=== PATIENT | female | born 1950 | race Caucasian/White ===

== ENCOUNTER 2019-08-24 03:30 | Inpatient (IN) | payer BC ==
[~2019-08-24] VITALS: Ht 170.2 cm; Wt 104.0 kg
[2019-08-24] VITALS (17 sets, daily range): BP systolic 84–130; BP diastolic 39–76
--- NOTE | 2019-08-24 03:30 | NUR ---
PT BROUGHT TO ED BY [facility] AND [employer]. PT CAME FROM [facility]. PER MEDICS, STAFF CALLED 911 BECAUSE WHEN THEY ENTERED PT RM TO CHANGE ROE CATH, PT HAD AN ALTERED LEVEL OF CONCIOUSNESS. PT IS USUALLY AOX4 WITH A GCS OF 15 AND WHEN MEDICS ARRIVED PT WAS GCS OF 3 AND THEY BEGAN ASSISTING RESPIRATIONS FOR PT. PT BROUGHT TO ED BED [address] KING AT BEDSIDE. PT CURRENT GCS 3. PT PLACED ON FULL CM, BAGGING BY KETAN RAMOS AT THIS TIME.
--- NOTE | 2019-08-24 03:37 | NUR ---
IO ACCESS ESTABLISHED TO THE R TIBIA BY DR KING, FLUSHES WITH EASE, NO S/S INFILTRATION NOTED.
--- NOTE | 2019-08-24 03:38 | NUR ---
PT SEDATED AND PARALYZED WITH 20MG ETOMIDATE AND 100MG SUCCS AT THIS TIME PER DR KING VERBAL ORDER. SEE EMAR FOR RECORD.
--- NOTE | 2019-08-24 03:39 | NUR ---
PT INTUBATED SUCCESFULLY AT THIS TIME BY DR KING, RT ACEVES AT BEDSIDE FOR ASSISTANCE.
--- NOTE | 2019-08-24 03:40 | NUR ---
SOFT RESTRAINTS APPLIED TO BILATERAL WRISTS AT THIS TIME.
--- NOTE | 2019-08-24 04:00 | NUR ---
LEVOPHED DRIP INITIATED AT RATE OF 2MCG/MIN, WILL TITRATE FOR MAP GREATER THAN 65
--- NOTE | 2019-08-24 04:05 | NUR ---
INCREASED LEVOPHED TO 5MCG/MIN.
--- NOTE | 2019-08-24 04:10 | NUR ---
LEVOPHED DRIP HELD AT 5MCG/MIN FOR MAP OF 71
--- NOTE | 2019-08-24 04:12 | NUR ---
ADDITIONAL IO ATTEMPT TO THE L TIBIA AT THIS TIME, UNABLE TO OBTAIN IO ACCESS REMOVED AT THIS TIME WELL.
--- NOTE | 2019-08-24 04:15 | NUR ---
CONTACTED THE [facility] REQUESTED TO FAX PT HISTORY, SPINNING DOFFER STATED THEY WILL BE FAXING OVER, STAT
[2019-08-24 04:26] LABS: BASOPHIL % 0.1 % (0-2)
--- NOTE | 2019-08-24 04:33 | NUR ---
10MG VECURONIUM ADMINISTERED TO PT FOR CENTRAL LINE PROCEDURE PER DR KING VERBAL ORDER.
--- NOTE | 2019-08-24 04:35 | NUR ---
L CAROTID CENTRAL LINE ESTABLISHED BY DENIA [facility] AT BEDSIDE FOR ASSISTANCE.
[2019-08-24 04:37] LABS: CALCIUM 8.2 mg/dL (8.5-10.1); CARBON DIOXIDE 29.8 mmol/L (21-32); CHLORIDE SERUM 103 mmol/L (98-107); CREATININE SERUM 2.9 mg/dL (0.6-1.0); GFR1 17 mL/min; GLUCOSE SERUM 116 mg/dL (74-106); PLATELET COUNT 201 x10^3mcL (130-400); POTASSIUM SERUM 3.8 mmol/L (3.5-5.1); SODIUM SERUM 143 mmol/L (136-145)
[2019-08-24 04:39] LABS: RED CELL DISTRIBUTION WIDTH 21.7 % (11.5-14.5)
[2019-08-24 04:40] LABS: rbc morphology (normal/abnorm) ABNORMAL (NORMAL)
[2019-08-24 04:47] LABS: ALKALINE PHOSPHATASE 144 U/L (46-116); ALT/SGPT 17 U/L (14-59); AST/SGOT 50 U/L (15-37); BILIRUBIN TOTAL 0.57 mg/dL (0.20-1.00); T3 TOTAL 0.27 ng/mL
[2019-08-24 04:48] LABS: FREE T4 0.68 ng/dL (0.76-1.46)
[2019-08-24 04:50] LABS: FREE THYROXINE INDEX 1.1 ug/dL (1.4-4.5); T4(THYROXINE) 2.7 ug/dL (4.7-13.3)
--- NOTE | 2019-08-24 04:50 | NUR ---
DR KING AT BEDSIDE AT THIS TIME, DRESSINGS REMOVED FROM BILATERAL INNER THIGHS AND LOWER ABDOMINAL AREA, PT NOTED WITH VERY LARGE UNSTAGEABLE DECUBITUS ULCERS OVER BILATERAL INNER THIGHS, LOWER ABDOMEN, OUTER THIGHS/BUTTOCKS, BILATERAL OUTER CALVES. PT ALSO NOTED TO HAVE VERY THIN SKIN WITH WEEPING OVER HER BILATERAL UPPER EXTREMITIES AND DIFFUSE BRUISING AND REDNESS NOTED OVER LARGE AREAS OF SKIN. BILATERAL BOTTOM OF FEET SKIN PEELING NOTED WELL. PT SKIN PALE, PAPER THIN, COOL, AND DRY. PT NOTED WITH BRUISING TO THE L AGUIRRE WELL AFTER UNSUCCESSFUL IO ATTEMPT BY DR KING.
[2019-08-24 04:51] LABS: CK-MB 13.3 ng/mL (0-3.6)
[2019-08-24 04:52] LABS: TOTAL PROTEIN, SERUM 4.6 g/dL (6.4-8.2)
[2019-08-24 04:57] LABS: C REACTIVE PROTEIN 36.8 mg/dL (<=0.9)
--- NOTE | 2019-08-24 05:00 | NUR ---
PER RT, FIO2 DECREASED TO 50% PER ABG RESULTS AND DR FERNANDO VASQUEZ.
--- NOTE | 2019-08-24 05:06 | NUR ---
PT TRANSPORTED TO CT WITH RT AND MYSELF WALLY VILLARREAL AT BEDSIDE. PT ON CM AND LEVOPHED DRIP.
[2019-08-24 05:13] LABS: UA SPECIFIC GRAVITY 1.015 (1.005-1.035); microscopic required? YES; urine erythrocyte 3+ (NEGATIVE)
[2019-08-24 05:27] LABS: ERYTHROCYTE SED RATE 107 mm/hr (0-30)
--- NOTE | 2019-08-24 05:30 | NUR ---
PT RETURED TO RM [address] WITHOUT INCIDENT.
--- NOTE | 2019-08-24 05:35 | NUR ---
PT RECTAL TEMP CHECKED AT THIS TIME AND GUAIAC TEST COLLECTED. PT REPOSITIONED, VITALS STABLE AT THIS TIME.
--- NOTE | 2019-08-24 05:36 | NUR ---
XRAY AT BEDSIDE TO CONFIRM PLACEMENT OF CENTRAL LINE.
--- NOTE | 2019-08-24 05:39 | NUR ---
VENTILATOR ALARM NOTED FROM RM 1, UPON ENTERING RM TO CHECK ON PT O2 SAT NOTED 4% WITH GOOD WAVEFORM. RT CALLED TO BEDSIDE AND JU RN BAGGING PT AT THIS TIME. PT SUCTIONED BY RT AT THIS TIME. FIO2 INCREASED TO 100%.
--- NOTE | 2019-08-24 05:46 | NUR ---
PEEP OF 5 APPLIED TO PT.
--- NOTE | 2019-08-24 06:09 | NUR ---
NG TUBE REMOVED AT THIS TIME PER XRAY VERIFIYING INCORRECT PLACEMENT. OG TUBE ATTEMPT WILL BE MADE AT THIS TIME.
--- NOTE | 2019-08-24 06:15 | NUR ---
OG TUBE INSERTED BY STEPHANIE VILLARREAL.
--- NOTE | 2019-08-24 06:51 | NUR ---
RT GREEN AT BEDSIDE FOR ABG DRAW.
--- NOTE | 2019-08-24 07:15 | NUR ---
PT REPORT CALLED TO SLOAN VILLARREAL IN ICU ASSUME PT CARE.
--- NOTE | 2019-08-24 07:17 | NUR ---
SHAHEEN RN AT BEDSIDE, PER SHAHEEN PHOTOGRAPHS OF WOUNDS SHOULD BE TAKEN AND PLACED IN CHART, CULTURES OF WOUNDS DO NOT NEED TO BE COLLECTED AT THIS TIME.
--- NOTE | 2019-08-24 07:22 | NUR ---
PT REPORT GIVEN TO UBALDO VILLARREAL TO ASSUME PT CARE.
--- NOTE | 2019-08-24 07:25 | NUR ---
REPORT RECEIVED FROM WALLY CRUZ RN I WILL BE RESUMING CARE OF PT AT THIS TIME
--- NOTE | 2019-08-24 07:25 | NUR ---
UPON ENTERING RM PT VENTILATED WITH OG TUBE NOTED AND LEVO DRIP INFUSNG PER EMAR AT 5 MCG/MIN, VSS DOCUMENTED, PT TOLERATING VENT
--- NOTE | 2019-08-24 07:50 | NUR ---
Y-TUBING PRIMED WITH 1L NS AT BEDSIDE
--- NOTE | 2019-08-24 07:54 | NUR ---
BLOOD TRANSFUSION CONSENT FORM SIGNED BY UBALDO COSTA RN AND LUCERO MOONEY RN AND PLACED IN PT CHART
--- NOTE | 2019-08-24 07:59 | NUR ---
LAB AT BEDSIDE
--- NOTE | 2019-08-24 08:01 | NUR ---
RT GREEN AT BED SIDE FOR VENT CARE
--- NOTE | 2019-08-24 08:05 | NUR ---
BLOOD TRANSFUSION STARTED, PT VSS DOCUMENTED, WILL CONTINUE TO MONITOR
--- NOTE | 2019-08-24 08:05 | NUR ---
1 UNIT PAKED RED BLOOD CELLS STARTED AT 150 ML/HR
--- NOTE | 2019-08-24 08:20 | NUR ---
15 MIN. S/P BLOOD TRANSUSION STARTED,...PT VSS DOCUMENTED, NO S/S BLOOD TRANSFUSION REACTION, NO CHANGE IN BASELINE PRE-BLOOD INFUSION, PT TOLERATING VENT, BP STABLE WITH LEVO DRIP REMAINING AT 5 MCG/MIN, WILL CONTINUE TO MONITOR
--- NOTE | 2019-08-24 08:29 | NUR ---
DAUGHTER LILIAM CALLED REQUESTING INFO ON PT, SHE WAS INFORMED I CANNOT RELEASE PT INFO OVER THE PHONE HOWEVER I INFOMRED HER PT IS ADMITTED TO ICU AND SHE INFOMRED ME SHE WILL BE VISITING SOON SHE CAN.
--- NOTE | 2019-08-24 08:35 | NUR ---
BLOOD INCREASED TO 250 ML/HR
--- NOTE | 2019-08-24 08:35 | NUR ---
CONTACTED SLOAN VILLARREAL FROM ICU, INFORMED HER WE ARE UNABLE TO LOCATE OUR [facility] FOR WOUND PHOTOS, SHE INFORMED ME SHE WILL TAKE THEM, SKIN ASSESSMENT ON BLUE PAPER FOR ADMITTING TO ICU COMPLETED BY WALLY CRUZ RN
--- NOTE | 2019-08-24 08:39 | NUR ---
BLOOD TRANSFUSION RECORD PLACED IN PT CHART
--- NOTE | 2019-08-24 08:41 | NUR ---
RT GREEN AT BEDSIDE FOR ADMIT TO ICU
--- NOTE | 2019-08-24 08:41 | NUR ---
PT TRANSPORTED TO ICU WITH MYSELF, UBALDO COSTA RN; NORMA RN; AND XOCHITL RBAY, EMT. PT WAS ON TRANSPORT CM, TOLERATED VENT.
--- NOTE | 2019-08-24 08:50 | NUR ---
RECEIVED THE PATIENT FROM ED INTUBATED WITH NOSEDATION ; THE PATIENT WAS TRANSFERRED TO BED AND HOOKED UP TO FULL COOK PICKLED MEAT, WHICH READS SINUS TACHYCARDIA. THE PATIENT ONLY OPENED HER EYES TO PAINFUL STIMULI THEN CLOSED HER EYES. ETT 7.[address] AND SECURED AT 21CM AT LIPLINE. ETT TO VENT VIA VCV/AC MODE: FIO2 100%, RATE 20, VT 600, AND PEEP 5. OGT IN PLACE AND SECURED TO ETT. OGT PLACEMENT WAS VERIFIED WITH SOME AIR BOLUS. RESISTANCE NOTED. OGT REMOVED AND ATTEMPTING TO REINSERT VIA ORAL/NASAL BUT UNSUCCESS. WILL RETRY LATER. NEW CVC TO LIJ. OLD CVC AND ALIVIA CATH TO RIGHT UPPER CHEST. ROE CATH TO GRAVITY WITH SCANT AMOUNT OF SARA URINE IN THE TUBE. IO NOTED AT RIGHT LEG. BLOOD TRANSFUSION THE FIRST UNIT IN PROGRESS. LEVOPHED AT 5MCG/MIN. MULTIPLE WOUNDS/ULCERS ECCHYMOSES/BRUISES. CALL LIGHT WITHIN REACH. SIDE RAILS UP X3. BED IS AT LOWEST POSITION. AIR MATTRESS SET UP.
--- NOTE | 2019-08-24 09:25 | NUR ---
ASSISTING THE WOUND CARE NURSE TO IMPLEMENT THE WOUND CARE AT BEDSIDE.
--- NOTE | 2019-08-24 09:39 | NUR ---
PER DR EVANS, CHANGED SET SETTINGS TO AC 14, 600, +5, 60%. PHIL MENENDEZ NOTIFIED OF THESE CHANGES, WILL MONITOR
[2019-08-24] MEDS ORDERED: VITAMIN-D1000 IU NG (09:47)
[2019-08-24] MEDS ORDERED: COZAAR100 MG NG (09:50)
[2019-08-24] MEDS ORDERED: ALPHA LIPOIC A300 MG NG (09:52)
[2019-08-24] MEDS ORDERED: LIPITOR40 MG NG (10:00)
[2019-08-24] MEDS ORDERED: LIPITOR40 MG PO (10:01)
[2019-08-24] MEDS ORDERED: COENZYME Q-10200 M1 NG (10:02)
[2019-08-24] MEDS ORDERED: FERROUS SULFAT325 MG NG ×2 (10:06→10:08)
[2019-08-24] MEDS ORDERED: FERROUS SULFAT325 M2 PO (10:07)
[2019-08-24] MEDS ORDERED: METOLAZONE2.5 M1 NG (10:12)
[2019-08-24] MEDS ORDERED: ZANTAC 300300 MG NG (10:13)
[2019-08-24] MEDS ORDERED: ALLOPURINOL100 MG NG (10:15)
--- NOTE | 2019-08-24 10:30 | NUR ---
BLOOD TRANSFUSION THAT WAS INITIATED IN ED COMPLETED. NO ADVERSE REACTIONS NOTED. VITALS TEMP: 97.9, BP 107/63, HR 105, RR 15, SPO2 91%.
[2019-08-24] MEDS ORDERED: FUROSEMIDE40 MG NG (10:36)
--- NOTE | 2019-08-24 10:45 | NUR ---
PATIENT ON VENT AND CONTINUES TO DESAT INTO 70'S. PATIENT REMOVED FROM VENT AND MANUALLY VENTILATED WITH SPO2 RETURNING TO 100%. RT GREEN CALLED TO UNIT. PATIENT SUCTIONED AND ORAL CARE PERFORMED. VENT SETTINGS REMAIN AT AC MODE RATE 14, VT 600, PEEP 5, FIO2 60%.
[2019-08-24] MEDS ORDERED: METOPROLOL TART25 M1 NG (10:53)
[2019-08-24] MEDS ORDERED: SOD650 NG (10:54)
[2019-08-24] MEDS ORDERED: TRAMADOL HCL50 MG NG (11:05)
--- NOTE | 2019-08-24 11:05 | NUR ---
DR BROWN AT BEDSIDE TO ASSESS PATIENT. UPDATES PROVIDED BY NURSING.
[2019-08-24] MEDS ORDERED: ATIVAN1 MG NG (11:16)
[2019-08-24] MEDS ORDERED: DULCOLAX10 M1 RC (11:18)
--- NOTE | 2019-08-24 11:30 | NUR ---
DR ARNOLD AT BEDSIDE TO ASSESS PATIENT. UPDATES PROVIDED BY NURSING. EKG ORDERED BY DR ARNOLD. NORMA RAMOS AT BEDSIDE AND OBTAINED.
--- NOTE | 2019-08-24 11:40 | NUR ---
PATIENT'S DAUGHTER LILIAM ARRIVED ON UNIT. UPDATE PROVIDED BY NURSING. DR REED ON UNIT AND WILL DISCUSS POSSIBLE DEBRIDEMENT WITH DAUGHTER.
--- NOTE | 2019-08-24 11:50 | NUR ---
DR ANGÉLICA REED AT BEDSIDE TO ASSESS PATIENT'S WOUNDS. DAUGHTER LILIAM AT BEDSIDE. DR REED EXPLAINED TO PATIENT THAT DEBRIDEMENT IS NECESSARY ON HER MULTIPLE WOUNDS. CONSENT OBTAINED FROM DAUGHTER LILIAM PIOHolland AND PLACED IN CHART.
--- NOTE | 2019-08-24 11:55 | NUR ---
PATIENT'S DAUGHTER LILIAM INFORMED NURSING THAT PATIENT HAS AN IMMATURE AV SHUNT TO LEFT UPPER ARM. NO BP OR BLOOD DRAWS FROM LEFT SIDE. SIGN PLACED AT BEDSIDE.
--- NOTE | 2019-08-24 12:03 | NUR ---
SET MAKING MACHINE OPERATOR AT BEDSIDE SPEAKING WITH PATIENT'S DAUGHTER LILIAM.
--- NOTE | 2019-08-24 12:05 | NUR ---
WOUND CARE EVALUATION NOTE: REASON FOR EVALUATION: MULTIPLE INFECTED UNSTAGEABLE WOUNDS SKIN ASSESSMENT DONE WITH PRIMARY RN THIS AM WITH THIS 68 Y/O FEMALE PT ADMITTED FROM SNF TO [facility] WITH INITIAL DX OF AMS AND HYPOTENTION. PAST MEDICAL HX INCLUDES HTN, DM, ESRD WITH HD. BLE PVD. PT. ADMITTED WITH MULTIPLE UNSTAGEABLE PRESSURE INJURIES. PT IS SEDATED, INTUBATED WITH OG TUBE. SKIN IS WARM AND DRY, BLE NO HAIR GROWTH, DORSAL PEDAL PULSES DIFFICULT TO PALPATE DUE TO +3 EDEMA, CAPILLARY REFILLED >3 SEC. X [address] TOES[address] F/C IN PLACE, CLOUDY COLOR OF SMALL AMOUNT URINE OUTPUT. INCONTINENT OF SOFT BM X1 DURING ASSESSMENT. PLAN OF CARE DISCUSSED WITH PRIMARY RN AND DR. EVANS. COMORBIDITIES RELATED TO SKIN BREAKS: INFECTION, DM, KIDNEY FAILURE WITH HD, LOW ALBUMIN LEVEL AND HOB ELEVATED THE MAJORY OF TIMES DUE TO MEDICAL REASONS. INTEGUMENTARY: -MULTIPLE ECCHYMOSIS TO FRONT CHEST AND UPPER EXTREMITIES, SKIN DRYNESS AND FRAGILE -MULTIPLE SKIN TEARS TO UPPER EXTREMITIES: 1. RIGHT FOREARM WITH LARGEST TO 2.6X1.3CM SUPERFICIAL DEPTH, WOUND BED ARE MOIST AND CLEAN, SMALL AMOUNT OF SANGENOUS DRAINAGE, NO ODOR, STAR-WOUND SKIN WITH ERYTHEMA 2. LEFT FOREARM WITH LARGEST TO 2X4 CM SUPERFICIAL DEPTH, WOUND BED ARE MOIST AND CLEAN, SMALL AMOUNT OF SANGENOUS DRAINAGE, NO ODOR, STAR-WOUND SKIN WITH ERYTHEMA. 3. LEFT FLANK 1X0.4CM SUPERFICIAL DEPTH, WOUND BED ARE MOIST AND CLEAN, SMALL AMOUNT OF SANGENOUS DRAINAGE, NO ODOR, STAR-WOUND SKIN INTACT -LEFT SHOULDER BLOOD BLISTER SKIN INTACT 1.7X1.2CM STAR-WOUND SKIN WITH ECCHYMOSIS -INTERTRIGO TO BREAST FOLDS REDNESS, SKIN INTACT AND LOWER ABDOMENAL FOLDS WITH 0.5X6 CM WITH SUPERFICIAL DEPTH, WOUND BED IS RED AND MOIST, NO ODOR - MID ABDOMINA WALL ULCERATION 5.5X10.5 CM DEPTH UTD WITH 100% ESCHAR TISSUE STAR WOUND SKIN INTACT WITH PURPLE ECCHYMOSIS ENTENDED TO RIGHT AND LEFT LATERAL ABDOMINAL WALL -INCOTINENT ASSOCIATE DERMATITIS (IAD) TO: PERINEUM EXTENDED TO PERIANAL AND BUTTOCKS SLIT, REDNESS WITH 1X1CM SKIN EROSION TO PERINEUM, WOUND BED IS RED, MOIST AND CLEAN -MULTIPLE UN-STAGEABLE PVD TO BLE FOLOW: 1. RIGHT GROINS EXTENDED TO RIGHT ANTERIOR MEDIAL THIGH ULCERATION 9X25 CM DEPTH UTD, WOUND BED ASHY BROWN IN COLOR, MOIST MILD ODOR, WITH 100% YELLOW SLOUGH AND BLACK ESCHAR TISSUE TO WOUND EDGE AROUND THE CLOCK, STAR WOUND SKIN ERYTHEMA. 2. LEFT GROINS EXTENDED TO LEFT ANTERIOR MEDIAL THIGH ULCERATION 13X18 CM DEPTH UTD, WOUND BED WITH 100% YELLOW SLOUGH AND BLACK ESCHAR TISSUE TO WOUND EDGE AROUND THE CLOCK, MODERATE AMOUNT PURULENT DRAINAGE WITH STRONG FOUL ODOR,STAR WOUND SKIN ERYTHEMA 3. RIGHT CALF ULCERATION DISTAL SITE 4X5 CM DEPTH UTD, AND PROXIMAL SITE 2X3CM WOUND BED ARE ASHY ELIAS AND BROWN IN COLOR WITH YELLOW SLOUGH TO WOUND EDGE AROUND THE CLOCK, STAR WOUND SKIN ERYTHEMA. 4. LEFT CALF ULCERATION DISTAL SITE 13X9 CM DEPTH UTD, AND PROXIMAL SITE 1.2X1 CM WOUND BED ARE 100% BROWN AND YELLOW SLOUGH TO STAR WOUND SKIN ERYTHEMA. -MULTIPLE UN-STAGEABLE PRESSURE ULCERS FOLOW: 1. PRESSURE INJURY UNSTAGEABLE TO LEFT TROCHANDAR EXTENDED TO LEFT BUTTOCK 24X17 CM 100% BROWN /BLACK THICK SLOUGH TISSUE, MODERATE AMOUNT PURULENT DRAINAGE, STRONG FOUL ODOR WITH STRA WOUND SKIN ERYTHEMA 2. PRESSURE INJURY UNSTAGEABLE TO LEFT LATERAL THIGH, 4X8.5CM WITH 100% BLACK AND BROWN SLOUGH ON WOUND BED. SURROUNDING REDNESS DIFUSSED TO LEFT LOWER BUTTOCK. 3. PRESSURE INJURY UNSTAGEABLE TO RIGHT TROCHANDAR EXTENDED TO BUTTOK 20X13 CM 100% BROWN /BLACK THICK SLOUGH TISSUE, MODERATE AMOUNT PURULENT DRAINAGE, STRONG FOUL ODOR WITH STAR WOUND SKIN ERYTHEMA -BLANCHABLE REDNESS TO SACRALCOCCYX AND BILATERAL HEELS, SKIN INTACT. RECOMMENDATIONS: -SURGEON CONSULT FOR DEBRIDEMENT TO ALL UN-STAGEABLE ULCERATIONS -INTERTRIGO TO BREASTS FOLDS AND LOAWER ABDOMENAL FOLDS CLEANSE WITH SOAP AND WATER, PAT DRY, APPLY ANTIFUNGAL CREAM BID AND GIANCARLO -MID LOAWER ABDOMENAL FOLDS CLEANSE WITH SOAP AND WATER, PAT DRY AND APPLY Z-GUARD, BID AND PRN IF SOILING QD -CLEANSE ALL IAD AREAS INCLUDES PERIANAL, PERINEUM WITH SOAP AND WATER, PAT DRY AND APPLY Z-GUARD, BID AND PRN IF SOILING -CLEANSE R/L TROCHANDAR/ BUTTOCKS PRESSURE ULCERS AND BLE PVD ULCERS WITH NS. PAT DRY, APPLY SOAKED BETADINE SOLUTION COVER WITH ABD DRESSING QD AND PRN IF SOILING. -CLEANSE ALL SKIN TEARS WITH NS. PAT DRY, APPLY VESATEL DRESSING AND CHANGE Q5 DAYS AND PRN IF SOILING -APPLY OPTIFORM TO SACRALCOCCYX AND CHANGE Q5D AND PRN IF DISLOGGED PREVENTION -APPLY HYDRAGUARD TO UPPER CHEST AND UPPER EXTREMITIES ECCHYMOSIS AREAS BID AND SAT MATH TUTOR -OFFLOAD BILATERAL HEELS BY PLACING PILLOWS UNDER CALVES UNLESS OTHERWISE CONTRAINDICATED -PRESSURE REDISTUBUTION SURFACE THERAPY -TURN AND REPOSITION Q2H, OFFLOAD SACRALCOCCYX BY TURNING RIGHT AND LEFT -MONITOR SKIN CONDITION EACH TIME PT IS REPOSITIONS -CONTINUE TO FOLLOW RD RECOMMENDATIONS ALL ABOVE RECOMMENDATIONS DISCUSSED WITH PRIMARY RN WILL FOLLOW UP PT Q7-10 DAYS. PLEASE CONTACT WOUND CARE NURSE FOR ANY QUESTION AND CHANGE OF WOUND CONDITION.
--- NOTE | 2019-08-24 12:28 | NUR ---
ELEAZAR, TIMBER POISONER AT BEDSIDE SPEAKING WITH PATIENT'S DAUGHTER LILIAM.
--- NOTE | 2019-08-24 14:14 | NUR ---
AT 12:00, THE 2ND UNIT OF PRBC WAS INITIATED. VS: TEMP 98.6, HR 104, BP 104/62, RR 14, PO2 100%. THE DAUGHTER, LILIAM AT BEDSIDE WAS INSTRUCTED TO NOTIFY THE NURSE IF SHE NOTES ANY ADVERSE REACTION. AT 12:15, RECHECKING PATIENT AFTER 15MIN OF INITIATION OF BLOOD TRANSFUSION: TEMP 98.4, HR 104, BP 90/64, RR 15, AND PO2 100%. NO ADVERSE REACTION NOTED CONTINUE TO MONITOR. AT 14:01, BLOOD TRANSFUSION COMPLETED. TEMP 98.2, HR 99, BP 122/71, RR 14 AND PO2 100%. NO ADVERSE REACTION.
--- NOTE | 2019-08-24 15:58 | NUR ---
UNABLE TO AUSCULTATE AIR BOLUS OVER GASTRIC REGION OR WITHDRAW GASTRIC CONTENT. PREVIOUS OGT REMOVED. REINSERTED NEW #18 UZBEK OGT. CONFIMRATION OF PLACEMENT VIA AIR BOLUS OVER GASTRIC REGION. ORDERED KUB FOR CONFIRMATION.
--- NOTE | 2019-08-24 16:15 | NUR ---
DR. CRUZ WAS AT BEDSIDE SEEING THE PATIENT. UPDATE PROVIDED TO THE DOCTOR.
--- NOTE | 2019-08-24 16:54 | NUR ---
NAILING MACHINE OPERATOR IS AT BEDSIDE FOR XR TO RECHECK OGT PLACEMENT.
[2019-08-24 17:24] LABS: IRON 10 ug/dL (50-170); TOTAL IRON BINDING CAPACITY 42 ug/dL (250-450)
--- NOTE | 2019-08-24 18:48 | NUR ---
PATIENT IS RESTING IN BED WITH NO DISTRESS NOTED. VENT VIA VCV/AC MODE: FIO2 60%, RATE 14, VT 600, PEEP 5. LEVOPHED AT 3MCG/MIN. THE DAUGHTER IS AT BEDSIDE WITH THE PATIENT. IO AT [facility] WAS REMOVED BY THE CHARGE NURSE.
--- NOTE | 2019-08-24 19:15 | NUR ---
RECIEVED REPORT FROM GEMMA VILLARREAL. WILL RESUME CARE.
--- NOTE | 2019-08-24 19:24 | NUR ---
REPORT GIVEN TO MARIA ISABEL GALO RN. CONCERNS ADDRESSED.
--- NOTE | 2019-08-24 19:25 | NUR ---
RECEIVED PT INTUBATED WITH NO SEDATION. OPENS EYES TO TACTILE STIMULI. UNBALE TO FOLLOW COMMANDS. PUPILS 3MM SLUGGISH. 7.5 ETT AT 21CM LL INTACT AND SECURED. OGT INTACT AND SECURED TO ETT. NO REDNEES, SWELLING, OR DRAINAGE NOTED TO ETT. TRACHEA MIDLINE. ON VENT VCV-AC MODE WITH SETTINGS OF VT 600, FIO2 60%, R 14, PEEP 5. LUNG SOUNDS DIMINISHED TO BILATERAL LOBES. BREATHING E/U. S1S2 AUSCULATATED WITH NO MURMURS NOTED. NO S/SX OF CHEST PAIN. ON LEVOPHED GTT AT 3MCG/MIN TO KEEP MAP>65. CAP REFILL < 3 SEC. PULSES WEAK TO BUE. DOPPLER TO BLE. BUE WEEPING EDEMA +2 AND BLE +3. GENERALIZED WEAKNESS. JOINTS INTACT. NO CONTRACTURES NOTED. NPO AT THIS TIME. ABDOMEN OBESE, NONTENDER. NO N/V. NO BM AT THIS TIME. ROE CATHETER IN PLACE WITH MINIMAL SARA URINE OUTPUT, HEMODIALYSIS PT. PT HAS MULTIPLE ULCERS WITH DRESSINGS CDI. SCATTERED ECCYMOSIS TO BODY. MULTIPLE SKIN TEARS, DRESSINGS CDI. BED IN LOW POSITION. CALL LIGHT WITHIN REACH. WILL CONTINUE TO MONITOR.
--- NOTE | 2019-08-24 20:22 | NUR ---
RT DARIAN AT BEDSIDE ASSESSING PT AND GIVING BREATHING TREATMENT. PT TOLERATING WELL.
[2019-08-25] VITALS (18 sets, daily range): BP systolic 87–136; BP diastolic 41–72
--- NOTE | 2019-08-25 03:10 | NUR ---
DR. EVANS CONTACTED DUE TO PT'S HR INCREASING HIGH 158 BPM WITH OCCASIONAL FLUTTER. NEW TELEPHONE ORDER FOR JESIKA-SYNEPHRINE GTT 50MG IV TO BE INITIATED WHILE TITRATING THE LEVOPHED GTT OFF. ORDER READ BACK. WILL CARRY OUT ORDER.
--- NOTE | 2019-08-25 03:15 | NUR ---
JESIKA-SYNEPRINE GTT INITIATED AT 50MCG/MIN.
--- NOTE | 2019-08-25 03:33 | NUR ---
LEVOPHED TITRATED TO 2MCG/MIN. B/P 121/55. MAP 77.
--- NOTE | 2019-08-25 03:45 | NUR ---
AMIODARONE DRIP INITIATED AT 1 MG/MIN PER DR. NATHAN VASQUEZ. PT'S HR CURRENTLY IN THE 180'S.
--- NOTE | 2019-08-25 03:47 | NUR ---
LEVOPHED GTT OFF AT THIS TIME. B/P 127/52. MAP 80.
--- NOTE | 2019-08-25 04:03 | NUR ---
TITRATED NEOSYNEPHRINE FROM 50 MCG/MIN TO 75 MCG/MIN FOR MAP OF 56.
--- NOTE | 2019-08-25 04:50 | NUR ---
ROE MARTINEZ AT BEDSIDE FOR BLOOD DRAW.
[2019-08-25 05:36] LABS: PLATELET COUNT 120 x10^3mcL (130-400); RED CELL DISTRIBUTION WIDTH 20.6 % (11.5-14.5)
[2019-08-25 05:40] LABS: BILIRUBIN TOTAL 0.65 mg/dL (0.20-1.00); CALCIUM 8.5 mg/dL (8.5-10.1); CARBON DIOXIDE 24.1 mmol/L (21-32); CREATININE SERUM 3.1 mg/dL (0.6-1.0); MAGNESIUM 1.4 mg/dL (1.8-2.4); PHOSPHOROUS 3.7 mg/dL (2.5-4.9); POTASSIUM SERUM 3.4 mmol/L (3.5-5.1); URIC ACID 4.6 mg/dL (2.6-6.0)
[2019-08-25 05:41] LABS: ALBUMIN 1.4 g/dL (3.4-5.0)
[2019-08-25 05:48] LABS: BAND NEUTROPHIL 3 % (0-10); MONOCYTE 3 % (0-7); MYELOCYTE 1 % (0-2); SEGMENTED NEUTROPHILS 83 % (37-75)
[2019-08-25 05:49] LABS: PLATELET MORPHOLOGY PLATELETS NORMAL; rbc morphology (normal/abnorm) ABNORMAL (NORMAL)
--- NOTE | 2019-08-25 06:06 | NUR ---
RADIOLOGY AT BEDSIDE FOR CXR.
--- NOTE | 2019-08-25 06:09 | NUR ---
CHEST X-RAY BEING DONE AT BEDSIDE.
--- NOTE | 2019-08-25 07:10 | NUR ---
RECEIVED REPORT FROM CLOVER VILLARREAL. ALL QUESTIONS ANSWERED AND ADDRESSED. WILL ASSUME CARE OF PT
--- NOTE | 2019-08-25 08:08 | NUR ---
TEMP OF 101.8. 650 MG TYLENOL GIVEN PER EMAR. COOLING MEASURES APPLIED. WILL CONT TO MONITOR.
--- NOTE | 2019-08-25 08:26 | NUR ---
BP = 128/60 (82). JESIKA-SYNEPHRINE TITRATED TO 25 MCG/MIN TO ACHIEVE MAP OF 65.
--- NOTE | 2019-08-25 09:35 | NUR ---
LAB CALLED WITH CRITICAL LACTID ACID 4.2 RESULT. PHIL LEE MADE AWARE. WILL CONTINUE TO MONITOR.
--- NOTE | 2019-08-25 09:40 | NUR ---
DR. EVANS PAGED FOR CRITICAL AND UPWARDS TRENDING LABS. AWAITING CALL BACK.
--- NOTE | 2019-08-25 09:45 | NUR ---
AMIODARONE GTT TITRATED TO 0.5 MG/MIN PER PROTOCOL. HR = 89.
--- NOTE | 2019-08-25 09:50 | NUR ---
DR. BROWN AT BEDSIDE ASSESSING PT. NURSING UPDATES PROVIDED. HE STATED THAT POSSIBLY TOMORROW THE PT WILL BE ABLE TO RECEIVE DIALYSIS. AWAITING FOR ORDERS AT THIS TIME.
--- NOTE | 2019-08-25 09:50 | NUR ---
DR. EVANS CALLED BACK AND UPDATES GIVEN ON PT. NO NEW ORDERS AT THIS TIME.
--- NOTE | 2019-08-25 10:09 | NUR ---
LAB CALLED BACK AND PT IS POSITIVE FOR MRSA IN NARES. DR. BROWN NOTIFIED AND MRSA ORDER SET ORDERED.
--- NOTE | 2019-08-25 10:40 | NUR ---
RT AT BEDSIDE FOR EKG.
--- NOTE | 2019-08-25 10:45 | NUR ---
AFTER EKG WAS COMPLETED, RESPIRATORY THERAPIST TOOK OFF TWO OF THE LEADS AND DISCOVERED THAT THE LEADS TOOK OFF THE PT'S SKIN. TWO NEW SKIN TEARS HAVE BEEN IDENTIFIED. SEE CHART FOR PICTURES AND MORE DETAILS.
--- NOTE | 2019-08-25 11:00 | NUR ---
DR. ARNOLD AT BEDSIDE ASSESSING PT. NURSING UPDATES GIVEN. CHRISTINE TO BE SCHEDULED TOMORROW BY DR. ARNOLD AND WILL LET US KNOW A TIME WHEN PROCEDURE WILL BE DONE. DR. ARNOLD SPOKE TO DR. SCHULER AND DR. REED ABOUT PT'S CRITICAL CONDITION AND HOW HE DID NOT THINK THE PT IS A GOOD CANDIDATE FOR SURGERY DUE TO PT BEING HIGH RISK. DR. SCHULER STATED FOR PT TO HAVE HD BEFORE SURGERY. DR. REED WANTS TO CONTINUE WITH SURGERY. AWAITING NEW ORDERS AT THIS TIME.
--- NOTE | 2019-08-25 11:10 | NUR ---
LINH HD NURSE AT BEDSIDE PREPARING FOR HD. ORDERS AND LABS GIVEN.
--- NOTE | 2019-08-25 12:03 | NUR ---
NIBP 97/46, MAP 60. JESIKA-SYNEPHRINE DRIP TITRATED UP TO 50 MCG/MIN. WILL CONTINUE TO MONITOR.
[2019-08-25 14:18] LABS: PLATELET COUNT 89 x10^3mcL (130-400)
--- NOTE | 2019-08-25 14:33 | NUR ---
HD COMPLETED AT THIS TIME. 2L OUT. VSS. NO COMPLICATIONS. WILL CONT TO MONITOR.
[2019-08-25 14:35] LABS: CALCIUM 8.4 mg/dL (8.5-10.1); CARBON DIOXIDE 29.4 mmol/L (21-32); CREATININE SERUM 1.9 mg/dL (0.6-1.0)
[2019-08-25 14:48] LABS: POTASSIUM SERUM 2.7 mmol/L (3.5-5.1)
--- NOTE | 2019-08-25 14:52 | NUR ---
Initial Nutrition Assessment: IC04/A KATELYN GARG IA HR Dx: Acute respiratory failure PMHx: ESRD on HD (M-W-F), HTN, DM, morbid obesity, peripheral vascular disease, hypoalbuminemia, necrotic left groin wound PSHx: Multiple debridement surgeries Labs: (08/25) K 3.4L, BG 245H, BUN 30H, CREAT 3.1H, ALB 1.4L, MG 1.4L, WBC 31.7H Meds: D 50%, Humulin, levophed, reglan, Zofran, zosyn Diet: TF (OGT) Nepro @ 30 ml/hr, goal 45 ml/hr, advance Q12H, FWF 30 ml Q6H PO intake since admission: NPO Ht: 170.18 cm (67") Wt: 106 kg (233#) BMI: 36.6 kg/m2 Bed scale: 106 kg IBW: 135# (61 kg) %IBW: 172 UBW: unable to access Age: 68/F Food Allergies: NKFA Skin: multiple ulcers and skin tears James: 10 Edema: +2 BUE, +3 BLE GI: Last BM: Per H&P, Pt is a 68YO F, nonsmoker, presenting with respiratory distress, failure. RD Note (08/25): Patient was on ventilator and was being assessed by a physician for a procedure. Per full charge bookkeeperPHIL Hickman, pt's tube feedings were held at that time. Patient has multiple pressure ulcers and wounds. Spoke with Dr. Slaughter regarding vitamin C and zinc to assist in wound healing. Problem with: N/V/D/C: unable to access Problems with: Chewing: Swallowing: yes, on TF Current appetite: unable to access Recent wt change: unable to access %wt change: N/A Vitamin/Supplement use: unable to access Special diet at home: unable to access Physical activity: unable to access Nutrition education given: not possible at this time Food-drug interactions: none Education given: n/a Estimated Nutritional Needs Based on body weight (72 kg) Energy: 6070-2762 vs 1925 kcal/day (30-35 vs ALMAZAN 2010 kcal/kg for HD) Protein: 86- 101 g/day (1.2-1.4 g/kg for HD) Fluid: 5929-9374 mL/day (1 mL/kcal) or per MD Nutrition Diagnosis: 1. Increased nutrient needs related to wounds, HD as evidenced by estimated calorie and protein needs. Intervention 1. Recommend continuing Nepro @ @ 30 ml/hr, goal 45 ml/hr, advance Q12H, FWF 30 ml Q6H. This will provide 1940 kcal and 87g protein. 2. Recommend Vitamin c and Zinc for wound healing. Discussed recommendations with Dr. Slaughter. Monitor/Evaluate Goal: PO intake at least 75% of estimated needs Monitor: PO intake, Labs, GI function F/U in 2-3 days as high risk 08/27-
--- NOTE | 2019-08-25 15:02 | NUR ---
NIBP = 113/58 (83). NEOSYNEPHRINE TITRATED TO 25 MCG/MIN TO ACHIEVE MAP OF 65.
--- NOTE | 2019-08-25 15:12 | NUR ---
MICROBIOLOGY CALLED WITH RESULTS MRSA IN THE BLOOD CULTRES. DR. CRUZ AT BEDSIDE AND PHIL LEE MADE AWARE. WILL CONTINUE TO MONITOR.
[2019-08-25 15:38] LABS: BAND NEUTROPHIL 1 % (0-10); METAMYELOCTE 1 % (0-2); MONOCYTE 4 % (0-7); SEGMENTED NEUTROPHILS 87 % (37-75)
[2019-08-25 15:40] LABS: rbc morphology (normal/abnorm) ABNORMAL (NORMAL)
--- NOTE | 2019-08-25 16:10 | NUR ---
K-RIDER INITIATED AT THIS TIME DUE TO PT'S K OF 2.7
--- NOTE | 2019-08-25 16:53 | NUR ---
REPORT GIVEN TO LUISA VILLARREAL. ALL QUESTIONS ANSWERED AND ADDRESSED. WILL ENDORSE CARE.
--- NOTE | 2019-08-25 18:00 | NUR ---
NEOSYNEPHRINE TITRATED DOWN TO 25 MG/HR FROM 50 MCG/MIN FOR MAP 85. WILL CONTINUE TO MONITOR.
--- NOTE | 2019-08-25 18:27 | NUR ---
PT GOING TO OR AT THIS TIME FOR DEBRIDEMENT OF WOUNDS BY DR. REED.
--- NOTE | 2019-08-25 19:15 | NUR ---
RECEIVED REPORT FROM PHIL URIBE. NURSING UPDATES. POC DISCSUSSED. PT CURRENTLY IN OR. AWAITING RETURN.
--- NOTE | 2019-08-25 19:50 | NUR ---
NOTIFED OF SURGERY FINISHING.
--- NOTE | 2019-08-25 20:00 | NUR ---
NOTIFIED PER SHELBY OF I&D FOR 8 WOUNDS. UPDATES GIVEN W/ EACH WOUND 4X4 FLEXIN TAPE COVERED. NO ANTIBIOTICS GIVEN. AWAITING PT ARRIVAL.
--- NOTE | 2019-08-25 20:10 | NUR ---
RECIEVED PT FROM OR. SEE ASSESSMENT. HR 78. BP 136/51(94).SP02 100%. T 99.0. RR 14.
--- NOTE | 2019-08-25 21:58 | NUR ---
TITRATED JESIKA FORM 20MCG/MIN TO 15MCG/MIN PER BP WNL FOR LAST HOUR. WILL CONT TO MONITOR.
--- NOTE | 2019-08-25 22:28 | NUR ---
NOTIFIED PER RT KETAN TITRATED O2 SATURATION FROM VENT FROM 50% TO 40%. PT TOLERATED WELL. O2 SAT 96%.
--- NOTE | 2019-08-25 23:33 | NUR ---
TITRATED JESIKA FORM 15MCG/MIN TO 10MCG/MIN PER BP WNL FOR LAST HOUR. WILL CONT TO MONITOR.
[2019-08-26] VITALS (19 sets, daily range): BP systolic 93–123; BP diastolic 39–59
--- NOTE | 2019-08-26 00:25 | NUR ---
TITRATED JESIKA FROM 10MCG/MIN TO 15MCG/MIN PER LOW BP FOR LAST HOUR. WILL CONT TO MONITOR.
--- NOTE | 2019-08-26 01:00 | NUR ---
PT W/ LIQUID DARK BLOODY STOOL. SLIGHT TINTS OF BRIGHT RED BLOOD UPON WIPING OTHERWISE APPEARS DARK. ESTIMATED 200ML. NO S/S OF HYPOTENSION AND PT ABLE TO USE BEDSIDE COMMODE.
--- NOTE | 2019-08-26 01:28 | NUR ---
ATTEMPTED TO REMOVE R SUBCLAVIAN CATH BUT WAS UNABLE TO W/ RESISTANCE. RESISTANCE FELT UPON ATTEMPTED REMOVAL. STOPPED ATTEMPTED REMOVAL AND REDRESSED. WILL ENDORSE.
--- NOTE | 2019-08-26 04:00 | NUR ---
ATTEMPTED TO PULL OUT R SUBCLAVIAN LINE PER ORDER. LINE UNABLE TO BE PULLED OUT AT CAUGHT OR DIFFICULT TO PULL AND POSSIBLY IN CONTACT W/ OTHER LINE. CHARGE NOTIFIED AND ATTEMPTED W/ NO AVAIL. WILL ENDORSE.
[2019-08-26 05:13] LABS: BASOPHIL % 0 % (0-2); PLATELET COUNT 60 x10^3mcL (130-400); RED CELL DISTRIBUTION WIDTH 20.2 % (11.5-14.5)
--- NOTE | 2019-08-26 05:41 | NUR ---
BED BATH GIVEN, LINENS CHANGED. UNABLE TO DO ORAL CARE PT REFUSED BY NOT OPENING MOUTH. TITRATED JESIKA FROM 10 MCG MIN TO 5MCG/MIN PER PT BP WNL FOR 2 HOURS.
--- NOTE | 2019-08-26 06:55 | NUR ---
NOTIFIED PER LAB TROPONIN 2.915 AND LACTIC ACID 2.8.
--- NOTE | 2019-08-26 07:45 | NUR ---
400 ML RESIDUAL ASPIRATED FROM OGT, REPLACED. TUBE FEEDING PAUSED AT THIS TIME. WILL CHECK RESIDUAL AGAIN IN 1 HR.
--- NOTE | 2019-08-26 07:47 | NUR ---
ARTERIAL BP 130/50, MAP 77, JESIKA-SYNEPHRINE DRIP TITRATED OFF AT THIS TIME. PHIL MORAN MADE AWARE. WILL CONTINUE TO MONITOR.
[2019-08-26 07:48] LABS: CALCIUM 8.7 mg/dL (8.5-10.1); CARBON DIOXIDE 25.1 mmol/L (21-32); CREATININE SERUM 2.4 mg/dL (0.6-1.0)
[2019-08-26 07:55] LABS: POTASSIUM SERUM 2.9 mmol/L (3.5-5.1)
--- NOTE | 2019-08-26 07:56 | NUR ---
LAB CALLED WITH CRITICAL K+ RESULT OF 2.9. PHIL MORAN MADE AWARE. WILL CONTINUE TO MONITOR.
--- NOTE | 2019-08-26 08:30 | NUR ---
LAB CALLED WITH CRITICAL LACTIC ACID RESULT OF 3.0. PHIL MORAN MADE AWARE. WILL CONTINUE TO MONITOR.
--- NOTE | 2019-08-26 09:53 | NUR ---
DR. REED, SURGEON THAT DID PT'S WOUND DEBRIDEMENT YESTERDAY, GAVE NURSING THE OK TO DO THE FIRST POSTOP DRESSING CHANGE. HE STATED THAT THE WOUND DRESSINGS SHOULD BE CHANGED ONCE PER DAY BY NURSING. WILL CARRY OUT TELEPHONE ORDER.
--- NOTE | 2019-08-26 10:56 | NUR ---
75 ML GASTRIC CONTENTS ASPIRATED FROM OGT, REPLACED. TUBE FEEDING NOT RESTARTED DUE TO PENDING CHRISTINE PROCEDURE THIS AM.
--- NOTE | 2019-08-26 11:11 | NUR ---
CHRISTINE RESCHEDULED TO TOMORROW, 08/27/19 @ 1400.
--- NOTE | 2019-08-26 11:15 | NUR ---
TUBE FEEDING RESUMED AT THIS TIME @ 30 ML/HR WITH 30 ML FWF Q6H.
--- NOTE | 2019-08-26 11:49 | NUR ---
DR. ARNOLD AT BEDSIDE TO ASSESS PT. REQUESTED HOLDING TUBE FEEDING 6 HOURS PRIOR TO CHRISTINE PROCEDURE.
--- NOTE | 2019-08-26 12:50 | NUR ---
*DRESSING CHANGE DIRECTIONS* DR. REED AT BEDSIDE TO SEE PT. REQUESTED PACKING WOUNDS WITH 4X4 GAUZE, COVERING WITH ABD PADS, AND GENTLY SECURE ABD PADS WITH PAPER TAPE ON UPPER LEGS/ABDOMEN WOUNDS. FOR LEG WOUNDS, KERLIX SHOULD BE USED TO SECURE DRESSING TO LEGS.
--- NOTE | 2019-08-26 13:02 | NUR ---
NEOSYNEPHRINE GTT RESTARTED AT THIS TIME @ 25 MCG/MIN FOR ARTERIAL LINE MAPS IN 50'S. WILL CONTINUE TO MONITOR PT.
--- NOTE | 2019-08-26 14:00 | NUR ---
ARTERIAL BP 130/63, MAP 84. JESIKA-SYNEPHRINE DRIP TITRATED DOWN TO 10 MCG/MIN. WILL CONTINUE TO MONITOR.
--- NOTE | 2019-08-26 15:40 | NUR ---
275 ML RESIDUAL ASPIRATED FROM OGT. TUBE FEEDING PAUSED FOR 30 MIN. WILL REASSESS RESIDUAL.
--- NOTE | 2019-08-26 15:40 | NUR ---
HR 170'S-180'S NOTED ON MONITOR, RESOLVED WITHOUT INTERVENTION. WILL CONTINUE TO MONITOR.
--- NOTE | 2019-08-26 15:50 | NUR ---
FENTANYL GTT INCREASED TO 2 MCG/KG/MIN FROM 1 MCG/KG/MIN FOR GRIMACING. WILL CONTINUE TO MONITOR.
--- NOTE | 2019-08-26 19:05 | NUR ---
RECEIVED REPORT FROM LUISA VILLARREAL AND RONY VILLARREAL. ASSUMING ALL CARE
--- NOTE | 2019-08-26 19:45 | NUR ---
AXILLARY TEMP 99.8, COOLING MEASURES IN PLACE. WILL CONT TO MONITOR
--- NOTE | 2019-08-26 19:45 | NUR ---
RECEIVED PT LAYING IN BED. PT IS INTUBATED AND SEDATED ON FENTANYL @ 1 MCG/KG/HR. RSS=5. PT RESPONDS TO PAINFUL STIMULI, DOES NOT TRACK. GAG REFLEX PRESENT. PUPILS WITH SLUGGISH RESPONSE TO LIGHT, 3 MM BILAT. 7.5 ETT INTACT/SECURED, 21 CM @ LL. LIJ CVC, TLC INTACT/SECURED, ALL PORTS PATENT. RIGHT SUBCLAVIAN CVC INTACT, NOT FUNCTIONING. RIGHT SUBCLAVIAN ALIVIA CATH INTACT/SECURED, DRESSING CDI. OGT INTACT/SECURED. BREATHING IS E/U ON VENT. VENT SETTINGS: VCV/AC MODE, RATE 16, VT 550, FIO2 30%, PEEP 5. LUNGS SOUND CLEAR TO BUL AND DIMIN TO BLL. SYMMETRICAL CHEST EXPANSION NOTED. S1/S2 HEART SOUNDS AUSCULTATED. CHEST WALL EQUAL AND SYMMETRICAL. NEOSYNEPHRINE GTT INFUSING @ 10 MCG/MIN. RIGHT RADIAL ART LINE IN PLACE WITH DRESSING CDI. PALPABLE PULSES X4 EXTREMITIES. +3 PITTING EDEMA NOTED TO BUE/BLE. D5NS INFUSING @ 20 ML/HR. PT IS ON NEPRO @ 30 ML WITH 30CC FWF Q6H. NSV=905. TUBE FEEDING TURNED OFF AT THIS TIME. F/C IS INTACT/SECURED, DRAINING VIA GRAVITY WITH SARA COLORED URINE, POOR URINE OUTPUT. MULTIPLE WOUNDS NOTED THROUGHOUT WITH DRESSINGS IN PLACE. SEE CHART FOR DETAIL. SCATTERED ECCHYMOSIS NOTED TO CHEST, BUE, BLE. PT ON ISOGEL MATTRESS IN PLACE. PT ON TURN SCHED Q2H AND PRN FOR COMFORT. BED IN LOW POSITION. CALL LIGHT IN REACH. WILL CONT TO MONITOR
--- NOTE | 2019-08-26 21:11 | NUR ---
SPOKE TO DR. MAGAÑA VIA TELEPHONE. UPDATED ON PT'S STATUS AND MOST RECENT LAB RESULTS. PER DR. MAGAÑA, ORDER BMP FOR TOMORROW. WILL CARRY OUT ORDER
--- NOTE | 2019-08-26 22:20 | NUR ---
DR. WONG AT BEDSIDE. UPDATED ON PT'S CURRENT STATUS. NO NEW ORDERS GIVEN AT THIS TIME
--- NOTE | 2019-08-26 23:13 | NUR ---
CVW=[id number]. TUBE FEEDING REMAINS OFF
[2019-08-27] VITALS (17 sets, daily range): BP systolic 81–148; BP diastolic 37–69
--- NOTE | 2019-08-27 04:30 | NUR ---
PT HAD A LIQUID BROWN BM. PERICARE, ROE, AND ORAL CARE PROVIDED. GOWN AND LINENS CHANGED. WOUND CARE PROVIDED PER ORDER. HEELS OFFLOADED. BED IN LOW POSITION. CALL LIGHT IN REACH. WILL CONT TO MONITOR
--- NOTE | 2019-08-27 04:32 | NUR ---
ARTERIAL BP 132/67 MAP 84. NEOSYNEPRHINE GTT TURNED OFF AT THIS TIME
--- NOTE | 2019-08-27 05:15 | NUR ---
VAT PACKER AT BEDSIDE FOR AM LAB DRAW
--- NOTE | 2019-08-27 05:33 | NUR ---
ARTERIAL MAP 58. NEOSYNEPRHINE RESUMED @ 10 MCG/MIN
[2019-08-27 05:51] LABS: BILIRUBIN TOTAL 0.9 mg/dL (0.20-1.00); CALCIUM 8.8 mg/dL (8.5-10.1); CARBON DIOXIDE 23.2 mmol/L (21-32); MAGNESIUM 1.3 mg/dL (1.8-2.4); POTASSIUM SERUM 4.9 mmol/L (3.5-5.1)
[2019-08-27 05:53] LABS: ALBUMIN 1.7 g/dL (3.4-5.0); CHOLESTEROL/HDL RATIO 10.6; TOTAL PROTEIN, SERUM 5.1 g/dL (6.4-8.2)
[2019-08-27 06:01] LABS: BASOPHIL % 0 % (0-2); PLATELET COUNT 64 x10^3mcL (130-400); RED CELL DISTRIBUTION WIDTH 20.7 % (11.5-14.5)
--- NOTE | 2019-08-27 06:04 | NUR ---
X-RAY TECH AT BEDSIDE
--- NOTE | 2019-08-27 07:00 | NUR ---
ARTERIAL BP 117/60 MAP 79. NEOSYNEPRHINE GTT TURNED OFF AT THIS TIME
--- NOTE | 2019-08-27 07:06 | NUR ---
REPORT GIVEN TO LUISA VILLARREAL FOR CONTINUITY OF CARE. ALL QUESTIONS/CONCERNS ADDRESSED. ENDORSING ALL CARE
--- NOTE | 2019-08-27 09:07 | NUR ---
DR. BARTHOLOMEW AT BEDSIDE TO ASSESS PT. UPDATES PROVIDED, QUESTIONS ANSWERED. DR. BARTHOLOMEW SUGGESTED TRYING CPAP TODAY, WILL NOTIFY RT. NO FURTHER CHANGES AT THIS TIME TO POC.
--- NOTE | 2019-08-27 09:31 | NUR ---
MARIA INES HELD AT THIS TIME D/T PENDING CHRISTINE PROCEDURE AT [address] ARNOLD.
--- NOTE | 2019-08-27 09:33 | NUR ---
PT PLACED ON CPAP AT THIS TIME BY RT. WILL CONTINUE TO MONITOR FOR S/S ACUTE DISTRESS.
--- NOTE | 2019-08-27 09:33 | NUR ---
PER REQUEST TO DO A CPAP TRIAL. PLACED PATIENT ON CPAP 10/5 FIO2 30%. PATIENT TOLERATING WELL. WILL CONTINUE TO MONITOR. HEART RATE 94 SPO2 100.
--- NOTE | 2019-08-27 10:26 | NUR ---
TUBE FEEDING TURNED OFF AT 1944 ON 08/26 BY NOC SHIFT D/T HIGH RESIDUAL. TF HAS REMAINED OFF SINCE THAT TIME. AWAITING CHRISTINE PROCEDURE.
--- NOTE | 2019-08-27 11:02 | NUR ---
DR. CRUZ AT BEDSIDE. HE SUGGESTED DOING AN EGD TOMORROW TO PLACE A FEEDING TUBE FURTHER INTO THE SMALL BOWEL, SINCE THE PT HAS BEEN HAVING HIGH RESIDUALS WITH FEEDING GOING INTO THE STOMACH. CONSENT TO BE OBTAINED FROM DAUGHTER.
--- NOTE | 2019-08-27 11:10 | NUR ---
DR. CRUZ AT BEDSIDE TO ASSESS PT. UPDATES PROVIDED, QUESTIONS ANSWERED. DR. CRUZ SUGGESTED STARTING PT ON TPN AND STOPPING MAINTENANCE IV FLUID WHEN TPN IS INITIATED. DR. CRUZ ALSO SUGGESTED CHANGING THE TUBE FEEDING TO 100CC BOLUS FEED Q4H WITH 30 ML FWF Q6H, AFTER SCHEDULED CHRISTINE PROCEDURE, IN ADDITION TO THE TPN. ADDITIONAL ORDERS ENTERED REMINDER FOR FUTURE RN'S.
--- NOTE | 2019-08-27 11:18 | NUR ---
100 ML GASTRIC CONTENT ASPIRATED FROM OGT, REPLACED.
--- NOTE | 2019-08-27 11:36 | NUR ---
NEOSYNEPHRINE GTT INITIATED @ 10 MCG/MIN 1130 DUE TO CONSISTENT ARTERIAL BP & NONINVASIVE BP READINGS OF 80'S mmHg SYSTOLIC AND MAP'S IN 50'S mmHg. WILL CONTINUE TO MONITOR AND ASSESS PT'S BP.
--- NOTE | 2019-08-27 12:01 | NUR ---
DR. BROWN AT BEDSIDE, UPDATES PROVIDED, QUESTIONS ADDRESSED. HE WOULD LIKE THE PT TO BE DIALYZED TODAY AFTER CHRISTINE PROCEDURE.
--- NOTE | 2019-08-27 12:20 | NUR ---
NEOSYNEPHRINE GTT PAUSED AT THIS TIME. NIBP 130'S SYSTOLIC BP & MAP 80'S, IBP SYSTOLIC 140'S & MAP'S 80'S. WILL CONTINUE TO REASSESS BLOOD PRESSURE READINGS.
--- NOTE | 2019-08-27 12:22 | NUR ---
RECIEVED ORDERS FOR HD TODAY FROM DR. BROWN. SPOKE WITH HD NURSE JOSE AND INFORMED HIM PT TO RECIEVE HD TODAY POST CHRISTINE. WILL NOTIFY HD NURSE ONCE CHRISTINE IS COMPLETED. PRIMARY RN MADE AWARE.
--- NOTE | 2019-08-27 12:46 | NUR ---
POC GLUCOSE 214. INSULIN HELD AT THIS TIME D/T TUBE FEEDING ON HOLD.
--- NOTE | 2019-08-27 14:07 | NUR ---
PLACED PATIENT BACK ONTO AC/VC SETTINGS FOR CHRISTINE.
--- NOTE | 2019-08-27 14:07 | NUR ---
PT TAKEN OFF CPAP AND PUT BACK ON A/C MODE AT THIS TIME FOR CHRISTINE PROCEDURE. SETTINGS OF VT 550, RATE 14, PEEP 5, FIO2 30% RESUMED. WILL CONTINUE TO MONITOR.
--- NOTE | 2019-08-27 14:30 | NUR ---
DR. ARNOLD, [facility], RT DARIAN, PHIL MORAN AT BEDSIDE FOR CHRISTINE. TIMEOUT COMPLETED AT THIS TIME. WILL CONTINUE TO MONITOR PT.
--- NOTE | 2019-08-27 14:44 | NUR ---
PT TOLERATING PROCEDURE WELL AT THIS TIME. NO S/S ACUTE DISTRESS NOTED.
--- NOTE | 2019-08-27 14:57 | NUR ---
CHRISTINE COMPLETED. PT TOLERATED PROCEDURE WELL. NO S/S DISTRESS. WILL CONTINUE TO MONITOR.
--- NOTE | 2019-08-27 14:58 | NUR ---
TRANSESOPHAGEAL ECHO DONE
--- NOTE | 2019-08-27 15:31 | NUR ---
DR. ARNOLD REQUESTED TURNING THE FENTANYL GTT DOWN TO 0.5 MCG/KG/HR, SO IT IS NOW AT 0.5 MCG/KG/HR.
--- NOTE | 2019-08-27 16:45 | NUR ---
EGD CONSENT SIGNED BY DAUGHTER OF PT.
--- NOTE | 2019-08-27 18:00 | NUR ---
2 SEQUENTIAL BROWN LIQUID STOOL BM'S AT THIS TIME. STAR CARE PROVIDED, SOILED DRESSINGS CHANGED, ROE CARE PROVIDED, PT REPOSITIONED. WILL CONTINUE TO MONITOR. STOOL ~200 CC.
--- NOTE | 2019-08-27 18:38 | NUR ---
DIALYSIS NURSE AT BEDSIDE, MAP NOTED 68. NEOSYN DRIP INITIATED AT 10 MCG/MIN. PRIMARY RN MADE AWARE. WILL CONT TO DEREK.
--- NOTE | 2019-08-27 18:47 | NUR ---
ART LINE MAP READING 68 WITH SBP 90, PER DIALYSIS NURSE TO PLEASE INCREASE NEOSYN DRIP. NEOSYN TITRATED TO 25 MCG/MIN. PRIMARY RN MADE AWARE. WILL CONT TO MONITOR.
--- NOTE | 2019-08-27 19:10 | NUR ---
BP CUFF CYCLED Q5MIN FOR HEMODIALYSIS, ART LINE STOPPED READING AT THIS TIME ON THE MONITOR. RN FOUND ART LINE OUT OF PT'S SKIN WITH ~20 ML BLOOD ON ABD PAD DRESSING AROUND FOREARM. ART LINE REMOVED FROM PT WITH CATHETER TIP INTACT. PRESSURE APPLIED UNTIL BLEEDING CEASED. PRESSURE DRESSING APPLIED, ENDORSED TO NOC SHIFT RN.
--- NOTE | 2019-08-27 19:20 | NUR ---
RECEIVED REPORT FROM LUISA VILLARREAL. ASSUMING ALL CARE
--- NOTE | 2019-08-27 19:28 | NUR ---
NEOSYNEPHRINE INCREASED TO 150 MCG/MIN FROM 25 MCG/MIN FOLLOWING ART LINE DISLODGEMENT AND SYSTOLIC NIBP READING 64 PRIOR TO ART LINE DISLODGEMENT.
--- NOTE | 2019-08-27 19:30 | NUR ---
RECEIVED PT LA
--- NOTE | 2019-08-27 19:44 | NUR ---
SPOKE TO DR. MARQUEZ VIA TELEPHONE. UPDATED ON PT'S CURRENT STATUS. MADE AWARE ARTERIAL LINE WAS FOUND DISLODGED. PT ON NEOSYNEPHRINE GTT @ 75 MCG/MIN. NIBP 148/69 MAP 95. NO NEW ORDERS RECEIVED FROM DR. MARQUEZ AT THIS TIME.
--- NOTE | 2019-08-27 20:20 | NUR ---
RT AT BEDSIDE FOR BREATHING TREATMENT
--- NOTE | 2019-08-27 20:30 | NUR ---
NEPRO TF 100 ML BOLUS ADMINISTERED AT THIS TIME PER ORDER
--- NOTE | 2019-08-27 20:58 | NUR ---
TPN INITIATED AT THIS TIME @ 40 ML/HR PER EMAR ORDER, D5NS TURNED OFF AT THIS TIME
--- NOTE | 2019-08-27 21:30 | NUR ---
[id number] MAP 90. NEOSYNEPHRINE GTT TITRATED TO 50 MCG/MIN
--- NOTE | 2019-08-27 21:35 | NUR ---
HD COMPLETED AT THIS TIME. 2.6 LITERS REMOVED.
--- NOTE | 2019-08-27 21:45 | NUR ---
NIBP 139/60 MAP 86. NEOSYNEPRHINE GTT TITRATED TO 25 MCG/MIN
--- NOTE | 2019-08-27 22:30 | NUR ---
NIBP 137/53 MAP 77. NEOSYNEPRHINE GTT TURNED OFF AT THIS TIME
--- NOTE | 2019-08-27 22:47 | NUR ---
DR. WONG AT BEDSIDE. UPDATED ON PT'S CURRENT STATUS. NO NEW ORDERS RECEIVED
[2019-08-28] VITALS (16 sets, daily range): BP systolic 89–130; BP diastolic 48–72
--- NOTE | 2019-08-28 02:30 | NUR ---
PT HAD A MOD SIZE SEMI-LIQUID GREEISH/BROWN COLORED BM, PERICARE PROVIDED
--- NOTE | 2019-08-28 04:30 | NUR ---
FULL BED BATH PROVIDED. GOWN AND LINENS CHANGED. WOUND CARE PROVIDED PER ORDER. PICTURES TAKEN AND PLACED IN THE CHART. HEELS OFFLOADED. PT POSITIONED FOR COMFORT. BED IN LOW POSITION. WILL CONT TO MONITOR.
--- NOTE | 2019-08-28 05:00 | NUR ---
QUOTATION CHECKER AT BEDSIDE FOR AM LAB DRAW
[2019-08-28 05:40] LABS: PLATELET COUNT 47 x10^3mcL (130-400); RED CELL DISTRIBUTION WIDTH 20.5 % (11.5-14.5)
[2019-08-28 05:48] LABS: BILIRUBIN TOTAL 0.56 mg/dL (0.20-1.00); CALCIUM 8.5 mg/dL (8.5-10.1); CARBON DIOXIDE 24.9 mmol/L (21-32); CREATININE SERUM 2.3 mg/dL (0.6-1.0); MAGNESIUM 2.1 mg/dL (1.8-2.4); PHOSPHOROUS 1.6 mg/dL (2.5-4.9); POTASSIUM SERUM 3.6 mmol/L (3.5-5.1)
[2019-08-28 05:49] LABS: ALBUMIN 1.2 g/dL (3.4-5.0); TOTAL PROTEIN, SERUM 4.3 g/dL (6.4-8.2)
[2019-08-28 06:18] LABS: BASOPHIL 0 % (0-2); MONOCYTE 3 % (0-7); SEGMENTED NEUTROPHILS 89 % (37-75)
[2019-08-28 06:19] LABS: rbc morphology (normal/abnorm) ABNORMAL (NORMAL)
[2019-08-28 06:21] LABS: PLATELET MORPHOLOGY PLATELETS DECREASED
--- NOTE | 2019-08-28 07:10 | NUR ---
REPORT GIVEN TO JAN VILLARREAL FOR CONTINUITY OF CARE. ALL QUESTIONS/CONCERNS ADDRESSED. ENDORSING ALL CARE
--- NOTE | 2019-08-28 07:25 | NUR ---
PATIENT REMAINS INTUBATED AND ON FENTANYL AT 0.5MCG/KG/HR. PATIENT RESPONSIVE TO TACTILE STIMULI BUT UNABLE TO FOLLOW ANY COMMANDS. MILD GAG REFLEX UPON SUCTIONING. SY PUPILS WITH SLUGGISH REACTION TO LIGHT. ETT 7.[address] AT 21CM AT LIPLINE. ETT TO VENT VIA VCV/AC MODE: FIO2 30%, RATE 14, VT 550, PEEP 5. OGT IN PLACE AND SECURED TO ETT. OGT VERIFIED WITH SOME AIR BOLUS. NO RESIDUAL AT THIS TIME. OGT CLAMPED FOR EGD THIS MORNING. CVC TO LIJ WITH DRESSING IN PLACE. TPN AT 40ML/HR. OLD CVC TO RIGHT UPPER CHEST WITH DRESSING INTACT. ALIVIA CATH TO RIGHT UPPER CHEST WITH DRESSING IN PLACE. ROE CATH TO GRAVITY DRAINING SCANT AMOUNT OF YELLOW URINE. WOUNDS WITH NEW DRESSING APPLIED BY NOCS THIS MORNING. ISOGEL MATTRESS IN USE. EXTREMITIES ELEVATED ON PILLOWS. CALL LIGHT WITHIN REACH. SIDE RAILS UP X3. HEAD OF BED ELEVATED. BED IS AT LOWEST POSITION. CONTACT ISOLATION MAINTAINED.
--- NOTE | 2019-08-28 08:55 | NUR ---
DR. BARTHOLOMEW IS AT BEDSIDE EXAMING THE PATIENT.
--- NOTE | 2019-08-28 09:32 | NUR ---
NIBP 82/40, MAP 55. JESIKA-SYNEPHRINE DUP TITRATED ON TO 25 MCG/MIN. PHIL MENENDEZ MADE AWARE. WILL CONTINUE TO MONITOR.
--- NOTE | 2019-08-28 10:08 | NUR ---
DR. CRUZ AND GI NURSE ARE AT BEDSIDE FOR EGD.
--- NOTE | 2019-08-28 10:20 | NUR ---
EGD COMPLETED. DR. CRUZ REMOVED OGT AND INSERTED NEW DOBHOFF TO RIGHT NARE THROUGH DUODENUM.
--- NOTE | 2019-08-28 10:30 | NUR ---
BP 133/52, MAP 82; NEOSYN WAS HELD.
--- NOTE | 2019-08-28 11:00 | NUR ---
TUBE FEEDING WITH NEPHRO INITIATED AT 20ML/HR AND FREE WATER FLUSH AT 30ML/Q6HR ORDERED. NO GASTRIC RESIDUAL NOTED AT THIS TIME. ALSO, FENTANYL WAS HELD BECAUSE PATIENT RESPONSIVE TO PAINFUL STIMULI AND SLUGGISH REACTION OF PUPILS.
--- NOTE | 2019-08-28 11:10 | NUR ---
DR. ARNOLD IS AT BEDSIDE EXAMING THE PATIENT. UPDATE PROVIDED TO THE DOCTOR.
--- NOTE | 2019-08-28 11:19 | NUR ---
BP 83/49, MAP 59; RECHECKING BP 90/46, MAP 60. NEOSYN RESUMED AT 25CMG/MIN.
--- NOTE | 2019-08-28 12:00 | NUR ---
BP 141/58, MAP 89. NEOSYNEPHRINE TITRATED FROM 25MCG/MIN DOWN TO 10MCG/MIN.
--- NOTE | 2019-08-28 13:49 | NUR ---
Follow-up Nutrition Assessment: IC04/A KATELYN GARG FU HR Dx: Acute respiratory failure PMHx: ESRD on HD (M-W-F), HTN, DM, morbid obesity, peripheral vascular disease, hypoalbuminemia, necrotic left groin wound Labs: (08/28) BG 287H, CREAT 2.3H, ALB 1.2L, TG 264H, P 1.6L, WBC 15.8H Meds: D 50%, Humulin, lopressor, Zofran, zosyn Diet: TF (OGT) Nepro bolus feeds 100 ml Q4H, FWF 30 ml Q6H, TPN D 10%, AA 4.25% @ 40 ml/hr, volume 1017 ml PO Intake: NPO for EGD Weights: (08/26) 107 kg, (08/27) 106.7 kg, (08/28) 103.2 kg I/Os: (08/27) 1613/100 (1513) Skin: multiple ulcers and skin tears James: 10 Edema: +3 pitting BUE/BLE GI: greenish, brown colored BM Last BM: 08/28 Note (08/28): Patient is intubated and sedated. Per PHIL Mcwilliams, tube feedings were initiated less than an hour ago this morning when I visited the patient. Patient's bolus feedings have been changed to continuous, Nepro @ 20 ml/hr, goal 45 ml/hr. Patient is also receiving TPN D 10%, AA 4.25% @ 40 ml/hr. Patient is on HD. Estimated Nutritional Needs Based on body weight (72 kg) Energy: 4382-7729 vs 1925 kcal/day (30-35 vs ALMAZAN 2010 kcal/kg for HD) Protein: 86- 101 g/day (1.2-1.4 g/kg for HD) Fluid: 6417-0018 mL/day (1 mL/kcal) or per MD Nutrition Diagnosis: 1.Increased nutrient needs related to wounds, HD as evidenced by estimated calorie and protein needs. (ongoing) Intervention: 1. Recommend continuing Nepro @ @ 30 ml/hr, goal 45 ml/hr, advance Q12H, FWF 30 ml Q6H. This will provide 1940 kcal and 87g protein. 2. Recommend Vitamin c and Zinc for wound healing. 3. Discussed recommendations with Dr. Slaughter on 08/25, order for vitamin C, zinc not placed. Monitor/Evaluate: Goal: Have pt meet at least 75% of estimated needs Monitor: PO intake, Labs, GI function F/U in 2-3 days as high risk 08/30-
--- NOTE | 2019-08-28 15:00 | NUR ---
THE PATIENT HAD BM WITH DIARRHEA TWICE; PATIENT WAS CLEANSED; LINEN AND GOWN CHANGED. THE ULCER WOUNDS WERE CLEANSED AND NEW DRESSING APPLIED ORDERED AFTER THE PATIENT WAS TRANSFERRED TO [facility].
--- NOTE | 2019-08-28 15:10 | NUR ---
DR. BROWN IS AT BEDSIDE SEEING THE PATIENT.
--- NOTE | 2019-08-28 15:34 | NUR ---
DR. BROWN IS AT BEDSIDE TALKING TO THE DAUGHTER, LILIAM GARG.
--- NOTE | 2019-08-28 15:38 | NUR ---
BP 79/34 WITH MAP 55, AND RECHECKED BP 81/44 AND MAP 55. NEOSYNEPHRINE TITRATED FROM 10MCG/MIN UP TO 20MCG/MIN.
--- NOTE | 2019-08-28 16:00 | NUR ---
FLEXISEAL INSERTED TO RECTUM TO PROTECT THE PATIENT'S SKIN DUE TO DIARRHEA. SMALL AMOUNT OF LIQUID STOOL NOTED IN THE RECTAL TUBE.
--- NOTE | 2019-08-28 19:10 | NUR ---
REPORT RECIEVED FROM PHIL MENENDEZ. NURSING UPDATES. POC DISCUSSED. SEE SHIFT ASSESSMENT FOR ASSESSMENT.
--- NOTE | 2019-08-28 19:12 | NUR ---
TITRATED JESIKA FROM 20MCG/MIN TO 10MCG/MIN PER PROTOCOL W/ BP WNL. PT TOLERATED WELL NEW BP 126/64 (91). WILL CONT TO MONITOR.
--- NOTE | 2019-08-28 22:02 | NUR ---
PT RESTING CALMLY W/ NO SEDATION. NO ACUTE CHANGES.
--- NOTE | 2019-08-28 23:32 | NUR ---
PT RESTING IN BED. NO ACUTE CHANGES. WILL CONT TO MONITOR.
[2019-08-29] VITALS (16 sets, daily range): BP systolic 94–131; BP diastolic 45–573
--- NOTE | 2019-08-29 01:46 | NUR ---
TITRATED JESIKA FROM 20MCG/MIN TO 10MCG/MIN PER PROTOCOL W/ BP WNL. PT TOLERATED WELL NEW BP 132/71 (91). WILL CONT TO MONITOR.
--- NOTE | 2019-08-29 02:40 | NUR ---
JESIKA TITRATED FROM 5MCG/MIN TO OFF PER PROTOCOL. PT TOELRATED WELL BP 120/56(73). WILL CONT TO MONITOR.
--- NOTE | 2019-08-29 04:53 | NUR ---
PT CLEANED AND CHANGED. NO ACUTE CHANGES. VERY DIFFICULT TO CLEAN BACK. NO ACUTE CHANGES.
--- NOTE | 2019-08-29 04:58 | NUR ---
PRE OWNED SALES CONSULTANT ANTONIO @ BEDSIDE FOR AM LABS.
[2019-08-29 05:35] LABS: BASOPHIL % 0.3 % (0-2)
[2019-08-29 05:46] LABS: RED CELL DISTRIBUTION WIDTH 19.5 % (11.5-14.5)
[2019-08-29 05:48] LABS: PLATELET COUNT 45 x10^3mcL (130-400)
[2019-08-29 05:50] LABS: BILIRUBIN TOTAL 0.5 mg/dL (0.20-1.00); CALCIUM 8.6 mg/dL (8.5-10.1); CARBON DIOXIDE 22.9 mmol/L (21-32); CREATININE SERUM 2.6 mg/dL (0.6-1.0); MAGNESIUM 1.9 mg/dL (1.8-2.4); POTASSIUM SERUM 3.4 mmol/L (3.5-5.1)
[2019-08-29 05:51] LABS: ALBUMIN 1.1 g/dL (3.4-5.0); TOTAL PROTEIN, SERUM 4.5 g/dL (6.4-8.2)
--- NOTE | 2019-08-29 07:12 | NUR ---
REPORT GIVEN TO GEMMA. NURSING UPDATES. POC DISCUSSED. RELIEVED OF DUTIES.
--- NOTE | 2019-08-29 07:37 | NUR ---
THE PATIENT REMAINS INTUBATED WITH NO SEDATION. PATIENT OPENS HER EYES TO TACTILE STIMULI BUT UNABLE TO FOLLOW ANY SIMPLE COMMANDS. SY PUPILS WITH SLUGGISH REACTION TO LIGHT. MILD GAG REFLEX UPON SUCTIONING. DOBHOFF SECURED TO RIGHT NARE AND CONNECTED TO TUBE FEEDING WITH NEPRO AT 30ML/HR. NO GASTRIC RESIDUAL NOTED; TUBE FEEDING RATE INCREASED TO 40ML/HR TO REACH THE GOAL ORDERED. ETT 7.[address] AT 22CM AT LIPLINE. ETT CONNECTED TO VENT VIA VCV/AC MODE: FIO2 30%, RATE 14, VT 550, PEEP 5. CONGESTED BREATH SOUNDS SY UPPER LOBES AND DIMINISHED BREATH SOUNDS AT BASES. TELE # 4 READS SINUS TACHYCARDIA. CVC TO LEFT IJ WITH DRESSING INTACT. TPN AT 40ML/HR. THE OLD CVC AT RIGHT UPPER CHEST WITH DRESSING INTACT. ALIVIA CATH TO RIGHT UPPER CHEST FOR HEMODIALYSIS ACCESS. ROE CATH TO GRAVITY DRAINING SCANT AMOUNT OF SARA URINE IN THE TUBE. FLEXISEAL IN PLACE AND WITH SMALL AMOUNT OF WATERY STOOL IN THE TUBE. CALL LIGHT WITHIN REACH. SIDE RAILS UP X3. BED IS AT LOWEST POSITION. [facility] BED WITH AUTOMATIC TURNING SCHEDULE EVERY 15 MINUTES. CONTACT ISOLATION MAINTAINS.
--- NOTE | 2019-08-29 08:10 | NUR ---
HEMODIALYSIS NURSE IS AT BEDSIDE FOR HD PROCESS. LAB RESULTS AND ORDER PROVIDED TO THE HD NURSE.
--- NOTE | 2019-08-29 08:52 | NUR ---
PT. WITH HD, POC DISCUSSED WITH PRIMARY RN WILL FOLLOW UP DR. REED POST DEBRIDEMENT WOUND TREATMENTS ORDERS. WEEKLY PHOTOS REVIEWED NEW INTERTRIGO DEVELOPED UNDER BREAST FOLDS, Z GUARD APPLIED PER PRIMARY RN. DISCONTINUE PREVIOUS BETADINE CARMITA. GAUZES ORDERS.
[2019-08-29 09:05] LABS: calcium (part of PTHIC) 8.7 mg/dL (8.7-10.3)
--- NOTE | 2019-08-29 09:10 | NUR ---
DR. BARTHOLOMEW WAS IN TO SEE THE PATIENT.
--- NOTE | 2019-08-29 09:24 | NUR ---
BP 93/39 AND MAP 57. NEOSYNEPHRINE RESUMED AT 10MCG/MIN.
--- NOTE | 2019-08-29 10:38 | NUR ---
DR. CRUZ IS AT BEDSIDE SEEING THE PATIENT. UPDATE PROVIDED TO THE DOCTOR. ALSO, DR. CRUZ WAS INFORMED THAT THE DOBHOFF COILS IN THE PATIENT'S MOUTH; AIR WAS AUSCULTATED BELOW THE STOMACH UPON THE VERIFYING THE NGT PLACEMENT. NO RESIDUAL NOTED WITH EACH TIME CHECKING. DOCTOR IS OK WITH THAT.
--- NOTE | 2019-08-29 11:00 | NUR ---
GASTRIC RESIDUAL 0. THE TUBE FEEDING RATE INCREASED FROM 40ML/HR TO 45ML/HR. TO REACH THE GOAL ORDERED.
--- NOTE | 2019-08-29 12:05 | NUR ---
HEMODIALYSIS COMPLETED WITH 3000ML OF OUTPUT REPORTED BY HEMODIALYSIS NURSE. BP 109/53M MAP 75.
--- NOTE | 2019-08-29 13:02 | NUR ---
BP 134/62, MAP 86; NEOSYNEPHRINE TITRATED FROM 10MCG/MIN DOWN TO 5MCG/MIN.
--- NOTE | 2019-08-29 14:15 | NUR ---
DR. ARNOLD IS AT BEDSIDE EXAMING THE PATIENT; UPDATE PROVIDED TO THE DOCTOR.
--- NOTE | 2019-08-29 14:31 | NUR ---
NEOSYNEPHRINE TITRATED OFF, BP 109/61 - MAP 81.
--- NOTE | 2019-08-29 19:28 | NUR ---
THE PATIENT WAS CLEANSED UP; LINEN CHANGED. DRESSING CHANGED. REPORT GIVEN TO MARIA ISABEL BROWN RN. CONCERNS ADDRESSED.
--- NOTE | 2019-08-29 19:30 | NUR ---
RECEIVED REPORT FROM PHIL MENENDEZ. PT IS ALERT AND RESPONSIVE TO PAINFUL STIMULUS. PUPILS REACTIVE TO LIGHT, SLUGG[place]. PT IS BREATHING E.U ON VENT. SETTINGS INCLUDE RATE: 14, TV: 550, O2: 30%, PEEP: 5. LUNG SOUNDS CLEAR TO BILATERAL UPPER LOBES, DIMINISHED TO BILATERAL LOWER LOBES. 7.5 ETT AT 22 CM @ LL. S1 S2 HEART SOUNDS AUSCULTATED. SINUS TACHYCARDIA. PULSES WEAK X4. CAP REFILL <3 SECS X4. SKIN IS COOL AND MOIST. PT HAS LEFT CVC PATENT, DRESSING CDI. PT HAS RIGHT ALIVIA AND RIGHT DAVID CATH IN PLACE WELL. PT IS RECEIVING TPN, INFUSING AT 40 ML/HR. PT HAS MULTIPLE WOUNDS, SEE SKIN INTEGRITY IN CHARTING. PT HAS RIGHT SHANDA NGT PATENT AND INTACT. NO RESIDUAL. NEPRO INFUSING AT 45 ML/HR. PT HAS FLEXICEAL DRAINING WITH DARK BROWN OUTPUT. ROE DRAINING VIA GRAVITY. URINE IS SARA WITH FAIR OUTPUT. ALL QUESTIONS AND CONCERNS ANSWERED. DAUGHTER AT BEDSIDE. WILL CONTINUE TO MONITOR.
--- NOTE | 2019-08-29 23:13 | NUR ---
DR. WONG AT BEDSIDE FOR UPDATES. ALL QUESTIONS AND CONCERNS ANSWERED. ASKED TO HAVE ERITHROMYCIN PO D/C, STATED THAT THE MEDICATION WAS NOT INDICATED. WILL FOLLOW THROUGH WITH ORDER.
[2019-08-30] VITALS (18 sets, daily range): BP systolic 100–143; BP diastolic 47–84
[2019-08-30 04:57] LABS: CARBON DIOXIDE 22.6 mmol/L (21-32); MAGNESIUM 1.9 mg/dL (1.8-2.4); PHOSPHOROUS 1.9 mg/dL (2.5-4.9)
--- NOTE | 2019-08-30 05:02 | NUR ---
PT PROVIDED WITH FULL BED BATH, ROE CARE, VAP CARE, AND CVC CARE. ALL SUCTION TUBING AND EQUIPMENT CHANGED OUT. NEW DRESSINGS PLACED TO WOUNDS TO BUTTOCKS AREA, AND UPPER EXTREMITIES. PT PROVIDED WITH NEW CANISTER OF TUBE FEEDING, AND TUBING. PT TOLERATED WELL.
[2019-08-30 05:03] LABS: POTASSIUM SERUM 2.9 mmol/L (3.5-5.1)
[2019-08-30 05:07] LABS: BASOPHIL % 0 % (0-2); PLATELET COUNT 53 x10^3mcL (130-400); RED CELL DISTRIBUTION WIDTH 18.7 % (11.5-14.5)
--- NOTE | 2019-08-30 07:15 | NUR ---
REPORT RECEIVED FROM STEPHANIE VILLARREAL. ALL CARE ASSUMED AT THIS TIME, WILL CONTINUE TO ASSESS AND MONITOR PT.
--- NOTE | 2019-08-30 09:35 | NUR ---
DR BARTHOLOMEW AND CHARGE NURSE PRESENT AT BEDSIDE. DR UPDATED ON PTS CURRENT STATUS. ALL QUESTIONS AND CONCERNS ADDRESSED. PER DR BARTHOLOMEW CONT TO MONITOR, NO NEW ORDERS AT THIS TIME.
--- NOTE | 2019-08-30 14:00 | NUR ---
DRESSINGS TO INNER THIGHS, L BUTTOCK, CALVES, AND SACRAL OPTIFOAM CHANGED. SALINE-WET 4X4 GAUZE PLACED ON WOUND, COVERED BY ABD PAD, AND SECURED WITH PAPER TAPE. CALF WOUNDS WRAPPED WITH KERLIX.
--- NOTE | 2019-08-30 15:55 | NUR ---
NGT FOUND LOOPED IN PT'S MOUTH DURING AFTERNOON ORAL CARE. RN CALLED DR. CRUZ AND HE SAID TO ORDER A KUB AND TO CONTINUE FEEDING. WILL CARRY OUT AND CONTINUE TO ASSESS.
--- NOTE | 2019-08-30 16:07 | NUR ---
PER DR. BROWN, HE WOULD LIKE THE TUBE FEEDING CHANGED TO GLUCERNA FROM NEPRO ONCE THE CURRENT BOTTLE IS EMPTY, DUE TO LOW POTASSIUM AND PHOSPHOROUS. WILL CARRY OUT NEW ORDERS.
--- NOTE | 2019-08-30 16:27 | NUR ---
PT TO RECEIVE DIALYSIS TOMORROW, DR. BROWN ENTERED THE REQUEST FOR SERVICE.
--- NOTE | 2019-08-30 17:34 | NUR ---
NOTIIFED BLANKA HD NURSE THAT DR MAGAÑA ENTERED ORDERS FOR PT TO RECIEVE HD TOMORROW 08/31/19. ОЛЬГА VERBALIZED UNDERSTANDING. WILL CONT TO MONITOR
--- NOTE | 2019-08-30 17:45 | NUR ---
TUBE FEEDING RESTARTED AT THIS TIME, 45 ML/HR WITH 30 ML FWF Q6H.
--- NOTE | 2019-08-30 18:20 | NUR ---
NJT TERMINATES IN JEJUNUM PER RADIOLOGY REPORT. POSITION OK. WILL CONTINUE TO MONITOR.
--- NOTE | 2019-08-30 19:05 | NUR ---
RECEIVED REPORT FROM LUISA VILLARREAL. ASSUMING ALL CARE
--- NOTE | 2019-08-30 19:24 | NUR ---
RECEIVED PT LAYING IN BED. PT IS INTUBATED AND ON NO SEDATION. PT RESPONDS TO PAINFUL STIMULIL, DOES NOT FOLLOW SIMPLE COMMANDS OR TRACK WITH EYES. GAG REFLEX PRESENT. 7.5 ETT INTACT/SECURED, 21 CM @ LL. LIJ CVC, TLC INTACT/SECURED, DRESSING CDI. NON FUNCTIONING RIGHT SUBCLAVIAN CVC IN PLACE. RIGHT SUBCLAVIAN ALIVIA CATH INTACT/SECURED, DRESSING CDI. RIGHT NARE DOBHOFF INTACT/SECURED, NOTED COILED IN THE MOUTH, DR. CRUZ AWARE. BREATHING IS E/U ON VENT. VENT SETTINGS: VCV/AC MODE, RATE 14, VT 550, FIO2 30%, PEEP 5. COARSE CRACKLES NOTED TO BUL AND DIMIN LUNG SOUNDS NOTED TO BLL. SYMMETRICAL CHEST EXPANSION NOTED. PT ON NEPRO TF @ 45 ML/HR WITH 30 CC FWF Q6H. GRV=10, REPLACED. ABD IS OBESE. BOWEL SOUNDS ACTIVE X4 QUADRANTS. FLEXISEAL INTACT/SECURED, DRAINING VIA GRAVITY WITH BROWN WATERY COLORED STOOL. F/C IS INTACT/SECURED, DRAINING VIA GRAVITY WITH SARA COLORED URINE. POOR URINE OUTPUT. RIGHT SUBCLAVIAN ALIVIA CATH IN PLACE WITH DRESSING. PT WITH L AV SHUNT WITH NO BRUIT/THRILL PRESENT. MULTIPLE WOUNDS NOTED THROUGHOUT WITH DRESSINGS IN PLACE. SEE CHART FOR DETAIL. SCATTERED ECCHYMOSIS NOTED TO CHEST, BUE, BLE. PT ON BARIATRIC BED, REPOSITIONS Q15 MIN. FAMILY AT BEDSIDE. BED IN LOW POSITION. CALL LIGHT IN REACH. WILL CONT TO MONITOR
--- NOTE | 2019-08-30 20:34 | NUR ---
RT AT BEDSIDE FOR BREATHING TREATMENT
[2019-08-31] VITALS (18 sets, daily range): BP systolic 108–173; BP diastolic 58–96
--- NOTE | 2019-08-31 00:47 | NUR ---
DR WONG CALLED, UPDATED ON STATUS, TELEPHONE ORDER GIVEN TO CONTINUE ZYVOX IV 600MG Q12H. ORDER READ BACK. ORDER NOTED AND CARRIED OUT. PRIMARY NURSE MADE AWARE.
--- NOTE | 2019-08-31 03:22 | NUR ---
TUBE FEEDING CHANGED AT THIS TIME TO GLUCERNA PER ORDER @ 45 ML/HR WITH 30 CC FWF Q6H.
--- NOTE | 2019-08-31 04:45 | NUR ---
DOBHOOF UNCOILED FROM MOUTH. KUB ORDERED TO VERIFY PLACEMENT. TUBE FEEDING TURNED OFF AT THIS TIME. WILL RESUME ONCE RESULTS ARE AVAILABLE AND VERIFIED.
--- NOTE | 2019-08-31 05:15 | NUR ---
FULL BED BATH PROVIDED. GOWN AND LINENS CHANGED. ORAL, ROE, AND PERICARE PROVIDED. HEELS OFFLOADED. BED IN LOW POSITION. CALL LIGHT IN REACH. WILL CONT TO MONITOR
[2019-08-31 05:24] LABS: CALCIUM 9.4 mg/dL (8.5-10.1); CARBON DIOXIDE 20.4 mmol/L (21-32); CREATININE SERUM 2.3 mg/dL (0.6-1.0); PHOSPHOROUS 3.4 mg/dL (2.5-4.9); POTASSIUM SERUM 4.8 mmol/L (3.5-5.1)
--- NOTE | 2019-08-31 06:15 | NUR ---
X-RAY TECH AT BEDSIDE
--- NOTE | 2019-08-31 07:05 | NUR ---
REPORT GIVEN TO ALIA VILLARREAL. ALL QUESTIONS/CONCERNS ADDRESSED. ENDORSING ALL CARE
--- NOTE | 2019-08-31 07:30 | NUR ---
RC'D PT RESTING IN BED WITH NO APPARENT S/S OF DISTRESS. PT INTUBATED, NO SEDATION. OBTUNDED. PT WITHDRAWS TO PAINFUL STIMULI. PUPILS 4MM AND SLUGGISH BILAT. NO FACIAL DROOP NOTED. ETT 7.5 @ 21CM LL, INTACT AND SECURED. RIGHT NARE DOBHOFF, INTACT AND SECURED. ETT TO VENT, AC MODE: TV 550, PEEP5, RATE14, FIO2 30%. RESP E/U. LUNGS DIM TO BASES. SPO2 100%, NO RESP DISTRESS NOTED. WEAK PULSES BUE/BLE, EDEMA NOTED TO BUE/BLE. SINUS TACH ON COLD WORKING INSPECTOR, HR 102. NO S/S OF CP. LIJ INTACT AND SECURED, PORTS PATENT BUT WITH RESISTANCE, DRESSING CDI. RIGHT ALIVIA AND OLD RIGHT CATH NOTED. TF OFF AT THIS TIME, AWAITING RESULTS FROM KUB FOR PLACEMENT. NO RESIDUAL NOTED. ABDOMEN OBESE AND ROUND. ACTIVE BS. NO N/V NOTED. FLEXISEAL IN PLACE. F/C WITH SARA URINE DRAINING TO GRAVITY, SECURED IN PLACE. NO VAGINAL DRAINAGE NOTED. INTERDRY NOTED TO ABDOMINAL FOLDS. MULITPLE DRESSING NOTED TO BODY, SEE CHART. BARIATRIC BED IN PLACE, CONSISTS OF REPOSITIONING Q15 MIN. EXTRWEMITIES ELEVATED. WILL CONT TO MONITOR
--- NOTE | 2019-08-31 08:00 | NUR ---
HD RN PRESENT AT BEDSIDE. WILL CONT TO MONITOR PT CLOSELY
--- NOTE | 2019-08-31 09:30 | NUR ---
DR BARTHOLOMEW PRESENT AT BEDSIDE. UPDATED ON PTS CURRENT STATUS. NOTIFIED DR BARTHOLOMEW THAT ELIQUIS HAS BEEN HELD THIS MORNING D/T DURING HD RN DRESSING CHANGE PT BLEEDING. PER DR BARTHOLOMEW, OKAY TO HOLD. WILL CONT TO MONITOR
--- NOTE | 2019-08-31 09:38 | NUR ---
DR. BARTHOLOMEW AT BEDSIDE TO SEE AND ASSESS PT. MENTIONED TO DR. BARTHOLOMEW IF HE WOULD LIKE TO HAVE A MEETING WITH PT'S DAUGHTER SOON. DR. BARTHOLOMEW STATED HE WOULD LIKE TO SPEAK TO THE DAUGHTER AND STATED HE WOULD CALL HER. ALSO RECIEVED NEW ORDERS FOR CXR, CBC, AND CT HEAD WITHOUT CONTRAST POST DIALYSIS. ORDERS READBACK AND CONFIRMED. PRIMARY RN AWARE.
[2019-08-31 10:28] LABS: BASOPHIL % 0.5 % (0-2)
[2019-08-31 10:34] LABS: PLATELET COUNT 59 x10^3mcL (130-400)
--- NOTE | 2019-08-31 12:00 | NUR ---
HD COMPLETE AT THIS TIME. PER HD NURSE, 3.5 LITERS REMOVED. VITALS SIGNS FOLLOWED; BP140/74 (96) HR 110, 27 RESP. WILL CONT TO MONITOR CLOSELY
--- NOTE | 2019-08-31 12:05 | NUR ---
CT CALLED AND INFORMED THAT HD COMPLETE AT THIS TIME AND PTS VSS. NOTIFIED RAYNE THAT PT CURRENTLY ON BARIATRIC BED. REOBERT TO CALL BACK WHEN PHIL VERA AVAILABLE. WILL CONT TO MONITOR
--- NOTE | 2019-08-31 12:22 | NUR ---
RC'D CALL FROM DR REED. DR REED UPDATED ON PTS CURRENT STATUS. ALL QUESTIONS AND CONCERNS ADDRESSED. PER DR REED, REMOVE DRESSINGS AT THIS TIME. DR REED TO BE AT BEDSIDE SHORTLY TO SEE WOUNDS. WILL NOTIFY CT TO HOLD PROCESS AT THIS TIME. ELEAZAR CONCRETE MIXER PRESENT AT BEDSIDE TO ASSIST WITH DRESSINGS. WILL CONT TO MONITOR
--- NOTE | 2019-08-31 12:41 | NUR ---
Follow-up Nutrition Assessment: IC04/A KATELYN GARG FU HR Dx: Acute respiratory failure PMHx: ESRD on HD (M-W-F), HTN, DM, morbid obesity, peripheral vascular disease, hypoalbuminemia, necrotic left groin wound Labs: (08/31) BG 229H, CREAT 2.3H, BUN 25H, ALB 1.1L, TG 264H, WBC 12.1H, HGB 7.5L Meds: Albuminar, D 50%, Humulin, lantus, lopressor, Zofran, zosyn Diet: Glucerna 1.2 @ 20 ml/hr, goal 45ml/hr FWF 30 ml Q6H PO Intake: NPO Weights: (08/28) 103.2 kg, (08/30) 108.8 kg I/Os: (08/31) 2803/600 (2203) Skin: multiple ulcers and skin tears, pt on bariatric bed that repositions Q15 min James: 10 Edema: +3 pitting BUE/BLE GI: brown colored watery stool, flexiseal intact Last BM: 08/31 RD Note (08/31): Patient is intubated and sedated. Per PHIL Aaron, digital content marketing manager changed the TF from Nepro to Glucerna. Patient is on HD. On 08/25, called Dr. Slaughter to add vitamin C and zinc for wound healing but he did not do so. Spoke with Agnieszka to take telephone orders from Dr. Slaughter for dosage of Vitamin C and zinc. Patient was tolerating Nepro with minimal residuals. Currently Glucerna was not initiated and will be initiated soon per PHIL Aaron. 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 +leukocytosis, anemia of chronic disease, resp failure, chronic renal failure, MOF obesity. Estimated Nutritional Needs Based on body weight (72 kg) Energy: 5564-4494 vs 1925 kcal/day (30-35 vs ALMAZAN 2009 kcal/kg for HD) Protein: 86- 101 g/day (1.2-1.4 g/kg for HD) Fluid: 8854-8700 mL/day (1 mL/kcal) or per MD Nutrition Diagnosis: 1.Increased nutrient needs related to wounds, HD as evidenced by estimated calorie and protein needs. (ongoing). 2. Inadequate enteral nutrition infusion related to low TF rate as evidenced by current TF rate meeting <75% estimated calorie and protein needs. Intervention: 1. Recommend Glucerna @ @ 20 ml/hr, goal 65 ml/hr, advance Q4H, FWF 30 ml Q6H. This will provide 1870 kcal and 93g protein. 2. Recommend Vitamin c and Zinc for wound healing. Discussed recommendations with Dr. Slaughter on 08/25 regarding zinc and vitamin C. Paged Dr. Hicks (digital content marketing manager) to discuss tube feeding recommendations, waiting for call back. Monitor/Evaluate: Goal: Have pt meet at least 75% of estimated needs Monitor: PO intake, Labs, GI function F/U in 2-3 days as high risk 09/02-
--- NOTE | 2019-08-31 12:41 | NUR ---
1. Recommend Glucerna @ @ 20 ml/hr, goal 65 ml/hr, advance Q4H, FWF 30 ml Q6H. This will provide 1870 kcal and 93g protein. 2. Recommend Vitamin c and Zinc for wound healing. Discussed recommendations with Dr. Slaughter on 08/25 regarding zinc and vitamin C. Paged Dr. Hicks (electric range assembler) to discuss tube feeding recommendations, waiting for call back.
--- NOTE | 2019-08-31 14:07 | NUR ---
WOUND CARE DONE WITH PRIMARY RN. AROUND 1:[address] REED VISITED PT. DURING WOUND CARE AND CHECKED WOUNDS WITH PLAN FOR DEBRIDEMENT POSSIBLE TOMORROW. DR. 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
--- NOTE | 2019-08-31 14:10 | NUR ---
WOUND CARE COMPLETE AT THIS TIME BY ALUMINA REFINERY OPERATOR ELEAZAR, PRIMARY RN, AND ENTRY ANALYST. FAMILY PRESENT AT BEDSIDE FOR LAST DRESSING CHANGE TO BACK/HIP LOCATION. FAMILY INFORMED ON PT CURRENT CONDITION. FAMILY EDUCATED ON CURRENT INTERVENTIONS. FAMILY VERBALIZED UNDERSTANDING. WILL CONT TO MONITOR
--- NOTE | 2019-08-31 14:30 | NUR ---
PT TAKEN TO CT AT THIS TIME VIA [place] WITH RN BRADFORD, RT NORMA AND CT RAYNE AND STAFF. PT PLACED ON PORTABLE EARRINGS FABRICATOR. VSS. RT BAGGING PT AT THIS TIME. AWAITING FOR RETURN TO THE FLOOR
--- NOTE | 2019-08-31 18:07 | NUR ---
PT RESTING IN BED WITH NO APPARENT S/S OF DISTRESS. PT INTUBATED, NO SEDATION. 7.5 ETT @ 21CM LL INTACT AND SECURED. RIGHT NARE DOBHOFF, INTACT AND SECURED. RIGHT ALIVIA DRESSING INTACT. LIJ INTACT, PORTS PATENT WITH SOME RESISTANCE, GURU WIPED. VENT SETTINGS REMAIN THE SAME; AC MODE- RATE 14, PEEP 5, TV 450, AND FIO2 30%. RESP E/U. SPO2 100%, NO RESP DISTRESS. SINUS TACH ON MONITOR. PT ON GERIATRIC BED WITH REPOSITIONING Q15MIN. ALL DRESSINGS CHANGED DURING SHIFT. TF GLUCERNA @ 45 WITH 30 FWF Q6H. NO RESIDUAL NOTED. F/C WITH SARA URINE DRAINING TO GRAVITY, SECURED IN PLACE. ROE CARE PROVIDED. PT TOTAL CARE. BEDDING AND PT CLEANED. FAMILY PRESENT AT BEDSIDE. WILL CONT TO MONITOR
--- NOTE | 2019-08-31 19:16 | NUR ---
PT ENDORSED TO KATHERINE VILLARREAL. UPDATED ON PT STATUS. ALL QUESTIONS AND CONCERNS ADDRESSED
--- NOTE | 2019-08-31 19:30 | NUR ---
RECEIVED PT FROM ALIA VILLARREAL. UPDATES PROVIDED. RECEVIED PT INTUBATED NOT SEDATED, INTACT/SECURED TO VENTILATOR. PT ATTACHED TO FULL MEDICATION SPECIALIST AND CONTIUOUS PULSE OXIMETRY, BARIATRIC BED IN PLACE, BED AT LOWEST SETTING, CALL LIGHT WITHIN REACH, HOB ELEVATED 30 DEGREES. SEE NURSING SHIFT ASSESSMENT FOR MORE DETAILS.
--- NOTE | 2019-08-31 21:20 | NUR ---
1 UNIT OF PRBC INITIATED AT THIS TIME PER MD ORDER, VERIFIED BY 2 RN'S AT BEDSIDE. PRE VITALS, TEMP 100.1, PULSE 93, NIBP 138/69 (101), RESP 25, PO2 100%. WILL ASSESS FOR ANY BLOOD TRANSFUSION REACTION.
--- NOTE | 2019-08-31 21:35 | NUR ---
15 MIN ASSESSMENT BLOOD TRANSFUSION, PT SHOWS NO S/S OF ANY ADVERSE BLOOD TRANSUFSION REACTIONS, FAMILY AT BEDSIDE EDUCATED. VITAL SIGNS: TEMP 99.9, PULSE 93, NIBP 140/71 ( 94), RESP 24, PO2 100%. BLOOD TRANSFUSION TITRATED PER HOSPITAL PROTOCOL. WILL MONITOR.
[2019-09-01] VITALS (19 sets, daily range): BP systolic 125–167; BP diastolic 45–83
--- NOTE | 2019-09-01 | NUR ---
TUBE FEEDING TITRATED OFF AT THIS TIME FOR POSSIBLE SURGERY WITH DR. REED.
--- NOTE | 2019-09-01 00:08 | NUR ---
DR. WONG AT BEDSIDE FOR MSE. NO NEW ORDERS AT THIS TIME.
--- NOTE | 2019-09-01 00:20 | NUR ---
BLOOD TRANSFUSION FINISHED, NO S/S OF ANY ADVERSE BLOOD TRANSUFSION REACTION NOTED. POST VITALS TEMP 99.5, PULSE 95, NIBP 148/77, RESP 22, PO2 100%.
--- NOTE | 2019-09-01 00:35 | NUR ---
1 UNIT OF PRBC INITIATED AT THIS TIME PER MD ORDER, VERIFIED BY 2 RN'S AT BEDSIDE. PRE VITALS, TEMP 99.2, PULSE 96, NIBP 159/79 (108), RESP 22, PO2 100%. WILL ASSESS FOR ANY BLOOD TRANSFUSION REACTION.
--- NOTE | 2019-09-01 00:50 | NUR ---
15 MIN ASSESSMENT BLOOD TRANSFUSION, PT SHOWS NO S/S OF ANY ADVERSE BLOOD TRANSUFSION REACTIONS, FAMILY AT BEDSIDE EDUCATED. VITAL SIGNS: TEMP 99.6, PULSE 95, NIBP 147/78, RESP 21, PO2 100%. BLOOD TRANSFUSION TITRATED PER HOSPITAL PROTOCOL. WILL MONITOR.
--- NOTE | 2019-09-01 03:20 | NUR ---
BLOOD TRANSFUSION FINISHED, NO S/S OF ANY ADVERSE BLOOD TRANSUFSION REACTION NOTED. SEE BLOOD TRANSFUSION RECORD FOR TRANSFUSION POST VITALS.
--- NOTE | 2019-09-01 04:02 | NUR ---
PROVIDED PT WITH FULL BED BATH, CLEANED PERIAREA WITH MILD SOAP, WATER, PATTED DRY AND APPLIED Z-GUARD. CHUCKS, GOWN CHANGED, CHG WIPES APPLIED TO LIJ DRESSING AND RIGHT SUBCLAVIAN DRESSING AND RIGHT ALIVIA CATH DRESSING. ORDERS READ PER WOUND CARE RECOMMENDATION AND FOLLOWED OUT. DRESSINGS TO MULTIPLE WOUNDS REMAIN CDI.
[2019-09-01 05:32] LABS: PLATELET COUNT 63 x10^3mcL (130-400); RED CELL DISTRIBUTION WIDTH 17.1 % (11.5-14.5)
[2019-09-01 06:00] LABS: ALBUMIN 2.6 g/dL (3.4-5.0); BILIRUBIN TOTAL 1.24 mg/dL (0.20-1.00); CARBON DIOXIDE 20.5 mmol/L (21-32); CREATININE SERUM 1.8 mg/dL (0.6-1.0); MAGNESIUM 1.7 mg/dL (1.8-2.4); POTASSIUM SERUM 4.3 mmol/L (3.5-5.1); TOTAL PROTEIN, SERUM 5.3 g/dL (6.4-8.2)
[2019-09-01 06:12] LABS: BAND NEUTROPHIL 1 % (0-10); MONOCYTE 4 % (0-7); SEGMENTED NEUTROPHILS 88 % (37-75)
[2019-09-01 06:14] LABS: PLATELET MORPHOLOGY PLATELETS DECREASED; rbc morphology (normal/abnorm) ABNORMAL (NORMAL)
--- NOTE | 2019-09-01 07:20 | NUR ---
GAVE REPORT TO PHIL MONTOYA. UPDATES PROVIDED, QUESTIONS ANSWERED, ENODRSED CARE.
--- NOTE | 2019-09-01 07:25 | NUR ---
PATIENT REMAINS INTUBATED WITH NO SEDATION AT THIS TIME. PATIENT OPENS HER EYES TO TACTILE STIMULI BUT UNABLE TO FOLLOW ANY COMMANDS. SY PUPILS WITH SLUGGISH REACTION TO LIGHT. DOBHOFF TO RIGHT NARE AND CLAMPED AT THIS TIME POSSIBLE FOR PROCEDURE. NGT PLACEMENT VERIFIED WITH SOME AIR BOLUS. NO GASTRIC RESIDUAL NOTED AT THIS TIME. ETT IN PLACE AND SECURED AT 23CM AT LIPLINE. ETT TO VENT VIA VCV/AC MODE: FIO2 30%, RATE 14, VT 550, PEEP 5. CVC TO LIJ WITH DRESSING IN PLACE. ALIVIA CATH AND OLD CVC TO RIGHT UPPER CHEST WITH DRESSING IN PLACE. MULTIPLE WOUNDS AND SKIN TEARS WITH DRESSING IN PLACE. ROE CATH TO GRAVITY DRAINING SCANT AMOUNT OF SARA URINE. FLEXISEAL IN PLACE DRAINING DARK BROWN LIQUID STOOL. PATIENT IS ON SPECIAL AIR [place] ROM BED WITH AUTOMATIC TURNING SCHEDULE EVERY 15 MINUTES. CALL LIGHT WITHIN REACH. SIDE RAILS UP X3. BED IS AT LOWEST POSITION. CONTACT ISOLATION MAINTAINS.
--- NOTE | 2019-09-01 09:35 | NUR ---
DR. BARTHOLOMEW IS AT BEDSIDE TO SEE THE PATIENT.
--- NOTE | 2019-09-01 10:15 | NUR ---
TELEPHONED DR CAMPOS AND REPORTED TOTAL URINE OUTPUT [address] CAMPOS, MONITOR FOR ANOTHER 4 HOURS AND CALL BACK AT 1400 WITH CURRENT OUTPUT. ENODRSED TO PRIMARY RN GEMMA.
--- NOTE | 2019-09-01 13:15 | NUR ---
DR ARNOLD AT BEDSIDE TO ASSESS PATIENT. UPDATES PROVIDED BY NURSING. MEDICATIONS ADJUSTED BP TRENDING UPWARD.
--- NOTE | 2019-09-01 16:10 | NUR ---
DR. BROWN IS AT BEDSIDE EXAMING THE PATIENT.
--- NOTE | 2019-09-01 18:46 | NUR ---
THE PATIENT REMAINS ON VENT VIA VCV/AC MODE WITH THE SAME SETTING THROUGHOUT THE SHIFT: FIO2 30%, RATE 14, VT 550, PEEP 5. THE PATIENT WAS GIVEN A BATH. CVC SITES AND ROE CATH CARE PROVIDED TO THE PATIENT.
--- NOTE | 2019-09-01 19:00 | NUR ---
REPORT RECIEVED FROM PHIL MENENDEZ. NURSING UPDATES POC DISCUSSED. SEE SHIFT ASSESSMENT FOR ASSESSMENT.
--- NOTE | 2019-09-01 19:12 | NUR ---
REPORT GIVEN TO RUY DUNN RN. CONCERNS ADDRESSED.
--- NOTE | 2019-09-01 22:14 | NUR ---
PROCEDURE PLAN FOR REMOVAL OF GROSHONG CATHETER AND REPLACEMENT W/ ARROW ALIVIA CATH NOTIFIED FOR TMRW PER DR REED. WILL ENDORSE.
--- NOTE | 2019-09-01 23:56 | NUR ---
SPOKE W/ DR KUMAR. NURSING UPDATES. NEW ORDERS FOR TRANSESOPHAGEAL ECHOCARDIAGRAM AND ORDER TO REMOVE ALL CATHETERS @ ONCE PER SEPSIS PROTOCOL WHEN REPLACING W/ ALIVIA.
[2019-09-02] VITALS (17 sets, daily range): BP systolic 98–162; BP diastolic 45–89
--- NOTE | 2019-09-02 00:50 | NUR ---
PT RESTING CALMLY IN BED. NO ACUTE CHANGES.
--- NOTE | 2019-09-02 03:17 | NUR ---
PT RESTING CALMLY IN BED NO ACUTE CHANGES.
--- NOTE | 2019-09-02 04:30 | NUR ---
CLEANED PT. CHANGED LINENS, BEDSHEETS. CHANGED DRESSING L INGUINAL AREA FOR SOILED DRESSING. PACKING AND BANDAGE APPLIED. NO ACUTE DISTRESS. PT TOLERATED WELL. WILL ENDORSE.
[2019-09-02 05:00] LABS: BASOPHIL % 0.2 % (0-2)
[2019-09-02 05:07] LABS: PLATELET COUNT 67 x10^3mcL (130-400); RED CELL DISTRIBUTION WIDTH 17.7 % (11.5-14.5)
[2019-09-02 05:27] LABS: ALBUMIN 2.4 g/dL (3.4-5.0); BILIRUBIN TOTAL 0.95 mg/dL (0.20-1.00); CALCIUM 9.6 mg/dL (8.5-10.1); CARBON DIOXIDE 19.6 mmol/L (21-32); CREATININE SERUM 2.2 mg/dL (0.6-1.0); MAGNESIUM 2.6 mg/dL (1.8-2.4); POTASSIUM SERUM 4.1 mmol/L (3.5-5.1); TOTAL PROTEIN, SERUM 5.2 g/dL (6.4-8.2)
--- NOTE | 2019-09-02 07:23 | NUR ---
RECEIVED PT'S REPORT FROM LEAVING NURSE. PT IS ON CONTACT ISOLATION FOR BLOOD CX MRSA. PT IS REST ON SPECIAL AIR [place]-ROM BED WITH AUTO TURNING SCHEDULED AT Q15MIN. PT IS INTUBATED, LETHARGIC WITHOUT SEDATION. PT IS ON VENT AC MODE: PEEP 5, FIO2 30%, VT 550, RR 14. O2 SAT 100%. ROE INPLACE, MINIMAL SARA URINE NOTED. FLEXISEAL IN PLACE, WATERY DARK STOOL. MULTIPLE SKIN WOUND WRAPPED BY DRESSING. MILD SOILD AT THIS TIME. R UPPER CHEST ALIVIA CATH FOR HD. LIJ CENTRAL, NS INFUSING TKO.
--- NOTE | 2019-09-02 08:55 | NUR ---
DR BARTHOLOMEW AT BEDSIDE TO ASSESS PATIENT. UPDATES PROVIDED BY NURSING.
--- NOTE | 2019-09-02 09:59 | NUR ---
DR BROWN AT BEDSIDE TO ASSESS PATIENT. UPDATES PROVIDED BY NURSING.
--- NOTE | 2019-09-02 10:44 | NUR ---
DR HOWIE REED AT BEDSIDE TO ASSESS PATIENT. UPDATES PROVIDED BY NURSING. INFORMED DR REED THAT AT RECOMMEDATION OF DR WILLARD, ALL LINES BE REMOVED AND REPLACED. DR REED STATED THAT HE WILL TAKE THE PATIENT TO O.R. EITHER TOMORROW 09/03/19 OR Wednesday09/04/19. PRIMARY RN TAWNYA MADE AWARE.
--- NOTE | 2019-09-02 12:00 | NUR ---
REMOVED PATIENT FROM BIPAP AND PLACED PATIENT ON 3L HUMIDIFIED O2. PATIENT PROVIDED ORAL CARE AND WILL REMAIN ON N/C FOR DRY ORAL CAVITY. GABRIELE RAMOS MADE AWARE.
--- NOTE | 2019-09-02 14:02 | NUR ---
HD NURSE AT BEDSIDE PERFORMING HD, ESTIMATE HD WILL BE DONE AT 3PM.
--- NOTE | 2019-09-02 19:07 | NUR ---
RECEIVED REPORT FROM TAWNYA VILLARREAL. WILL RESUME CARE.
--- NOTE | 2019-09-02 19:25 | NUR ---
RECEIVED PT INTUBATED WITH NO SEDATION. OPENS EYES TO TACTILE STIMULI. UNABLE TO FOLLOW COMMANDS. PUPILS 3MM SLUGGISH. 7.5 ETT AT 23CM LL INTACT AND SECURED. ON VENT VCV-AC MODE WITH SETTINGS OF VT 550, FIO2 30%, R 14, PEEP 5. BREATHING E/U. LUNG SOUNDS CLEAR TO UPPER LOBES AND DIMINISHED TO BASES. S1S2 AUSCULTATED WITH NO MURMURS NOTED.CAP REILL <3 SEC. +3 PITTING EDEMA TO BUE AND BLE. PULSES PALPABLE. GENERALIZED WEAKNESS. GLUCERNA 1.2 AT 45CC/HR AND FWF OF 30CC Q6HRS. BS ACTIVE X 4. NO N/V. FLEXISEAL IN PLACE. ROE CATHETER IN PLACE DRAINING MINIMAL SARA URINE. BED IN LOW POSITION. CALL LIGHT WITHIN REACH. WILL CONTINUE TO MONITOR.
--- NOTE | 2019-09-02 19:34 | NUR ---
PT'S REPORT GIVEN TO RECEIVING NURSE. PT'S WOUND DRESSING CHANGE. DEBRIDED UNSTAGEABLE WOUND BED IS YELLOW/GREEN, BLACK EDGE, FOUL ODOR. 4X4 WET GAUZE PACKED, ABD PAD COVERED AND SECURED WITH PAPER TAPE. SKIN TEARS COVERED WITH NON-ADHESIVE DRESSING/ VASERTEL. ENDORSED PT'S CARE TO LOOM CHECKER.
--- NOTE | 2019-09-02 19:51 | NUR ---
RT RAMIRO AT BEDSIDE ASSESSING PT AND GIVING BREATHING TREATMENT. PT TOLERATING WELL.
--- NOTE | 2019-09-02 23:10 | NUR ---
DR. WONG AT BEDSIDE ASSESSING PT. UPDATES PROVIDED.
[2019-09-03] VITALS (17 sets, daily range): BP systolic 127–159; BP diastolic 60–98
--- NOTE | 2019-09-03 04:50 | NUR ---
FABRIC AWNING REPAIRER AT BEDSIDE FOR BLOOD DRAW.
--- NOTE | 2019-09-03 04:59 | NUR ---
DOCKWORKER AT BEDSIDE FOR BLOOD DRAW.
--- NOTE | 2019-09-03 05:05 | NUR ---
PT CLEANED, ALL LINENS AND GOWN CHANGED. ROE CATHETER CARE PROVIDED. URINE OUTPUT DURING SHIFT WAS 100CC OF SARA URINE. GURU WIPES TO [facility] CVC. PT REPOSITIONED TO SUPINE POSITION AND BONY PROMINENCES OFFLOADED WITH PILLOWS.
[2019-09-03 05:30] LABS: PLATELET COUNT 71 x10^3mcL (130-400); RED CELL DISTRIBUTION WIDTH 17.8 % (11.5-14.5)
[2019-09-03 05:31] LABS: BILIRUBIN TOTAL 0.9 mg/dL (0.20-1.00); CALCIUM 9.5 mg/dL (8.5-10.1); CARBON DIOXIDE 20.1 mmol/L (21-32); CREATININE SERUM 1.9 mg/dL (0.6-1.0); MAGNESIUM 2.1 mg/dL (1.8-2.4); POTASSIUM SERUM 3.2 mmol/L (3.5-5.1)
[2019-09-03 05:32] LABS: ALBUMIN 2.7 g/dL (3.4-5.0); TOTAL PROTEIN, SERUM 5.4 g/dL (6.4-8.2)
[2019-09-03 06:07] LABS: BAND NEUTROPHIL 3 % (0-10); MONOCYTE 8 % (0-7); SEGMENTED NEUTROPHILS 74 % (37-75)
[2019-09-03 06:10] LABS: PLATELET MORPHOLOGY PLATELETS DECREASED; rbc morphology (normal/abnorm) ABNORMAL (NORMAL)
--- NOTE | 2019-09-03 07:05 | NUR ---
GAVE REPORT TO TAWNYA VILLARREAL. ALL QUESTIONS AND CONCERNS ADDRESSED.
--- NOTE | 2019-09-03 07:43 | NUR ---
RECEIVED PT'S REPORT FROM LEAVING NURSE. PT'S DAUGHTER AT BEDSIDE. PT IS RESTING WITH EYES CLOSED, BUT AROUSED AND OPEN EYES TO LOUDLY VERBAL STIMULI. PT BREATHING ON VENT AC MODE: PEEP 5, FIO2 30%, RR 14, VT 550. PT'S O2SAT 100%. ROE AND FLEXISEAL IN PLACE, DRAINING VIA GRAVITY. ZOVYX IS INFUSING VIA LIJ CENTRAL LINE. WILL CONTINUE TO MONITOR.
--- NOTE | 2019-09-03 08:28 | NUR ---
SPOKE WITH DR DUTTON AND REPORTED K+3.2. NEW ORDERS RECEIVED. ENDORSED TO PRIMARY RN TAWNYA.
--- NOTE | 2019-09-03 09:59 | NUR ---
Follow-up Nutrition Assessment- Dx: acute respiratory failure Labs: (09/03) Na 141, K 3.2, Glu 205 H, BUN 21 H, Cr 1.9 H, H/H 9.07/06 Meds: albuminar-25, Ativan, cordarone, cozaar, D50%/water, Humulin R, KCl 10%, lantus, Lopressor, mag-ox, magnesium sulfate, sodium thiosulfate, Tylenol, vit C, zinc sulfate, Zofran, zosyn Current Nutrition Support: TF Glucerna 1.2 at 45 mL/hr with FWF 30 mL Q6H via nasojejunal tube. This provides 1080 mL, 1296 kcal, and 65 gm protein to meet 60% estimated kcal needs and 75% estimated protein needs; inadequate. TF Intake: (09/03) 689 mL, (09/02) 0 mL, (09/01) 1050 mL, (08/31) 997, (08/30) 916, (08/29) 420 mL. I/O: (09/03) 1609/3300 (-1691), (09/02) 1280/450 (380), (09/01) 2480/3875 (-1395), (08/31) 2803/600 (2203) GTF Residuals: (09/03) 10 mL Weights: (08/30) 108.8 kg Skin: multiple ulcers and skin tears, pt on bariatric bed that repositions Q15 min. Edema: +3 pitting BUE/BLE Last BM: 09/03/19 Current TF Regimen provides 1080 mL total volume, 1296 total kcal, 65 total protein. FWF 30 mL Q6H provides 120 mL. Per RN Shift Re-assessment (09/03), Pt is intubated with no sedation, opens eyes to tactile stimuli, unable to follow commands. Pt on vent. RDN visited with Pt, TF Glucerna 1.2 seen running at 45 mL/hr, running at goal rate, tolerating well. Per RN, little to no change noted in patient compared to yesterday. Pt continues to tolerate feedings at goal rate, little to no residual. RDN discussed recommendation to increase goal rate of feeding to 65 mL/hr, RN acknowledges. Estimated Nutritional Needs unchanged from prior assessment: Energy: 7897-9698 vs 1925 kcal/d (30-35 vs ALMAZAN 2010 kcal/kg for HD) Protein: 86-101 gm/day (1.2-1.4 gm/kg for HD) Fluid: 6952-3248 mL/d (1 mL/kcal) or per MD Nutrition Diagnosis 1. Increased nutrient needs related to wound, HD as evidenced by estimated calorie and protein needs. (Ongoing) 2. Inadequate enteral nutrition infusion related to low TF rate as evidenced by current TF meeting < 75% estimated calorie and protein needs. (Ongoing) Intervention/RDN Recommendation(s): 1. Recommend increasing goal rate of TF Glucerna 1.2 to 65 mL/hr. At 65 mL/hr, Glucerna 1.2 will provide 1560 mL total volume, 1872 kcal and 94 gm protein to meet 97% estimated kcal needs (based on calculation 2009) and 93% estimated upper-end protein needs. Monitor/Evaluate Monitor/Evaluate Goal: Intake via nutrition support to meet at least 80% of estimated needs with acceptable tolerance within 2-3 days. Monitor: nutrition support tolerance, Labs, GI function, Skin integrity, Weights. F/U in 2-3 days as high risk (09/05-)
--- NOTE | 2019-09-03 10:00 | NUR ---
Intervention/RDN Recommendation(s): 1. Recommend increasing goal rate of TF Glucerna 1.2 to 65 mL/hr. At 65 mL/hr, Glucerna 1.2 will provide 1560 mL total volume, 1872 kcal and 94 gm protein to meet 97% estimated kcal needs (based on calculation ALMAZAN 2009) and 93% estimated upper-end protein needs.
--- NOTE | 2019-09-03 10:29 | NUR ---
0950- DR BARTHOLOMEW AT [facility] SPEAKING WITH PATIENT'S DAUGHTER REGARDING THE NEED FOR INTUBATION AND POC. DAUGHTER IN AGREEMENT WITH POC AND VERBALIZED AN UNDERSTANDING REGARDING INTUBATION. 1000- DR BARTHOLOMEW, MYSELF, GEMMA RN, TAWNYA RN, ANGE RT AND ALISON RT AT BEDSIDE FOR INTUBATION. 1003- PATIENT ADMINISTERED 50 MCG PROPOFOL IV 1004- PATIENT ADMINISTERED 50 MG ROCURONIUM 1005- PATIENT INTUBATED WITH 7.5 ETT AT 24 LL AND PLACED ON VENT SETTINGS AC MODE RATE 16, VT 320, PEEP 5, FIO2 100%. 1040- #16 PERSIAN NGT INSERTED TO RIGHT NARE. CONFIRMATION VIA AIR BOLUS OVER GASTRIC REGION. AWAITING XRAY FOR CONFIRMATION.
--- NOTE | 2019-09-03 12:52 | NUR ---
ABG RESULTS REPORTED TO DR BARTHOLOMEW. NEW ORDERS RECEIVED TO CHANGE RATE TO 22 AND VT TO 400, ANGE RT AT BEDSIDE AND MADE CHANGES TO VENT SETTINGS AND RETRACTED ETT TO 22 LIP LINE INDICATED BY CXR. WILL REORDER CXR.
--- NOTE | 2019-09-03 14:30 | NUR ---
PT'S FLEXISEAL TUBE LEAKING. DRESSING ON SY INNER THIGH AND GROINS CHANGED. WOUND BED YELLOW/ GREEN SLOUGH, FOUL ODOR. BLACK HARD SKIN AT WOUND EDGE. BY THIS TIME, WATERY STOOL 350ML.
--- NOTE | 2019-09-03 17:30 | NUR ---
PT'S DAUGHTER AT BEDSIDE. DR. DEL ROSARIO CAME AND TALKED TO PT'S DAUGHTER ABOUT DEBRIDMENT AND CENTRAL LINE CHANGE PROCEDURE TOMORROW. PT IS AWAKE AT THIS TIME. PT TOLERATE WELL TO TUBE FEEDING, MINIMAL RESIDUAL. WILL ENDORSE PT'S CARE TO COMING NURSE.
--- NOTE | 2019-09-03 19:05 | NUR ---
RECEIVED REPORT FROM TAWNYA VILLARREAL. WILL RESUME CARE.
--- NOTE | 2019-09-03 19:25 | NUR ---
RECEIVED PT INTUBATED WITH NO SEDATION. UNABLE TO FOLLOW COMMANDS OR MAKE NEEDS KNOWN. PT IS RESPONSIVE TO TACTILE STIMULI. PUPILS 3MM SLUGGISH. 7.5 ETT AT 23 CM LL INTAT AND SECURED. R NGT INTACT AND SECURED. NO REDNESS, SWELLING, OR DRAINAGE NOTED TO EENT. ON VENT VCV-AC MODE WITH SETTINGS OF FIO2 30%, R 14, VT 550, PEEP 5. BREATHING E/U. LUNG SOUNDS DIMINIDHED TO BASES. S1S2 AUSCULATATED WITH NO MURMURS NOTED. NO S/SX OF PAIN AT THIS TIME. CAP REFILL <3 SEC. +3 PITTING EDEMA TO BLE AND BUE. ABDOMEN OBESE, NONTENDER. FLEXISEAL IN PLACE. ROE CATHETER IN PLACE DRAINING VIA GRAVITY MINIMAL SARA URINE, HD PT. MULTIPLE WOUNDS TO INNER THIGHS, ABDOMEN, BUTTOCKS, AND HIPS, DRESSINGS CDI. MULTIPLE SKIN TEARS TO BODY COVERED WITH VERATEL. BED IN LOW POSITION. WILL CONTINUE TO MONITOR.
--- NOTE | 2019-09-03 19:40 | NUR ---
RECEIVED REPORT FROM PHIL MENENDEZ. PT IS ALERT AND RESPONSIVE TO VERBAL STIMULUS. UNABLE TO OPEN EYES OR FOLLOW COMMANDS. PT IS INTUBATED AND SEDATED ON FENTANYL 0.25 MCG/KG/HR. PT IS BREATHING E/U ON VENT. SETTINGS INCLUDE RATE: 22, TV: 400, O2: 50%, PEEP:5. LUNG SOUNDS DIMINISHED TO BILATERAL UPPER AND LOWER LOBES. PT BECOMES SOB ON EXERTION. S1 S2 HEART SOUNDS AUSCULTATED. PULSES MODERATE X4. CAP REFILL <3 SECS X4. SKIN IS WARM AND PINK. RIJ PATENT, DRESSING CDI, KVO. ABD IS SOFT AND ROUNDED WITH ACTIVE BOWEL SOUNDS X4Q. ROE DRAINING VIA GRAVITY. URINE IS BLOOD TINGED WITH FAIR OUTPUT. PT HAS RASHES TO BUE, AND PETECHIAE TO BLE. PT ON 1.5 L FLUID RESTRICTION PER 24 HOURS. ALL QUESTIONS AND CONCERNS ANSWERED.
--- NOTE | 2019-09-03 20:10 | NUR ---
RT CASSIDY AT BEDSIDE ASSESSING PT AND GIVING BREATHING TREATMENT. PT TOLERATING WELL.
[2019-09-04] VITALS (19 sets, daily range): BP systolic 95–147; BP diastolic 54–79
--- NOTE | 2019-09-04 00:30 | NUR ---
DR. WONG AT BEDSIDE ASSESSING PT. UPDATES PROVIDED.
--- NOTE | 2019-09-04 04:30 | NUR ---
ALL DRESSINGS CHANGED TO ALL WOUNDS AND VERSATELS APPLIED TO SKIN TEARS. PT CLEANED AND NEW LINENS PROVIDED. ROE CATHETER CARE PROVIDED. TOTAL URINE OUTPUT DURING SHIFT WAS 50CC OF SARA URINE.
[2019-09-04 05:19] LABS: PLATELET COUNT 71 x10^3mcL (130-400); RED CELL DISTRIBUTION WIDTH 17.9 % (11.5-14.5)
[2019-09-04 05:32] LABS: BAND NEUTROPHIL 4 % (0-10); METAMYELOCTE 2 % (0-2); MONOCYTE 5 % (0-7); PLATELET MORPHOLOGY PLATELETS DECREASED; SEGMENTED NEUTROPHILS 64 % (37-75); rbc morphology (normal/abnorm) ABNORMAL (NORMAL)
[2019-09-04 05:34] LABS: BILIRUBIN TOTAL 0.8 mg/dL (0.20-1.00); CALCIUM 10.2 mg/dL (8.5-10.1); CARBON DIOXIDE 19.5 mmol/L (21-32); CREATININE SERUM 2.2 mg/dL (0.6-1.0); MAGNESIUM 2.2 mg/dL (1.8-2.4); PHOSPHOROUS 2.7 mg/dL (2.5-4.9); POTASSIUM SERUM 4.5 mmol/L (3.5-5.1)
[2019-09-04 05:36] LABS: ALBUMIN 2.4 g/dL (3.4-5.0); TOTAL PROTEIN, SERUM 5.9 g/dL (6.4-8.2)
--- NOTE | 2019-09-04 07:04 | NUR ---
GAVE REPORT TO ROSA VILLARREAL. ALL QUESTIONS AND CONCERNS ADDRESSED.
--- NOTE | 2019-09-04 07:05 | NUR ---
RECEIVED REPORT FROM CLOVER VILLARREAL. ALL QUESTIONS ANSWERED AND ADDRESSED. WILL ASSUME CARE OF PT
--- NOTE | 2019-09-04 09:35 | NUR ---
OR CALLED AND PT WILL BE GOING TO SURGERY IN [address] REED. TUBE FEEDINGS TURNED OFF AT THIS TIME. CHG WIPES COMPLETED.
--- NOTE | 2019-09-04 09:55 | NUR ---
OR TEAM AT BEDSIDE PREPPING PATIENT. PRE-OP CHECKLIST COMPLETED. OBTAINED TELEPHONE CONSENT FROM PT'S DAUGHTER, LILIAM, FOR ANESTHESIA FOR PROCEDURE. PRIMARY RN, ROSA, WITNESSED AND SIGNED CONSENT COMPELTED.
--- NOTE | 2019-09-04 10:44 | NUR ---
PT OFF UNIT FOR SURGERY.
--- NOTE | 2019-09-04 11:01 | NUR ---
PT TAKEN TO O.R FOR SURGERY AND BROUGHT BACK DUE TO BED NOT FITTING. NO INCIDENTS OCCURED DURING TRANSPORT AND PT PLACED BACK ON DOCUMENTED VENT SETTINGS. WILL CONTINUE TO MONITOR.
--- NOTE | 2019-09-04 11:10 | NUR ---
PT TAKEN BACK TO UNIT BY OR TEAM BECAUSE PT'S GERIATRIC BED DID NOT FIT THROUGH OR DOORS.
--- NOTE | 2019-09-04 11:50 | NUR ---
OR TEAM AND DR. HOWIE REED AT BEDSIDE FOR PROCEDURE.
--- NOTE | 2019-09-04 11:58 | NUR ---
PER DR. REED, PT TO BE MEDICATED WITH MORPHINE 6MG IVP FOR PROCEDURE AT THIS TIME. SEE EMAR FOR DETAILS.
--- NOTE | 2019-09-04 12:19 | NUR ---
DR. HOWIE REED REMOVED R UPPER CHEST CATHETER AND RIGHT SUBCLAVIAN ALIVIA. INSERTED A RIJ ALIVIA CATHETER. AWAITING CXR TO CONFIRM PLACEMENT.
--- NOTE | 2019-09-04 12:24 | NUR ---
DR. HOWIE REED STATES THAT HE WILL NOT DO DEBRIDEMENT TODAY.
--- NOTE | 2019-09-04 13:02 | NUR ---
PT NOTED WITH NO DRESSING TO LIJ CENTRAL LINE. NEW CENTRAL LINE DRESSING PLACED TO LIJ USING STERILE TECHNIQUE. TF ALSO RESUMED AT THIS TIME, HOB ELEVATED.
--- NOTE | 2019-09-04 16:45 | NUR ---
RI ALIVIA CATHETER DRESSING SOILED AT THIS TIME. NEW DRESSING APPLIED WITH SURGISEAL TO SITE.
--- NOTE | 2019-09-04 17:06 | NUR ---
DR. NGUYEN AT BEDSIDE ASSESSING PT. NURSING UPDATES. STATES FOR PT TO BE TRANSFERRED TO [facility]. NO NEW ORDERS AT THIS TIME.
--- NOTE | 2019-09-04 17:21 | NUR ---
CONTACTED DR. REED FOR [facility] AND STATES OK TO USE.
--- NOTE | 2019-09-04 18:09 | NUR ---
PER DR. NGUYEN HE WILL LIKE TO HAVE A MEETING WITH PT'S DAUGHTER 09/05 AT 1700. CALLED PT'S DAUGHTER LILIAM; NO ANSWER. MESSAGE LEFT TO PT'S DAUGHTER TO CALL BACK. NEED TO CONFIRM IF AVAIABLE TO MEET WITH DR. NGUYEN TOMORROW.
--- NOTE | 2019-09-04 18:16 | NUR ---
RECIEVED CALL BACK FROM PT'S DAUGHTER LILIAM AND CONFIRMED SHE WILL BE HERE FOR MEETING WITH DR. NGUYEN 09/05/19 AT 1700.
--- NOTE | 2019-09-04 19:05 | NUR ---
RECEIVED REPORT FROM ROSA VILLARREAL. ASSUMING ALL CARE
--- NOTE | 2019-09-04 19:30 | NUR ---
RECIEVED PT LAYING IN BED. PT IS INTUBATED AND ON NO SEDATION. RESPONDS TO TACTILE STIMULIL, DOES NOT FOLLOW SIMPLE COMMANDS OR TRACK WITH EYES. GAG REFLEX PRESENT. PUPILS WITH SLUGGISH RESPONSE TO LIGHT, 3 MM BILAT. 7.5 ETT INTACT/SECURED, 23 CM @ LL. LIJ CVC, TLC INTACT/SECURED, DRESSING CDI. RIGHT SUBCLAVIAN ALIVIA CATH INTACT/SECURED, DRESSING CDI. RIGHT NARE DOBHOFF INTACT/SECURED. BREATHING IS E/U ON VENT. VENT SETTINGS: VCV/AC MODE, RATE 14, VT 550, FIO2 30%, PEEP 5. LUNGS SOUND CLEAR TO BUL AND DIMIN LUNG SOUNDS NOTED TO BLL. SYMMETRICAL CHEST EXPANSION NOTED. WEAK PULSES X4 EXTREMITIES. SKIN IS COOL AND DRY. +3 PITTING EDEMA NOTE TO BUE/BLE. PT ON BARIATRIC BED THAT REPOSITIONS Q15 MIN. PT ON GLUCERNA TF @ 45 ML/HR WITH 30 CC FWF Q6H. GRV=0. ABD IS OBESE. BOWEL SOUNDS ACTIVE X4 QUADRANTS. FLEXISEAL INTACT/SECURED, DRAINING VIA GRAVITY WITH GREEN WATERY COLORED STOOL. F/C IS INTACT/SECURED, DRAINING VIA GRAVITY WITH SARA COLORED URINE. POOR URINE OUTPUT. RIGHT SUBCLAVIAN ALIVIA CATH IN PLACE, DRESSING CHANGE PROVIDED USING STERILE TECHNIQUE. MULTIPLE WOUNDS NOTED TO INNER THIGHS, ABD, BUTTOCK/HIP, BUE, BLE WITH DRSG APPLIED. ECCHYMOSIS NOTED TO BUE/BLE/CHEST/NECK. MULTIPLE SKIN TEARS NOTED THROUGHOUT WITH VERSATILE DRESSING IN PLACE. EROSION NOTED TO ABD FOLD, BREAST FOLD, GROIN, AND PERINEAL AREA. SEE CHART FOR DETAIL. BED IN LOW POSITION. CALL LIGHT IN REACH. WILL CONT TO MONITOR
--- NOTE | 2019-09-04 23:59 | NUR ---
DR. WONG AT BEDSIDE. UPDATED ON PT'S CURRENT STATUS. PER DR. WONG, THE RIGHT SUBCLAVIAN RECENTLY PLACED NEEDS TO BE REMOVED AT THE SAME TIME THE LIJ CVC AND A NEW ALIVIA PLACED. PER DR. WONG, "IF THE ALIVIA CATH WAS REMOVED AND A NEW ONE PLACED WITHOUT THE LIJ CVC BEING REMOVED AT THE SAME TIME, THE NEW ALIVIA CATH WILL BE CONTAMINATED BY THE OLD LIJ. BOTH LINES NEED TO BE REMOVED AT THE SAME TIME AND NEW LINES PLACED". PER DR. WONG, ORDER A NEW SET OF BLOOD CULTURES. ORDER NOTED AND CARRIED OUT.
[2019-09-05] VITALS (16 sets, daily range): BP systolic 88–131; BP diastolic 46–71
--- NOTE | 2019-09-05 02:45 | NUR ---
RIGHT ALIVIA DRESSING NOTED TO BE SOILED. NEW DRESSING APPLIED VIA STERILE TECHNIQUE. SURGICEL APPLIED TO MINIMIZE BLEEDING.
--- NOTE | 2019-09-05 04:21 | NUR ---
FULL BED BATH PROVIDED, GOWN AND CHUCKS CHANGED, CHG WIPES APPLIED. ORAL, ROE, AND PERICARE PROVIDED. WOUND CARE PROVIDED PER WOUND CARE RECOMMENDATION.
--- NOTE | 2019-09-05 05:10 | NUR ---
LABOR ARBITRATOR AT BEDSIDE FOR AM LAB DRAW
[2019-09-05 05:55] LABS: PLATELET COUNT 59 x10^3mcL (130-400); RED CELL DISTRIBUTION WIDTH 17.9 % (11.5-14.5)
--- NOTE | 2019-09-05 06:05 | NUR ---
X-RAY TECH AT BEDSIDE
[2019-09-05 06:27] LABS: ALBUMIN 2.1 g/dL (3.4-5.0); BILIRUBIN DIRECT 0.24 mg/dL (0.0-0.2); BILIRUBIN TOTAL 0.57 mg/dL (0.20-1.00); CALCIUM 10.3 mg/dL (8.5-10.1); CARBON DIOXIDE 17.9 mmol/L (21-32); CREATININE SERUM 2.6 mg/dL (0.6-1.0); POTASSIUM SERUM 4.5 mmol/L (3.5-5.1); TOTAL PROTEIN, SERUM 5.4 g/dL (6.4-8.2)
--- NOTE | 2019-09-05 06:45 | NUR ---
7.5 ETT INTACT/SECURED, 23 CM @ LL. VENT SETTINGS: VCV AC MODE, RATE 14, PEEP 5, VT 550, FIO2 30%. RIGHT NARE DOBHOFF INTACT/SECURED. GLUCERNA INFUSING @ 45 ML/HR WITH 30 CC FWF Q6H. LIJ CVC INTACT/SECURED. RIGHT SUBCLAVIAN ALIVIA IN PLACE, NEW DRESSING APPLIED USING STERILE TECHNIQUE WITH SURGICEL IN PLACE. ROE AND FLEXISEAL INTACT/SECURED. BED IN LOW POSITION. WILL ENDORSE CARE TO ONCOMING RN
--- NOTE | 2019-09-05 07:10 | NUR ---
REPORT RECEIVED FROM JACE VILLARREAL. ALL CARES ASSUMED FOR THIS SHIFT.
--- NOTE | 2019-09-05 07:10 | NUR ---
REPORT GIVEN TO LUISA VILLARREAL FOR CONTINUITY OF CARE. ALL QUESTIONS/CONCERNS ADDRESSED.
--- NOTE | 2019-09-05 07:15 | NUR ---
RIGHT IJ ALIVIA CATH NOTED TO BE BLEEDING UNDER DRESSING. PRESSURE BAG APPLIED. WILL CONTINUE TO MONITOR.
--- NOTE | 2019-09-05 07:55 | NUR ---
2 LAB TECHS ATTEMPTED TO DRAW BLOOD PERIPHERALLY FROM RIGHT ARM AND COULD NOT OBTAIN BLOOD. WILL ASK DR. NGUYEN IF BLOOD DRAW CAN BE ATTEMPTED FROM LEFT ARM.
--- NOTE | 2019-09-05 09:30 | NUR ---
PT PLACED ON CPAP BY DR. NGUYEN AT THIS TIME.
--- NOTE | 2019-09-05 09:36 | NUR ---
PT PLACED ON CPAP BY DR. NGUYEN AT THIS TIME, PRIMARY RN AND RT MADE AWARE.
--- NOTE | 2019-09-05 09:36 | NUR ---
DR. NGUYEN AT BEDSIDE. UPDATES PROVIDED, QUESTIONS ANSWERED. NO CHANGES IN POC FOR NOW.
--- NOTE | 2019-09-05 09:47 | NUR ---
DR. NGUYEN GAVE THE OK TO TRY AND DRAW LABS FROM PT'S LEFT ARM.
--- NOTE | 2019-09-05 10:30 | NUR ---
WOOL GRADER AT BEDSIDE, SHE WAS ABLE TO DRAW BLOOD FROM RIGHT HAND.
--- NOTE | 2019-09-05 12:00 | NUR ---
TAX SERVICES SPECIALIST AT BEDSIDE, INITIATING DIALYSIS.
--- NOTE | 2019-09-05 12:04 | NUR ---
ELEAZAR, NOVELTY MAKER, CALLED AND SAID SHE TALKED TO DR. NGUYEN AND WILL UPDATE THE WOUND CARE ORDERS TO BE BETADINE SOAKED KERLIX PACKED IN WOUNDS AND TO BE CHANGED EVERY OTHER DAY.
--- NOTE | 2019-09-05 12:05 | NUR ---
SPOKE WITH [employer] SALES NICOLE WHO INFORMED ME PER PT'S INSURANCE, PT WOULD NEED TO BE PLACED IN A SUBACUTE AND STATED PT WOULD NEED TO BE TRACH AND PEG PRIOR TO SUBACTE TRANSFER. INFORMED PRIMARY RN LUISA OF THE ABOVE. SENT A PAGE OUT TO DR. NGUYEN TO INFORM HIM.
--- NOTE | 2019-09-05 12:05 | NUR ---
POC OF WOUND CARE DISCUSSED WITH DR. FISHER OF ALL S/P DEBRIDED SURGICAL WOUNDS NEW ORDERS OBTAINED AND PRIMARY RN NOTIFIED.
--- NOTE | 2019-09-05 13:18 | NUR ---
RECEIVED CALL BACK FROM DR. NGUYEN AND UPDATED HIM ON CASE MANAGEMENT STATING PT WOULD HAVE TO GO TO SUB ACUTE. PER DR. NGUYEN HE WOULD LIKE TO SPEAK WITH SUPERINTENDENT DISTRIBUTION NICOLE, CALL TRANSFERRED AT THIS TIME.
--- NOTE | 2019-09-05 15:21 | NUR ---
PER HUMAN RESOURCES ASSOCIATE, WAIT TO GIVE ZOSYN UNTIL AFTER DIALYSIS IS COMPLETE.
--- NOTE | 2019-09-05 16:00 | NUR ---
PT TOLERATED DIALYSIS WELL. LITHOGRAPHY CONTACT WORKER ADMINISTERED 200 ML ALBUMIN DURING DIALYSIS FOR BP SUPPORT MAP'S WERE IN 50'S. MAP'S NORMALIZED AFTER ALBUMIN ADMINISTRATION.
--- NOTE | 2019-09-05 16:03 | NUR ---
RN CALLED PHARMACIST TO SUGGEST RETIMING ZOSYN DOSE, AND THE PHARMACIST SAID IT IS OKAY TO GIVE THE ZOSYN 2 HOURS LATE FOR THIS DOSE. WILL SCAN AND ADMINISTER.
--- NOTE | 2019-09-05 18:11 | NUR ---
DR. REED IN UNIT, UPDATED ON DR. WONG'S RECOMMENDATION OF REMOVING BOTH RIJ ALIVIA CATH AND LIJ CVC AT THE SAME TIME DUE TO CONTAMINATION OF LINES. DR. REED RECOMMENDED REMOVING LIJ CENTRAL LINE AND USING THE PIGTAIL OF THE ALIVIA CATH FOR IV FLUID AND IVPB MEDICATIONS. WILL CARRY OUT.
--- NOTE | 2019-09-05 18:13 | NUR ---
PLACED PT BACK ON A/V VC SETTINGS PREVIOUSLY ORDERED AND CHARTED.
--- NOTE | 2019-09-05 18:17 | NUR ---
PT PLACED BACK ON A/C VCV MODE ON VENT, VT 550, RATE 14, PEEP 5, FIO2 30%. PT TOLERATED CPAP WELL THIS SHIFT.
[2019-09-06] VITALS (18 sets, daily range): BP systolic 108–150; BP diastolic 50–69
[2019-09-06 05:20] LABS: BILIRUBIN DIRECT 0.27 mg/dL (0.0-0.2); BILIRUBIN TOTAL 0.66 mg/dL (0.20-1.00); CALCIUM 10.3 mg/dL (8.5-10.1); CREATININE SERUM 1.7 mg/dL (0.6-1.0); POTASSIUM SERUM 3.9 mmol/L (3.5-5.1)
[2019-09-06 05:21] LABS: BASOPHIL % 0.1 % (0-2)
[2019-09-06 05:23] LABS: ALBUMIN 2.5 g/dL (3.4-5.0); TOTAL PROTEIN, SERUM 5.5 g/dL (6.4-8.2)
[2019-09-06 05:33] LABS: PLATELET COUNT 52 x10^3mcL (130-400)
--- NOTE | 2019-09-06 07:30 | NUR ---
REPORT RECEIVED FROM MIREYA VILLARREAL. PT RECEIVED LYING IN BED, BED IN LOWEST POSITION, HOB 30 DEG, WHEELS LOCKED. PT RESPONDS TO PAIN BY GRIMACING AND LOCALIZING AND WITHDRAWING TO PAIN. CHEST EXPANSION SYMMETRIC. PT HAS NS INFUSING TO THE PIGTAIL PORT OF THE ALIVIA CATH TO HER RIGHT IJ, SITE CDI. PT ON [facility] BED SET TO REDISTRIBUTE AIR TO TURN PT Q15 MIN; BED FUNCTIONAL. DRESSINGS TO WOUNDS ARE CDI. VENT ON A/C MODE WITH VT 550, RATE 14, FIO2 30%, AND PEEP 5. NO ACUTE DISTRESS NOTED. PT IS NOT ON SEDATION, AND DOES NOT HAVE WRIST RESTRAINTS. ETT SECURED TO FACE WITH ANCHORFAST, DOBHOFF NGT SECURED TO NOSE AND TO ETT. PT HAS TUBE FEED VIA DOBHOFF GOING AT 45 ML/HR WITH 30 CC FWF Q6H. NO ACUTE DISTRESS NOTED, PT DOES NOT APPEAR TO BE IN PAIN AT THIS TIME. WILL ASSUME ALL CARE AND CARRY OUT ORDERS FOR THE SHIFT.
--- NOTE | 2019-09-06 08:45 | NUR ---
PT PLACED ON CPAP AT THIS TIME BY ANGE RAMOS. PT APPEARS TO BE TOLERATING CPAP WELL, NO ACUTE S/S DISTRESS NOTED. WILL CONTINUE TO MONITOR.
--- NOTE | 2019-09-06 09:38 | NUR ---
PT TOLERATING CPAP WELL, NO S/S DISTRESS NOTED.
--- NOTE | 2019-09-06 10:43 | NUR ---
PT RESTING IN BED WITH EYES CLOSED. NO S/S DISTRESS NOTED AT THIS TIME. [facility] AIR TURNING BED FUNCTIONING PROPERLY AT THIS TIME.
--- NOTE | 2019-09-06 11:15 | NUR ---
DR. ARNOLD AT BEDSIDE. UPDATES PROVIDED, QUESTIONS ANSWERED. DR. ARNOLD RECOMMENDED TESTING THE PT'S STOOL FOR C. DIFF AND ASKED RN TO ENTER THE ORDER. NO FURTHER CHANGES IN POC AT THIS TIME.
--- NOTE | 2019-09-06 11:34 | NUR ---
Follow-up Nutrition Assessment: IC04/A KATELYN GARG HR Dx: Acute respiratory failure PMHx: ESRD on HD (M-W-F), HTN, DM, morbid obesity, peripheral vascular disease, hypoalbuminemia, necrotic left groin wound Labs: (09/06) BG 276H, CREAT 1.7H, BUN 26H, ALB 2.5L, TG 264H, WBC 2.8L, HGB 7.3L Meds: D 50%, Humulin, lantus, lopressor, Zofran, zosyn, morphine, Vitamin C, zinc Diet: Glucerna 1.2 @ 20 ml/hr, goal 45ml/hr FWF 30 ml Q6H PO Intake: NPO Weights: (08/30) 108.8 kg, (09/05) 106 kg, (09/06) 106.1 kg I/Os: (09/06) 888/0 (888) Skin: multiple ulcers and skin tears, pt on bariatric bed that repositions Q15 min James: 11 Edema: none GI: dark green stool, flexiseal intact Last BM: 09/06 RD Note (08/31): Patient is intubated and sedated. Per RN Fani, pt is tolerating TF with no residuals. TF Glucerna is running at goal rate of 45 ml/hr. Per progress note (09/05), bacteremia: s/p recent removal RIJ tunneled HD permacatheter and groshong cath placement new RIJ Arrow large bore catheter w/ central line port 09/04. ICU nurse instructed to remove LIJ central line, and use RIJ central line port as needed. s/p debridement of multiple perineum, Sacro coccyx, bilat leg calciphylaxis wounds; stable calciphylaxis wounds, continue daily dressing changes. Estimated Nutritional Needs Based on body weight (72 kg) Energy: 2773-3835 vs 1925 kcal/day (30-35 vs ALMAZAN 2009 kcal/kg for HD) Protein: 86- 101 g/day (1.2-1.4 g/kg for HD) Fluid: 5559-6618 mL/day (1 mL/kcal) or per MD Nutrition Diagnosis: 1.Increased nutrient needs related to wounds, HD as evidenced by estimated calorie and protein needs. (ongoing). 2. Inadequate enteral nutrition infusion related to low TF rate as evidenced by current TF rate meeting <75% estimated calorie and protein needs. (ongoing) Intervention: 1. Recommend increasing Glucerna @ @ 20 ml/hr, goal 60 ml/hr, advance Q4H, FWF 30 ml Q6H. This will provide 1730 kcal and 86 g protein. Discussed recommendations with Dr. Mederos and PHIL Mohr. Monitor/Evaluate: Goal: Have pt meet at least 75% of estimated needs Monitor: PO intake, Labs, GI function F/U in 3-5 days as moderate risk 09/09-4
--- NOTE | 2019-09-06 11:35 | NUR ---
1. Recommend increasing Glucerna @ 20 ml/hr, goal 60 ml/hr, advance Q4H, FWF 30 ml Q6H. This will provide 1730 kcal and 86 g protein. Discussed recommendations with Dr. Mederos and PHIL Mohr.
--- NOTE | 2019-09-06 12:05 | NUR ---
STOOL SAMPLE OBTAINED AND SENT TO LAB FOR C. DIFF REQUESTED BY DR. ARNOLD.
--- NOTE | 2019-09-06 12:45 | NUR ---
DR. NGUYEN AT BEDSIDE. QUESTIONS ANSWERED, UPDATES PROVIDED. DR. NGUYEN SAID HE WOULD CALL THE PT'S DAUGHTER TO DISCUSS PALLIATIVE MEASURES FOR THE PATIENT DUE TO THE PT'S POOR PROGNOSIS.
--- NOTE | 2019-09-06 16:00 | NUR ---
TERRA COTTA ROOFER MYRIAM PRESENT, ASKED IF PT'S FAMILY HAVE COME BY AND THEY HAVE NOT. SHE SAID SHE WOULD ATTEMPT TO REACH PT'S SON, ANDREW, TO FOLLOW UP WITH PLAN OF CARE RE: CODE STATUS, HOSPICE, ETC. WILL ENDORSE TO ONCOMING RN.
--- NOTE | 2019-09-06 17:03 | NUR ---
GLUCERNA TUBE FEEDING INCREASED TO 60 ML/HR PER DIETARY RECOMMENDATION. FWF REMAINS 30 ML Q6H.
--- NOTE | 2019-09-06 17:35 | NUR ---
PT PLACED BACK ON A/C VCV VT 550, PEEP 5, RATE 14, FIO2 30% AT THIS TIME BY ANGE RAMOS. PT TOLERATED CPAP WELL THIS SHIFT.
--- NOTE | 2019-09-06 19:37 | NUR ---
rEC'D REPORT AND ASSUMED CARE OF PT. DAUGHTER AND NEIGHBOR AT BEDSIDE, PT LYING IN BED WITH EYES CLOSED, BARELY OPENING EYES, UNRESPONSIVE TO TACTILE AND VERBAL STIMULI, ASSESSMENT COMPLETED PER FLOWSHEET, NO CARDINAL S/S PAIN/DISCOMFORT NOTED AT THIS TIME. MULTI WOUNDS NOTED AND DRESSED AT THIS TIME. PT ON BARIATRIC BED THAT TURNS PT Q 15 MIN. TF IN PROGRESS AT 60 ML/HR. WILL PROVIDE CONT MONITORING OF PT CONDITION AND ADDRESS CHANGES PER MD ORDERS.
[2019-09-07] VITALS (16 sets, daily range): BP systolic 102–147; BP diastolic 43–73
[2019-09-07 04:47] LABS: BASOPHIL % 0.3 % (0-2)
[2019-09-07 04:52] LABS: CALCIUM 10.1 mg/dL (8.5-10.1); CARBON DIOXIDE 20.8 mmol/L (21-32); CREATININE SERUM 2.3 mg/dL (0.6-1.0); POTASSIUM SERUM 4.2 mmol/L (3.5-5.1)
[2019-09-07 04:58] LABS: PLATELET COUNT 53 x10^3mcL (130-400)
--- NOTE | 2019-09-07 06:48 | NUR ---
PT RESTED QUIETLY THROUGHOUT NIGHT WITHOUT ANY DISTRESS, ASSESSMENT UNCHANGED, FULL BATH GIVEN, GOWN AND DRAWSHEET/PAD CHANGED, WOUND DRESSINGS CHANGED/REINFORCED.
--- NOTE | 2019-09-07 07:30 | NUR ---
GABRIELE RT AT BEDSIDE TO ADMINISTER BREATHING TX.
--- NOTE | 2019-09-07 07:36 | NUR ---
HD NURSE, LINH, AT BEDSIDE. ORDERS GIVEN
--- NOTE | 2019-09-07 08:41 | NUR ---
100 ML OF ALBUMIN GIVEN TO Sonia MELTON FOR BP SUPPORT.
--- NOTE | 2019-09-07 08:43 | NUR ---
ALBUMIN 25 100 ML IV GIVEN PER HD NURSE LINH FOR PT'S BLOOD PRESSURE.
--- NOTE | 2019-09-07 09:08 | NUR ---
2ND ALBUMINAR 100 ML IV GIVEN TO LINH HD NURSE TO MAINTAIN BP PER DR. AMATO'S ORDERS.
--- NOTE | 2019-09-07 09:28 | NUR ---
ALBUMIN X 2 WAS ADMINSTERED BY HD NURSE LINH. BP 129/61 MAP 77
--- NOTE | 2019-09-07 11:35 | NUR ---
HD COMPLETED, 2L WERE PULLED OFF
--- NOTE | 2019-09-07 15:04 | NUR ---
DRESSINGS TO ALL WOUNDS CHANGED WITH WOUND CARE ORDERS FOLLOWED. PT CLEANED, NEW OPTIFOAM APPLIED, GOWN CHANGED, CHUCKS CHANGED, PT TURNED AND REPOSITIONED BY [facility] ANTON[facility]. PT TOLERATED WELL WITH NO COMPLICATIONS.
--- NOTE | 2019-09-07 15:05 | NUR ---
DR NGUYEN AT BEDSIDE TO ASSESS PATIENT. NO FAMILY BEDSIDE HOWEVER PATIENT'S FRIEND AT BEDSIDE. DR NGUYEN WOULD LIKE STAFF TO CALL HIM ONCE PATIENT'S DAUGHTER LILIAM COMES TO THE UNIT TO DISCUSS POC. LILIAM TELEPHONED UNIT AFTER DR NGUYEN LEFT THE AND MADE AWARE. WILL ENDORSE INFORMATION TO ONCOMING NOC RN.
--- NOTE | 2019-09-07 22:20 | NUR ---
REC'D REPORT & ASSUMED CARE, PT IN BED APPEARS ASLEEP, DIFFICULT TO AROUSE EXCEPT WITH PAINFUL STIMULI, ASSESSMENT PERFORMED, HRR 100'S, ABNORMAL RHYTHM; PULSES WEAK X 4; RT NARE NGT INTACT INFUSING GLUCERNA 1.2 @ 60 ML/HR, RESIDUAL < 10 ML; 7.5 ETT TO VENT, AC, TV 550, FIO2 30%, RATE 14, P5, PS10, BBS COARSE/DIMINISHED; ABD LG/ROUND, BOWEL SOUNDS HYPOACTIVE X4, FLEXISEAL IN PLACE; GENERALIZED EDEMA +2/+3, MULTI NECROTIC WOUNDS/SKIN TEARS, DRESSINGS CDI, ROE INTACT, SCANT OUTPUT; ON BARIATRIC BED THAT TURNS Q 15 MIN. FRIEND AT BEDSIDE. CONTINUE MONITORING.
[2019-09-08] VITALS (18 sets, daily range): BP systolic 92–142; BP diastolic 35–68
[2019-09-08 05:10] LABS: CALCIUM 9.5 mg/dL (8.5-10.1); CARBON DIOXIDE 21.9 mmol/L (21-32); CREATININE SERUM 1.9 mg/dL (0.6-1.0); POTASSIUM SERUM 3.6 mmol/L (3.5-5.1)
[2019-09-08 05:39] LABS: RED CELL DISTRIBUTION WIDTH 17.7 % (11.5-14.5)
[2019-09-08 06:10] LABS: ATYPICAL LYMPH 4 %; BAND NEUTROPHIL 3 % (0-10); BASOPHIL 0 % (0-2); METAMYELOCTE 3 % (0-2); MONOCYTE 20 % (0-7); PLATELET MORPHOLOGY PLATELETS DECREASED; SEGMENTED NEUTROPHILS 14 % (37-75); rbc morphology (normal/abnorm) ABNORMAL (NORMAL)
--- NOTE | 2019-09-08 07:42 | NUR ---
PATIENTS AXILLARY TEMPERATURE MEASURING 100 AT THIS TIME. COOLING MEASURES PROVIDED.
--- NOTE | 2019-09-08 08:10 | NUR ---
PATIENT ON CPAP AT THIS TIME, PER RT.
--- NOTE | 2019-09-08 10:05 | NUR ---
DR. NGUYEN PAGED AT THIS TIME REGARDING PATIENTS H/H. WILL AWAIT CALL AT THIS TIME.
--- NOTE | 2019-09-08 11:11 | NUR ---
NO CALL BACK FROM DR. NGUYEN AT THIS TIME. DR. NGUYEN PAGED AGAIN AT THIS TIME.
--- NOTE | 2019-09-08 11:30 | NUR ---
DR NGUYEN AT BEDSIDE. ALL UPDATES PROVIDED. PER DR NGUYEN RE DRAW H/H AND IF PTS H/H LOW, GIVE 2 UNITS OF PRBCS. WILL AWAIT RESULTS.
--- NOTE | 2019-09-08 15:05 | NUR ---
DR NGUYEN PAGED AT THIS TIME, LILIAM, DAUGHTER AT BEDSIDE.
--- NOTE | 2019-09-08 15:20 | NUR ---
DR REED CALLED AT THIS TIME, PER DR NGUYEN WANTING TO KNOW IF THE TRACHEOSTOMY CAN BE DONE. DR. REED STATES THAT HE CAN DO THIS PROCEDURE ON WEDNESDAY. DR REED ALSO INFORMED THAT THE PIGGY BACK ON THE [facility] IS NOT WORKING AT THIS TIME, AND BLOOD NEEDS TO TRANSFUSED AT THIS TIME. PER DR. REED, HE CAN DO A CENTRAL LINE TOMORROW, FOR NOW TRY TO DO PERIPHERAL IV. WILL ATTEMPT PERIPHERAL IV.
[2019-09-08 15:33] LABS: rbc morphology (normal/abnorm) ABNORMAL (NORMAL)
--- NOTE | 2019-09-08 15:45 | NUR ---
ER CALLED AT THIS TIME, FOR RN TO ATTEMPT IV, PER HANNAH THEY ARE BUSY AND CANT.
--- NOTE | 2019-09-08 15:47 | NUR ---
PERIPHERAL IV ATTEMPTS TRIED AND NOT SUCCESSFUL, DR. NGUYEN PAGED AT THIS TIME FOR PICC LINE NURSE.
--- NOTE | 2019-09-08 15:47 | NUR ---
DR NGUYEN CALLED AT THIS TIME AND STS TO HAVE PICC LINE NURSE COME IN. WILL AWAIT ORDER AT THIS TIME.
--- NOTE | 2019-09-08 15:48 | NUR ---
PICC LINE NURSE PAGED AT THIS TIME. WILL AWAIT CALL BACK.
--- NOTE | 2019-09-08 16:00 | NUR ---
PICC LINE NURSE PAGED AT THIS TIME. AWAITING CALL BACK.
--- NOTE | 2019-09-08 16:00 | NUR ---
PICC LINE NURSE STATED THAT THEY WILL CALL BACK WITH ETA.
--- NOTE | 2019-09-08 16:42 | NUR ---
RETURNED BLOOD TO BLOOD BANK AT THIS TIME, SINCE UNABLE TO USE.
--- NOTE | 2019-09-08 16:55 | NUR ---
DR REED AT BEDSIDE ALL UPDATES GIVEN, PER DR REED HE CAN DO THE LINE, JUST TO GET CONSENT FIRST. LILIAM CALLED AT THIS TIME, NO ANSWER, LEFT VOICEMAIL. WILL AWAIT CALL.
--- NOTE | 2019-09-08 16:56 | NUR ---
PICC LINE NURSE CALL BACK AT THIS TIME AND INFORMED THAT DR REED SAID HE WILL PLACE THE LINE.
[2019-09-08 16:59] LABS: PLATELET COUNT 49 x10^3mcL (130-400)
--- NOTE | 2019-09-08 17:00 | NUR ---
LILIAM DAUGHTER CALLED AT THIS TIME. GAVE CONSENT OVER TELEPHONE. [address] REED MADE AWARE, AND TO START PROCEDURE.
--- NOTE | 2019-09-08 17:31 | NUR ---
DR. REED CHANGED THE [facility] CATH OVER A GUIDEWIRE VIA STERILE TECHNIQUE. CXR ORDERED AND CALLED TO CONFIRM PLACEMENT. WILL CONTINUE TO MONITOR.
--- NOTE | 2019-09-08 18:20 | NUR ---
BLOOD TRANSFUSION INITIATED AT THIS TIME.
--- NOTE | 2019-09-08 18:45 | NUR ---
LINEN CHANGE PROVIDED AT THIS TIME. BED BATH PROVIDED AT THIS TIME. ROE CARE PROVIDED AT THIS TIME. DRESSING CHANGE TO BUE PROVIDED AT THIS TIME. GOWN CHANGED AT THIS TIME. PATIENT STABLE. WILL CONTINUE TO MONITOR.
--- NOTE | 2019-09-08 19:12 | NUR ---
REPORT GIVEN TO PHIL DUNN AT THIS TIME. ALL QUESTIONS ANSWERED.
--- NOTE | 2019-09-08 19:15 | NUR ---
RECIEVED REPORT FROM PHIL HERNANDEZ. NURSING UPDATES. POC DISCUSSED. SEE SHIFT ASSESSMENT FOR ASSESSMENT.
--- NOTE | 2019-09-08 20:46 | NUR ---
PT W/ BLOOD TRANSFUSION. BEFORE TRANSFUSION STARTED 2 RNS VERIFIED MRN #, BLOOD TYPE, , DONOR BLOOD TYPE, EXPIR DATE, AND PRBC UNIT #. PRE 1819 TEMP 100.0, HR 111, BP 95/42. RESP 22, O2 100% DURING 1834 TEMP 100.0, HR 110, BP 95/60. RESP 20, O2 100% POST 2044 TEMP 99.1, HR 120, BP 140/60. RESP 22, O2 100% BLOOD TRANSFUSION FINISHED @ THIS TIME. NO S/S OF REACTION.
--- NOTE | 2019-09-08 21:19 | NUR ---
PT W/ DRIED BLOOD @ [facility] DRESSING NOTED. WILL CONT TO MONITOR. PRESSURE BAG APPLIED.
[2019-09-08 23:54] LABS: acanthocyte (spur cell) 1+; ovalocyte/elliptocyte 1+; rbc morphology (normal/abnorm) ABNORMAL (NORMAL)
[2019-09-09] VITALS (19 sets, daily range): BP systolic 102–148; BP diastolic 43–88
--- NOTE | 2019-09-09 00:18 | NUR ---
NOTIFIED PER DR EVANS OF H/H 6.9 AND 23. INFORMED TO GIVE 2ND UNIT OF BLOOD. INFORMED PER BLOOD BANK OF MISSING B POSITIVE BLOOD AND TO ASK DR EVANS FOR OK TO USE B NEGATIVE BLOOD. NOTIFIED DR EVANS FOR USE OF B NEGATIVE INSTEAD B POSITIVE BLOOD AND APPROVED. ENDORSED TO BLOOD BANK.
--- NOTE | 2019-09-09 01:41 | NUR ---
PT TEMP 100.6. COOLING MEASURES IN PLACE DURING BLOOD TRANSFUSION.
--- NOTE | 2019-09-09 05:19 | NUR ---
DRESSINGS CHANGED FOR BOTH INGUINAL AREA WOUNDS. NEW DRESSING APPLIED C/D/I.
[2019-09-09 05:37] LABS: CALCIUM 10.5 mg/dL (8.5-10.1); CARBON DIOXIDE 19.7 mmol/L (21-32); CREATININE SERUM 2.5 mg/dL (0.6-1.0); POTASSIUM SERUM 4.1 mmol/L (3.5-5.1)
[2019-09-09 05:58] LABS: PLATELET COUNT 64 x10^3mcL (130-400); RED CELL DISTRIBUTION WIDTH 16.1 % (11.5-14.5)
[2019-09-09 06:18] LABS: ATYPICAL LYMPH 2 %; BAND NEUTROPHIL 18 % (0-10); BASOPHIL 0 % (0-2); METAMYELOCTE 1 % (0-2); MONOCYTE 18 % (0-7); SEGMENTED NEUTROPHILS 24 % (37-75); rbc morphology (normal/abnorm) ABNORMAL (NORMAL)
--- NOTE | 2019-09-09 07:10 | NUR ---
RECEIVED REPORT FROM MONA VILLARREAL. ALL QUESTIONS ANSWERED AND ADDRESSED. WILL ASSUME CARE OF PT
--- NOTE | 2019-09-09 07:10 | NUR ---
RECEIVED PT INTUBATED WITH NO SEDATION. UNABLE TO FOLLOW COMMANDS OR MAKE NEEDS KNOWN. RESPONDS TO PAINFUL STIMULUS. PUPILS 4MM IN SIZE AND SLUGGISH IN RESPONSE TO LIGHT B/E. SLIGHT GAG REFLEX NOTED. 7.5 ETT @ 22LL. R NARE DOBHOFF INTACT AND SECURED. RIJ ALIVIA CATH INTACT AND SECURED, DRESSING INTACT. ETT TO VENT: VCV/AC MODE = 5 PEEP, 30% FIO2, 14 RATE, 550 VT. BREATHING E/U. SYMMETRICAL CHEST WALL EXPANSION. CLEAR LUNG SOUNDS TO BUL, DIM TO BLL. NO S/S OF RSEP DISTRESS. AFIB ON METAL PAINTER. S1/S2 HEART SOUNDS DISTANT. CAP REFILL DELAYED. +3 EDEMA TO BUE AND BLE. SKIN IS WARM/DRY TO TOUCH, PALE IN COLOR TO BUE AND BLE. PT MORBIDLY OBESE. ABD IS LARGE AND ROUNDED. FLEXISEAL IN PLACE DRAINING GREEN WATERY STOOL. F/C INTACT AND DRAINING VIA GRAVITY. URINE IS SARA IN COLOR WITH SEDIMENTS WITH POOR OUTPUT NOTED. MULTIPLE WOUNDS AND SKIN TEARS NOTED. SEE CHART FOR DETAILS. X3 SIDE RAILS UP, BED IN LOWEST POSITION, VAP PROTOCOL FOLLOWED.
--- NOTE | 2019-09-09 08:20 | NUR ---
UPON TRYING TO GIVE R SELMAE FABIANOFF FOR PT'S 0900 MEDICATIONS, TUBE WAS NOT ABLE TO FLUSH. TRIED TO FLUSH WITH HOT WATER AND WITH SPRITE BUT STILL NOT ABLE TO ACCESS. TUBE FEEDINGS TURNED OFF AT THIS TIME. CHARGE NURSE NOTIFIED. DR. CRUZ CONTACTED.
--- NOTE | 2019-09-09 08:30 | NUR ---
DR. MARQUEZ AT BESIDE ASSESSING PT. NURSING UPDATES. NO NEW ORDERS AT THIS TIME.
--- NOTE | 2019-09-09 09:00 | NUR ---
DR. CRUZ AT BEDSIDE ASSESSING PT. AWARE OF PT'S R YAW PENDLETON NOT BEING ABLE TO FLUSH AT THIS TIME. DR. CRUZ STATED TO CONTACT DAUGHTER TO HAVE PEG TUBE PLACED EITHER TODAY OR TOMORROW. DAUGHTER CALLED AT THIS TIME TO GIVE CONSENT BUT NOT AVAILABLE. VOICEMAIL LEFT ABOUT PEG TUBE PLACEMENT.
--- NOTE | 2019-09-09 12:00 | NUR ---
HD NURSE AT BEDSIDE PREPARING FOR DIALYSIS AT THIS TIME.
--- NOTE | 2019-09-09 12:30 | NUR ---
HD NURSE STATING THAT CANDIDO BUNCH IS BLEEDING TOO MUCH AT THE SITE. HD STOPPED AT THIS TIME. DR. REED NOTIFIED AND STATED THAT HE WILL BE HERE SHORTLY TO SUTURE THE ALIVIA MORE. WILL CONT TO MONITOR.
--- NOTE | 2019-09-09 12:37 | NUR ---
[facility] ALIVIA CATH IS BLEEDING CONTINOUSLY FROM SITE. HEMODIALYSIS STOPPED AT THIS TIME AND HD NURSE WILL CONTACT THE FAMILY PRACTITIONER DR. EDWARDS. DR. REED CALLED TO NOTIFY ABOUT THE BLEEDING, HE STATES HE WILL BE HERE SOON AND TO HAVE SUTURES READY AT BEDSIDE. PHIL LEE MADE AWARE. WILL CONTINUE TO MONITOR.
--- NOTE | 2019-09-09 15:00 | NUR ---
PT'S DAUGHTER, LILIAM, ON UNIT. PEG TUBE, EGD, TRACHEOSTOMY, AND ANESTHESIA CONSENT FORMS SIGNED BY HER, SEE CONSENT FORMS FOR MORE DETAILS. DR. CRUZ CALLED TWICE BUT NO ANSWER.
--- NOTE | 2019-09-09 16:39 | NUR ---
PROCRIT 10,000 UNITS HELD AT THIS TIME DUE TO PT NOT RECEIVING HD TODAY.
--- NOTE | 2019-09-09 16:45 | NUR ---
DR. DENISE OH AT BEDSIDE TO PLACE MORE SUTURES ON PT'S CANDIDO BUNCH.
--- NOTE | 2019-09-09 16:53 | NUR ---
DR. HOWIE REED COMPLETED SUTURES. SITE IS NOT BLEEDING AT THIS TIME. NEW DRESSING PLACED, C/D/I.
--- NOTE | 2019-09-09 19:05 | NUR ---
RECEIVED REPORT FROM ROSA VILLARREAL. ASSUMING ALL CARE
--- NOTE | 2019-09-09 19:28 | NUR ---
RECEIVED PT LAYING IN BED. PT IS INTUBATED AND ON NO SEDATION. PT RESPONDS TO TACTILE STIMULIL, DOES NOT FOLLOW SIMPLE COMMANDS OR TRACK WITH EYES. GAG REFLEX PRESENT. 7.5 ETT INTACT/SECURED, 22 CM @ LL. RIGHT SUBCLAVIAN ALIVIA CATH INTACT/SECURED, DRESSING CDI. RIGHT NARE DOBHOFF INTACT/SECURED. DRY ORAL MUCOSA NOTED. ORAL CARE PROVIDED PER VAP PROTOCOL. BREATHING IS E/U ON VENT. VENT SETTINGS: VCV/AC MODE, RATE 14, VT 550, FIO2 30%, PEEP 5. LUNGS SOUND CLEAR TO BUL AND DIMIN LUNG SOUNDS NOTED TO BLL. SYMMETRICAL CHEST EXPANSION NOTED. WEAK PULSES X4 EXTREMITIES. SKIN IS WARM AND DRY. +3 PITTING EDEMA NOTED TO BUE/BLE. PT PALE IN COLOR. PT ON BARIATRIC BED THAT REPOSITIONS Q15 MIN FOR PRESSURE DISTRIBUTION. TUBE FEEDING VIA DOBHOFF IS TURNED OFF AT THIS TIME D/T NOT BEING ABLE TO FLUSH. ABD IS OBESE. BOWEL SOUNDS ACTIVE X4 QUADRANTS. FLEXISEAL INTACT/SECURED, DRAINING VIA GRAVITY WITH GREEN WATERY COLORED STOOL. F/C IS INTACT/SECURED, DRAINING VIA GRAVITY WITH SARA COLORED URINE. POOR URINE OUTPUT. RIGHT SUBCLAVIAN ALIVIA CATH IN PLACE WITH DRESSING CDI. HD SCHEDULED FOR TOMORROW. MULTIPLE WOUNDS NOTED TO INNER THIGHS, ABD, BUTTOCK/HIP, BUE, BLE WITH DRSG APPLIED. ECCHYMOSIS NOTED TO BUE/BLE/CHEST/NECK. MULTIPLE SKIN TEARS NOTED THROUGHOUT WITH VERSATILE DRESSING IN PLACE. EROSION NOTED TO ABD FOLD, BREAST FOLD, GROIN, AND PERINEAL AREA. SEE CHART FOR DETAIL. FAMILY AT BEDSIDE. BED IN LOW POSITION. CALL LIGHT IN REACH. WILL CONT TO MONITOR
--- NOTE | 2019-09-09 23:48 | NUR ---
DR. WONG AT BEDSIDE. UPDATED ON PT'S STATUS. PER DR. WONG, ORDER URINE CX, BLOOD CX ONE TO BE OBTAINED PERIPHERALLY 15 MIN APART AND ANOTHER FROM THE ALIVIA CATH, ORDER FOR CXR, AND ORDER DIFLUCAN IV 200 MG TO BE ADMINISTERED RIGHT NOW AND THEN 200 MG TO BE ADMINISTERED AFTER EACH DIALYSIS SESSION. ORDER NOTED AND CARRIED OUT.
[2019-09-10] VITALS (17 sets, daily range): BP systolic 94–153; BP diastolic 39–77
--- NOTE | 2019-09-10 04:00 | NUR ---
URINE CX COLLECTED AND SENT TO LAB
--- NOTE | 2019-09-10 05:28 | NUR ---
BAG MENDER AT BEDSIDE FOR AM BLOOD DRAW AND BLOOD CULTURE DRAW
--- NOTE | 2019-09-10 05:45 | NUR ---
BED BATH PROVIDED, CHG WIPES APPLIED. GOWN AND CHUCKS CHANGED. ORAL CARE, PERICARE, AND ROE CARE PROVIDED. WOUND RECOMMENDATION FOLLOWED OUT.
[2019-09-10 05:59] LABS: CALCIUM 10.6 mg/dL (8.5-10.1); CARBON DIOXIDE 23.4 mmol/L (21-32); CREATININE SERUM 2.6 mg/dL (0.6-1.0); MAGNESIUM 1.7 mg/dL (1.8-2.4); POTASSIUM SERUM 3.6 mmol/L (3.5-5.1)
[2019-09-10 06:35] LABS: RED CELL DISTRIBUTION WIDTH 16.3 % (11.5-14.5)
--- NOTE | 2019-09-10 06:51 | NUR ---
REPORTED MAG LEVEL 1.[address] MARQUEZ VIA TELEPHONE, ORDER GIVEN FOR MAG 2GM IV X1, TELEPHONE ORDER READ BACK. ORDER CARRIED OUT.
--- NOTE | 2019-09-10 07:06 | NUR ---
REPORT GIVEN TO LUISA VILLARREAL FOR CONTINUITY OF CARE. ALL QUESTIONS/CONCERNS ADDRESSED. ENDROSING ALL CARE
--- NOTE | 2019-09-10 07:10 | NUR ---
REPORT RECEIVED FROM PHIL MCCORMICK. ALL CARES ASSUMED.
--- NOTE | 2019-09-10 08:20 | NUR ---
GI SOFTWARE TOOLS DEVELOPER AND TEAM AT BEDSIDE SETTING UP FOR PEG TUBE PLACEMENT AT BEDSIDE.
--- NOTE | 2019-09-10 08:50 | NUR ---
PEG TUBE PLACEMENT COMPLETED AT BEDSIDE BY DR. CRUZ AND GI LAB TEAM. PT TOLERATED PROCEDURE WELL. DR. CRUZ GAVE OK TO USE PEGT FOR MEDS AT THIS TIME, WANTS FEEDING TO START AT 1200 TODAY. WILL CARRY OUT. WILL CONTINUE TO MONITOR SITE.
--- NOTE | 2019-09-10 10:21 | NUR ---
PT RESTING COMFORTABLY AT THIS TIME. NO S/S DISTRESS NOTED.
--- NOTE | 2019-09-10 11:00 | NUR ---
VICE PRESIDENT [employer] SUNITA SETTING UP FOR HEMODIALYSIS AT BEDSIDE.
[2019-09-10 11:47] LABS: SEGMENTED NEUTROPHILS 29 % (37-75)
[2019-09-10 11:48] LABS: ATYPICAL LYMPH 2 %; BAND NEUTROPHIL 24 % (0-10); METAMYELOCTE 1 % (0-2); MONOCYTE 16 % (0-7); MYELOCYTE 1 % (0-2)
[2019-09-10 11:49] LABS: rbc morphology (normal/abnorm) ABNORMAL (NORMAL)
[2019-09-10 11:50] LABS: PLATELET MORPHOLOGY LARGE PLATELET SEEN
--- NOTE | 2019-09-10 11:50 | NUR ---
MANAGING PARTNER [employer] [place] SUNITA ADMINISTERED 200ML 25% ALBUMIN TO MAINTAIN PT'S BLOOD PRESSURE. PT HYPOTENSIVE TO MAP'S IN 50'S WHEN DIALYSIS WAS INITIATED.
[2019-09-10 11:53] LABS: PLATELET COUNT 44 x10^3mcL (130-400)
--- NOTE | 2019-09-10 12:52 | NUR ---
TUBE FEEDING INITIATED AT THIS TIME VIA PEG TUBE. PEG TUBE EASILY FLUSHED WITH WATER PRIOR TO STARTING FEED. SMALL AMT SEROUS FLUID ON PEG SPLIT GAUZE, SKIN WNL. WILL CONTINUE TO MONITOR.
[2019-09-10 14:35] LABS: calcium (part of PTHIC) 10.5 mg/dL (8.7-10.3)
--- NOTE | 2019-09-10 14:49 | NUR ---
DIALYSIS COMPLETE. 1.4 L FLUID REMOVED FROM PT.
--- NOTE | 2019-09-10 16:16 | NUR ---
DR. EDWARDS CALLED BACK AFTER PAGE. RN ASKED IF HE WOULD LIKE THE PT TO RECEIVE SODIUM THIOSULFATE AND/OR PROCRIT FOLLOWING HEMODIALYSIS. DR. EDWARDS SAID NOT TO GIVE SODIUM THIOSULFATE, BUT TO GIVE PROCRIT. WILL CARRY OUT ORDER.
--- NOTE | 2019-09-10 16:36 | NUR ---
DAUGHTER AND FAMILY FRIEND OF PT AT BEDSIDE AT THIS TIME.
--- NOTE | 2019-09-10 18:40 | NUR ---
ABD PADS CHANGED OVER 2 INNER THIGH WOUNDS. STOOL LEAKED PAST FLEXISEAL, HYGIENE CARE PROVIDED. OPTIFOAM CLEAN, INTACT, ON SACRUM.
--- NOTE | 2019-09-10 19:20 | NUR ---
REPORT REC'D FROM LUISA VILLARREAL TO ASSUME CARE. PT INTUBATED WITH NO SEDATION. OPENS EYES SPONTANOEUSLY. UNABLE TO FOLLOW COMMANDS, PTS OBTUNDED. PUPILS 4MM/BRISK SY. ETT TO VENT: AC MODE RATE 14, TV 550, PEEP 5, FIO2 30%. CHEST RISE EQUAL AND SYMMETRICAL. LUNG SOUNDS EXP WHEEZES/CRACKLES BUL, DIM BASES. RADAR ENGINEERING TEACHER IN PLACE SHOWING NSR WITH 1ST DEGREE AVB WITH HR 88, BP 119/37 MAP 63. CHEST WALL STABLE. PULSES PALPABLE BUT WEAK X4. BLE/BUE 2+ PITTING EDEMA. CAP REFILL 3 SECS. GLUCERNA INFUSING @ 20 ML/HR, FWF 30ML Q6H, BHG=559VH, TF RATE ADVANCED TO 30ML. ABD OBESE AND SOFT TO TOUCH. BOWEL SOUNDS HYPOACTIVE. PEG TUBE IN PLACE, NO S/SX OF ACTIVE BLEEDING NOTED. FLEXISEAL IN PLACE DRAINING VIA GRAVITY LOOSE BROWN STOOL. F/C INTACT AND DRAINING VIA GRAVITY YELLOW URINE. NO VAGINAL BLEEDING OR DISCHARGE NOTED. REPORT RECEIVED BY SYLWIAALAIDEN MORAN RN AND [facility] CHARGE NURSE, R FOOT BLISTER AND REDNESS TO ABD AREA FOUND, INITIATED TX AT THIS TIME, PHOTO DOCUMENTATION TAKEN AT THIS TIME. PT BEDBOUND, TOTAL CARE. ON BARIATRIC AIR MATTRESS, TURNED AND REPOSITIONED Q15 MIN SET ON BARIATRIC BED. CONTACT PRECAUTIONS APPLIED AND MAINTAINED. FAMILY MEMBER AT BEDSIDE. WILL CONTINUE TO MONITOR.
--- NOTE | 2019-09-10 20:22 | NUR ---
REPORT REC'D FROM LUISA VILLARREAL TO ASSUME CARE. PT INTUBATED WITH NO SEDATION. OPENS EYES SPONTANOEUSLY. UNABLE TO FOLLOW COMMANDS, PTS OBTUNDED. PUPILS 4MM/BRISK SY. ETT TO VENT: AC MODE RATE 14, TV 550, PEEP 5, FIO2 30%. CHEST RISE EQUAL AND SYMMETRICAL. LUNG SOUNDS EXP WHEEZES/CRACKLES BUL, DIM BASES. TECHNOLOGY AUDITOR IN PLACE SHOWING NSR WITH 1ST DEGREE AVB WITH HR 88, BP 119/37 MAP 63. CHEST WALL STABLE. PULSES PALPABLE BUT WEAK X4. BLE/BUE 2+ PITTING EDEMA. CAP REFILL 3 SECS. GLUCERNA INFUSING @ 20 ML/HR, FWF 30ML Q6H, AZO=[id number], TF RATE ADVANCED TO 30ML. ABD OBESE AND SOFT TO TOUCH. BOWEL SOUNDS HYPOACTIVE. PEG TUBE IN PLACE, NO S/SX OF ACTIVE BLEEDING NOTED. FLEXISEAL IN PLACE DRAINING VIA GRAVITY LOOSE BROWN STOOL. F/C INTACT AND DRAINING VIA GRAVITY YELLOW URINE. NO VAGINAL BLEEDING OR DISCHARGE NOTED. REPORT RECEIVED BY SYLWIAWYAIDEN MORAN RN AND [facility] CHARGE NURSE, R FOOT BLISTER AND REDNESS TO ABD AREA FOUND, INITIATED TX AT THIS TIME, PHOTO DOCUMENTATION TAKEN AT THIS TIME. PT BEDBOUND, TOTAL CARE. ON BARIATRIC AIR MATTRESS, TURNED AND REPOSITIONED Q15 MIN SET ON BARIATRIC BED. CONTACT PRECAUTIONS APPLIED AND MAINTAINED. FAMILY MEMBER AT BEDSIDE. WILL CONTINUE TO MONITOR.
--- NOTE | 2019-09-10 22:00 | NUR ---
[employer] TECHNICIAN CALLED, STATES DR SCHULER (ANESTHESIOLOGIST) CANCELED SURGERY D/T LOW PLTS. DR HOWIE ERED CALLED AT THIS TIME AND MADE AWARE ABOUT DR SCHULER. DR REED STS KEEP PT NPO, WILL FIND ANOTHER ANESTHESIOLOGIST.
--- NOTE | 2019-09-10 22:45 | NUR ---
DR WONG AT BEDSIDE, UPDATED ON STATUS, NO NEW ORDERS GIVEN.
[2019-09-11] VITALS (16 sets, daily range): BP systolic 112–161; BP diastolic 47–73
--- NOTE | 2019-09-11 | NUR ---
TF TURNED OFF AT THIS TIME. PT KEPT NPO.
--- NOTE | 2019-09-11 03:30 | NUR ---
HOWIE ROSALES ORDERED 1 UNIT PRBC FOR SURGERY IN AM. 1 UNIT PRBC INITIATED AT THIS TIME. VITAL SIGNS TEMP 98.2, HR 89, BP 127/51, RR 21, 02 SAT 100%.
--- NOTE | 2019-09-11 03:45 | NUR ---
NO A/R NOTED TO BLOOD TRANSFUSION, VITAL SIGNS TEMP 98.4, HR 91, BP 133/64, EE 20, O2 SAT 100%.
--- NOTE | 2019-09-11 05:20 | NUR ---
1 UNIT PRBC COMPLETE. NO A/R NOTED. VITAL SIGNS TEMP 98.2, HR 87, BP 128/56, RR 17, 02 SAT 100%.
[2019-09-11 05:46] LABS: CALCIUM 10.2 mg/dL (8.5-10.1); CARBON DIOXIDE 24.1 mmol/L (21-32); CREATININE SERUM 1.7 mg/dL (0.6-1.0); POTASSIUM SERUM 3.3 mmol/L (3.5-5.1)
[2019-09-11 05:50] LABS: PLATELET COUNT 50 x10^3mcL (130-400); RED CELL DISTRIBUTION WIDTH 16.5 % (11.5-14.5)
--- NOTE | 2019-09-11 07:05 | NUR ---
DR REED CALLED, UPDATED ON STATUS, DR REED STATES TRANSFUSE 1 UNIT PLT STAT, ORDER 1 UNIT PLT AND 1 UNIT PRBC FOR STANDBY S/P SURGERY, RECHECK PLT AFTER 1 UNIT PLT IS TRANSFUSED. ORDER READ BACK. ORDER CARRIED OUT. ENDORSED CARE TO GEMMA VILLARREAL.
--- NOTE | 2019-09-11 07:30 | NUR ---
RECEIVED PT'S REPORT FROM LEAVING NURSE. PT IS SCHEDULED FOR TRACHEOSTOMY, BUT DUE TO PLT LOW, SURGERY IS PENDING. PLATELET 1 UNIT IS ORDERED, WAITING FOR PLATELET READY. PT'S DAUGHTER AT BEDSIDE AND AWARE ABOUT THE CONDITION AND REASON FOR PENDING SURGERY. PT IS BREATHING ON VENT AC MODE, OFF SEDATION. PT IS AROUSED BY LOUDLY AUDITORY STIMULI WITH EYES OPENING SPONTANEOUS, FOLLOW SIMPLE COMMAND. RI ALIVIA CATH, PIGTAIL IS USED FOR IVF TKO. NEW PEG SITE DRESSING CDI. NPO AT THIS TIME. ROE IN PLACE, DRAINING VIA GRAVITY, MINIMAL SARA URINE NOTED. FLEXISEAL TUBE IN PLACE, WATERY STOOL. PT IS ON SPECIAL HILL ROM AIRBED WITH SCHEDULED AUTO TURN SETTING Q15 MINS. WILL CONTINUE PT'S CARE.
--- NOTE | 2019-09-11 08:34 | NUR ---
1. Recommend continuing Glucerna 1.2 @ 20 ml/hr, goal 60 ml/hr, advance Q4H, FWF 30 ml Q6H. This will provide 1730 kcal and 86 g protein. 2. Recommend Bananatrol from diarrhea. Discussed with pharmacist in charge owner.
--- NOTE | 2019-09-11 08:34 | NUR ---
Follow-up Nutrition Assessment: IC04/A KATELYN GARG MR Dx: Acute respiratory failure PMHx: ESRD on HD (M-W-F), HTN, DM, morbid obesity, peripheral vascular disease, hypoalbuminemia, necrotic left groin wound Labs: (09/11) K 3.3L, BG 181H, CREAT 1.7H, BUN 21H, ALB 2.5L, TG 264H, WBC 2.8L, HGB 9.2L Meds: D 50%, Humulin, lantus, lopressor, Zofran, zosyn, morphine, Vitamin C, zinc, procrit Diet: Glucerna 1.2 @ 20 ml/hr, goal 60 ml/hr FWF 30 ml Q6H PO Intake: NPO Weights: (09/06) 106.1 kg, (09/09) 115 kg, (09/11) 108 kg I/Os: (09/10) 846/650 (196) Skin: multiple ulcers and skin tears, pt on bariatric bed that repositions Q15 min James: 11 Edema: 2+ pitting edema GI: loose brown stool, flexiseal intact Last BM: 09/11 RD Note (09/11): Patient is intubated and sedated. Per charge machine operator, pt got a PEG placed yesterday. Patient is not receiving tube feedings currently due to possible trach placement. Per progress note (09/10), pt has poor mental status, extensive ecchymosis and has HD yesterday, poor prognosis. TF rate was increased from 45 ml/hr to 60 ml/hr per previous recommendations. Estimated Nutritional Needs Based on body weight (72 kg) Energy: 2339-5123 vs 1925 kcal/day (30-35 vs ALMAZAN 2010 kcal/kg for HD) Protein: 86- 101 g/day (1.2-1.4 g/kg for HD) Fluid: 8954-1864 mL/day (1 mL/kcal) or per MD Nutrition Diagnosis: 1.Increased nutrient needs related to wounds, HD as evidenced by estimated calorie and protein needs. (ongoing). 2. Inadequate enteral nutrition infusion related to low TF rate as evidenced by current TF rate meeting <75% estimated calorie and protein needs. (improved- rate changed to 60 ml/hr) Intervention: 1. Recommend continuing Glucerna 1.2 @ 20 ml/hr, goal 60 ml/hr, advance Q4H, FWF 30 ml Q6H. This will provide 1730 kcal and 86 g protein. 2. Recommend Bananatrol from diarrhea. Discussed with charge machine operator. Monitor/Evaluate: Goal: Have pt meet at least 75% of estimated needs Monitor: PO intake, Labs, GI function F/U in 3-5 days as moderate risk 09/14-
--- NOTE | 2019-09-11 09:08 | NUR ---
CALLED BLOOD BANK FOR ETA OF PLATELTS, THEY WILL CALL BACK WITH ETA. PHIL BOWLING MADE AWARE. WILL CONTINUE TO MONITOR.
--- NOTE | 2019-09-11 09:12 | NUR ---
LAB CALLED AND 1 UNIT OF PLATELETS SHOULD BE HERE WITHIN 30-45 MIN. TAWNYA RN MADE AWARE. WILL CONTINUE TO MONITOR.
--- NOTE | 2019-09-11 09:14 | NUR ---
AL[facility]AN, OR NURSE CALLED AND STATES DR. SILVA WOULD LIKE THE SECOND BAG OF PLATELETS TRANSFUSED. BLOOD BANK MADE AWARE AND WILL ORDER THE SECOND BAG OF PLATELETS STAT FROM [facility]. CBC TO BE ORDERED AFTER BOTH PLATELET TRANSFUSIONS ARE DONE. PHIL BOWLING MADE AWARE. WILL CONTINUE TO MONITOR.
--- NOTE | 2019-09-11 10:41 | NUR ---
START 1ST UNIT PLATELET TRANSFUSING, PT'S VS: TEMP 98.0, BP 137/60, HR 82, O2 100%. WILL CONTINUE TO MONITOR.
--- NOTE | 2019-09-11 11:54 | NUR ---
DR. REED AT BEDSIDE TO ASSESS PATIENT. UPDATES PROVIDED AND POC DISCUSSED. CBC PENDING AT THIS TIME. WILL WAIT FOR PLATELET COUNT TO COME BACK BEFORE TRANSFUSING THE OTHER UNIT OF PLATELETS. PHIL BOWLING MADE AWARE. WILL CONTINUE TO MONITOR.
[2019-09-11 12:02] LABS: BASOPHIL % 0.2 % (0-2)
[2019-09-11 12:09] LABS: PLATELET COUNT 87 x10^3mcL (130-400); RED CELL DISTRIBUTION WIDTH 17.5 % (11.5-14.5)
--- NOTE | 2019-09-11 12:50 | NUR ---
TRACHEOSTOMY SURGERY IS CANCELLED FOR TODAY. PER DR. REED HE WILL TRY TO FIT THE PATIENT'S TRACH SURGERY IN FOR TOMORROW 09/12/19 AT 0730. OKAY TO TRANSFUSE THE SECOND UNIT OF PLATELETS AT THIS TIME. PER SURGERY PATIENT NEEDS TO BE TRANSFERRED FROM THE SPECIAL BED TO ONE OF OUR REGULAR ICU BEDS BEFORE TAKING PATIENT INTO SURGERY. PHIL BOWLING MADE AWARE. WILL CONTINUE TO MONITOR.
--- NOTE | 2019-09-11 12:56 | NUR ---
LILIAM, PATIENT'S DAUGHTER CALLED TO LET HER KNOW THE TRACHEOSTOMY SURGERY IS CANCELLED FOR TODAY AND WILL POSSIBLY BE RESCHEDULED FOR TOMORROW 09/12/19 AT 0730.
[2019-09-11 13:10] LABS: BAND NEUTROPHIL 2 % (0-10); BASOPHIL 0 % (0-2); MONOCYTE 8 % (0-7); SEGMENTED NEUTROPHILS 70 % (37-75)
[2019-09-11 13:11] LABS: PLATELET MORPHOLOGY PLATELETS DECREASED; rbc morphology (normal/abnorm) ABNORMAL (NORMAL)
[2019-09-11 14:36] LABS: BASOPHIL % 0.1 % (0-2)
[2019-09-11 14:44] LABS: PLATELET COUNT 110 x10^3mcL (130-400); RED CELL DISTRIBUTION WIDTH 17.3 % (11.5-14.5)
--- NOTE | 2019-09-11 15:56 | NUR ---
DR. NICHOLS CAME AND AWARE ABOUT TWO UNITS PLATELET TRANSFUSING DONE AT 1400 PM, PT'S LATEST PLT 110. PER DR. NICHOLS, PT IS OK FOR SURGERY WHENEVER DR. DEL ROSARIO AVAILABLE.
--- NOTE | 2019-09-11 19:28 | NUR ---
PT'S REPORT GIVEN TO RECEIVING NURSE. ENDORSED RECEIVING NURSE, PER DR. DEL ROSARIO ORAL ORDER, KEEP PT NPO AFTER MIDNIGHT FOR POSSIBLE SURGERY TOMORROW MORNING 0730.
--- NOTE | 2019-09-11 20:00 | NUR ---
Pt lying in bed comfortably. No distress noted. Kept clean and dry. All needs attended and anticipated. All meds given as ordered. No significant change of condition noted. Will continue to monitor.
[2019-09-12] VITALS (19 sets, daily range): BP systolic 104–168; BP diastolic 54–75
[2019-09-12 05:07] LABS: BASOPHIL % 0.1 % (0-2)
[2019-09-12 05:13] LABS: PLATELET COUNT 106 x10^3mcL (130-400); RED CELL DISTRIBUTION WIDTH 17.7 % (11.5-14.5)
[2019-09-12 05:29] LABS: BILIRUBIN DIRECT 0.36 mg/dL (0.0-0.2); BILIRUBIN TOTAL 0.9 mg/dL (0.20-1.00); CALCIUM 10.3 mg/dL (8.5-10.1); CARBON DIOXIDE 22.5 mmol/L (21-32); CREATININE SERUM 2.1 mg/dL (0.6-1.0); POTASSIUM SERUM 3.2 mmol/L (3.5-5.1)
[2019-09-12 05:34] LABS: ALBUMIN 2.1 g/dL (3.4-5.0); TOTAL PROTEIN, SERUM 5.7 g/dL (6.4-8.2)
--- NOTE | 2019-09-12 06:30 | NUR ---
PT ASLEEP IN BED COMFORTABLE. NO DISTRESS NOTED. ALL NEEDS ATTENDED AND ANTICIPATED. ALL MEDS GIVEN ORDERED.NO SIGNIFICANT CHANGE OF CONDITION NOTED. WILL CONTINUE TO MONITOR. ENDORSE TO AM NURSE.
--- NOTE | 2019-09-12 07:13 | NUR ---
Spoke to regarding potassium 3.2. New orders KRider 40meq x1 IVPB noted and carried out. Will continue to monitor.
--- NOTE | 2019-09-12 07:30 | NUR ---
RECEIVED PT'S REPORT FROM LEAVING NURSE. PT BREATHING ON VENT AC MODE, MODERATE SECRETION NOTED, CLEANED BY SUCTION. PT'S BP IS 166/75, HR 82. WILL GIVE BP MEDS PER ORDER. PER OR NURSE TRIVEDI, PT'S SURGERY IS SCHEDULED AT 830 THIS MORNING. PT'S K 3.2, WILL REPLACE WITH K RIDER PER ORDER.
--- NOTE | 2019-09-12 07:50 | NUR ---
DR. HELM ASSESSED PT AT BEDSIDE. MADE HIM AWARE PT'S SCHEDULED FOR TRACHEOSTOMY AT 0830 AM AND PT'S SBP > 160, WILL GIVE SCHEDULED AT 0900AM BP MEDS: LOPRESSOR, COZAR, AMIODARONE EARLY. START INFUSING 1st BAG KCL.
--- NOTE | 2019-09-12 08:45 | NUR ---
OR NURSE BROWN STATED PT'S SURGERY IS POSTPONED FROM 0830 TO 10AM.
--- NOTE | 2019-09-12 10:30 | NUR ---
DR. DEL ROSARIO CAME AND STATED THEY ARE UNABLE TO CONTACT TO PT'S DAUGHTER FOR ANESTHESIA CONSENT. SURGERY IS PENDING. CALLED PT'S DAUGHTER LILIAM CELL PHONE AND LEFT VOICE MESSAGE.
--- NOTE | 2019-09-12 13:00 | NUR ---
PT'S DAUGHTER LILIAM CALLED BACK. MAKE HER AWARE DR. DEL ROSARIO NEED TO OBTAIN SURGERY CONSENT FROM HER. CALLED OR NURSE SHIKHA ARANA PT'S DAUGHTER LILIAM IS AVAILABLE TO CALL AND GIVE SURGERY CONSENT. WAITING FOR SURGERY CONFIRMATION FROM OR.
--- NOTE | 2019-09-12 13:10 | NUR ---
DR. ARNOLD ASSESSED PT AT BEDSIDE. PT'S CONDITION UPDATED. PT OPENS EYES TO LOUDLY STIMULI AT THIS TIME. SURGERY STILL PENDING.
--- NOTE | 2019-09-12 14:00 | NUR ---
CONFIRMED WITH OR NURSE SHIKHA PT'S SURGERY IS RESCHEDULED TOMORROW 1030AM. WILL RESUME TUBE FEEDING AND KEEP PT NPO AFTER MID NIGHT.
--- NOTE | 2019-09-12 14:35 | NUR ---
HD NURSE AT BEDSIDE START DIALYSIS. RESUME GLUCERNA TUBE FEEDING.
--- NOTE | 2019-09-12 16:46 | NUR ---
PT'S DAUGHTER LILIAM CAME AT BEDSIDE. MAKE LILIAM AWARE ANESTHESIOLOGIST NEEDS TO TALK TO HER AND OBTAIN CONSENT AT 0900 AM TOMORROW BEFORE SURGERY AT 1030 AM. LILIAM TALKED TO SAMPLE BODY BUILDER AUBREE RENO ON PHONE ABOUT PT'S TRANSFER PLAN.
--- NOTE | 2019-09-12 16:50 | NUR ---
PT TOLERATE WELL AFTER RESUME TUBE FEEDING, NO RESIDUAL. INCREASED PT'S FEEDING TO 40ML/HR, WFW 30ML Q6.
--- NOTE | 2019-09-12 18:04 | NUR ---
HD DONE AT BEDSIDE, 2L OUT. PT'S BP 117/61. PT'S DAUGHTER LILIAM AT BEDSIDE.
--- NOTE | 2019-09-12 19:05 | NUR ---
RECEIVED REPORT FROM TAWNYA VILLARREAL. WILL RESUME CARE.
--- NOTE | 2019-09-12 19:17 | NUR ---
CHANGED PT'S DRESSING PER ORDER. PT'S DAUGHTER LILIAM AT BEDSIDE. PER LILIAM CONSENT, FOR TOMORROW SURGERY CONSENT, IF SHE IS UNABLE TO REACH FOR ANY REASON TOMORROW BEFORE SURGERY, PLEASE CONTACT PT'S SISTER ABNER GARG [phone]. ENDORSE PT'S CARE TO RECEIVING NURSE.
--- NOTE | 2019-09-12 19:26 | NUR ---
RECEIVED PT INTUBATED WITH NO SEDATION. 7.5 ETT AT 23CM LL INTACT AND SECURED. PT UNABLE TO FOLLOW COMMANDS OR MAKE NEEDS KNOWN. PUPILS 3MM SLUGGISH. NO S/SX OF PAIN AT THIS TIME. NO REDNESS, DRAINAGE, OR SWELLING NOTED TO EENT. PT ON VENT VCV-AC MODE WITH SETTINGS OF VT 550, FIO2 27%, RATE 14, PEEP 5. LUNG SOUNDS HAVE FINE CRACKLES TO UPPPER LOBES AND DIMINISHED TO BASES. BREATHING E/U. S1S2 AUSCULTATED WITH NO S/SX OF ANY CHEST PAIN. PULSES PALPABLE. +3 EDEMA NOTED TO BUE AND BLE. GENERALIZED WEAKNESS. JOINTS INTACT. FLEXISEAL IN PLACE. ROE CATHETER IN PLACE DRAINING VIA GRAVITY MINIMAL AMOUNT OF SARA URINE, HD PT. MULTIPLE PRESSURE ULCERS TO BILATERAL BUTTOCKS, SY THIGHS AND GROIN, SY HIPS, DRESSINGS CDI. MULTIPLE SKIN TEARS TO BODY. DAUGHTER AT BEDSIDE. WILL CONTINUE TO MONITOR.
[2019-09-13] VITALS (18 sets, daily range): BP systolic 93–142; BP diastolic 42–79
--- NOTE | 2019-09-13 | NUR ---
GT FEEDING TURNED OFF AT THIS TIME FOR TRACHEOSTOMY PROCEDURE IN AM.
--- NOTE | 2019-09-13 00:07 | NUR ---
DR. WONG AT BEDSIDE ASSESSING PT. UPDATES PROVIDED. NO NEW ORDERS AT THIS TIME.
--- NOTE | 2019-09-13 04:29 | NUR ---
DYE FEEDER AT BEDSIDE FOR BLOOD DRAW.
[2019-09-13 04:52] LABS: BASOPHIL % 0.1 % (0-2); PLATELET COUNT 107 x10^3mcL (130-400)
--- NOTE | 2019-09-13 04:55 | NUR ---
PT CLEANED AND WIPED DOWN WITH GURU WIPES FOR TRACHEOSTOMY PROCEDURE THIS AM. ALL LINENS AND CHUCKS CHANGED. ROE CATHETER CARE PROVIDED. 180CC OF SARA URINE OUTPUT DURING SHIFT. 50CC OF BROWN LOOSE STOOL IN FLEXISEAL. TOTAL CARE PROVIDED.
[2019-09-13 05:00] LABS: BILIRUBIN TOTAL 0.85 mg/dL (0.20-1.00); CALCIUM 9.8 mg/dL (8.5-10.1); CREATININE SERUM 1.7 mg/dL (0.6-1.0); MAGNESIUM 1.5 mg/dL (1.8-2.4)
[2019-09-13 05:01] LABS: TOTAL PROTEIN, SERUM 5.6 g/dL (6.4-8.2)
--- NOTE | 2019-09-13 07:10 | NUR ---
RECEIVED PT INTUBATED WITH NO SEDATION. RESPONDS TO PAINFUL AND TACTILE STIMULUS, OPENS EYES TO VERBAL STIMULUS BUT EYES DO NOT TRACK. UNABLE TO MAKE NEEDS KNOWN. GAG REFLEX PRESENT. PUPILS 4MM IN SIZE AND SLUGGISH IN RESPONSE TO LIGHT B/E. 7.5 ETT @ 22 LL. RIJ ALIVIA INTACT AND SECURED. TRACHEA MIDLINE. ETT TO VENT: VCV/AC MODE = 5 PEEP, 14 RATE, 24% FIO2, 550 VT. BREATHING E/U. SYMMETRICAL CHEST WALL EXPANSION. COARSE CRACKLES UPON AUSCULTATION TO BUL, DIM TO BLL. ETT SUCTIONING AND ORAL CARE PROVIDED. NO S/S OF RESP DISTRESS. NSR ON [employer]. S1/S2 HEART SOUNDS DISTANT. WEAK PULSES X4. +3 EDEMA TO BUE AND BLE. SKIN IS WARM/DRY TO TOUCH, PALE IN COLOR. PEG TUBE TO LUQ INTACT AND SECURED, NO DRAINAGE FROM SITE, DRESSING CDI. TUBE FEEDINGS OFF AT THIS TIME DUE TO PT GOING TO GET TRACH SURGERY LATER. PT IS MORBIDLY OBESE. ACTIVE BOWEL SOUNDS X4. FLEXISEAL IN PLACE AND DRAINING DARK WATERY STOOL. F/C INTACT AND DRAINING VIA GRAVITY. URINE IS SARA IN COLOR WITH POOR OUTPUT. HD PT. PT ON [facility] BED BEING TURNED Q15 MIN. HEELS OFFLOADED WITH PILLOWS. MULTIPLE WOUNDS TO LOWER EXTREMITIES, BACK, AND ABD. SKIN TEARS ALL THROUGHOUT BODY WITH VERSATEL AND KERLEX APPLIED. X3 SIDE RAILS UP, BED IN LOWEST POSITION, HOB 30 DEGREES.
--- NOTE | 2019-09-13 07:10 | NUR ---
RECEIVED REPORT FROM CLOVER VILLARREAL. ALL QUESTIONS ANSWERED AND ADDRESSED.
--- NOTE | 2019-09-13 09:30 | NUR ---
DR. FAULKNER AT BEDSIDE ASSESSING PT. NURSING UPDATES. NO NEW ORDERS AT THIS TIME.
--- NOTE | 2019-09-13 10:00 | NUR ---
OR TEAM AND RT AT BEDSIDE TO TRANSFER PT FROM HILL-ROM BED TO REGULAR ICU BED BEFORE PT'S TRACH SURGERY. TRANSFERRED PT TO BED SAFELY WITH NO COMPLICATIONS.
--- NOTE | 2019-09-13 10:54 | NUR ---
DR. REED AND KEVIN OR NURSE AT BEDSIDE. PT WILL BE GOING TO SURGERY AT THIS TIME.
--- NOTE | 2019-09-13 12:02 | NUR ---
PER DR. HOWIE REED, PT'S TUBE FEEDINGS WILL REMAIN OFF UNTIL TOMORROW MORNING.
--- NOTE | 2019-09-13 12:02 | NUR ---
RECEIVED REPORT FROM TAMMY VILLARREAL. ALL QUESTIONS ANSWERED AND ADDRESSED. PT HAS A PORTEX SIZE 8 TRACH. VENT SETTINGS 40% FIO2, 14 RATE, 550 VT, 5 PEEP.
--- NOTE | 2019-09-13 12:02 | NUR ---
RECEIVED REPORT FROM TAMMY VILLARREAL. ALL QUESTIONS ANSWERED AND ADDRESSED. RECEIVED PT TRACH'D WITH NO SEDATION. LETHARGIC. RESPONDS TO TACTILE AND PAINFUL STIMULUS. PUPILS 4MM IN SIZE AND SLUGGISH IN RESPONSE TO LIGHT B/E. NEW PORTEX SIZE 8 TRACHEOSTOMY. TRACH IS INTACT AND SECURED WITH NO BLEEDING AT SITE. TRACH TO VENT: VCV/AC MODE = 40% FIO2, 14 RATE, 550 VT, 5 PEEP. NO S/S OF RESP DISTRESS. SINUS TACHYCARDIA ON EDUCATIONAL THERAPIST. S1/S2 HEART SOUNDS DISTANT. NO S/S OF CP AT THIS TIME. WEAK PULSESX4. CAP REFILL DELAYED. +3 EDEMA TO BUE AND BLE. SKIN IS WARM/DRY TO TOUCH, PALE IN COLOR. RIJ ALIVIA INTACT AND SECURED, DRESSING CDI. PEG TUBE TO LUQ INTACT, NO DRAINAGE, DRESSING CDI. TUBE FEEDINGS REMAIN OFF. FLEXISEAL INTACT AND DRAINING GREEN WATERY STOOL. F/C INTACT AND DRAINING VIA GRAVITY. URINE IS SARA IN COLOR WITH SEDIMENTS. PT TRANSFERRED BACK TO [facility] AT THIS TIME WITH NO COMPLICATIONS. RESUMED PRESSURE RELIEF WITH TURNS/REPOSITIONS [id number]. VSS. WILL CONT TO MONITOR.
--- NOTE | 2019-09-13 12:55 | NUR ---
SPOKE WITH DR. EDWARDS TO CONFIRM DIALYSIS DATE AND STATED PT TO RECIEVE DIALYSIS TOMORROW 09/14/19. SPOKE WITH HD NURSE BLANKA AND INFORMED HER OF CHANGE. PRIMARY RN ALSO AWARE.
--- NOTE | 2019-09-13 17:12 | NUR ---
CHG WIPES APPLIED, ROE CARE COMPLETED, TRACH AND ORAL CARE PROVIDED.
--- NOTE | 2019-09-13 19:30 | NUR ---
RECEIVED REPORT FROM ROSA VILLARREAL TO ASSUME CARE. PT S/P TRACH PLACEMENT TODAY, NO SEDATION. PT OBTUNDED. PERRLA 3MM, SLUGGISH, SY. TRACH PORTEX 8 INTACT AND SECURED, DRESSING CDI. RIJ ALIVIA INTACT, DRESSING CDI. TRACH TO VENT: AC MODE, VT 550, PEEP 5, RATE 14, FIO2 30%. BREATHING E/U, SYMMETRICAL CHEST EXPANSION. LUNG SOUNDS: COARSE CRACKLES/WHEEZING BUL, DIMINISHED BASES. BUNDLE CUTTER IN PLACE, SHOWING NSR WITH 1ST DEGREE AVB WITH HR 87, BP 125/62 (MAP 81). CHEST WALL STABLE. PULSES WEAK TO EXTREMITIES X 4. CAP REFILL < 3 SEC. SKIN WARM/DRY TO TOUCH. PITTING EDEMA RUE 2+, LUE 1+, BLE 2+. GENERALIZED WEAKNESS. BARIATRIC BED TURNING Q15 MINUTES. NPO EXCEPT MEDS PER DR. REED. ABD IS SOFT AND OBESE, BOWEL SOUNDS HYPOACTIVE X 4Q. PEG IN PLACE TO LUQ, INTACT AND CDI. FLEXI SEAL IN PLACE, DRAINING TO GRAVITY, LOOSE WATERY BROWN STOOLS. ROE INTACT AND DRAINING VIA GRAVITY, YELLOW URINE. CONTACT PRECAUTIONS IN PLACE. FAMILY MEMBER AT BEDSIDE. WILL CONTINUE TO MONITOR.
[2019-09-14] VITALS (18 sets, daily range): BP systolic 113–151; BP diastolic 48–77
--- NOTE | 2019-09-14 00:27 | NUR ---
DR. WONG AT BEDSIDE. VERBAL ORDER GIVEN TO CONTINUE ZYVOX, ZOSYN, AND DIFLUCAN IV. ALL ORDERS RENEWED AND CARRIED OUT.
--- NOTE | 2019-09-14 04:00 | NUR ---
PT WIPED DOWN WITH GURU WIPES. LINEN, GOWN, AND CHUX CHANGED. ROE CARE PROVIDED. PT REPOSITIONED. WOUND DSG CHANGED TO LEFT UPPER THIGH PER ORDER.
[2019-09-14 05:12] LABS: CALCIUM 8.9 mg/dL (8.5-10.1); CARBON DIOXIDE 20.7 mmol/L (21-32); CREATININE SERUM 2.2 mg/dL (0.6-1.0); MAGNESIUM 1.8 mg/dL (1.8-2.4); POTASSIUM SERUM 3.5 mmol/L (3.5-5.1)
[2019-09-14 05:13] LABS: BASOPHIL % 0 % (0-2); PLATELET COUNT 107 x10^3mcL (130-400)
--- NOTE | 2019-09-14 07:04 | NUR ---
REPORT RECEIVED FROM JULIO CESAR VILLARREAL AND ADRIAN VILLARREAL. ALL CARE ASSUMED AT THIS TIME.
--- NOTE | 2019-09-14 07:15 | NUR ---
PT RECEIVED LYING IN BED WITH BED WHEELS LOCKED, HOB 30 DEGREES, 4 SIDERAILS UP, AND BED IN LOWEST POSITION. PT'S EYES ARE CLOSED, PT AROUSABLE TO TOUCH STIMULUS. DOES NOT TRACK MOVEMENT WHEN EYES ARE OPEN. NO FACIAL DROOP NOTED. TRACH TO VENT. VENT ON A/C VT 550, RATE 14, FIO2 30%, PEEP 5. CHEST EXPANSION SYMMETRIC. SCANT AMT DRY SANGUINOUS DRAINAGE NOTED ON TRACH GAUZE, NO BARON BLOOD NOTED. [facility] ALIVIA CATH DRESSING CDI. [facility] BED SET TO TURN PT Q15 MIN. PT HAS NS INFUSING @ 5 ML/HR TKO TO RIJ PIGTAIL. NO ACUTE DISTRESS NOTED. WILL CONTINUE TO MONITOR.
--- NOTE | 2019-09-14 08:30 | NUR ---
DR. FAULKNER AT BEDSIDE TO ASSESS PT. QUESTIONS ANSWERED, UPDATES PROVIDED. NO CHANGES IN POC AT THIS TIME.
--- NOTE | 2019-09-14 08:45 | NUR ---
DR. REED AT BEDSIDE TO SEE PT. UPDATES PROVIDED, QUESTIONS ANSWERED. NO CHANGES IN POC AT THIS TIME.
--- NOTE | 2019-09-14 08:50 | NUR ---
TUBE FEEDING INITIATED AT THIS TIME TO PEG TUBE. GRV ASPIRATED PRIOR TO START: 60 ML, DISCARDED. GLUCERNA @ 20 ML/HR WITH 30 ML FWF Q6H. WILL CONTINUE TO MONITOR FOR TOLERANCE OF TUBE FEEDING.
--- NOTE | 2019-09-14 08:55 | NUR ---
LEAKING FROM FLEXISEAL NOTED TO LEAK. HYGIENE CARE PROVIDED, CHUX CHANGED.
--- NOTE | 2019-09-14 11:50 | NUR ---
POC GLUCOSE 263, PT GIVEN 9 UNITS REG INSULIN SQ TO RIGHT LOWER ABDOMEN.
--- NOTE | 2019-09-14 14:30 | NUR ---
DR. EDWARDS CAME TO BEDSIDE. UPDATES GIVEN, QUESTIONS ANSWERED. NO CHANGES IN POC AT THIS TIME.
--- NOTE | 2019-09-14 14:50 | NUR ---
EXECUTIVE VICE PRESIDENT ELEAZAR ASSISTED WITH CHANGING DRESSINGS TO BILATERAL INNER THIGH, BILATERAL HIPS, BILATERAL CALVES. PT TOLERATED DRESSING CHANGES WELL.
--- NOTE | 2019-09-14 14:50 | NUR ---
AIR CONDITIONING SHEET METAL INSTALLER GRACE ASSISTED WITH CHANGING DRESSINGS TO BILATERAL INNER THIGH, BILATERAL HIPS, BILATERAL CALVES. WILL CHANGE BILATERAL FOREARM DRESSINGS LATER THIS SHIFT. PT TOLERATED DRESSING CHANGES WELL.
--- NOTE | 2019-09-14 14:56 | NUR ---
STOCK CONTROL CLERK AT BEDSIDE SETTING UP FOR HD.
--- NOTE | 2019-09-14 14:59 | NUR ---
1400 ZOSYN DOSE SKIPPED AT THIS TIME PER [facility] REQUEST.
--- NOTE | 2019-09-14 15:01 | NUR ---
Wound care done with primary RN, all wounds not improving, wounds beds are brown/black soft slough, strong odor,moderate amount of yellow greenish purulent drainage. new blood filled blisters notice to upper arms, and abdominal wall.Versatel dressing applied. Intertrigo under breast and abdominal folds some improvement. Perineum and perianal MAD redness with skin intact. Sacralcoccyx redness with skin intact. Buttock groove MAD 2x0.2cm superficial depth, wound bed is clean and moist, leda-wound skin intact. Daughter at bedside and seen wounds condition, all questions answered. Daughter mentioned dialysis and wound care are the same days and request to have different days.
--- NOTE | 2019-09-14 15:31 | NUR ---
TUBE FEEDING INCREASED TO 30 ML/HR.
--- NOTE | 2019-09-14 15:49 | NUR ---
PT TOLERATING HEMODIALYSIS WELL AT THIS TIME. BP CURRENTLY 127/49 (75). WILL CONTINUE TO MONITOR.
--- NOTE | 2019-09-14 17:00 | NUR ---
PHARMACIST RUBEN SAID HE WOULD CONTACT DR. EDWARDS ABOUT THE ORDER FOR SODIUM THIOSULFATE TO CLARIFY THE DOSE & ORDER.
--- NOTE | 2019-09-14 19:30 | NUR ---
RECEIVED REPORT FROM LUISA VILLARREAL, ASSUMED ALL CARE. PT TRACH'D WITHOUT SEDATION. RESPONDS TO TACTILE STIMULI. PERRLA 4 MM, SLUGGISH SY. TRACH PORTEX 8 INTACT AND SECURED. NO ACTIVE BLEEDING, DSG CDI. RIJ ALIVIA INTACT, DSG CDI. NO JVD, TRACHEA MIDLINE. ORAL CARE PROVIDED. TRACH TO VENT: AC MODE, RATE 14, VT 550, PEEP 5, FIO2 30%. PT BREATHING E/U, SYMMETRICAL CHEST EXPANSION. LUNG SOUNDS TO BUE COARSE CRACKLES/RHONCHI, DIMINISHED BASES. HR 93, BP 113/52 (MAP 68). CHEST WALL STABLE. PULSES WEAK TO EXTREMITIES X 4. CAP REFILL < 3 SEC. SKIN IS DRY AND WARM. 2+ PITTING EDEMA TO RUE, 1+ TO LUE, 2+ TO BLE. GENERALIZED WEAKNESS. BARIATRIC AIR MATTRESS TURNING Q15 MINUTES. TUBE FEEDING GLUCERNA @ 30 ML/HR. FWF 30 ML Q6H. GRV = 25 ML. TOLERATING WELL. NO S/SX OF N/V. ABD SOFT AND OBESE. BOWEL SOUNDS HYPOACTIVE X 4Q. PEG IN PLACE TO LUQ INTACT AND DSG CDI. FLEXISEAL DRAINING LOOSE/WATERY BROWN STOOLS VIA GRAVITY. ROE INTACT AND DRAINING YELLOW URINE VIA GRAVITY. POOR OUTPUT. CONTACT PRECAUTIONS APPLIED AND MAINTAINED. WILL CONTINUE TO MONITOR.
--- NOTE | 2019-09-14 19:45 | NUR ---
HD COMPLETE. 2.5 L REMOVED.
--- NOTE | 2019-09-14 20:00 | NUR ---
TUBE FEEDING GLUCERNA INCREASED TO 40 ML/HR. GRV = 25 ML.
--- NOTE | 2019-09-14 23:34 | NUR ---
INCREASED TUBE FEEDING TO 50 ML/HR. GRV = 100 ML. FWF 30 ML Q6H.
--- NOTE | 2019-09-14 23:47 | NUR ---
DR. WONG AT BEDSIDE. UPDATED ON STATUS. VERBAL ORDER GIVEN TO EDER GREEN. ORDER CARRIED OUT.
[2019-09-15] VITALS (16 sets, daily range): BP systolic 130–162; BP diastolic 51–72
--- NOTE | 2019-09-15 00:45 | NUR ---
PT WIPED DOWN WITH GURU WIPES. GOWN, CHUX, AND LINEN CHANGED. ROE CARE PROVIDED. WOUND DRESSING CHANGED TO BUE. PT REPOSITIONED.
--- NOTE | 2019-09-15 03:29 | NUR ---
INCREASED TUBE FEEDING TO 60 ML/HR (GOAL). GRV = 10 ML.
[2019-09-15 05:29] LABS: PLATELET COUNT 93 x10^3mcL (130-400); RED CELL DISTRIBUTION WIDTH 17.8 % (11.5-14.5)
[2019-09-15 05:36] LABS: CALCIUM 9.3 mg/dL (8.5-10.1); CARBON DIOXIDE 21.3 mmol/L (21-32); CREATININE SERUM 1.6 mg/dL (0.6-1.0); MAGNESIUM 1.7 mg/dL (1.8-2.4); POTASSIUM SERUM 3.1 mmol/L (3.5-5.1)
[2019-09-15 06:15] LABS: BAND NEUTROPHIL 10 % (0-10); METAMYELOCTE 4 % (0-2); MONOCYTE 2 % (0-7); PLATELET MORPHOLOGY PLATELETS DECREASED; SEGMENTED NEUTROPHILS 73 % (37-75)
[2019-09-15 06:31] LABS: rbc morphology (normal/abnorm) ABNORMAL (NORMAL)
--- NOTE | 2019-09-15 06:43 | NUR ---
CALLED DR. ZHANG FOR K 3.1 AND MG 1.7. TELEPHONE ORDER FOR POTASSIUM CHLORIDE 40 MG VIA GT AND MAGNESIUM 400 MG VIA GT ONCE. ORDER CARRIED OUT.
--- NOTE | 2019-09-15 07:15 | NUR ---
REPORT GIVEN TO ALIA VILLARREAL. ALL CARE ASSUMED AT THIS TIME.
--- NOTE | 2019-09-15 07:42 | NUR ---
CANCELLATION REQUESTED FOR ECHOCARDIOGRAM
--- NOTE | 2019-09-15 08:20 | NUR ---
RC'D PT RESTING IN BED WITH NO APPARENT S/S OF DISTRESS. PT TRACH'D, NO SEDATION. PT RESPONDS TO PAINFUL STIMULI AND OPENS EYES TO VOICE OCCASIONALLY. PUPILS 4MM AND SLUGGISH BILAT. NO FACIAL DROOP NOTED. PORTEX 8 TRACH INTACT AND SECURED, DRESSING CDI. RIJ ALIVIA INTACT, DRESSING CDI. TRACH TO VENT; AC MODE- TV 500, FIO2 305, PEEP 5, RATE 14. RESP E/U. RHONCHI AND CRACKLES NOTED BILAT. SPO2 100%, NO RESP DISTRESS NOTED. ORAL CARE PROVIDED. SR WITH 1ST DEGREE AV BLOCK ON MONITOR. S1S2 AUSC. NO S/S OF CP. WEAK PALP PULSES TO BUE/BLE, EDEMA NOTED TO BUE/BLE ELEVATED. SKIN WARM TO TOUCH AND CONSISTENT WITH ETHNICITY, ECCYMOTIC. GENERALIZED WEAKNESS. PT ON BARIATRIC BED WITH REPOSITIONING Q15. ABDOMEN OBESE AND ROUND. ACTIVE BS. NO S/S OF N/V. FLEXISEAL. PEG TO LUQ. GLUCERNA @60 WITH FWF 30 Q6H. NO RESIDUAL NOTED. F/C WITH MINIMAL SARA URINE DRAINING TO GRAVITY, SECURED IN PLACE.NO VAGINAL DRAINAGE NOTED. MULTIPLE DRESSINGS NOTED, SEE CHART. NO APPARENT SIGNS OF DISTRESS. WILL CONT TO MONITOR
--- NOTE | 2019-09-15 09:02 | NUR ---
RT PRESENT AT BEDSIDE
--- NOTE | 2019-09-15 11:01 | NUR ---
1. Recommend continuing Glucerna 1.2 @ 20 ml/hr, goal 60 ml/hr, advance Q4H, FWF 30 ml Q6H. This will provide 1730 kcal and 86 g protein.
--- NOTE | 2019-09-15 11:01 | NUR ---
Follow-up Nutrition Assessment: IC04/A KATELYN GARG MR Dx: Acute respiratory failure PMHx: ESRD on HD (M-[id number]), HTN, DM, morbid obesity, peripheral vascular disease, hypoalbuminemia, necrotic left groin wound Labs: (09/15) K 3.1L, BG 190H, CREAT 1.6H, ALB 2.0L, TG 264H, WBC 17.9H, HGB 8.4L Meds: D 50%, Humulin, cozaar, lantus, lopressor, Zofran, zosyn, Vitamin C, zinc, procrit Diet: Glucerna 1.2 @ 20 ml/hr, goal 60 ml/hr FWF 30 ml Q6H PO Intake: NPO Weights: (09/11) 108 kg, (09/13) 107.9 kg, (09/14) 89.6 kg, (09/15) 89.6 kg I/Os: (09/14) 1997/550 (1448) Skin: multiple ulcers and skin tears, pt on bariatric bed that repositions Q15 min James: 11 Edema: 2+ pitting edema LUE/ BLE GI: loose brown stool, flexiseal intact Last BM: 09/11 Note (09/15): Patient has trach and PEG placed. Per PHIL Calzada, pt is receiving Glucerna 1.2 @ 60 ml/hr and is tolerating it well. Patient is on HD. Estimated Nutritional Needs Based on body weight (72 kg) Energy: 8911-6570 vs 1925 kcal/day (30-35 vs ALMAZAN 2010 kcal/kg for HD) Protein: 86- 101 g/day (1.2-1.4 g/kg for HD) Fluid: 3976-8474 mL/day (1 mL/kcal) or per MD Nutrition Diagnosis: 1.Increased nutrient needs related to wounds, HD as evidenced by estimated calorie and protein needs. (ongoing). 2. Inadequate enteral nutrition infusion related to low TF rate as evidenced by current TF rate meeting <75% estimated calorie and protein needs. (improved- rate changed to 60 ml/hr) Intervention: 1. Recommend continuing Glucerna 1.2 @ 20 ml/hr, goal 60 ml/hr, advance Q4H, FWF 30 ml Q6H. This will provide 1730 kcal and 86 g protein. Monitor/Evaluate: Goal: Have pt meet at least 75% of estimated needs Monitor: PO intake, Labs, GI function F/U in 3-5 days as moderate risk 09/18-
--- NOTE | 2019-09-15 14:50 | NUR ---
DAUGHTER PRESENT AT BEDSIDE. DISCUSSED PT CURRENT STATUS AND POC WITH DAUGHTER. DAUGHTER, COMPLIANCE REPRESENTATIVE DEALER AND [employer]ON/DIRECTOR OF [facility] MEETING [facility]. PER DAUGHTER, PT HAS BE AVAILABLE AT [facility] WHICH SAM[facility]ON DISCUSSED, CURRENTLY AWAITING FOR PLACEMENT FOR HEMODIALYSIS THAT ACCEPTS PTS WITH TRACH.
--- NOTE | 2019-09-15 18:22 | NUR ---
PT WIPED DOWN WITH GURU WIPES. GOWN, CHUX, AND LINEN CHANGED. ROE CARE PROVIDED. PT REPOSITIONED.
--- NOTE | 2019-09-15 19:35 | NUR ---
Received pt lying in bed comfortably. No distress noted. Kept clean and dry. All needs attended and anticipated. All meds given as ordered. Trach intact and patent attached too vent. GT feeding tolerated well. Will continue to monitor.
[2019-09-16] VITALS (18 sets, daily range): BP systolic 104–161; BP diastolic 44–75
[2019-09-16 05:23] LABS: BILIRUBIN DIRECT 0.37 mg/dL (0.0-0.2); BILIRUBIN TOTAL 0.64 mg/dL (0.20-1.00); CALCIUM 9.6 mg/dL (8.5-10.1); CARBON DIOXIDE 23.6 mmol/L (21-32); POTASSIUM SERUM 3.6 mmol/L (3.5-5.1)
[2019-09-16 05:24] LABS: ALBUMIN 1.7 g/dL (3.4-5.0); TOTAL PROTEIN, SERUM 5.5 g/dL (6.4-8.2)
[2019-09-16 05:32] LABS: BASOPHIL % 0 % (0-2); PLATELET COUNT 110 x10^3mcL (130-400); RED CELL DISTRIBUTION WIDTH 18.2 % (11.5-14.5)
--- NOTE | 2019-09-16 06:18 | NUR ---
PT LYING IN BED COMFORTABLY. NO DISTRESS NOTED. KEPT CLEAN AND DRY. ALL NEEDS ATTENDED AND ANTICIPATED. ALL MEDS GIVEN ORDERED. NO SIGNIFICANT CHANGES IN CONDITION NOTED. WILL CONTINUE TO MONITOR. ENDORSE TO A.M NURSE.
--- NOTE | 2019-09-16 07:30 | NUR ---
RC'D PT RESTING IN BED WITH NO APPARENT S/S OF DISTRESS. PT IS TRACH'D, NO SEDATION. PT RESPONDS TO PAINFUL STIMULI AND OPENS EYES OCCASIONALLY TO VOICE. PT DOES NOT TRACK OR FOLLOW SIMPLE COMMANDS. PORTEX 8 TRACH INTACT AND SECURED, DRESSING CDI. RIJ PIGTAIL, PORT PATENT, DRESSING CDI. TRACH TO VENT, AC MODE; TV 550, RATE 14, FIO2 30%, PEEP 5. RESP E/U. CRACKLES NOTED BILAT. SPO2 100%, NO RESP DISTRESS NOTED. NSR ON PROCUREMENT TECHNICIAN. S1S2 AUSC. NO S/S OF CP. WEAK PALP PULSES TO BUE/BLE, EDEMA NOTED TO BUE/BLE, ELEVATED. GENERALIZED WEAKNESS. PT ON BARIATRIC BED WITH REPOSIITONING Q15MIN. GLUCERNA @60 WITH FWF30 Q6H. PT TOLERATING WELL. RESIDUAL <10 NOTED, REPLACED. ABDOMEN ROUND AND OBESE. ACTIVE BS. FLEXISEAL. PEG TO LUQ. F/C WITH MINIMAL SARA URINE DRAINING TO GRAVITY, SECURED IN PLACE. NO VAGINAL DISCHARGE. DRESSING NOTED, SECURED IN PLACE, SEE CHART. WILL CONT TO MONITOR
--- NOTE | 2019-09-16 08:30 | NUR ---
AM MEDICATIONS GIVEN AT THIS TIME. PT TOLERATED WELL. WILL CONT TO MONITOR
--- NOTE | 2019-09-16 08:36 | NUR ---
DR BARTHOLOMEW PRESENT AT BEDSIDE DISCUSSING PT POC. UPDATED ON PTS CURRENT STATUS. ALL QUESTIONS AND CONCERNS ADDRESSED. NO NEW ORDERS AT THIS TIME, CONT WITH CURRENT TREATMENT
--- NOTE | 2019-09-16 09:16 | NUR ---
HD PRESENT AT BEDSIDE. PROVIDED WITH LABS AND UPDATED ON PT
--- NOTE | 2019-09-16 14:10 | NUR ---
DR AMATO AT [facility] TO ASSESS PATIENT. UPDATES PROVIDED BY NURSING. DAUGHTER LILIAM PROVIDED UPDATES BY DR AMATO WITH ALL QUESTIONS AND CONCERNS ADDRESSED.
--- NOTE | 2019-09-16 18:25 | NUR ---
PT GIVEN TOTAL BED BATH. ALL DRESSINGS CHANGED AT THIS TIME. PT TOLERATED WELL. NEW CHUX AND LINEN AT THIS TIME. JFOLEY CARE, ORAL CARE AND PT WIPED WITH GURU WIPES. VSS. WILL CONT TO MONITOR
--- NOTE | 2019-09-16 19:12 | NUR ---
PT ENDORSED TO STEPHANIE VILLARREAL. ALL QUESTIONS AND CONCERNS ADDRESSED.
--- NOTE | 2019-09-16 19:30 | NUR ---
RECEIVED REPORT FROM PHIL SOUZA. PT IS ALERT AND RESPONSIVE TO VERBAL STIMULUS. PT'S EYES OPEN, NODS OCCASSIONALLY TO QUESTIONS, BUT DOES NOT FOLLOW COMMANDS. PT IS TRACH'D WITH PORTEX 7. VENT SETTINGS INCLUDE RATE: 14, TV: 550, O2: 30 %, PEEP: 5. LUNG SOUNDS SHOW COURSE CRACKLES TO BIATERAL UPPER LOBES, DIMINISHED TO BILATERAL LOWER LOBES. S1 S2 HEART SOUNDS AUSCULTATED. CAP REFILL <3 SECS X4. SKIN IS WARM AND PINK. PULSES WEAK X4. RIJ PATENT, DRESSING CDI. NS INFUSING AT 5 ML/HR. ABD IS SOFT AND ROUNDED WITH ACTIVE BOWEL SOUNDS X4Q. PEG TUBE PATENT AND INTACT. GLUCERNA INFUSING AT 60 ML/HR. ROE DRAINING VIA GRAVITY. URINE IS YELLOW WITH FAIR OUTPUT. FLEXISEAL IN PLACE WITH BROWN OUTPUT. PT HAS VARIOUS WOUNDS, SEE CHART FOR DETAIL. ALL QUESTIONS AND CONCERNS ANSWERED.
[2019-09-17] VITALS (17 sets, daily range): BP systolic 135–166; BP diastolic 50–84
--- NOTE | 2019-09-17 01:45 | NUR ---
MEDICATED PT WITH PRN TYLENOL FOR PT. PT GRIMACING, AND HAVING HIGH PRESSURES ON VENT.
--- NOTE | 2019-09-17 03:15 | NUR ---
CHANGED OUT TUBE FEED AND TUBING WITH NEW ONES.
--- NOTE | 2019-09-17 05:00 | NUR ---
PT PROVIDED WITH FULL BED BATH, ROE CARE, VAP CARE, AND CVC CARE. PT TOLERATED WELL.
--- NOTE | 2019-09-17 05:14 | NUR ---
WAS UNABLE TO DRAW BLOOD FROM PIG TAIL ON ALIVIA. TRIED REPOSITIONING, WITH NO SUCCESS. ARIEL PREPARATION OPERATOR HAD TO DRAW BLOOD PERIPHERALLY. WILL ENDORSE TO ONCOMING PHIL.
[2019-09-17 05:15] LABS: PLATELET COUNT 142 x10^3mcL (130-400)
[2019-09-17 05:22] LABS: RED CELL DISTRIBUTION WIDTH 17.8 % (11.5-14.5)
[2019-09-17 05:33] LABS: BILIRUBIN TOTAL 0.57 mg/dL (0.20-1.00); CALCIUM 9.7 mg/dL (8.5-10.1); CREATININE SERUM 1.8 mg/dL (0.6-1.0); MAGNESIUM 1.7 mg/dL (1.8-2.4)
[2019-09-17 05:35] LABS: BAND NEUTROPHIL 5 % (0-10); METAMYELOCTE 4 % (0-2); MONOCYTE 3 % (0-7); MYELOCYTE 1 % (0-2); SEGMENTED NEUTROPHILS 75 % (37-75)
[2019-09-17 05:38] LABS: PLATELET MORPHOLOGY FEW LARGE PLATELET; rbc morphology (normal/abnorm) ABNORMAL (NORMAL)
[2019-09-17 05:40] LABS: ALBUMIN 1.7 g/dL (3.4-5.0); TOTAL PROTEIN, SERUM 5.5 g/dL (6.4-8.2)
--- NOTE | 2019-09-17 07:35 | NUR ---
PATIENT OPENS HER EYES SPONTANEOUSLY TO VERBAL STIMULI BUT UNABLE TO FOLLOW ANY SIMPLE COMMANDS. SY PUPILS WITH BRISK REACTION TO LIGHT. RIJ WITH ALIVIA CATH IN PLACE AND COVERED WITH DRESSING. TRACH SIZE [address] AND SECURED. TRACH TO VENT VIA VCV/AC MODE: FIO2 30%, RATE 14, VT 550, PEEP 5. TELE # 4 READS SINUS RHYTHMS WITH THE 1ST DEGREE BLOCK. PEG TUBE IN PLACE TO ABDOMEN AND CONNECTED TO TUBE FEEDING OF GLUCERNA AT 60ML/HR AND FREE WATER FLUSH 30ML EVERY 6HR. NO RESIDUAL NOTED AT THIS TIME. ROE CATH TO GRAVITY DRAINING SCANT AMOUNT OF YELLOW URINE OUTPUT. FLEXISEAL IN PLACE AND DRAINING DARK BROWN LIQUID STOOL. PATIENT IS ON [facility] BED WITH AUTOMATIC TURNING FUNCTION IN USE. AUTOMATIC TURNING SCHEDULE IS EVERY 15MINUTES. CALL LIGHT WITHIN REACH. SIDE RAILS UP X3. BED IS AT LOWEST POSITION.
--- NOTE | 2019-09-17 09:00 | NUR ---
DR BARTHOLOMEW AT BEDSIDE TO ASSESS PATIENT. POC DISCUSSED WITH NURSING. NEW ORDERS RECEIVED. WILL CARRY OUT ORDERS. WILL CONTINUE TO MONITOR.
--- NOTE | 2019-09-17 09:30 | NUR ---
GABRIELE RAMOS AT BEDSIDE AND PLACED PATIENT ON CPAP 12/5, FIO2 30%
--- NOTE | 2019-09-17 10:17 | NUR ---
DR. EDWARDS IS AT BEDSIDE EXAMING THE PATIENT. UPDATE PROVIDED TO THE DOCTOR.
--- NOTE | 2019-09-17 11:10 | NUR ---
SPOKE TO BLANKA FROM .Yoel FARLEY AND INFORMED HER WE HAVE AN ORDER FOR HShahab TOMORROW 09/18/19. WILL ENDORSE TO ONCOMING SALES APPRENTICE.
--- NOTE | 2019-09-17 11:22 | NUR ---
DR AMATO AT BEDSIDE TO ASSESS PATIENT. UPDATES PROVIDED BY NURSING.
--- NOTE | 2019-09-17 16:03 | NUR ---
PATIENT WITH RR 28 WITH LABORED BREATHING. PATIENT PLACED BACK ON AC MODE BY GABRIELE RAMOS AT THIS TIME.
--- NOTE | 2019-09-17 18:49 | NUR ---
PATIENT WAS GIVEN A BEDBATH; GOWN AND CHUCKS CHANGED. DRESSING CHANGED ORDERED. ROE CARE AND ALIVIA CARE PROVIDED TO THE PATIENT.
--- NOTE | 2019-09-17 19:15 | NUR ---
REPORT GIVEN TO MARIA ISABEL DUNN RN. CONCERNS ADDRESSED.
--- NOTE | 2019-09-17 19:35 | NUR ---
RECIEVED REPORT FROM PHIL BOWLING. NURSING UPDATES. POC DISCUSSED. SEE SHIFT ASSESSMENT FOR ASSESSMENT.
--- NOTE | 2019-09-17 22:33 | NUR ---
NO ACUTE CHANGES. WILL CONT TO MONITOR.
[2019-09-18] VITALS (11 sets, daily range): BP systolic 136–163; BP diastolic 58–82
--- NOTE | 2019-09-18 00:34 | NUR ---
DR WONG @ BEDSIDE. NO NEW ORDERS @ THIS TIME.
--- NOTE | 2019-09-18 02:46 | NUR ---
ADM ANAMIKAN EDGARDO PER PT WINCING. WILL CONT TO MONITOR.
--- NOTE | 2019-09-18 04:00 | NUR ---
CHANGED ALL DRESSINGS, PICTURES TAKEN, IODINE GUAZE APPLIED W/ ABD PADS TO BUE AND BLE WOUNDS. SEE PHOTOS FOR PICTURES.
[2019-09-18 05:34] LABS: PLATELET COUNT 152 x10^3mcL (130-400)
--- NOTE | 2019-09-18 05:39 | NUR ---
NOTIFIED PER [facility] CRITICAL VALUE WBC 21.5. WILL ENDORSE.
[2019-09-18 05:41] LABS: RED CELL DISTRIBUTION WIDTH 18.1 % (11.5-14.5)
[2019-09-18 05:45] LABS: BAND NEUTROPHIL 1 % (0-10); METAMYELOCTE 9 % (0-2); MONOCYTE 9 % (0-7); MYELOCYTE 1 % (0-2); SEGMENTED NEUTROPHILS 73 % (37-75)
[2019-09-18 05:48] LABS: BILIRUBIN TOTAL 0.65 mg/dL (0.20-1.00); CALCIUM 9.9 mg/dL (8.5-10.1); CARBON DIOXIDE 21.7 mmol/L (21-32); CREATININE SERUM 2.2 mg/dL (0.6-1.0); MAGNESIUM 1.9 mg/dL (1.8-2.4); rbc morphology (normal/abnorm) ABNORMAL (NORMAL)
[2019-09-18 05:49] LABS: PLATELET MORPHOLOGY FEW LARGE PLATELET
[2019-09-18 06:05] LABS: ALBUMIN 1.7 g/dL (3.4-5.0); TOTAL PROTEIN, SERUM 5.7 g/dL (6.4-8.2)
--- NOTE | 2019-09-18 07:14 | NUR ---
REPORT RECEIVED FROM MONA VILLARREAL. ALL CARE ASSUMED AT THIS TIME.
--- NOTE | 2019-09-18 08:00 | NUR ---
PT RECEIVED RESTING IN BED WITH HOB 30 DEGREES, BED WHEELS LOCKED, AND BED IN LOWEST POSITION. SHE IS ON A [facility] BED SET TO TURN WITH AIR REDISTRIBUTION Q15 MIN, OBSERVED BED FUNCTIONING PROPERLY. PT IS AWAKE AND ALERT, BUT NOT FOLLOWING COMMANDS AND UNABLE TO COMMUNICATE NEEDS. TRACHEOSTOMY NOTED TO MIDLINE TRACHEA, WITH TRACH CONNECTED TO VENT. VENT ON A/C MODE WITH SETTINGS: VT 550, RATE 14, FIO2 30%, PEEP 5. PT ALSO RECEIVING TUBE FEEDING GLUCERNA @ 60 ML/HR WITH 30 ML FWF Q6H. PT HAS [facility] ALIVIA CATH INFUSING NS @ 5 ML/HR TO MAINTAIN PATENCY; SITE WNL. PEG TUBE NOTED TO LEFT UPPER ABDOMEN, SITE WNL. TRACH GAUZE HAS SMALL AMT SEROUS DRAINAGE, ECCHYMOSES NOTED TO SKIN AROUND TRACH SITE. WILL CARRY OUT CARES AND ORDERS FOR THIS SHIFT.
--- NOTE | 2019-09-18 08:51 | NUR ---
PIGTAIL ON ALIVIA CATH FLUSHES EASILY & IT IS EASY TO DRAW BACK BLOOD AT THIS TIME.
--- NOTE | 2019-09-18 09:06 | NUR ---
DR. BARTHOLOMEW FROM [facility] AT BEDSIDE. UPDATES PROVIDED, QUESIONS ANSWERED. PER DR. BARTHOLOMEW PT IS OK TO TRANSFER TO [facility], AND DENIED A MRSA RESWAB. DR. BARTHOLOMEW SUGGESTED FOLLOWING UP WITH ID REGARDING WBC'S TRENDING UP. TRANSFER ORDERS TO BE ENTERED.
--- NOTE | 2019-09-18 09:45 | NUR ---
PT VENT SWITCHED TO CPAP AT THIS TIME, SET TO 12/5. PT TOLERATING CPAP WELL, WILL CONTINUE TO MONITOR.
--- NOTE | 2019-09-18 10:28 | NUR ---
PT TOLERATING CPAP WELL. RR 19, SPO2 100%. WILL CONTINUE TO MONITOR.
--- NOTE | 2019-09-18 13:35 | NUR ---
REPORT GIVEN TO MANDI VILLARREAL. QUESTIONS ANSWERED, CARES ENDORSED.
--- NOTE | 2019-09-18 14:20 | NUR ---
RECEIVED ICU TRANFER. PT IS AWAKE, ALERT UNABLE TO FOLLOW COMMANDS OR MAKE NEEDS KNOWN. REPONDS TO NAME WHEN CALLED BY OPENING EYES AND LOOKING AT DIRRECTION OF VOICE. NONVERBAL, TRACHED AND VENTED ON CPAP MODE TV 500, RATE 14, FIO2 30%. TRACH SIZE PORTEX 8FR. ON RT PROTOCOL. PLAVED ON TELE #35 SHOWING NSR WITH A 1ST DEGREE BLOCK. HR IN 80S. NO S/SX OF CP OR DISCOMFORT NOTED. NOTED WITH EDEMA TO BLE +1. ALIVIA CATH TO RIJ WITH PIGTAIL ACCESS FOR IVF AND BLOOD DRAW. ESRD WITH HD SCHEDULED FOR TODAY. GT FEEDING WITH GLUCERNA AT 60ML/HR WITH 30 ML FREE WATER Q6HRS. ROE CATH TO GRAVITY WITH YELLOW URINE. ABD SOFT, OBESE, NONTENDER WITH ACTIVE BS X4. FLEX SEAL IN PLACE WITH WATERY BROWN STOOL NOTED. CHANGED BAG AT THIS TIME. PT NOTED WITH MULTIPLE LARGE WOUNDS BODY. HAD PICTURE AND DRSG CHANGE EARLIER THIS MORNING BY NOC SHIFT. WOUND RO FOREARMS, ON CALVES, BILATERAL HIPS. BILAT INNER THIGHS, MIDLINE LOWER ABD ALL WITH DRSG IN PLACE CDI. SMALL SARAL WOUND WITH OPTIFOAM IN PLACE CDI. PT REPOSITIONED Q2HRS WAS ON ICU BED WITH ISOFLEX WITH AIRPOUMP IN PLACE AT THIS TIME. [facility] BED THAT WAS NOT ABLE TO BE MOVED UPSTAIRS AT THIS TIME. CHARGE NURSE AWARE TO NOTIFY HOUSE SUP TO HAVE [facility] BED MOVE UPSTAIR. OFF LOADING HEELS, AND ELBOW. CALL LIGHT IN REACH NEEDS ANTICIPATED. PLACED ON CONTACT ISO FOR +MRSA WITH TX COMPLETED.
--- NOTE | 2019-09-18 16:00 | NUR ---
HD NURSE AT BEDSIDE TO START HD TX REPORT GIVEN AT THIS TIME.
--- NOTE | 2019-09-18 18:00 | NUR ---
RT CALLED TO BEDSIDE ABD PERFORMED TRACH CARE AND DIOR CHANGE PT TOLERATED ACTIVITY WELL.
--- NOTE | 2019-09-18 18:30 | NUR ---
PT WITH ONGOING HD. NO SIGNIFICANT CHANGES FROM ARRIVAL. B/P STABLE STAING 100%. PERFORMED SUCTIONING WITH NEEDED.
--- NOTE | 2019-09-18 19:45 | NUR ---
RECEIVED PT IN BED, TOTAL CARE PT. PT ABLE TO OPEN EYES SPONTANEOUSLY, EASILY AROUSABLE, ABLE TO FOLLOW SOME SIMPLE COMMANDS. PT IS NONVERBAL. PT WITH TRACH WITH CPAP MODE, TOLERATING WELL, SUCTION NEEDED. TELE 35. BS ACTIVE IN ALL FOUR QUADS. ABD IS OBESE. FLEXSEAL TO GRAVITY IN PLACE. ROE IN PLACE. PT IS TOTAL CARE PT, TURN Q2H AT THIS TIME, AWAITING [facility] BED. PT WITH MULTIPLE SCATTERED WOUNDS THROUGH OUT BODY, PICTURES IN CHART. IV TO RIJ TKO WITH NS AT 10ML/HR. HD FINISHING UP WITH 2.2L OUTPUT. SHIFT ASSESSMENT COMPLETED. ROOM IS CLOSE TO NURSING STATION. PT IS IN CONTACT ISOLATION, PRECAUTIONS ENFORCED. WILL CONTINUE TO MONITOR CLOSELY.
--- NOTE | 2019-09-18 21:58 | NUR ---
NEW TF BOTTLE AND TUBING HUNG AT THIS TIME. ALL DUE MEDS GIVEN ORDERED. SUCTIONED PT AT THIS TIME VIA TRACH AND ORALLY WELL. PT OPENS EYES AND ABLE TO FOLLOW SIMPLE COMMANDS. ALL CONTACT ISOLATION PRECAUTIONS ENFORCED. WILL CONTINUE TO MONITOR CLOSELY.
--- NOTE | 2019-09-18 22:15 | NUR ---
CHANGED PT TO [facility] BED WHICH IS SET TO TURN WITH AIR REDISTRIBUTION Q15MIN. PT TOLERATED ACTIVITY. PT REMAINS ON CPAP SETTINGS; SUCTION NEEDED. WILL CONTINUE TO MONITOR CLOSELY.
--- NOTE | 2019-09-18 23:26 | NUR ---
FSBS IS 180, 3 UNITS OF REGULAR INSULIN GIVEN ORDERED. ALL NEEDS TENDED TO. WILL CONTINUE TO MONITOR CLOSELY.
[2019-09-19] VITALS (9 sets, daily range): BP systolic 118–147; BP diastolic 59–77
--- NOTE | 2019-09-19 04:05 | NUR ---
SUCTION NEEDED. PT OPENING EYES SPONTANEOUSLY. TF ONGOING. IV TKO. ALL EXTREMITIES ELEVATED WITH PILLOWS. WILL CONTINUE TO MONITOR CLOSELY.
--- NOTE | 2019-09-19 06:37 | NUR ---
CLEANED PT AND CHANGED LINENS AND GOWN. FLEXSEAL LEAKING WITH SOME SOFT BM AND SOME LIQUID BM WELL, CLEANED AND IRRIGATED FLEXSEAL. ZOSYN INFUSING WELL AT THIS TIME. TF INFUSING WELL AT GOAL RATE. SUCTIONED TRACH THROUGH OUT SHIFT. BLE ELEVATED WITH PILLOWS. HOB ELEVATED TO 30 DEGREES. CONTACT PRECAUTIONS ENFORCED THROUGH OUT SHIFT. TRACH SETTINGS REMAIN UNCHANGED AT CPAP. ROOM REMAINS CLOSE TO NURSING STATION. WILL ENDORSE TO INCOMING SHIFT.
[2019-09-19 06:56] LABS: PLATELET COUNT 177 x10^3mcL (130-400)
--- NOTE | 2019-09-19 07:10 | NUR ---
RECEIVED PT FROM NIGHT NURSE. PT IS LAYING DOWN IN BED WITH HOB UP. PT LOOKS TO BE IN NO ACUTE DISTRESS AT THIS TIME. TRACH PRESENT AND LOOKS TO BE PATENT, RESPIRATIONS LOOK TO BE EVEN AND UNLABORED. ROE CATHETER AND FLEXSEAL PRESENT. +2 PITTING EDEMA TO BUE AND BLE. EXTENSIVE GENERALIZED WOUNDS PRESENT TO TRUNK, BUE, BLE, BACK, HIP, GROIN AND DRESSINGS ARE CDI. PEG TUBE PRESENT, <5ML RESIDUAL AND RETURNED TO PT. PT OPENS EYES SPONTANEOUSLY AND ABLE TO TRACK. PT NONVERBAL AND PT NOT FOLLOWING VERBAL COMMANDS. RIJ PRESENT AND, AV FISTULA TO LEFT ARM PRESENT. TELE MONITOR PRESENT.
[2019-09-19 07:16] LABS: BILIRUBIN TOTAL 0.45 mg/dL (0.20-1.00); CALCIUM 9.3 mg/dL (8.5-10.1); CARBON DIOXIDE 21.5 mmol/L (21-32); CREATININE SERUM 1.6 mg/dL (0.6-1.0); MAGNESIUM 1.6 mg/dL (1.8-2.4); POTASSIUM SERUM 3.5 mmol/L (3.5-5.1)
[2019-09-19 07:42] LABS: ALBUMIN 1.5 g/dL (3.4-5.0); TOTAL PROTEIN, SERUM 5.3 g/dL (6.4-8.2)
[2019-09-19 08:25] LABS: RED CELL DISTRIBUTION WIDTH 17.8 % (11.5-14.5)
[2019-09-19 09:16] LABS: BAND NEUTROPHIL 0 % (0-10); BASOPHIL 0 % (0-2); MONOCYTE 10 % (0-7); SEGMENTED NEUTROPHILS 86 % (37-75)
[2019-09-19 09:17] LABS: PLATELET MORPHOLOGY PLATELETS DECREASED
[2019-09-19 09:18] LABS: rbc morphology (normal/abnorm) ABNORMAL (NORMAL)
--- NOTE | 2019-09-19 09:30 | NUR ---
PT IS LAYING DOWN IN BED WITH HOB UP. WASHED PT'S FACE, PT REFUSED ORAL CARE. HYPEROXYGENATED PT AND SUCTIONED TRACH TUBE AND MINIMAL YELLOW SPUTUM SUCTIONED, PT REFUSED ORAL SUCTION. PROVIDED INTERDRY TO B/L BREAST AND B/L ABD FOLDS. PT MADE COMFORTABLE IN BED. WILL CONTINUE TO MONITOR.
--- NOTE | 2019-09-19 09:51 | NUR ---
PLACED PT ON CPAP 5 WITH PSV 6 AND FIO2 25% AND JULIETA LOPEZ AT BED SIDE. IF PT IS ABLE TO TOLERATE VENTILATOR SETTINGS, PT WILL BE PLACED ON T-BAR TRIAL.
--- NOTE | 2019-09-19 12:06 | NUR ---
1. Recommend continuing Glucerna 1.2 @ 20 ml/hr, goal 60 ml/hr, advance Q4H, FWF 30 ml Q6H. This will provide 1730 kcal and 86 g protein.
--- NOTE | 2019-09-19 12:06 | NUR ---
Follow-up Nutrition Assessment: 246T/B KATELYN GARG MR Dx: Acute respiratory failure PMHx: ESRD on HD (M-W-F), HTN, DM, morbid obesity, peripheral vascular disease, hypoalbuminemia, necrotic left groin wound Labs: (09/19) BG 139H, CREAT 1.6H, BUN 23H, ALB 1.5L, TG 264H, WBC 21.5H, HGB 8.9L Meds: D 50%, Humulin, cozaar, lantus, lopressor, Zofran, zosyn, Vitamin C, zinc, procrit Diet: (PEG) Glucerna 1.2 @ 20 ml/hr, goal 60 ml/hr FWF 30 ml Q6H PO Intake: NPO Weights: (09/15) 89.6 kg, (09/18) 102 kg - fluctuations d/t HD I/Os: (09/18) 1812/825 (987) Skin: multiple ulcers and skin tears, pt on bariatric bed that repositions Q15 min James: 10 Edema: 2+ pitting edema LUE/ BLE GI: loose brown stool, flexiseal intact Last BM: 09/18 RD Note (09/19): Patient has trach and PEG placed. Per PHIL Maher, pt is receiving Glucerna 1.2 @ 60 ml/hr and is tolerating it well. Patient is on HD. Estimated Nutritional Needs Based on body weight (72 kg) Energy: 5849-0507 (30-35 kcal/kg for HD) Protein: 86- 101 g/day (1.2-1.4 g/kg for HD) Fluid: 3414-2655 mL/day (1 mL/kcal) or per MD Nutrition Diagnosis: 1.Increased nutrient needs related to wounds, HD as evidenced by estimated calorie and protein needs. (ongoing). 2. Inadequate enteral nutrition infusion related to low TF rate as evidenced by current TF rate meeting <75% estimated calorie and protein needs. (improved- rate changed to 60 ml/hr) Intervention: 1. Recommend continuing Glucerna 1.2 @ 20 ml/hr, goal 60 ml/hr, advance Q4H, FWF 30 ml Q6H. This will provide 1730 kcal and 86 g protein. Monitor/Evaluate: Goal: Have pt meet at least 75% of estimated needs Monitor: PO intake, Labs, GI function F/U in 3-5 days as moderate risk 09/22-
--- NOTE | 2019-09-19 12:42 | NUR ---
PT FLEXSEAL TUBE LEAKING. TUBE FEEDING PAUSED. CLEANED PT AND CHANGED LINENS. APPLIED Z-GUARD TO STAR AREA. PT TOLERATED WELL. PT MADE COMFORTABLE IN BED. TRACH TUBE IN PLACE, SUCTION PROVIDED AND REOXYGENATED PRIOR TO SUCTION. PROVIDED ORAL CARE. PT LOOKS TO BE IN NO ACUTE DISTRESS AT THIS TIME. BED IN LOWEST POSITION, WILL CONTINUE TO MONITOR.
--- NOTE | 2019-09-19 14:31 | NUR ---
ASSESSED PT FOR FLEXSEAL TUBE LEAKING. NO SIGNS OF LEAKING AT THIS TIME. CLEANED UP MINIMAL AMOUNTS OF STOOL AND APPLIED Z GUARD. MADE PT COMFORTABLE IN BED. WILL CONTINUE TO MONITOR.
--- NOTE | 2019-09-19 15:20 | NUR ---
PT CHANGED TO T-BAR BY RT ORDERED. 9L WITH HUMIDIFICATION VIA T-BAR TO TRACH AND IS MIDLINE. PT TOLERATING WELL AND SATTING AT 100%. PT LOOKS TO BE IN NO ACUTE DISTRESS AT THIS TIME. WILL CONITNUE TO MONITOR.
--- NOTE | 2019-09-19 15:50 | NUR ---
PT IS LAYING DOWN IN BED WITH HOB UP. PT CHANGED TO T TUBE VIA TRACH ON 9L. PT LOOKS TO BE IN NO ACUTE DISTRESS AT THIS TIME. SUCTIONED PT AND PT TOLERATED WELL, PT SATTING AT 100%. TUBE FEEDING INFUSING. PT MADE COMFORTABLE IN BED. BED SETTINGS TO REPOSITION Q15 MINS. WILL CONTINUE TO MONITOR.
--- NOTE | 2019-09-19 16:25 | NUR ---
DR. REED AT BEDSIDE ASSESSING PT'S WOUNDS. GAVE NURSING UPDATE. DR. DEL ROSARIO REQUESTING TO SEE WOUNDS DURING NEXT DRESSING CHANGE TO ASSESS NEED FOR ADDITIONAL SURGERY OF WOUNDS. WILL CONTINUE TO MONITOR.
--- NOTE | 2019-09-19 17:45 | NUR ---
CHECKED PT FOR LEAKAGE OF RECTAL TUBE, NO LEAKAGE NOTED AT THIS TIME. PERFORMED STAR CARE AND APPLIED Z GUARD TO PERIAREA. PROVDIDED ROE CARE AND EMPTIED CATHETER 175 ML OF CLOUDY YELLOW URINE. CHANGED TUBE FEEDING AND TUBE FEEDING LINE. <5ML OF RESIDUAL NOTED AND RETURNED TO PT. MADE PT COMFORTABLE IN BED, WILL CONTINUE TO MONITOR.
--- NOTE | 2019-09-19 18:20 | NUR ---
PT CHANGED FROM T-MILLINERY DEPARTMENT MANAGER TO CPAP PER DR. BARTHOLOMEW'S ORDERS. CPAP SETTING AT RR: 14, PF: 60, TIDAL: 550, PEEP: 12, O2: 25. RESPIRATIONS EVEN AND UNLABORED AND PT SATTING AT 100%. PT LOOKS TO BE IN NO ACUTE DISTRESS AT THIS TIME. TELE MONITOR PRESENT. RIJ CENTRAL LINE PATENT AND INFSUSING. RECTAL TUBE PATENT AND EMPTYING BROWN LIQUID STOOL. 2 PITTING EDEMA NOTED TO RUE AND +1 PITTING EDEMA TO LUE, +2 PITTING EDEMA TO BLE. GENERALIZED WOUNDS WITH DRESSING CDI. DAUGHTER AT BEDSIDE. WILL ENDORSE TO ONCOMING SHIFT.
--- NOTE | 2019-09-19 19:57 | NUR ---
RECEIVED PT FROM PREVIOUS SHIFT. PT ALERT/NONVERBAL. EYES TRACKING. TRACH IN PLACE ON CPAP MODE. RIJ IN PLACE, INFUSING NS AT KVO. EXTENSIVE WOUNDS THROUGHOUT ENTIRE BODY. DRESSINGS CDI. PEG TUBE IN PLACE, TUBE FEEDING INFUSING AT GOAL RATE OF 60ML/HR WITH 30ML FWF Q6HRS. F/C DRAINING TO GRAVITY WITH YELLOW OUTPUT. FLEXISEAL IN PLACE, DRAINING TO GRAIVTY. DAUGHTER AT BEDSIDE. CALL LIGHT WITHIN REACH, BED IN LOW POSITION. WILL CONTINUE TO MONTIOR.
--- NOTE | 2019-09-19 22:18 | NUR ---
CHANGED FROM CPAP TO AC/VC MODE. SETTINGS: AC 550 RATE 14 PEEP 5 FIO2 25%. PATIENT TOLERATING WELL. HR 103 SPO2 98. WILL CONTINUE TO MONITOR.
[2019-09-20] VITALS (8 sets, daily range): BP systolic 81–114; BP diastolic 42–563
[2019-09-20 06:23] LABS: PLATELET COUNT 208 x10^3mcL (130-400)
[2019-09-20 06:46] LABS: BILIRUBIN TOTAL 0.47 mg/dL (0.20-1.00); CALCIUM 9.7 mg/dL (8.5-10.1); CARBON DIOXIDE 17.3 mmol/L (21-32); CREATININE SERUM 2.2 mg/dL (0.6-1.0); MAGNESIUM 1.7 mg/dL (1.8-2.4); POTASSIUM SERUM 4.1 mmol/L (3.5-5.1)
[2019-09-20 06:56] LABS: ALBUMIN 1.5 g/dL (3.4-5.0); TOTAL PROTEIN, SERUM 5.4 g/dL (6.4-8.2)
[2019-09-20 07:19] LABS: RED CELL DISTRIBUTION WIDTH 17.7 % (11.5-14.5)
--- NOTE | 2019-09-20 07:21 | NUR ---
DR NGUYEN PAGED AT THIS TIME TO REPORT WBC 26 AND HGB 6.8
--- NOTE | 2019-09-20 07:50 | NUR ---
PT LETHARGIC.GRIMACE TO PAIN AND DISCOMFORT.LUNG SOUND WITH RHONCH ON THE UPPER LOBES.DIM ON THE BASES.ON TRACH,C PAP MODE 25/5.ON ST ON THE MONITOR QJ=802.PEG TUBE FEEDING GLUCERNA 1.2 AT 60 ML/HR INFUSING WELL.RESIDUAL=0. RIJ AITH ALIVIA PIGTAIL.IV NS TO TKO.ROE DRAINING TO GRAVITY YELLOW IN COLOR.RECTAL TUBE IN PLACE DRAINING BROWNISH LOOSE STOOL.BUE/BLE WITH 3+ EDEMA.MULTI NECROTIC WOUNDS TO BUE/BLE/HIP AND GROIN AREA.ALSO WITH MULTI SKIN TEAR.BUE ALSO NOTED TO BE WEEPING.ON JACKSONVILLEROM BED SET TO TURN Q 15 MIN.BUE AND BLE ELEVATED ON A PILLOW.ROOM CLOSER TO NURSES STATION.ON ASPIRATION PRECAUTION HOB AT 30 DEG ANGLE.FREQUNT CHECKS IMPLEMENTED.WILL CONTINUE TO MONITOR.
--- NOTE | 2019-09-20 08:18 | NUR ---
RT-PT WAS TACHYPNEIC IN THE 30'S SO PT PLACED ON CPAP INSTEAD OF T-BAR TRIAL FOR EXTRA SUPPORT. PT IS NOW BREATHING A LITTLE SLOWER AND LOOKS MORE COMFORTABLE. WILL CONTINUE TO MONITOR.
--- NOTE | 2019-09-20 09:05 | NUR ---
VITALS TAKEN, TEMP 101.4, BP 92/48, HR 117, TACHYPNEIC, PATIENT WAS PLACED ON CPAP BY RT. DR FLORIDA GASTON.
--- NOTE | 2019-09-20 09:45 | NUR ---
INFORMED ABOUT PT'S WBC=26,H/H=6.8/21.ALSO PT'S BP=92/48.T=101.4. ORDERED PT TO TRANSFER TO ICU,BLOOD CULTURE.ALSO INFORMED HIM ABOUT HOLDING THE BP MEDS.ORDERED TO D/C SMOOTH.OK TO GIVE AMIODORONE.
--- NOTE | 2019-09-20 10:00 | NUR ---
OH CAME AND TOOK OFF ALL OF PATIENT'S DRESSINGS.CLAIMS PT NEEDS DEBRIDEMENT. ASKED NURSE AND INTERNS TO PUT CLEAN DRESSING ON.PUT CLEAN DRESSING ON.
--- NOTE | 2019-09-20 10:09 | NUR ---
GAVE PT TYLENOL 650 MG VIA PEG ORDERED PRN FOR XBUK=800.4.ALSO COLD COMPRESS RENDERED.
--- NOTE | 2019-09-20 11:30 | NUR ---
REPORT GIVEN TO SHEET CUTTER TAWNYA, PATIENT TO BE TRANSFERRED TO ICU 6 VIA [facility] SPECIAL[facility] BED ACCOMPANIED BY RT AND RN.
--- NOTE | 2019-09-20 11:49 | NUR ---
RT-PT TRANSPORTED WITHOUT INCIDENT. AMBU BAG AT [facility]. PT TOLERATED WELL. RN AT BEDSIDE. 99% SATS. PT IS STABLE
--- NOTE | 2019-09-20 11:50 | NUR ---
PT WENT DOWN VIA HOSPITAL BED ACCOMPANIED BY NURSES AND RT
--- NOTE | 2019-09-20 12:03 | NUR ---
INFORMED DAUGHTER LILIAM THAT PT WAS TRANSFERRED TO ICU.
--- NOTE | 2019-09-20 12:05 | NUR ---
RECEIVED PT TRANSFER FROM [facility] AT 1150 AM WITH RT AND NURSE AT BEDSIDE. PT OPENS EYES SPONTANEOUS. PORTECH CONNECT TO CPAP WITH SETTING PEEP 5, FIO2 25%, VT 550. PT'S VS: TEMP 99.1, BP 81/37, HR 107, O2 SAT 100%. FLEXISEAL RECTAL TUBE IN PLACE, ROE IN PLACE, DRAINING VIA GRAVITY, YELLOW URINE. PEG ON LQ ABD. PT IS ON SPECIAL BED, HILL-ROM AIR MATTRESS. WILL CONTINUE PT'S CARE.
[2019-09-20 12:18] LABS: BAND NEUTROPHIL 4 % (0-10); MONOCYTE 2 % (0-7); SEGMENTED NEUTROPHILS 75 % (37-75)
[2019-09-20 12:19] LABS: rbc morphology (normal/abnorm) ABNORMAL (NORMAL)
--- NOTE | 2019-09-20 12:20 | NUR ---
PT'S BP 81/37, STARTED LEVOPHED 2MCG/MIN PER ORDER.
--- NOTE | 2019-09-20 12:40 | NUR ---
PT'S BP 96/44 (61), TITRATE UP LEVOPHED TO 3 MCG/MIN. WILL CONTINUE TO MONITOR.
--- NOTE | 2019-09-20 13:05 | NUR ---
PT'S BP 83/47, TITRATE LEVOPHED UP TO 4 MCG/ MIN. WILL CONTINUE TO MONITOR.
--- NOTE | 2019-09-20 14:50 | NUR ---
PT'S BP 101/59 (78), TITRATE LEVOPHED DOWN TO 3MCG/MIN.
--- NOTE | 2019-09-20 14:51 | NUR ---
SPOKE WITH DR AMATO AND PROVIDED PATIENT REPORT. NO H.D. TODAY PER DR AMATO.
--- NOTE | 2019-09-20 15:03 | NUR ---
BP 113/53 (75), TITRATE LEVOPHED DOWN TO 2MCG/MIN.
--- NOTE | 2019-09-20 15:52 | NUR ---
RT BERGERON PUT PT BACK ON AC MODE WITH SETTING PEEP 5, VT 550, FIO2 25%, RT 14.
--- NOTE | 2019-09-20 15:58 | NUR ---
PT'S BP 81/42, TITRATE LEVOPHED UP T0 3MCG /MIN.
--- NOTE | 2019-09-20 17:33 | NUR ---
PT'S BP 104/58 (70), TITRATE DOWN LEVOPHED TO 2MCG /MIN. PT'S DAUGHTER AT BED SIDE.
--- NOTE | 2019-09-20 19:33 | NUR ---
1ST UNIT BLOOD TRANSFUSION DONE, PT TOLERATE WELL. PT'S REPORT GIVEN TO RECEIVING NURSE, AND 2ND UNIT BLOOD TURNASFUSION STARTED. PT'S DAUGHTER AT BED SIDE. LEVOPHED IS INFUSING AT 2MCG/MIN AT THIS TIME.
--- NOTE | 2019-09-20 19:48 | NUR ---
RECEIVED REPORT FROM PHIL BOWLING. PT IS ALERT AND RESPONSIVE TO TACTILE STIMULUS. PT HAS PORTEX 8 TRACH, ATTACHED TO VENT. SETTINGS INCLUDE RATE: 14, TV: 550, O2: 25%, PEEP: 5. LUNG SOUNDS SHOW COURSE CRACKLES TO BILATERAL UPPER LOBES, DIMINISHED TO BILATERAL LOWER LOBES. S1 S2 HEART SOUNDS AUSCULTATED. CAP REFILL <3 SECS X4. SKIN IS WARM AND PALE. PERIPHERAL IV TO LEFT SIDE OF CHEST, AND RIGHT RING FINGER, PATENT, DRESSING CDI. PT HAS RIGHT ALIVIA CATHETER INTACT AND PATENT. POSITIONAL AT TIMES OF INFUSION. PULSES WEAK X4. ABD IS SOFT AND ROUNDED WITH HYPOACTIVE BOWEL SOUNDS X4Q. PT HAS PEG TO LEFT UPPER QUADRANT. GLUCERNA INFUSING AT 60 ML/HR. RESIDUAL OF 10 ML. TOLERATING WELL. FLEXICEAL DRAINING WITH DARK BROWN STOOL. ROE DRAINING VIA GRAVITY. URINE IS YELLOW WITH FAIR OUTPUT. PT HAS VARIOUS WOUNDS, SEE CHART. PT HAS BLOOD INFUSING AT 150 ML/HR. NS INFUSING AT 5 ML/HR. LEVOPHED INFUSING AT 2 MCG/MIN. ALL QUESTIONS AND CONCERNS ANSWERED.
--- NOTE | 2019-09-20 20:36 | NUR ---
DR. DICKSON AT BEDSIDE FOR UPDATES. ALL QUESTIONS AND CONCERNS ANSWERED. STATED THAT IT IS OKAY FOR PATIENT TO HAVE DIALYSIS TOMORROW. WILL CALL [facility].
--- NOTE | 2019-09-20 20:38 | NUR ---
LEFT MESSAGE FOR [facility], DIALYSIS MOTOR BUS DRIVER.
--- NOTE | 2019-09-20 21:30 | NUR ---
BLANKA CALLED BACK, AND CONFIRMED DIALYSIS FOR TOMORROW.
--- NOTE | 2019-09-20 22:00 | NUR ---
PT HAS FEVER OF 100.5. ADMINISTERED TYLENOL, AND PLACED ICE PACKS.
[2019-09-21] VITALS (15 sets, daily range): BP systolic 93–146; BP diastolic 41–74
--- NOTE | 2019-09-21 00:33 | NUR ---
DR. WONG AT BEDSIDE FOR UPDATES. ORDERED UA, URINE CULTURE, CXR, TRACHEAL ASPIRATE, C DIFF CULTURE, AND DIFLUCAN [address] PL[address] ORDERS IN SYSTEM, AND FOLLOW THROUGH.
[2019-09-21 02:20] LABS: microscopic required? YES; urine erythrocyte 2+ (NEGATIVE)
--- NOTE | 2019-09-21 04:16 | NUR ---
PT PROVIDED WITH FULL BED BATH, ROE CARE, VAP CARE, AND CVC CARE. PT HAD LEAKAGE FROM FLEXISEAL, WAS CLEANED. TOLERATED WELL. MISC DRESSING CHANGES DONE DUE TO BEING SOILED.
[2019-09-21 06:34] LABS: PLATELET COUNT 208 x10^3mcL (130-400)
[2019-09-21 06:36] LABS: BILIRUBIN TOTAL 0.45 mg/dL (0.20-1.00); CALCIUM 9.6 mg/dL (8.5-10.1); CARBON DIOXIDE 18.7 mmol/L (21-32); CREATININE SERUM 2.6 mg/dL (0.6-1.0); MAGNESIUM 1.7 mg/dL (1.8-2.4); POTASSIUM SERUM 4.3 mmol/L (3.5-5.1)
[2019-09-21 06:54] LABS: ALBUMIN 1.4 g/dL (3.4-5.0); TOTAL PROTEIN, SERUM 5.5 g/dL (6.4-8.2)
--- NOTE | 2019-09-21 07:28 | NUR ---
RECEIVED PT'S REPORT FROM LEAVING NURSE. PT'S TEMP > 100.0, COOLING MEASURES APPLIED. WILL GIVE TYLENOL PER ORDER. LEVOPHED IS OFF AT THIS TIME. TRACH CONNECTED TO VENT AC MODE: PEEP 5, TV 550, RR14, FIO2 25%. ROE CATHETER AND FLEXISEAL RECTAL TUBE IN PLACE. GLUCERNA TUBE FEEDING VIA PEG AT 60ML/HR, WFW 30ML Q6. WILL CONTINUE PT CARE.
[2019-09-21 07:49] LABS: SEGMENTED NEUTROPHILS 80 % (37-75)
[2019-09-21 07:50] LABS: BAND NEUTROPHIL 10 % (0-10); MONOCYTE 5 % (0-7)
--- NOTE | 2019-09-21 08:48 | NUR ---
HD NURSE STARTED HD AT BEDSIDE. ALBUMIN 25% 100ML IS GIVEN BY HD NURSE. HOLD MORNING ORAL MEDS AT THIS TIME.
--- NOTE | 2019-09-21 10:04 | NUR ---
DR. DEL ROSARIO CALLED AND ORDERED: KEEP PT NPO FOR DEBRIDMENT AT 1800 PM. PT'S CONDITION UPDATED.
--- NOTE | 2019-09-21 10:54 | NUR ---
PT. WITH INCREASE NUMBER OF SKIN TEARS TO LIMBS AND TRUNK OF BODY FROM NEW /EXISITING PURPURA. [facility] PLAN FOR WOUNDS DEBRIDIMENT BY DR. REED. PER PRIMARY RN. COMORBIDITIES RELATED DELAY WOUND HEALING AND FURTHER SKIN BREAKS: INFECTION, DM, KIDNEY FAILURE WITH HD, LOW ALBUMIN LEVEL, HOB ELEVATED THE MAJORY OF TIMES DUE TO MEDICAL REASONS AND CALCIPHYLAXIS DISEASE PROGRESS.
--- NOTE | 2019-09-21 12:36 | NUR ---
HD DONE, 500ML OUTPUT. PT'S BP 108/54, HR 82, O2 SAT 95%, RR 26.
--- NOTE | 2019-09-21 16:53 | NUR ---
PT'S DAUGHTER AT BEDSIDE GAVE SURGICAL CONSENT TO OR NURSE [place]. PT IS MOVED FROM SPECIAL BED TO REGULAR BED WITH [facility] NURSES'S ASSISTANCE. PRE-OP WIPE DONE.
--- NOTE | 2019-09-21 19:18 | NUR ---
PT'S REPORT GIVEN TO RECEIVING NURSE. PT IS LYING ON NORMAL BED WAITING FOR OR PICKING UP FOR SURGERY. SINUS KIARA 50s NOTED AFTER 1600 PM, ENDORSE NURSE TO CONTINUE MONITORING. PT'S DAUGHTER AT BED SIDE.
--- NOTE | 2019-09-21 19:21 | NUR ---
PT'S REPORT GIVEN TO RECEIVING NURSE. PT IS BROUGHT BACK FROM BEAUTY OPERATOR AT THIS TIME.
--- NOTE | 2019-09-21 19:48 | NUR ---
RECEIVED REPORT FROM PHIL BOWLING. PT IS ALERT AND RESPONSIVE TO TACTILE STIMULUS. PT HAS A PORTEX 8 TRACH, ATTACHED TO VENT. SETTINGS INCLUDE RATE: 14, TV: 550, O2: 25%, AND PEEP: 5. TEMP 99.3. LUNG SOUNDS SHOW COURSE CRACKLES TO BILATERAL UPPER LOBES, DIMINISHED TO BILATERAL LOWER LOBES. S1 S2 HEART SOUNDS AUSCULTATED. SINUS BRADYCARDIA. PULSES WEAK X4. CAP REFILL <3 SECS X4. SKIN IS WARM AND PINK. PERIPHERAL IV TO LEFT SIDE OF CHEST, AND HAS RIGHT AILVIA PATENT, DRESSING CDI. NO FLUIDS OR MEDS INFUSING AT THIS TIME. ABD IS SOFT AND ROUNDED WITH ACTIVE BOWEL SOUNDS X4Q. ROE DRAINING VIA GRAVITY. URINE IS YELLOW WITH FAIR OUTPUT. FLELXISEAL DRAINING WITH DARK BROWN LIQUID STOOL. ALL QUESTIONS AND CONCERNS ANSWERED.
--- NOTE | 2019-09-21 19:55 | NUR ---
PT OFF FLOOR TO OR FOR DEBRIDEMENT WITH DR. REED. DR. REED, SURGERY NURSES, AND RT AT BEDSIDE TO TAKE PATIENT. DAUGHTER AND FRIEND IN SURGERY WAITING ROOM.
--- NOTE | 2019-09-21 20:00 | NUR ---
VENT CHECK NOT DONE DUE TO PT IN OR.
--- NOTE | 2019-09-21 21:02 | NUR ---
PT RETURNED FROM OR. VITALS INCLUDE HR: 75, RR: 18, BP 135/ 60 (85). PT RECEIVED 100 OF FENTANYL. DEBRIDEMENT WAS DONE OF MULTIPLE WOUNDS ABD PAD AND KERLIX APPLIED. PT WAS MOVED BACK ONTO BARIATRIC AIR MATTRESS. TALA RT AT BEDSIDE FOR BREATHING TREATMENT. ALL QUESTIONS AND CONCERNS ANSWERED.
[2019-09-22] VITALS (15 sets, daily range): BP systolic 103–152; BP diastolic 35–96
--- NOTE | 2019-09-22 05:30 | NUR ---
PT PROVIDED WITH FULL BED BATH, LINEN CHANGE, ROE CARE, VAP CARE, AND CHANGED OUT TUBING. PT TOLERATED WELL.
[2019-09-22 06:23] LABS: BILIRUBIN TOTAL 0.5 mg/dL (0.20-1.00); CALCIUM 9.3 mg/dL (8.5-10.1); CARBON DIOXIDE 19.5 mmol/L (21-32); CREATININE SERUM 2.5 mg/dL (0.6-1.0); MAGNESIUM 1.6 mg/dL (1.8-2.4); POTASSIUM SERUM 3.7 mmol/L (3.5-5.1)
[2019-09-22 06:24] LABS: TOTAL PROTEIN, SERUM 5.4 g/dL (6.4-8.2)
[2019-09-22 06:38] LABS: PLATELET COUNT 175 x10^3mcL (130-400)
[2019-09-22 08:05] LABS: RED CELL DISTRIBUTION WIDTH 16.7 % (11.5-14.5)
--- NOTE | 2019-09-22 08:29 | NUR ---
DR. BARTHOLOMEW AT BEDSIDE. UPDATES PROVIDED, QUESTIONS ANSWERED. NO UPDATES TO POC AT THIS TIME.
--- NOTE | 2019-09-22 11:45 | NUR ---
ROSI RT CHANGED SOILED TRACH GAUZE, SEROUS DRAINAGE. PT TOLERATED CHANGE WELL. WILL CONTINUE TO MONITOR.
[2019-09-22 12:02] LABS: MONOCYTE 9 % (0-7); SEGMENTED NEUTROPHILS 78 % (37-75); rbc morphology (normal/abnorm) NORMAL (NORMAL)
--- NOTE | 2019-09-22 13:48 | NUR ---
RECEIVED ORDER FOR CT CHEST ABD PELVIS ON 09-20-19. PATIENT HAS HAD SURGERY AND ACCOUNTS PAYABLE PROCESSOR PROCEDURE IN THE INTERIM. PER PATIENT'S NURSE LUISA, SHE HAS CHECKED WITH DR HOWIE REED AND HE WOULD LIKE THE CT TO BE DONE TODAY.
--- NOTE | 2019-09-22 14:14 | NUR ---
PT GOING TO CT AT THIS TIME ACCOMPANIED BY ROSI RAMOS, JOCY RN, AND RAYNE LAZARO TECH. VITAL SIGNS STABLE PRIOR TO TRANSPORT. TRANSPORT MED KIT SENT WITH TEAM.
--- NOTE | 2019-09-22 14:56 | NUR ---
PT RETURNED FROM CT AT THIS TIME. PER WIDE PIECE GOODS INSPECTOR, PT TOLERATED THE PROCEDURE WELL. VITAL SIGN MONITORING EQUIPMENT RECONNECTED, VITAL SIGNS NOTED TO BE STABLE. WILL CONTINUE TO MONITOR.
--- NOTE | 2019-09-22 16:25 | NUR ---
PT PLACED ON CPAP AT THIS TIME BY ROSI RAMOS. PT TOLERATING WELL AT THIS TIME. CPAP 10/12. WILL CONTINUE TO MONITOR.
--- NOTE | 2019-09-22 17:38 | NUR ---
RT ROSI AT BEDSIDE DOING ABG. PT TOLERATING WELL, NO S/S DISTRESS.
[2019-09-23] VITALS (18 sets, daily range): BP systolic 110–151; BP diastolic 36–88
[2019-09-23 05:08] LABS: PLATELET COUNT 206 x10^3mcL (130-400)
[2019-09-23 05:20] LABS: BASOPHIL % 0 % (0-2); RED CELL DISTRIBUTION WIDTH 16.4 % (11.5-14.5)
[2019-09-23 05:21] LABS: BILIRUBIN TOTAL 0.53 mg/dL (0.20-1.00); CALCIUM 10.1 mg/dL (8.5-10.1); CARBON DIOXIDE 17.7 mmol/L (21-32); CREATININE SERUM 2.7 mg/dL (0.6-1.0); MAGNESIUM 2.6 mg/dL (1.8-2.4)
[2019-09-23 05:27] LABS: ALBUMIN 1.8 g/dL (3.4-5.0); TOTAL PROTEIN, SERUM 5.4 g/dL (6.4-8.2)
--- NOTE | 2019-09-23 07:05 | NUR ---
REPORT RECEIVED FROM ENIO VILLARREAL AT THIS TIME. ALL CARES ASSUMED. WILL CARRY OUT CARES AND ORDERS FOR THE SHIFT AND CONTINUE TO MONITOR.
--- NOTE | 2019-09-23 08:18 | NUR ---
DR. MARQUEZ AT BEDSIDE. UPDATES PROVIDED, QUESTIONS ANSWERED. DR. MARQUEZ RECOMMENDED D/C'ING THE AMIODARONE DUE TO THE PT'S EKG. NO FURTHER CHANGES IN POC AT THIS TIME. WILL CONTINUE TO MONITOR.
--- NOTE | 2019-09-23 08:50 | NUR ---
HD RN INITIATED DIALYSIS AT THIS TIME. PT TOLERATING WELL. WILL CONTINUE TO MONITOR.
--- NOTE | 2019-09-23 11:15 | NUR ---
PT TOLERATING DIALYSIS WELL.
--- NOTE | 2019-09-23 12:00 | NUR ---
HEMODIALYSIS COMPLETED AT THIS TIME, 1.6 LITERS REMOVED. PT TOLERATED HD WELL. WILL CONTINUE TO MONITOR.
--- NOTE | 2019-09-23 12:15 | NUR ---
HEMODIALYSIS COMPLETED AT THIS TIME, 2.6 LITERS REMOVED. PT TOLERATED HD WELL. WILL CONTINUE TO MONITOR.
--- NOTE | 2019-09-23 14:30 | NUR ---
BILATERAL INNER THIGH DRESSINGS CHANGED AT THIS TIME.
--- NOTE | 2019-09-23 15:45 | NUR ---
PT'S TEMPERATURE 101.3 AT THIS TIME. THERE IS NO PRN TYLENOL, SO RN CALLED IP[facility] TO CONTACT DR. MARQUEZ TO UPDATE HIM.
--- NOTE | 2019-09-23 15:47 | NUR ---
DR. MARQUEZ CALLED BACK REGARDING TEMP 101.3. TELEPHONE ORDER RECEIVED AND READ BACK FOR TYLENOL. WILL ENTER ORDER AND ADMINISTER TYLENOL.
--- NOTE | 2019-09-23 17:30 | NUR ---
TYLENOL EFFECTIVE. TEMPERATURE DOWN TO 98.2.
--- NOTE | 2019-09-23 19:30 | NUR ---
RECEIVED REPORT FROM KAJAL VILLARREAL. ASSUMING ALL CARE
--- NOTE | 2019-09-23 19:45 | NUR ---
RECEIVED PT LAYING IN BED. PT IS TRACH'D AND ON NO SEDATION. PT RESPONDS TO TACTILE STIMULI. UNABLE TO FOLLOW COMMANDS. PORTEX SIZE 8 INTACT/SECURED. RIJ ALIVIA INTACT/SECURED, DRESSING CDI. BREATHING IS E/U ON VENT. VENT SETTINGS: VCV AC MODE, RATE 14, VT 550, PEEP 5, FIO2 25%. LUNGS SOUND DIMIN BILAT. SYMMETRICAL CHEST EXPANSION NOTED. +3 PITTING EDEMA NOTED TO BUE/BLE. PT ON HILLROM AIR TURNING BARIATRIC BED, REPOSITIONS Q15 MIN. PT ON GLUCERNA @ 60 ML/HR WITH 30 CC FWF Q6H. GRV=5, REPLACED. TOLERATING WELL. ABD IS SOFT/OBESE. BOWEL SOUNDS ACTIVE X4 QUADRANTS. FLEXISEAL INTACT/ SECURED, DRAINING VIA GRAIVTY BROWN WATERY COLORED STOOL. PEG NOTED TO LUQ, DRESSING CDI. F/C INTACT/SECURED, DRAINING VIA GRAVITY WITH SARA COLORED URINE. POOR URINE OUTPUT. MULTIPLE WOUNDS/SKIN TEARS/ECCHYMOSIS NOTED THROUGHOUT THE BODY WITH DRESSINGS IN PLACE. SEE CHART FOR DETAIL. AXILLARY TEMP 101.6, COOLING MEASURES IN PLACE. BED IN LOW POSITION. CALL LIGHT IN REACH. WILL CONT TO MONITOR
--- NOTE | 2019-09-23 20:11 | NUR ---
AXILLARY TEMP 101.6. PT MEDICATED WITH TYLENOL 650 MG VIA PEG. COOLING MEASURES IN PLACE.
--- NOTE | 2019-09-23 21:40 | NUR ---
REPORT GIVEN TO SHOE STOCK ASSOCIATE ENIO FOR CONTINUITY OF CARE. ENDORSING ALL CARE
--- NOTE | 2019-09-23 23:36 | NUR ---
ROE CATH REPLACED WITH NEW 16 CYMRO ROE USING STERILE TECHNIQUE PER MD ORDER. RECTAL TUBE RESEATED AND FLUSHED.
[2019-09-24] VITALS (19 sets, daily range): BP systolic 105–146; BP diastolic 31–62
[2019-09-24 06:21] LABS: CALCIUM 9.5 mg/dL (8.5-10.1); CARBON DIOXIDE 17.4 mmol/L (21-32); CREATININE SERUM 2.4 mg/dL (0.6-1.0); POTASSIUM SERUM 3.6 mmol/L (3.5-5.1)
[2019-09-24 06:23] LABS: PLATELET COUNT 219 x10^3mcL (130-400)
[2019-09-24 07:29] LABS: RED CELL DISTRIBUTION WIDTH 16.4 % (11.5-14.5)
--- NOTE | 2019-09-24 07:33 | NUR ---
0600 [facility]
--- NOTE | 2019-09-24 08:30 | NUR ---
DR. MARQUEZ AT BEDSIDE. UPDATES PROVIDED, QUESTIONS ANSWERED. NO CHANGES IN POC AT THIS TIME.
--- NOTE | 2019-09-24 10:08 | NUR ---
Follow-up Nutrition Assessment Dx: Sepsis, Aspiration PNA Labs: (09/24) BG 217H, BUN 31H, Cr 2.4H, ALKP 962H, WBC 31.9H, H/H 8.2L/25L, ALB 1.8L Meds: Flagyl, Lansoprazole, Humulin, Levephed, Morphine, Procrit, Vasostrict, Zinc sulfate, Zosyn, Zyvox TF: Glucerna 1.2 @ goal rate 60 mL/Hr with 30 mL Q6H FWF. TF Intake: (09/24) 304 ml (09/23) 783 ml (09/22) 1038 ml. Overall intake x 3 days meeting <75% estimated needs. Weights: 102 kg per documented bedscale measure I/Os: (09/24) 1924/1780 +144 (09/23) 874/220 +654 (09/22) 1668/830 +838. Positive fluid balance; weight fluctuations expected. Skin: Increased number of skin tears to limbs, trunk from existing purpura per orthotic fitter notes. James: 10 Edema: Anasarca per provider notes GI: no GI s/s distress Last BM: Flexiseal with brown liquid stool RD Note 09/24/19: Pt. remains intubated without pressors, generalized anasarca per provider progress notes. Tolerating TF with minimal residuals with Glucerna. Previously on Nepro but noted with elevated BG levels >180 mg/dL, so pt was placed on Glucerna per RN. Otherwise, minimal changes from previous assessment. Estimated Nutritional Needs Based on body weight (72 kg) Energy: 0596-7698 kcal/day (30-35 kcal/kg for HD) Protein: 86-100 g/day (1.2-1.4 g/kg for HD, skin integrity support) Fluid: Changes by doctor's orders d/t generalized anasarca Nutrition Diagnosis: 1. Increased nutrient needs r/t wound, HD AEB estimated kcal and protein needs (ongoing) 2. Inadequate EN infusion r/t low TF rate AEB current TF rate meeting <75% estimated kcal and protein needs (ongoing). Intervention: 1. Continue Glucerna 1.2 @ goal rate 60 mL/Hr as ordered by provider to meet >75% estimated needs. 2. When BG better controlled, consider changing EN formulary to Nepro with Carbsteady @ goal rate 50 mL/hr to provide 2160 kcal and 97 g protein for nutrient losses from HD. 3. Add NephroVite or equivalent QD for losses incurred through HD treatments. Monitor/Evaluate: Goal: Have pt meet at least 75% of estimated needs (not met) New goal: Pt to meet at least 75% estimated needs Monitor: TF intake/tolerance, Labs, GI function F/U in 2-3 days as high risk (09/26-09/27)
--- NOTE | 2019-09-24 12:09 | NUR ---
PT'S MAP'S NOTED TO BE TRENDING IN 50'S, RN TO START LEVOPHED GTT.
--- NOTE | 2019-09-24 12:15 | NUR ---
PT'S BP MAP'S NOTED TO BE TRENDING IN MID 50'S. LEVOPHED GTT STARTED AT THIS TIME @ 2 MCG/MIN. WILL CONTINUE TO MONITOR.
--- NOTE | 2019-09-24 12:46 | NUR ---
LEVOPHED GTT @ 2 MCG/MIN. NIBP 101/39 (80).
--- NOTE | 2019-09-24 13:05 | NUR ---
LEVOPHED GTT TITRATED DOWN TO 1 MCG/MIN FROM 2 MCG/MIN FOR MAP 74. WILL CONTINUE TO MONITOR.
--- NOTE | 2019-09-24 13:17 | NUR ---
PT RESTING COMFORTABLY IN BED WITH EYES CLOSED. NO S/S DISTRESS.
[2019-09-24 13:18] LABS: BAND NEUTROPHIL 7 % (0-10); METAMYELOCTE 1 % (0-2); MONOCYTE 8 % (0-7); MYELOCYTE 3 % (0-2); SEGMENTED NEUTROPHILS 72 % (37-75); rbc morphology (normal/abnorm) ABNORMAL (NORMAL)
[2019-09-24 13:19] LABS: PLATELET MORPHOLOGY LARGE PLATELET SEEN
--- NOTE | 2019-09-24 14:25 | NUR ---
AXILLARY TEMP 101.5. PT MEDICATED WITH 650MG TYLENOL SOLUTION. WILL RECHECK TEMPERATURE.
--- NOTE | 2019-09-24 14:28 | NUR ---
LEVOPHED GTT TITRATED OFF AT THIS TIME FOR BP 115/57 (100). WILL CONTINUE TO MONITOR.
--- NOTE | 2019-09-24 14:30 | NUR ---
GOWN CHANGE, HYGIENE CARE, ROE CARE PROVIDED AT THIS TIME.
--- NOTE | 2019-09-24 14:56 | NUR ---
LEVOPHED GTT TITRATED UP TO 4 MCG/MIN FROM 2 MCG/MIN FOR BP 66/36 (46).
--- NOTE | 2019-09-24 17:44 | NUR ---
LEVOPHED GTT TITRATED DOWN TO 3 MCG/MIN FROM 4 MCG/MIN FOR MAP 76. WILL CONTINUE TO MONITOR.
--- NOTE | 2019-09-24 18:26 | NUR ---
PT HAS HAD MULTIPLE SHORT RUNS OF VTACH INTERMITTENTLY SINCE 1742 LASTING ~ 3 SECONDS EACH. CONTINUING TO MONITOR.
--- NOTE | 2019-09-24 19:10 | NUR ---
RECEIVED REPORT FROM LUISA VILLARREAL. ASSUMING ALL CARE
--- NOTE | 2019-09-24 19:15 | NUR ---
RECEIVED PT LAYING IN BED. PT IS TRACH'D AND ON NO SEDATION. PT RESPONDS TO TACTILE STIMULI. UNABLE TO FOLLOW COMMANDS. PORTEX SIZE 8 INTACT/SECURED, DRESSING CDI. MOD AMOUNT OF PENDLETON SECRETIONS NOTED WHEN SUCTIONED. ORAL CARE PROVIDED PER VAP PROTOCOL. CANDIDO BUNCH INTACT/SECURED, DRESSING CDI. BREATHING IS E/U ON VENT. VENT SETTINGS: VCV AC MODE, RATE 14, VT 550, PEEP 5, FIO2 25%. LUNGS SOUND DIMIN BILAT. SYMMETRICAL CHEST EXPANSION NOTED. LEVOPHED GTT INFUSING @ 3 MCG/MIN. PT RHYTHM SECOND DEGREE TYPE 1. +3 PITTING EDEMA TO BUE/BLE. PIV TO LEFT BREAST SALINE LOCKED. PT ON HILLROM AIR TURNING BARIATRIC BED, REPOSITIONING Q15MIN. PT ON GLUCERNA @ 60 ML/HR WITH 30 CC FWF Q6H. GRV=15, REPLACED. TOLERATING WELL. ABD IS SOFT/OBESE. BOWEL SOUNDS ACTIVE X4 QUADRANTS. FLEXISEAL INTACT/ SECURED, DRAINING VIA GRAIVTY BROWN WATERY COLORED STOOL. PEG NOTED TO LUQ, DRESSING CDI. F/C INTACT/SECURED, DRAINING VIA GRAVITY WITH SARA COLORED URINE. POOR URINE OUTPUT. MULTIPLE WOUNDS/SKIN TEARS/ECCHYMOSIS NOTED THROUGHOUT THE BODY WITH DRESSINGS IN PLACE. SEE CHART FOR DETAIL. AXILLARY TEMP 101.6, COOLING MEASURES IN PLACE, WILL MEDICATE WITH TYLENOL PER EMAR. BED IN LOW POSITION. CALL LIGHT IN REACH. WILL CONT TO MONITOR
--- NOTE | 2019-09-24 19:22 | NUR ---
AXILLARY TEMP 101.6. PT MEDICATED WITH TYLENOL 650 MG VIA PEG PER EMAR, COOLING MEASURES IN PLACE
--- NOTE | 2019-09-24 19:50 | NUR ---
DR. FAULKNER MADE AWARE PT HAS BEEN HAVING FREQUENT RUNS OF VTACH SINCE DAYSHIFT BETWEEN 5-[address] FAULKNER, CALL THE BUSINESS TAXES SPECIALIST.
--- NOTE | 2019-09-24 20:00 | NUR ---
CALLED [facility] TO GET A HOLD OF DR. MCKEON. PER STENO TYPIST, WILL PAGE DR. MCKEON.
--- NOTE | 2019-09-24 20:15 | NUR ---
NIBP 105/43 MAP 55. LEVOPHED TITRATED TO 5 MCG/MIN
--- NOTE | 2019-09-24 20:25 | NUR ---
SECOND CALL MADE TO [facility] FOR DR. MCKEON. PER FRATERNITY HOUSE COOK, DR. MCKEON NOT ANSWERING HIS CALL PHONE. WILL HAVE HIM CALL THE UNIT ONCE THEY REACH HIM. WILL AWAIT CALL BACK.
--- NOTE | 2019-09-24 20:30 | NUR ---
NIBP 105/43 MAP 55. LEVOPHED TITRATED TO 5 MCG/MIN
--- NOTE | 2019-09-24 20:30 | NUR ---
NIBP 146/70 MAP 82. LEVOPHED TITRATED TO 3 MCG/MIN
--- NOTE | 2019-09-24 20:46 | NUR ---
SPOKE TO DR. MCKEON VIA TELEPHONE. UPDATED ON PT'S STATUS. MADE AWARE OF PT'S FREQUENT RUNS OF VTACH BETWEEN 5-[address] MCKEON, ORDER 2 GRAMS OF MAGNESIUM SULFATE IV AND RECHECK MAGENESIUM LEVEL IN THE MORNING. ORDER READ BACK AND IN AGREEMENT. WILL CARRY OUT ORDER
--- NOTE | 2019-09-24 21:00 | NUR ---
NIBP 111/37 MAP 78. LEVOPHED TITRATED TO 1 MCG/MIN
--- NOTE | 2019-09-24 21:30 | NUR ---
NIBP 123/45 MSP 71. LEVOPHED TURNED OFF AT THIS TIME
--- NOTE | 2019-09-24 22:45 | NUR ---
NIBP 109/38 MAP 59. LEVOPHED RESUMED @ 2 MCG/MIN
--- NOTE | 2019-09-24 23:15 | NUR ---
NIBP 128/44 MAP 72. LEVOPHED TITRATED TO 1 MCG/MIN
--- NOTE | 2019-09-24 23:25 | NUR ---
AXILLARY TEMP 101.3. PT MEDICATED WITH TYLENOL PER EMAR. COOLING MEASURES REMAIN IN PLACE.
--- NOTE | 2019-09-24 23:30 | NUR ---
NIBP 123/54 MAP 72. LEVOPHED TURNED OFF AT THIS TIME
[2019-09-25] VITALS (17 sets, daily range): BP systolic 91–140; BP diastolic 40–87
--- NOTE | 2019-09-25 | NUR ---
DR. WONG AT BEDSIDE. UPDATED ON PT'S STATUS. MADE AWARE OF PT'S RECURRENT FEVER. PER DR. WONG, DC FLAGYL AND ZOSYN. ORDER MERREM 500 MG IV Q12H, URINE CX, TRACHEAL ASPIRATE CX, AND BLOOD CX ONE PERIPHERAL CX AND ANOTHER CX FROM THE [facility]. WILL CARRY OUT ORDER
--- NOTE | 2019-09-25 03:31 | NUR ---
AXILLARY TEMP 101.8. PT MEDICATED WITH TYLENOL 650 MG PER EMAR. COOLING MEASURES IN PLACE
--- NOTE | 2019-09-25 04:30 | NUR ---
FULL BED BATH PROVIDED. GOWN AND CHUX CHANGED AT THIS TIME. PERICARE, ROE CARE, AND ORAL CARE PROVIDED. WOUND CARE PROVIDED PER ORDER AND PICTURES TAKEN TO ABD AND BLE, PLACED INTO CHART. BED IN LOW POSITION. WILL CONT TO MONITOR
[2019-09-25 05:42] LABS: PLATELET COUNT 212 x10^3mcL (130-400)
[2019-09-25 05:49] LABS: CALCIUM 9.9 mg/dL (8.5-10.1); CREATININE SERUM 2.8 mg/dL (0.6-1.0); MAGNESIUM 2.4 mg/dL (1.8-2.4); POTASSIUM SERUM 3.9 mmol/L (3.5-5.1)
[2019-09-25 06:12] LABS: RED CELL DISTRIBUTION WIDTH 16.9 % (11.5-14.5)
--- NOTE | 2019-09-25 07:10 | NUR ---
REPORT GIVEN TO KAREN VILLARREAL FOR CONTINUITY OF CARE. ALL QUESTIONS/CONCERNS ADDRESSED. ENDORSING ALL CARE
--- NOTE | 2019-09-25 08:00 | NUR ---
RECEIVED PT IN BED. ASSESSED AND DOCUMENTED. DENIES PAIN THIS TIME. ON TRACH AND VENTILATOR. ORAL CARE PROVIDED. SAFTEY PRECAUTIONS ARE IN PLACE. WILL MONITOR.
[2019-09-25 13:15] LABS: BAND NEUTROPHIL 1 % (0-10); BASOPHIL 0 % (0-2); MONOCYTE 6 % (0-7); SEGMENTED NEUTROPHILS 86 % (37-75)
[2019-09-25 13:16] LABS: PLATELET MORPHOLOGY PLATELETS DECREASED
[2019-09-25 13:17] LABS: rbc morphology (normal/abnorm) ABNORMAL (NORMAL)
--- NOTE | 2019-09-25 14:10 | NUR ---
PT PLACED ON CPAP / AT THIS TIME. PT TOLERATING WELL. RR 26. SATURATION REMAINS 100%. FAMILY CENTERED SPECIALIST AWARE. PT OBTAINING GOOD VOLUMES. HR 66. WILL CONTINUE TO MONITOR.
--- NOTE | 2019-09-25 14:30 | NUR ---
PT TOLERATING WELL ON CPAP MODE. LUNG SOUNDS ARE DIMINISHED. NO SOB NOTED.
--- NOTE | 2019-09-25 16:00 | NUR ---
PT RESTING IN BED COMFORTABLY. TOLERATING WELL ON CPAP MODE. RT AND RN CLOSELY MONITERING THE PT. STABLE.
--- NOTE | 2019-09-25 16:30 | NUR ---
PT STABLE. DAUGHTER AT BEDSIDE. DRESSING CHANGED TO BUE AND CHEST, PHOTO TAKEN.
--- NOTE | 2019-09-25 17:45 | NUR ---
PT PLACED BACK ON AC AT THIS TIME. PT TOLERATED CPAP FROM [phone]. RN AWARE. WILL MONITOR.
--- NOTE | 2019-09-25 19:20 | NUR ---
PT RESTING IN BED COMFORTABLY. DENIES ANY PAIN. STABLE. GAVE REPORT TO MEDIA/INSTRUCTIONAL DESIGNER NURSE.
--- NOTE | 2019-09-25 19:21 | NUR ---
RECEIVED REPORT FROM KAREN VILLARREAL. WILL RESUME CARE.
--- NOTE | 2019-09-25 19:35 | NUR ---
RECEIVED PT TRACH'D WITH NO SEDATION. OPENS EYES TO VERBAL AND TACTILE STIMULI. UNABLE TO FOLLOW COMMANDS. PUPILS 3MM SLUGGISH. NO DRAINAGE, REDNESS, OR SWELLING NOTED TO EENT. RIJ CVC INTACT WNL, DRESSING CDI. ON VENT VCV-AC MODE WITH SETTINGS OF VT 550, FIO2 25%, R 14, PEEP 5. BREATHING E/U. LUNG SOUNDS DIMINISHED BILATERALLY. S1S2 AUSCULATED. NO S/SX OF CHEST PAIN AT THIS TIME. PULSES PALPABLE. +3 PITTING EDEMA TO BUE/BLE. GENERALIZED WEAKNESS. JOINTS IN TACT. GT CONTINUOUS FEEDING OF GLUCERNA 1.2 AT 60CC/HR WITH FWF OF 30CC/HR Q6HRS. PLACEMENT CHECKED. 5CC OF RESIDUAL NOTED AND REPLACED. PT TOLERATING FEEDING WELL. ROE CATHETER IN PLACE DRAINING MINIMAL AMOUNT OF SARA URINE. HD PT. FLEXISEAL IN PLACE DRAINING VIA GRAVITY LOOSE BROWN STOOL. BED IN LOW POSITION. CALL LIGHT WITHIN REACH. WILL CONTINUE TO MONITOR.
--- NOTE | 2019-09-25 23:05 | NUR ---
ASSESSED PT. BREATHING E/U. NO SOB OR RESPIRATORY DISTRESS NOTED. NO S/SX OF PAIN AT THIS TIME. NAD NOTED. ORAL CARE PROVIDED. WILL CONTINUE TO MONITOR.
[2019-09-26] VITALS (15 sets, daily range): BP systolic 97–139; BP diastolic 44–87
--- NOTE | 2019-09-26 01:43 | NUR ---
RT CASSIDY AT BEDSIDE ASSESSING PT.
--- NOTE | 2019-09-26 04:20 | NUR ---
PT CLEANED. GOWN AND ALL LINENS CHANGED. ROE CATHETER CARE PROVIDED WITH 250CC OF SARA URINE OUT. 100CC OF LOOSE BROWN STOOL IN FLEXISEAL. TOTAL CARE PROVIDED. BONY PROMINENCES OFFLOADED WITH PILLOWS.
--- NOTE | 2019-09-26 05:19 | NUR ---
EARTH MOVER AT BEDSIDE FOR BLOOD DRAW.
[2019-09-26 05:48] LABS: PLATELET COUNT 232 x10^3mcL (130-400)
[2019-09-26 05:55] LABS: BILIRUBIN TOTAL 0.63 mg/dL (0.20-1.00); CALCIUM 9.8 mg/dL (8.5-10.1); CARBON DIOXIDE 21.5 mmol/L (21-32); CREATININE SERUM 2.9 mg/dL (0.6-1.0); MAGNESIUM 2.4 mg/dL (1.8-2.4)
[2019-09-26 06:00] LABS: RED CELL DISTRIBUTION WIDTH 17.1 % (11.5-14.5)
[2019-09-26 06:03] LABS: ALBUMIN 1.4 g/dL (3.4-5.0); TOTAL PROTEIN, SERUM 5.2 g/dL (6.4-8.2)
[2019-09-26 06:16] LABS: BAND NEUTROPHIL 30 % (0-10); PLATELET MORPHOLOGY PLATELETS NORMAL; SEGMENTED NEUTROPHILS 60 % (37-75); rbc morphology (normal/abnorm) ABNORMAL (NORMAL)
--- NOTE | 2019-09-26 07:05 | NUR ---
GAVE REPORT TO GEMMA VILLARREAL. WILL RESUME CARE.
--- NOTE | 2019-09-26 07:10 | NUR ---
PATIENT OPENS HER EYES TO TACTILE STIMULI BUT NO TRACK NOR FOLLOW ANY SIMPLE COMMANDS. SY PUPILS WITH SLUGGISH REACTION TO LIGHT. ALIVIA CATH TO RIJ WITH DRESSING INTACT. TRACH SIZE [address] AND SECURED. DRESSING INTACT AT THE TRACH SITE. TRACH TO VENT VIA VCV/AC MODE: FIO2 25%, RATE 14, VT 550, PEEP 5. BREATHING IS EVEN/UNLABORED AT THIS TIME. IV SITE TO LEFT CHEST. PEG TUBE IN PLACE TO UPPER ABDOMEN; PEG TUBE CONNECTED TO TUBE FEEDING WITH GLUCERNA AT 60ML/HR AND FREE WATER FLUSH 30ML EVERY 6HR. 10ML OF RESIDUAL NOTED AND REPLACED. ROE CATH TO GRAVITY DRAINING SCANT AMOUNT OF CLOUDY YELLOW URINE OUTPUT. FLEXISEAL IN PLACE AND DRAINING DARK BROWN LIQUID STOOL. SPECIAL HILL ROM AIR MATTRESS IN USE. CALL LIGHT WITHIN REACH. SIDE RAILS UP X3. BED IS AT LOWEST POSITION. HEAD OF BED ELEVATED AT 30 DEGREES. EXTREMITIES OFFLOADED.
--- NOTE | 2019-09-26 07:50 | NUR ---
HEMODIALYSIS NURSE IS AT BEDSIDE FOR HD.
--- NOTE | 2019-09-26 07:55 | NUR ---
LAB RESULTS PROVIDED TO HEMODIALYSIS NURSE.
--- NOTE | 2019-09-26 09:11 | NUR ---
PATIENT IN A-FLUTTER WITH HR 139. AMIODORONE BOLUS INITIATED FOLLOWED BY AMIO DRIP AT 1 MG/HR. WILL MONITOR PATIENT CLOSELY.
--- NOTE | 2019-09-26 09:50 | NUR ---
DR. BARTHOLOMEW WAS NOTIFIED OF THE GRAM STAIN RESULT FORM BLOOD DRAWN ON 09/25/19: GRAM POSITIVE COCCI IN CLUSTER. CONTINUE TREATMENT PER DOCTOR.
--- NOTE | 2019-09-26 11:25 | NUR ---
HEMODIALYSIS COMPLETED WITH 2L OF OUTPUT REPORTED BY HD NURSE. BP 100/48, AND MAP 68.
--- NOTE | 2019-09-26 11:47 | NUR ---
Follow-up Nutrition Assessment: IC06/A KATELYN GARG HR Dx: Sepsis, aspiration PNA PMHx: ESRD on HD (M-W-F), HTN, DM, morbid obesity, peripheral vascular disease, hypoalbuminemia, necrotic left groin wound Labs: (09/26) BG 167H, CREAT 2.9H, BUN 50H, ALB 1.4L, TG 264H, WBC 35.7H, HGB 8.4L Meds: D 50%, Humulin, lantus, lopressor, levophed, Zofran, zosyn, Vitamin C, zinc, procrit Diet: (PEG) Glucerna 1.2 @ 20 ml/hr, goal 60 ml/hr FWF 30 ml Q6H PO Intake: NPO Weights: (09/15) 89.6 kg, (09/18) 102 kg, (09/26) 102 kg - fluctuations d/t HD I/Os: (09/25) 2821/325 (2496) Skin: multiple ulcers and skin tears, pt on bariatric bed that repositions Q15 min James: 10 Edema: 3+ pitting edema BUE/ BLE GI: loose brown stool, flexiseal intact Last BM: 09/25 RD Note (09/26): Patient has trach to vent and PEG tube. Per PHIL Mcwilliams, pt is receiving Glucerna 1.2 @ 60 ml/hr and is tolerating it well. Patient is on HD. Estimated Nutritional Needs Based on body weight (72 kg) Energy: 1477-2868 vs 1988 (30-35 kcal/kg vs PSU for HD) Protein: 86- 101 g/day (1.2-1.4 g/kg for HD) Fluid: 4446-5681 mL/day (1 mL/kcal) or per MD Nutrition Diagnosis: 1.Increased nutrient needs related to wounds, HD as evidenced by estimated calorie and protein needs. (ongoing). 2. Inadequate enteral nutrition infusion related to low TF rate as evidenced by current TF rate meeting <75% estimated calorie and protein needs. (improved- rate changed to 60 ml/hr) Intervention: 1. Recommend continuing Glucerna 1.2 @ 20 ml/hr, goal 60 ml/hr, advance Q4H, FWF 30 ml Q6H. This will provide 1730 kcal and 86 g protein. (per nephrologists' previous recommendations) Monitor/Evaluate: Goal: Have pt meet at least 75% of estimated needs Monitor: PO intake, Labs, GI function F/U in 3-5 days as moderate risk
--- NOTE | 2019-09-26 12:35 | NUR ---
RT VOSS PROVIDED TRACH CARE TO THE PATIENT, CONNECTED T BAR TO TRACH AND CONNECTED TO AEROSOL AT 9L/MIN-28% FIO2.
--- NOTE | 2019-09-26 18:00 | NUR ---
NEW TUBING AND FORMULA BOTTLE OF GLUCERNA CHANGED FOR THE PATIENT.
--- NOTE | 2019-09-26 18:00 | NUR ---
RT SUZI CONNECTED TO TRACH TO VENT VIA VCV/AC MODE: FIO2 25%, RATE 14, VT 550, PEEP 5.
--- NOTE | 2019-09-26 19:08 | NUR ---
PATIENT WAS GIVEN A BED BATH; LINEN AND GOWN CHANGED. DRESSING OF THE WOUNDS CHANGED ORDERED.
--- NOTE | 2019-09-26 19:10 | NUR ---
REPORT GIVEN TO MARIA ISABEL GALO RN. CONCERNS ADDRESSED.
--- NOTE | 2019-09-26 19:11 | NUR ---
RECEIVED REPORT FROM GEMMA VILLARREAL. WILL RESUME CARE.
--- NOTE | 2019-09-26 19:20 | NUR ---
ROE CATH INSERTED ORDERED; SOME BLOOD TINGED URINE OUTPUT COMING OUT GRADUALLY . THE PATIENT SAID, " I HAVE PROSTATE PROBLEM." ABOUT MORE THAN 900ML OF URINE OUTPUT IN ROE BAG. REPORT GIVEN TO MARIA ISABEL SANDOVAL RN.
--- NOTE | 2019-09-26 19:25 | NUR ---
RECEIVED PT AWAKE, OPENS EYES SPONTANEUOSLY BUT UNABLE TO FOLLOW COMMANDS. PUPILS 3MM SLUGGISH. PT IS TRACH'D, INTACT AND SECURED. NO S/SX OF PAIN AT THIS TIME. BREATHING E/U. LUNG SOUNDS DIMINISHED BILATERALLY. ON VENT VCV-AC MODE WITH SETTINGS OF VT 550, FIO2 25%, R 14, PEEP 5. NO REDNESS, SWELLING, OR DRAINAGE NOTED TO EENT. CAP REFILL <3 SEC. +3 EDEMA NOTED TO BUE/BLE. PULSES PALPABLE. ABDOMEN OBESE, SOFT. BS ACTIVE X 4. NO N/V. FLEXISEAL IN PLACE. ROE CATHETER IN PLACE DRAINING VIA GRAVITY MINIMAL AMOUNT OF SARA URINE. MULTIPLE WOUNDS, SKIN TEARS AND ECCHYMOSIS TO BODY (SEE SKIN ASSESSMENT). BED IN LOW POSITION. CALL LIGHT WITHIN REACH. WILL CONTINUE TO MONITOR.
--- NOTE | 2019-09-26 19:50 | NUR ---
RT CASSIDY AT BEDSIDE ASSESSING PT AND GIVING BREATHING TREATMENT. PT TOLERATING WELL.
[2019-09-27] VITALS (13 sets, daily range): BP systolic 102–128; BP diastolic 44–63
--- NOTE | 2019-09-27 03:08 | NUR ---
PT HAS TEMP OF 100.7. GIVEN TYLENOL 650MG VIA GT. COOLING MEASURES IN PLACE. WILL REASSESS.
--- NOTE | 2019-09-27 04:40 | NUR ---
COAL PULVERIZER OPERATOR AT BEDSIDE FOR BLOOD DRAW.
[2019-09-27 05:19] LABS: BILIRUBIN TOTAL 0.6 mg/dL (0.20-1.00); CARBON DIOXIDE 15.5 mmol/L (21-32); CREATININE SERUM 2.4 mg/dL (0.6-1.0); MAGNESIUM 2.1 mg/dL (1.8-2.4); POTASSIUM SERUM 4.1 mmol/L (3.5-5.1)
[2019-09-27 05:22] LABS: ALBUMIN 1.3 g/dL (3.4-5.0); TOTAL PROTEIN, SERUM 5.1 g/dL (6.4-8.2)
[2019-09-27 05:39] LABS: BASOPHIL % 0.1 % (0-2); PLATELET COUNT 252 x10^3mcL (130-400)
[2019-09-27 05:43] LABS: RED CELL DISTRIBUTION WIDTH 17.8 % (11.5-14.5)
--- NOTE | 2019-09-27 07:26 | NUR ---
REPORT RECEIVED FROM CLOVER VILLARREAL. ALL CARE ASSUMED AT THIS TIME. WILL CONTINUE TO MONITOR.
--- NOTE | 2019-09-27 07:40 | NUR ---
ICE PACKS PLACED AROUND PATIENT FOR FEVER OF 101.3. WILL REASSESS.
--- NOTE | 2019-09-27 08:30 | NUR ---
PT PLACED ON T PIECE HUMIDIFIED WALL O2 @ 8 LPM BY RT AT THIS TIME. NO ACUTE S/S DISTRESS NOTED. WILL CONTINUE TO MONITOR.
--- NOTE | 2019-09-27 08:40 | NUR ---
UNSCRAMBLER THUY CALLED AT THIS TIME, UPDATES PROVIDED, QUESTIONS ANSWERED. STATED THAT IN ORDER FOR THE PT TO BE CONSIDERED FOR A SNF, SHE WOULD NEED A TUNNELED CATHETER INSTEAD OF THE RIJ ALIVIA THAT SHE CURRENTLY HAS. SHE ALSO MENTIONED THAT THE LENGTH OF TIME THE PT HAS HAD THE FLEXISEAL IS OF CONCERN, AND RECOMMENDED BRINGING UP AN ILEOSTOMY DURING ROUNDS. WILL UPDATE DR DURING ROUNDS.
--- NOTE | 2019-09-27 09:24 | NUR ---
DR. BARTHOLOMEW, BEDSIDE RN, AND TELEVISION INSTALLER HELPER AT BEDSIDE. QUESTIONS ANSWERED, UPDATES PROVIDED. DR. BARTHOLOMEW SAID HE WOULD ATTEMPT TO CONTACT THE DAUGHTER OF THE PATIENT TO REINFORCE THE PT'S POOR PROGNOSIS. WILL CONTINUE TO MONITOR.
--- NOTE | 2019-09-27 09:34 | NUR ---
DR. BARTHOLOMEW AT BEDSIDE TO SEE AND ASSESS PT. STATES THERE IS NO SIGNS OF IMPROVEMENT. DR. BARTHOLOMEW INFORMED THAT PER SOCIAL SERVICE IN ORDER FOR SNF PLACEMENT PT WOULD NEED A TUNNEL CATH AND REMOVAL OF FLEXISEAL OR ILEOSTOMY. PER DR. BARTHOLOMEW ILEOSTOMY OR REMOVAL OF FLEXISEAL IS NOT APPROPRIATE AT THIS TIME. SUGGESTED TO DR. BARTHOLOMEW TO SPEAK WITH PT'S DAUGHTER ONCE AGAIN. DR. BARTHOLOMEW STATED HE WILL TALK PT'S DAUGHTER. PRIMARY RN ALSO AT BEDSIDE AND AWARE.
--- NOTE | 2019-09-27 12:01 | NUR ---
PRN TYLENOL ADMINISTERED AT THIS TIME FOR TEMPERATURE 101.4F. WILL REASSESS.
--- NOTE | 2019-09-27 13:27 | NUR ---
TEMPERATURE NOW 100.0 AFTER TYLENOL.
--- NOTE | 2019-09-27 14:10 | NUR ---
BILATERAL UPPER EXTREMITY DRESSINGS CHANGED AT THIS TIME.
--- NOTE | 2019-09-27 16:21 | NUR ---
PRN TYLENOL ADMINISTERED AT THIS TIME FOR TEMPERATURE 100.5. WILL REASSESS.
--- NOTE | 2019-09-27 17:03 | NUR ---
BILATERAL INNER THIGH DRESSINGS CHANGED AT THIS TIME. ROE CARE PROVIDED.
--- NOTE | 2019-09-27 17:09 | NUR ---
PT PLACED BACK ON VENT AT THIS TIME BY RT ANGE. VT 550, FIO2 25%, RATE 14, PEEP 5.
--- NOTE | 2019-09-27 17:21 | NUR ---
TEMP 99.5 AFTER TYLENOL ADMINISTRATION.
--- NOTE | 2019-09-27 17:49 | NUR ---
BILATERAL LOWER LEG DRESSINGS CHANGED AT THIS TIME.
--- NOTE | 2019-09-27 17:49 | NUR ---
GOWN CHANGED, CHUX CHANGED, HYGIENE CARE PROVIDED.
--- NOTE | 2019-09-27 19:10 | NUR ---
RECEIVED REPORT FROM LUISA VILLARREAL. ASSUMING ALL CARE
--- NOTE | 2019-09-27 19:32 | NUR ---
RECEIVED PT LAYING IN BED. PT IS TRACH'D AND ON NO SEDATION. PT RESPONDS TO TACTILE STIMULI. UNABLE TO FOLLOW SIMPLE COMMANDS. PORTEX SIZE 8 INTACT/SECURED, DRESSING CDI. MOD AMOUNT OF BLOOD-TINGED SECRETIONS NOTED WHEN SUCTIONED. ORAL CARE PROVIDED PER VAP PROTOCOL. CANDIDO BUNCH INTACT/SECURED, DRESSING CDI. BREATHING IS E/U ON VENT. VENT SETTINGS: VCV AC MODE, RATE 14, VT 550, PEEP 5, FIO2 25%. SYMMETRICAL CHEST EXPANSION NOTED. LUNGS SOUND CLEAR TO BUL AND DIMIN TO BLL. PIV TO LEFT CHEST, SALINE LOCKED. +2 PITTING EDEMA NOTED TO BUE AND +3 PITTING EDEMA NOTED TO BLE. PT ON HILLROM AIR TURNING BARIATRIC BED, REPOSITIONING Q15MIN. PT ON GLUCERNA @ 60 ML/HR WITH 30 CC FWF Q6H. GRV=5, REPLACED, TOLERATING WELL. FLEXISEAL INTACT/SECURED, DRAINING VIA GRAIVTY BROWN WATERY COLORED STOOL. PEG NOTED TO LUQ, DRESSING CDI. F/C INTACT/SECURED, DRAINING VIA GRAVITY WITH SARA COLORED URINE. POOR URINE OUTPUT. MULTIPLE WOUNDS/SKIN TEARS/ECCHYMOSIS NOTED THROUGHOUT THE BODY WITH DRESSINGS CDI. SEE CHART FOR DETAIL. AXILLARY TEMP 100.5, COOLING MEASURES IN PLACE, WILL MEDICATE WITH TYLENOL PER EMAR. BED IN LOW POSITION. CALL LIGHT IN REACH. WILL CONT TO MONITOR
--- NOTE | 2019-09-27 20:00 | NUR ---
DR. DICKSON AT BEDSIDE. UPDATED ON PT'S STATUS. ALL QUESTIONS/CONCERNS ADDRESSED. PER DR. DICKSON, PT TO RECEIVED HD TOMORROW.
--- NOTE | 2019-09-27 20:23 | NUR ---
AXILLARY TEMP 100.5. PT MEDICATED WITH TYLENOL PER EMAR. COOLING MEASURES IN PLACE
--- NOTE | 2019-09-27 21:30 | NUR ---
DR. REED AT BEDSIDE. UPDATED ON PT'S STATUS. PER DR. REED, HE WILL CHANGE ALIVIA CATH D/T PT HAVING THE CATH IN PLACE FOR A LONG PERIOD OF TIME. NO DATE ESTABLISHED YET.
[2019-09-28] VITALS (15 sets, daily range): BP systolic 88–141; BP diastolic 38–67
--- NOTE | 2019-09-28 | NUR ---
TUBE FEEDING TURNED OFF AT THIS TIME PENDING TUNNEL CATH PLACEMENT LATER TODAY
--- NOTE | 2019-09-28 01:07 | NUR ---
DR. WONG AT BEDSIDE. UPDATED ON PT'S CURRENT STATUS AND RECURRENT FEVER. PER DR. WONG, ORDER C-DIFF CX FOR TOMORROW. WILL CARRY OUT ORDER.
--- NOTE | 2019-09-28 04:55 | NUR ---
FILLER MIXER AT BEDSIDE FOR AM LAB DRAW
[2019-09-28 05:38] LABS: PLATELET COUNT 241 x10^3mcL (130-400)
[2019-09-28 05:46] LABS: BILIRUBIN TOTAL 0.6 mg/dL (0.20-1.00); CALCIUM 9.8 mg/dL (8.5-10.1); CREATININE SERUM 2.8 mg/dL (0.6-1.0); MAGNESIUM 2.1 mg/dL (1.8-2.4)
[2019-09-28 05:48] LABS: ALBUMIN 1.2 g/dL (3.4-5.0); TOTAL PROTEIN, SERUM 5.1 g/dL (6.4-8.2)
[2019-09-28 06:09] LABS: RED CELL DISTRIBUTION WIDTH 17.7 % (11.5-14.5)
[2019-09-28 06:21] LABS: BAND NEUTROPHIL 5 % (0-10); SEGMENTED NEUTROPHILS 90 % (37-75)
[2019-09-28 06:22] LABS: rbc morphology (normal/abnorm) ABNORMAL (NORMAL)
--- NOTE | 2019-09-28 06:58 | NUR ---
US TECH AT BEDSIDE FOR ABDOMINAL US
--- NOTE | 2019-09-28 07:10 | NUR ---
REPORT GIVEN TO JI VILLARREAL FOR CONTINUITY OF CARE. ALL QUESTIONS/CONCERNS ADDRESSED. ENDORSING ALL CARE
--- NOTE | 2019-09-28 07:40 | NUR ---
RECEIVED PATIENT EYES CLOSED REPONSE TO TACTILE, NONVERBAL. TRACH INTACT AND SECURED. SAT 98% NO RESP DISTRESS NOTED. GT CLAMPED. NPO FOR TUNNEL CATHETER PLACEMENT. RJJ ALIVIA CATH FOR HD. ROE W/ SCANT YELLOW URINE AND FLEXICEL W/ BROWN WATERY STOOL NOTED. GOWN CHANGED. TURN AND REPOSITION.
--- NOTE | 2019-09-28 08:10 | NUR ---
PATIENT STARTING DIALYSIS, WITHHELD TBAR TRIAL UNTIL DIALYSIS IS COMPLETE.
--- NOTE | 2019-09-28 08:10 | NUR ---
MARLYN DIALYSIS NURSE AT BEDSIDE WILL START HD ON PATIENT.
--- NOTE | 2019-09-28 10:15 | NUR ---
PATIENT STILL IN THE PROCESS OF DIALYZE, OPEN EYES WITH NOISES, GAVE ALL MEDS VIS GT AND FLUSH WELL, LANTUS 15UNITS SQ INJECTED TO RT ABDOMEN. PER DR. REED WILL DO TUNNEL CATHETER TOMORROW PATIENT CONSENT EAS NOT SIGN DUE TO UNABLE TO REACH FAMILY MEMBER PER CORE OVEN TENDER AND ATTEMPT BY ME THIS MORNING. CALLED AND LEFT MESSAGE TO LILIAM FREITAS.
--- NOTE | 2019-09-28 11:35 | NUR ---
HD COMPLETED 2L REMOVED PER MARLYN DIALYSIS NURSE, BP 104/65, RR 22, HR 84. SAT 100% AC MODE VT 522, FIO2 25%; PATIENT RESTING COMFORTABLE. NO DISTRESS NOTED . RIJ DRESSING CDI. CONT NPO FOR HIDA SCAN ORDER BY DR. BRIANNA DENISE. BS 140 NO COVERAGE NOTED. CONT TO MONIOTOR.
--- NOTE | 2019-09-28 12:09 | NUR ---
DTR LILIAM WAS CALLED FOR CONSENT FOR HIDA SCAN NO ANSWER AT THIS TIME.
--- NOTE | 2019-09-28 12:38 | NUR ---
PLACED PATIENT ONTO T-BAR AEROSOL AT 28%. HR 77 SPO2 98 RR 24.
--- NOTE | 2019-09-28 13:30 | NUR ---
PATIENT RESTING WITH EYE CLOSED, HR 95 ON T-BAR 28% SAT 100. TECH AT BEDSIDE PERFORM HIDA SCAN AND DTR LILIAM HERE UPDATE ON CONDITION AND TEST. CONT TO MONITOR. CONSENT FOR TUNNELED CATHETER PLACEMENT SIGN BY LILIAM DTR. NO FURTHER QUESTIONS NOTED. LT CHEST IV UNABLE TO FLUSHED. WILL REMOVED AFTER TEST DONE. RIJ FLUSH WELL W/ GOOD BLOOD TURN.
--- NOTE | 2019-09-28 14:39 | NUR ---
PATIENT SLEEPING AT THIS TIME, NO DISTRESS NOTED, MERREM IVPB INFUSING TO RIJ AT 100ML/HR. TECH AT BEDSIDE WITH DTR HAYLEY RICKETTS SCAN STILL IN PROCESS. CONT TO MONITOR.
--- NOTE | 2019-09-28 16:39 | NUR ---
PATIENT AWAKEN OPEN EYES, NO DISTRESS NOTED, DRESSING TO RT THIGH AND LEG REMOVED, CLEANSE WITH NS, PACKED WITH BEDADINED CARMITA. GAUZES COVER WITH ABD DRESSING AND KERLIX. STAR CARE PROVIDED AND REPOSITION UP IN BED, HOB ELEVATED TO 45 DEGREE, LINEZOLID IVPB INFUSING TO RIJ AND PATENT. HIDASCAN COMPLETED, TF W/ GLUCERNA AT 60ML/HR STARTED. BP 135/64, HR 96, RR17, SAT 100% ON T-BAR FIO2 28% CONT TO MONITOR. BS 96 NO COVERAGE NEEDED.
--- NOTE | 2019-09-28 18:30 | NUR ---
PATIENT AWAKE NO DISTRESS NOTED. STAR CARE PROVIDED, FLEXISEAL LEAKING NOTED. REPOSITIONED. REMOVED RT ARM DRESSING AND CLEANSE W/ NS, TELFA COVER W/ KERLIX. HOB ELEVATED. CONT TF ORDERED. SODIUM THIOSULFATE 100ML/HR INFUSING WELL. CONT TO MONITOR.
--- NOTE | 2019-09-28 19:26 | NUR ---
REPORT TO ON-COMING SHIFT. CONT CARE.
--- NOTE | 2019-09-28 19:40 | NUR ---
TAKEN OFF OF TBAR AND PLACED ON VENT. AC 14, 550,25%,+5. TOLERATING WELL. WILL MONITOR
[2019-09-29] VITALS (12 sets, daily range): BP systolic 90–137; BP diastolic 42–63
--- NOTE | 2019-09-29 07:07 | NUR ---
RECEIVED REPORT FROM LEAD SOFTWARE TESTER. PATIENT RESTING IN BED WITH AIR MATTRESS IN PLACE. CATHETER NOTED TO RIJ IS PATENT AND INFUSING NS @ 5ML/HR. NO REDNESS OR PAIN. PT IS NONVERBAL BUT ABLE TO TRACK WITH EYES. MULTIPLE WOUNDS NOTED TO WHOLE BODY COVERED WITH GAUZE. CDI. EDEMA TO BUE AND BLE. ROE CATHETER IN PLACE DRAINING MINIMAL CLOUDY YELLOW URINE. FLEXISEAL IN PLACE DRAINING BROWN LUQUID. #[address] WITH VENT SETTINGS A/C TV 550, PEEP 5, RATE 14, FIO2 25. TUBE FEED INFUSING GLUCERNA @ 60 ML/HE W/FWF 30 ML Q6H. ALL QUESTIONS AND CONCERNS ADDRESSED.
--- NOTE | 2019-09-29 11:28 | NUR ---
PATIENT PLACED ON T-BAR BY MU RT. 7LPM AT 28% FIO2.
--- NOTE | 2019-09-29 11:28 | NUR ---
SWITCHED PT TO TBAR 7LPM , 28%. NO ACUTE RESP DISTRESS NOTED. VITALS REMAINED STABLE; AZ 98, RR 27, SPO2 100%. [employer] AND RN NOTIFIED. WILL CONT TO MONITOR
--- NOTE | 2019-09-29 12:03 | NUR ---
RECEIVED CALL FROM DR REED ASKING FOR PATIENT UPDATE AND STATING THAT HE WILL BE IN LATER TO PLACE HD CATHETER. ALSO CONFIRMED THAT CONSENT HAS BEEN SIGNED.
--- NOTE | 2019-09-29 12:57 | NUR ---
PT STILL TOLERATING TBAR 7LPM, 28%. NO ACUTE RESP DISTRESS NOTED. WILL CONT TO MONITOR
--- NOTE | 2019-09-29 13:01 | NUR ---
PATIENT TEMP IS 100.6. TYLENOL ADMINISTERED. WILL RECHECK.
--- NOTE | 2019-09-29 16:31 | NUR ---
FERNANDO WITH DR BARTHOLOMEW TO NOTIFY THAT PATIENT HAD A FEVER 100.6 TYLENOL WAS GIVEN AND REDUCED TO 100.1 PATIENT TEMP IS AGAIN INCREASING. DR BARTHOLOMEW DOES NOT WANT TO ORDER ANY OTHER MEDICATION TO CONTROL TEMP. COOLING MEASURES APPLIED. ALSO REQUESTED PAIN MEDICATION FOR PATIENT. DR BARTHOLOMEW ORDERED MORPHINE 4MG IVP Q4HP.
--- NOTE | 2019-09-29 17:00 | NUR ---
IN WITH QUILL REAMER KARINA TO CHANGE ALL DRESSINGS. BANDAGES TO BUE AND BLE WERE CUT AND CLEANED, ABD APPLIED AND WRAPPED WITH GAUZE AND TAPE. DRESSING TO BILAT INNER THIGHS AND HIPS WERE REMOVED, CLEANED, BETADINE SOAKED GAUZE APPLIED, ABD COVERED AND SECURED WITH TAPE. OPTIFOAM APPLIED TO SKIN TEAR ON COCCYX. NEW GOWN AND BEDDING PROVIDED. PATIENT TOLERATED IT WELL.
--- NOTE | 2019-09-29 17:05 | NUR ---
PATIENT TO HAVE WOUND CARE BY NURSING. MU RAMOS AT BEDSIDE AND REMOVED PATIENT FROM T-BAR AND PLACED PATIENT BACK ON AC MODE.
--- NOTE | 2019-09-29 17:05 | NUR ---
SWITCHED PT BACK TO AC/VC ON ORDERED SETTINGS. RN WILL DO WOUND CARE. NO COMPLICATIONS. WILL CONT TO MONITOR
--- NOTE | 2019-09-29 19:30 | NUR ---
RECEIVED REPORT FROM [facility] NURSE. PT IS ALERT AND TRACHD. PATIENT HAS PORTEX 8 TRACH ATTACHED TO VENT. SETTINGS INCLUDE RATE: 14, TV: 550, O2: 25%, AND PEEP: 5. LUNG SOUNDS CLEAR TO BILATERAL UPPER LOBES, DIMINISHED TO BILATERAL LOWER LOBES. S1 S2 HEART SOUNDS AUSCULTATED. PULSES WEAK X4. CAP REFILL <3 SECS X4. SKINIS WARM AND PINK X4. EDEMA TO BUE, BLE +2. RIGHT ALIVIA CATHETER PATENT, AND INTACT. NS INFUSING AT 5 ML/HR. ABD IS SOFT AND ROUNDED WITH ACTIVE BOWEL SOUNDS X4Q. PEG INTACT. GLUCERNA INFUSING AT 60 ML/HR. TOLERATING WELL. FLEXCEAL IN PLACE WITH DARK BROWN LIQUID STOOL. ROE DRAINING VIA GRAVITY. URINE IS YELLOW WITH FAIR OUTPUT. PT ON AIR MATTRESS WITH REPOSITIONING Q15 MINS. ALL QUESTIONS AND CONCERNS ANSWERED. WILL CONTINUE TO MONITOR.
--- NOTE | 2019-09-29 19:41 | NUR ---
REPORT GIVEN TO STEPHANIE VILLARREAL. NO SIGNIFICANT CHANGES THROUGHOUT THE DAY. ENDORSED TO STEPHANIE THAT DR REED JUST CALLED AND STATED THAT HE WILL BE HERE IN 20 MINUTES. HE WOULD LIKE ALL SUPPLIES READY FOR CATH INSERTION. ULTRASOUND CALLED FOR VISUAL ASSISTANCE. ALL QUESTIONS AND CONCERNS ADDRESSED. PATIENT RESTING COMFORTABLY IN BED WITH DAUGHTER AT BEDSIDE.
--- NOTE | 2019-09-29 20:00 | NUR ---
ULTRASOUND AT BEDSIDE. DR. HOWIE REED AT BEDSIDE. LEFT ALIVIA CATHETER PLACED. I ASSISTED TO HOLD THE PATIENT'S HEAD UNDER THE STERILE DRAPE. CONSENT SIGNED BY DAUGHTER. ALL QUESTIONS AND CONCERNS OF DAUGHTER ANSWERED BY SURGEON. PT TOLERATED WELL. DR. REED ALSO WENT AHEAD AND REMOVED RIGHT ALIVIA CATHETER. PRESSURE WAS HELD UNTIL ACTIVE BLEEDING STOPPED.
--- NOTE | 2019-09-29 20:30 | NUR ---
DR. DICKSON AT BEDSIDE FOR UPDATES. ALL QUESTIONS AND CONCERNS ANSWERED. NO CHANGES MADE.
--- NOTE | 2019-09-29 20:30 | NUR ---
RADIOLOGY AT BEDSIDE FOR CHEST X-RAY TO VERIFY PLACEMENT OF CATHETER. DR. REED STATED THAT IT WAS IN PLACE AND OKAY TO USE.
[2019-09-30] VITALS (13 sets, daily range): BP systolic 118–144; BP diastolic 41–69
--- NOTE | 2019-09-30 00:53 | NUR ---
DR. WONG AT BEDSIDE FOR UPDATES. ALL QUESTIONS AND CONCERNS ANSWERED. ASKED TO DC ALL CURRENT ANTIBIOTICS, AND HAVE PATIENT ONLY HAVE ZOSYN 2.25 GM IV Q8HRS, AND BACTRIM 160 MG IV DAILY. WILL FOLLOW THROUGH WITH ORDERS.
[2019-09-30 05:20] LABS: PLATELET COUNT 287 x10^3mcL (130-400)
[2019-09-30 05:35] LABS: RED CELL DISTRIBUTION WIDTH 19.2 % (11.5-14.5)
--- NOTE | 2019-09-30 05:42 | NUR ---
PT PROVIDED WITH FULL BED BATH, VAP CARE, ROE CARE, AND ALIVIA CARE. ALL SUCTION TUBING CHANGED OUT FOR NEW ONES. PT TOLERATED WELL.
[2019-09-30 05:51] LABS: BILIRUBIN TOTAL 0.66 mg/dL (0.20-1.00); CALCIUM 9.6 mg/dL (8.5-10.1); CARBON DIOXIDE 18.3 mmol/L (21-32); CREATININE SERUM 2.7 mg/dL (0.6-1.0)
[2019-09-30 05:52] LABS: ALBUMIN 1.4 g/dL (3.4-5.0); TOTAL PROTEIN, SERUM 5.1 g/dL (6.4-8.2)
[2019-09-30 06:08] LABS: BAND NEUTROPHIL 4 % (0-10); MONOCYTE 2 % (0-7); SEGMENTED NEUTROPHILS 92 % (37-75)
[2019-09-30 06:09] LABS: BASOPHIL 0 % (0-2); PLATELET MORPHOLOGY PLATELETS NORMAL
[2019-09-30 06:10] LABS: rbc morphology (normal/abnorm) ABNORMAL (NORMAL)
--- NOTE | 2019-09-30 07:07 | NUR ---
RECEIVED REPORT FROM STEPHANIE VILLARREAL. PATIENT RESTING COMFORTABLY IN BED WITH AIR MATTRESS IN PLACE. NEW ALIVIA CATHETER NOTED TO LIJIS PATENT AND INFUSING NS @ 5ML/HR. NO REDNESS OR DRAINAGE. DRESSING IS CDI. PREVIOUS ALIVIA TO RIJ HAS BEEN REMOVED, DRESSING IN PLACE IS CDI. #[address] WITH VENT ATTACHED, SETTINGS: TV 550, RATE 14, PEEP 5, FIO2 25%. PATIENT TOLERATING WELL. PEG TUBE TO LUQ IN PLACE. NO REDNESS OR DRAINAGE AT SITE. GLUCERNA INFUSING @ 60 ML/HR W/FWF 30 ML Q6H. ROE IN PLACE DRAINING CLOUDY YELLOW URINE. FLEXISEAL IN PLACE DRAINING DARK BROWN LIQUID. ALL QUESTIONS AND CONCERNS ADDRESSED.
--- NOTE | 2019-09-30 07:10 | NUR ---
REPORT GIVEN TO PHIL SLATER. ALL QUESTIONS AND CONCERNS ANSWERED.
--- NOTE | 2019-09-30 07:48 | NUR ---
RT AT BEDSIDE TO SEE PATIENT.
--- NOTE | 2019-09-30 09:38 | NUR ---
PT PLACED ON TPIECE AEROSOL AT 28% FIO2, 9LPM. PT TOLERATING TPIECE WELL SO FAR. PT DID HAVE A FEW EPISODES OF WHAT LOOKED LIKE A FEW PVCS OVER THE LAST 5 MINES BUT APPEARS STABLE NOW. SPO2 100%. RR INCREASED FROM 26 BMP ON THE VENT TO 28 BMP ON THE TPIECE. RN AND SAND CUTTING MACHINE OPERATOR NOTIFIED. WILL CONTINUE TO MONITOR.
--- NOTE | 2019-09-30 09:39 | NUR ---
RT AT BEDSIDE TO INITIATE T-BAR @ 28% FIO2. WILL ASSESS TOLERANCE.
--- NOTE | 2019-09-30 11:02 | NUR ---
HD RN AT BEDSIDE BEGINNING DIALYSIS NOW.
--- NOTE | 2019-09-30 11:04 | NUR ---
DR NGUYEN AT BEDSIDE TO SEE AND ASSESS PATIENT.
--- NOTE | 2019-09-30 14:27 | NUR ---
DIALYSIS COMPLETE. 2L REMOVED AND PATIENT TOLERATED IT WELL.
--- NOTE | 2019-09-30 16:09 | NUR ---
PATIENT LUNGS SOUNDED CONGESTED AND PATIENT WAS SUCTIONED. PATIENT LUNGS THEN SOUNDED CLEAR. WHITE FOAMY DISCHARGE WAS THEN NOTED AT TRACH SITE AND WAS CLEANED WELLAS POSSIBLE. RT IS NOW AT BEDSIDE FOR BREATHIGN TRATMENT AND TO COMPLETE CLEAN UP OF TRACH SITE.
--- NOTE | 2019-09-30 18:27 | NUR ---
IN TO ADJUST FLEXISEAL DUE TO LEAKING. PT HAD FORMED STOOL AND FLEXISEAL HAD TO BE REMOVED. PT CLEANED, BEDDING CHANGED, AND NEW GOWN PROVIDED. PATIENT TOLERATED IT WELL.
--- NOTE | 2019-09-30 19:04 | NUR ---
REPORT GIVEN TO STEPHANIE VILLARREAL. ALL QUESTIONS AND CONCERNS ADDRESSED. ALL CARES ENDORSED.
--- NOTE | 2019-09-30 19:58 | NUR ---
RECEIVED REPORT FROM PHIL SLATER. PT IS ALERT AND RESPONSIVE TO VERBAL STIMULUS. EYES OPEN. DOES NOT FOLLOW COMMANDS. PT HAS TRACH, PORTEX 8, ON T BAR. O2 SATURATION 100%. LUNG SOUNDS CLEAR TO BILATERAL UPPER LOBES, DIMINISHED TO BILATERAL LOWER LOBES. S1 S2 HEART SOUNDS AUSCULTATED. PULSES WEAK X4. CAP REFILL <3 SECS X4. SKIN IS WARM AND PINK. PT HAS LEFT ALIVIA, PATENT AND INTACT. NS INFUSING AT 5 ML/HR. ABD IS SOFT AND ROUNDED WITH ACTIVE BOWEL SOUNDS X4Q. ROE DRAINING VIA GRAVITY. URINE IS YELLOW WITH FAIR OUTPUT. PT HAS VARIOUS WOUNDS. ALL QUESTIONS AND CONCERNS ANSWERED.
--- NOTE | 2019-09-30 22:11 | NUR ---
DR. REED AT BEDSIDE FOR UPDATES. ALL QUESTIONS AND CONCERNS ANSWERED.
--- NOTE | 2019-09-30 22:30 | NUR ---
DR. WONG AT BEDSIDE FOR UPDATES. ALL QUESTIONS AND CONCERNS ANSWERED. NO CHANGES MADE.
[2019-10-01] VITALS (10 sets, daily range): BP systolic 111–141; BP diastolic 46–97
[2019-10-01 05:25] LABS: CALCIUM 9.4 mg/dL (8.5-10.1); CARBON DIOXIDE 20.7 mmol/L (21-32); CREATININE SERUM 2.3 mg/dL (0.6-1.0); MAGNESIUM 1.9 mg/dL (1.8-2.4); POTASSIUM SERUM 3.8 mmol/L (3.5-5.1)
--- NOTE | 2019-10-01 05:35 | NUR ---
PT PROVIDED WITH FULL BED BATH, ROE CARE, VAP CARE, AND CVC CARE. ALL SUCTION TUBING AND LINENS CHANGED FOR FRESH ONES. PT HAD A SOFT BM. PT TOLERATED WELL.
[2019-10-01 05:59] LABS: PLATELET COUNT 293 x10^3mcL (130-400); RED CELL DISTRIBUTION WIDTH 19.3 % (11.5-14.5)
--- NOTE | 2019-10-01 07:16 | NUR ---
RECEIVED REPORT FROM STEPHANIE VILLARREAL. PATIENT SLEEPING IN BED WITH AIR MATTRESS IN PLACE. # [address] WITH VENT SETTINGS: TV 550, RATE 14, PEEP 5, FIO2 25%. PT TOLERATING WELL. ROE IN PLACE DRAINING CLOUDY YELLOW URINE. ALIVIA CATH TO LIJ IS PATENT AND INFUSING NS @ 5ML/HR. DRESSING INTACT AND CLEAN. ALL QUESTIONS AND CONCERNS ADDRESSED.
--- NOTE | 2019-10-01 08:24 | NUR ---
RT AT BEDSIDE PLACED PT ON T-BAR @ FIO2 28%.
--- NOTE | 2019-10-01 08:37 | NUR ---
PATIENT TAKEN OFF VENT AND PLACED ON TPIECE AT 28% FIO2, 9LPM. PT TOLERATING WELL. RN NOTIFIED. WILL CONTINUE TO MONITOR.
--- NOTE | 2019-10-01 09:40 | NUR ---
RT AT BEDSIDE.
--- NOTE | 2019-10-01 10:16 | NUR ---
IN TO SEE PATIENT TO REINFORCE DRESSING AND CHANGE SOILED GOWN.
--- NOTE | 2019-10-01 10:50 | NUR ---
DR BROWN AT BEDSIDE TO SEE AND ASSESS PATIENT.
--- NOTE | 2019-10-01 11:22 | NUR ---
RT AT BEDSIDE.
--- NOTE | 2019-10-01 12:49 | NUR ---
Follow-up Nutrition Assessment- [facility]-6 Dx: Sepsis, Aspiration PNA Labs: (10/01) BH, BUN:29H, Cr:2.3H, WBC:19.9H, H/H:7.4/22L Meds: Lantus, Levophed, Morphine, Procrit, Septra, Sodium Thiosulfate, Tylenol, Vasotrict, Zosyn TF: Glucerna 1.2 @ 60ml/hr, FWF:30ml q 6hr via G-tube. GRV: 10/01:0ml 09/30:0ml Weights: 10/01:109.769kg last prior weight taken 09/27:103kg Weight fluctuation possibly due to pt undergoing HD. Skin: multiple skin tears, blisters scabs and ulcers to whole body. Large ulcers to BL hips and inner thighs with moderate drainage. Edema: +1 to BUE and +2 to BLE Last BM: loose BM last night after flexiseal was removed Per progress note 09/30, off vent on T bar. Vent at night. Pt has a very poor prognosis. Wounds not responding to aggressive treatment and neuro status is not improving. Family would like to continue medical management. Pt is a candidate to be transferred to LTAC for ongoing wound care and IV abx that now appear to be chronic. Spoke to PHIL Brooks over the phone who reports pt is tolerating TF with 0ml GRV. Estimated Nutritional Needs based on adjusted body weight: 72kg Energy: 2160-2520kcal/day (30-35kcal.kg for ESRD on HD) Protein: 86-101g/day (1.2-1.4g/kg foe ESRD on HD) Fluid: 1-1.2L/day due to pt with ESRD on HD Nutrition Diagnosis 1. Increased nutrient needs related to wounds, HD as evidenced by estimated kcal and protein needs (ongoing) Intervention/RDN Recommendation(s): 1. Recommend changing TF formulary to Nepro with CHO steady due to patient with ESRD on HD. Recommend 50ml/hr. to provide 2160kcal and 97g protein. This meets 100% caloric and protein needs. Monitor/Evaluate Monitor/Evaluate Goal: TF intake to to meet at least 80% of estimated needs with acceptable tolerance within 2-3 days. Monitor: TF intake, tolerance, Labs, GI function, Skin integrity, Weights. F/U in 2-3 days as high risk 10/03-
--- NOTE | 2019-10-01 14:12 | NUR ---
IN TO SEE PATIENT AND CHANGE TUBE FEED BOTTLE AND TUBING. TUBE FEED RESUMED. ALL DUE MEDICATIONS ALSO GIVEN AT THIS TIME (SEE eMAR).
--- NOTE | 2019-10-01 14:40 | NUR ---
DR NGUYEN AT BEDSIDE TO SEE AND ASSESS PATIENT.
--- NOTE | 2019-10-01 15:10 | NUR ---
RT AT BEDSIDE TO CHANGE TRACH COLLAR.
--- NOTE | 2019-10-01 19:22 | NUR ---
REPORT GIVEN TO MONA VILLARREAL. PATIENT RESTING COMFORTABLY IN BED WITH AIR MATTRESS IN PLACE. ALL QUESTIONS AND CONCERNS ADDRESSED.
--- NOTE | 2019-10-01 19:30 | NUR ---
RECIEVED REPORT FROM PHIL SLATER. NURSING UPDATES. POC DISCUSSED. SEE SHIFT ASSESSMENT FOR ASSESSMENT.
--- NOTE | 2019-10-01 19:50 | NUR ---
GAVE REPORT TO PHIL LINARES. NURSING UPDATES. POC DISCUSSED. RELIEVED OF PT DUTIES.
--- NOTE | 2019-10-01 20:00 | NUR ---
RECEIVED PT. PT RESTING WITH EYES CLOSED. #[address]. O2 SAT 100%. NO RESP DISTRESS NOTED. L ALIVIA CATH, INTACT. PEG TO LUQ. ON GLUCERNA 60 ML/HR. ROE CATHETER IN PLACE DRAINING YELLOW URINE BY GRAVITY. SAFETY MEASURES IN PLACE. ON AIR MATTRESS. WILL CONTINUE TO MONITOR.
[2019-10-02] VITALS (9 sets, daily range): BP systolic 98–140; BP diastolic 42–62
--- NOTE | 2019-10-02 00:45 | NUR ---
PT RESTING WITH EYES CLOSED. OPENS EYES TO PAIN. PORTEX TRACH IN PLACE, O2 9LPM. NO ACUTE DISTRESS NOTED. LEFT ALIVIA CATH, INTACT. PEG TUBE TO LUQ. GLUCERNA TUBE FEEDING AT 60 ML/HR. NO RESIDUAL. ROE CATHETER IN PLACE DRAINING YELLOW URINE. SAFETY MEASURES IN PLACE. WILL CONTINUE TO MONITOR.
[2019-10-02 05:16] LABS: PLATELET COUNT 309 x10^3mcL (130-400)
[2019-10-02 05:23] LABS: CALCIUM 9.8 mg/dL (8.5-10.1); CARBON DIOXIDE 23.9 mmol/L (21-32); CREATININE SERUM 2.6 mg/dL (0.6-1.0); POTASSIUM SERUM 4.2 mmol/L (3.5-5.1)
[2019-10-02 05:31] LABS: RED CELL DISTRIBUTION WIDTH 19.8 % (11.5-14.5)
[2019-10-02 05:54] LABS: BAND NEUTROPHIL 1 % (0-10); BASOPHIL 0 % (0-2); MONOCYTE 9 % (0-7); MYELOCYTE 1 % (0-2); PLATELET MORPHOLOGY PLATELETS NORMAL; SEGMENTED NEUTROPHILS 83 % (37-75); rbc morphology (normal/abnorm) ABNORMAL (NORMAL)
--- NOTE | 2019-10-02 06:42 | NUR ---
WOUND DRESSINGS CHANGED. WOUND PICTURES TAKEN. PT O2 SAT <90% DURING WOUND CARE. PT PUT BACK ON VENTILATOR W/ SETTINGS: RATE 14, TV 550, PEEP 5, O2 25%. O2 SAT IMPROVED TO 100%. ROE CARE DONE. PT RESTING COMFORTABLY AT THIS TIME. NO FACIAL GRIMACING. SAFETY MEASURES MAINTAINED. WILL ENDORSE CONTINUITY OF CARE TO DAY SHIFT RN.
--- NOTE | 2019-10-02 07:30 | NUR ---
RECEIVED PT RESTING IN BED. OPENS EYES AT TIMES TO VERBAL STIMULUS, WITHDRAWS TO PAIN. WITH #8 PORTEX TRACH. ON AC VENT MODE = RATE 14, TIDAL VOLUME 550, PEEP 5, FIO2 25%. O2 SAT 100%. NO ACUTE RESP DISTRESS AT THIS TIME. PEG TO LUQ. ON GLUCERNA TF AT 60 ML/HR, RESIDUAL = 0 ML, REPLACED. HOB ELEVATED, ASPIRATION PRECAUTIONS. ROE CATHETER IN PLACE DRAINING YELLOW URINE TO GRAVITY. ROBERT BUNCH, DRESSING C/D/I. PT WITH MULTIPLE WOUNDS THROUGHOUT BODY, DRESSINGS C/D/I. PT REPOSITIONED FOR COMFORT. WILL CONTINUE TO MONITOR.
--- NOTE | 2019-10-02 10:21 | NUR ---
PLACED PATIENT ONTO TBAR AT 28% FIO2 7 L/M. HEART RATE 96 RR 28 SPO2 100%. WILL CONTINUE TO MONITOR.
--- NOTE | 2019-10-02 10:40 | NUR ---
HEMODIALYSIS STARTED AT THIS TIME. ART STUDIO TEACHER AT BEDSIDE. PT IN NO ACUTE DISTRESS. WILL CONTINUE TO MONITOR.
--- NOTE | 2019-10-02 11:46 | NUR ---
SHIFT REASSESSMENT DONE. PT GETTING HEMODIALYSIS AT THIS TIME. ON T-BAR AT 7L 02, O2 99%. NO ACUTE RESP DISTRESS. HOB ELEVATED. ON GLUCERNA TF AT 60 ML/HR, RESIDUAL 30 ML = ML, REPLACED. ROE CATHETER DRAINING YELLOW URINE TO GRAVITY. ON AIR MATTRESS. REPOSITIONED TO LEFT SIDE. BUE/BLE ELEVATED WITH PILLOWS. WOUND DRESSINGS C/D/I. WILL CONTINUE TO MONITOR.
--- NOTE | 2019-10-02 14:01 | NUR ---
HEMODIALYSIS FINISHED = 2.8 L OUT. PT IN NO ACUTE DISTRESS. WILL CONTINUE TO MONITOR.
--- NOTE | 2019-10-02 15:51 | NUR ---
SHIFT REASSESSMENT DONE. PT AWAKE, UNABLE TO FOLLOW COMMANDS. RESP EVEN AND UNLABORED. ON T-BAR 7L, O2 SAT 99%. NO ACUTE RESP DISTRESS AT THIS TIME. PEG TUBE TO RUQ. ON GLUCERNA TF AT 60 ML/HR, 0 ML RESIDUAL, REPLACED. ROE CATHETER DRAINING YELLOW URINE GRAVITY. [facility] ALIVIA CATH, DRESSING C/D/I. WOUND CARE TO LEFT LOWER ABDOMEN, RIGHT INNER AND LEFT INNER THIGHS DONE ORDERED. PT TOLERATED WELL. HOB ELEVATED. ON AIR MATTRESS. WILL CONTINUE TO MONITOR.
--- NOTE | 2019-10-02 16:54 | NUR ---
BLISTER NOTED TO FOREHEAD, GIANCARLO. NO DRAINAGE. PICTURE TAKEN AND PLACED IN CHART. WILL CONTINUE TO MONITOR.
--- NOTE | 2019-10-02 19:10 | NUR ---
RECEIVED REPORT FROM BRIAN VILLARREAL. ASSUMING ALL CARE
--- NOTE | 2019-10-02 19:30 | NUR ---
RECIEVED PT LAYING IN BED. PT IS TRACH'D AND ON NO SEDATION. PT RESPONDS TO TACTILE STIMULI. UNABLE TO FOLLOW SIMPLE COMMANDS. PORTEX SIZE 8 INTACT/SECURED, DRESSING CDI. LIJ ALIVIA INTACT/SECURED, DRESSING CDI. BREATHING IS E/U ON T-BAR AT 7 LPM. LUNGS SOUND CLEAR BILAT. SYMMETRICAL CHEST EXPANSION NOTED. ABD MUSCLES USE NOTED. S1/S2 HEART SOUNDS AUSCULTATED. CHEST WALL EQUAL AND SYMMETRICAL. HR 102, NIBP 106/46 MAP 66. PALPABLE PULSES X4 EXTREMITIES. SKIN IS WARM AND DRY. CAP REFILL < 3 SECS. +2 PITTING EDEMA NOTED TO BUE/BLE. PT ON [place] AIR TURNING BARIATRIC BED, REPOSITIONING Q15MIN. PT ON GLUCERNA @ 60 ML/HR WITH 30 CC FWF Q6H. GRV=5 REPLACED. TOLERATING WELL. NO S/S OF N/V NOTED. ABD IS SOFT/OBESE. BOWEL SOUNDS ACTIVE X4 QUADRANTS. PEG NOTED TO LUQ WITH DRESSING CDI. F/C INTACT/SECURED, DRAINING VIA GRAVITY WITH YELLOW COLORED URINE. POOR URINE OUTPUT. MULTIPLE WOUNDS NOTED THROUGHOUT. SEE CHART FOR DETAILS. BED IN LOW POSITION. CALL LIGHT IN REACH. WILL CONT TO MONITOR
--- NOTE | 2019-10-02 22:02 | NUR ---
CALLED DR. DUTTON VIA TELEPHONE. PER DR. DUTTON, ORDER CBC AND CHEM 7 FOR TOMORROW MORNING. WILL CARRY OUT ORDER.
--- NOTE | 2019-10-03 00:40 | NUR ---
DR. WONG AT BEDSIDE. UPDATED ON PT'S STATUS. NO NEW ORDERS RECEIVED AT THIS TIME
[2019-10-03 03:00] VITALS: BP 104/50
--- NOTE | 2019-10-03 04:45 | NUR ---
FULL BED BATH PROVIDED. GOWN AND CHUCKS CHANGED AT THIS TIME. PERICARE, ROE CARE, AND WOUND CARE PROVIDED.
[2019-10-03 05:48] LABS: BILIRUBIN TOTAL 0.57 mg/dL (0.20-1.00); CALCIUM 9.5 mg/dL (8.5-10.1); CARBON DIOXIDE 21.8 mmol/L (21-32); CREATININE SERUM 2.3 mg/dL (0.6-1.0); POTASSIUM SERUM 4.5 mmol/L (3.5-5.1)
[2019-10-03 05:59] LABS: ALBUMIN 1.6 g/dL (3.4-5.0); TOTAL PROTEIN, SERUM 5.7 g/dL (6.4-8.2)
[2019-10-03 06:13] LABS: BASOPHIL % 0.1 % (0-2); PLATELET COUNT 197 x10^3mcL (130-400)
[2019-10-03 06:15] LABS: RED CELL DISTRIBUTION WIDTH 19.8 % (11.5-14.5)
--- NOTE | 2019-10-03 07:01 | NUR ---
REPORT GIVEN TO LUISA VILLARREAL FOR CONTINUITY OF CARE. ALL QUESTIONS/CONCERNS ADDRESSED. ENDORSING ALL CARE
--- NOTE | 2019-10-03 07:15 | NUR ---
REPORT RECEIVED FROM JACE VILLARREAL. ALL CARE ASSUMED.
[2019-10-03 07:48] VITALS: BP 114/57
--- NOTE | 2019-10-03 10:03 | NUR ---
DR. BROWN AT BEDSIDE. QUESTIONS ANSWERED, UPDATES PROVIDED. NO CHANGES IN PLAN OF CARE AT THIS TIME.
--- NOTE | 2019-10-03 10:23 | NUR ---
DR. BROWN PUT IN AN ORDER FOR THE PT TO RECEIVE HEMODIALYSIS TOMORROW. WILL ENDORSE.
[2019-10-03 11:12] VITALS: BP 111/59
--- NOTE | 2019-10-03 11:45 | NUR ---
POC GLUCOSE 189, PT GIVEN 3 UNITS REGULAR INSULIN SQ.
--- NOTE | 2019-10-03 11:55 | NUR ---
Follow-up Nutrition Assessment: IC06/A KATELYN GARG FU HR Dx: Sepsis, aspiration PNA PMHx: ESRD on HD (M-W-), HTN, DM, morbid obesity, peripheral vascular disease, hypoalbuminemia, necrotic left groin wound Labs: (10/03) BG 178H, CREAT 2.3H, BUN 32H, ALB 1.6L, TG 264H, WBC 35.7H, AST 83H Meds: D 50%, Humulin, lantus, levophed, morphine, Procrit, Zofran, zosyn Diet: (PEG) Glucerna 1.2 @ 20 ml/hr, goal 60 ml/hr FWF 30 ml Q6H PO Intake: NPO Weights: (09/26) 102 kg, (09/27) 103 kg, (10/01) 109.7 kg - fluctuations d/t HD I/Os: (10/02) 2245/450 (1795) Skin: multiple ulcers and skin tears, pt on bariatric bed that repositions Q15 min James: 11 Edema: 2+ pitting edema BUE/ BLE GI: no BM Last BM: 09/30 Note (10/03): Patient has trach to vent and PEG tube. Per PHIL Mohr, pt is receiving Glucerna 1.2 @ 60 ml/hr and is tolerating it well. Patient is on HD. Estimated Nutritional Needs Based on body weight (72 kg) Energy: 8843-3644 vs 1988 (30-35 kcal/kg vs PSU for HD) Protein: 86- 101 g/day (1.2-1.4 g/kg for HD) Fluid: 1105-2834 mL/day (1 mL/kcal) or per MD Nutrition Diagnosis: 1.Increased nutrient needs related to wounds, HD as evidenced by estimated calorie and protein needs. (ongoing). 2. Inadequate enteral nutrition infusion related to low TF rate as evidenced by current TF rate meeting <75% estimated calorie and protein needs. (improved- rate changed to 60 ml/hr) Intervention: 1. Recommend continuing Glucerna 1.2 @ 20 ml/hr, goal 60 ml/hr, advance Q4H, FWF 30 ml Q6H. This will provide 1730 kcal and 86 g protein. (per nephrologists' previous recommendations) Spoke with PHIL Mohr regarding changing the tube feeding formula to Nepro as patient is on HD, however she said that the sergeant of officers has said to continue with Glucerna at this time. Monitor/Evaluate: Goal: Have pt meet at least 75% of estimated needs Monitor: TF intake/ tolerance, Labs, GI function F/U in 3-5 days as moderate risk 10/06-10/08
--- NOTE | 2019-10-03 11:56 | NUR ---
1. Recommend continuing Glucerna 1.2 @ 20 ml/hr, goal 60 ml/hr, advance Q4H, FWF 30 ml Q6H. This will provide 1730 kcal and 86 g protein. (per nephrologists' previous recommendations) Spoke with PHIL Mohr regarding changing the tube feeding formula to Nepro as patient is on HD, however she said that the mechanical engineering director has said to continue with Glucerna at this time.
--- NOTE | 2019-10-03 12:02 | NUR ---
PT RESTING QUIETLY IN BED. NO S/S DISTRESS NOTED.
--- NOTE | 2019-10-03 13:40 | NUR ---
DR. REED AT BEDSIDE TO SEE PT. UPDATES PROVIDED, QUESTIONS ANSWERED. NO CHANGES IN POC AT THIS TIME. WILL CONTINUE TO MONITOR.
--- NOTE | 2019-10-03 15:15 | NUR ---
PT NOTED TO HAVE BLOODY VAGINAL DISCHARGE AT THIS TIME. DR. NGUYEN AWARE. ROE CATHETER DISCONTINUED AT THIS TIME, CATHETER INTACT. NO BLOOD NOTED IN URINE DRAINING FROM F/C. 50 ML IN F/C RESERVOIR.
[2019-10-03 15:30] VITALS: BP 132/72
--- NOTE | 2019-10-03 17:50 | NUR ---
NO BLOOD NOTED ON STAR PAD AT THIS TIME.
--- NOTE | 2019-10-03 19:15 | NUR ---
REPORT GIVEN TO JULIO CESAR VILLARREAL. ALL CARES ENDORSED.
[2019-10-03 19:30] VITALS: BP 123/66
--- NOTE | 2019-10-03 19:30 | NUR ---
REC'D REPORT FROM LUISA VILLARREAL TO ASSUME CARE. PT TRACH'D WITH NO SEDATION. ABLE TO TRACK EYES AND FOLLOW SIMPLE COMMANDS. PERRLA NOTED. TRACH PORTEX SIZE [address] LIJ ALIVIA CATH INTACT, PORTS PATENT, DSG CDI. PT ON TBAR 7LPM O2 SAT 94%. CHEST RISE EQUAL AND SYMMETRICAL. LUNG SOUNDS COARSE CRACKLES/RHONCHI BUL, DIM BASES. BRANCH DIRECTOR IN PLACE SHOWING 2ND DEGREE AVB HR 98, BP 123/66 MAP 85. CHEST WALL STABLE. PULSES PALPABLE AND WEAK X4 EXTREMITIES. CAP REFILL 3 SECS. BUE/BLE 2+ PITTING EDEMA NOTED. NS INFUSING @ 5ML/HR. PEG TUBE IN PLACE. GLUCERNA INFUSING @ 60ML/HR, FWF 30ML Q6H. GRV=10ML REPLACED. PT TOLERATING WELL. ABD OBESE AND SOFT. BOWEL SOUNDS ACTIVE. NO N/V NOTED. NO BM AT THIS TIME. INCONTINENT OF URINE. LABIAL EDEMA NOTED. VAGINAL BLOODY DISCHARGE NOTED. GOOD STAR CARE PROVIDED. BEDBOUND. PT OBESE. ON BARIATRIC BED TURN/REPOSITION Q15MIN. ALL NEEDS MET AT THIS TIME. WILL CONTINUE TO MONITOR.
--- NOTE | 2019-10-03 20:30 | NUR ---
PT DESATTING TO 89-90%, O2 TITRATED TO 10LPM, NORMA RT MADE AWARE, BREATHING TX PROVIDED.
[2019-10-03 23:07] VITALS: BP 127/57
--- NOTE | 2019-10-03 23:14 | NUR ---
PT DESATTING TO 88%, PT REPOSITIONED AT THIS TIME. PTS O2 SAT WENT UP TO 100%.
--- NOTE | 2019-10-03 23:36 | NUR ---
O2 SAT 100%, TBAR O2 TITRATED TO 7LPM.
[2019-10-04 03:05] VITALS: BP 132/66
--- NOTE | 2019-10-04 03:19 | NUR ---
PT HAD MODERATE SIZED SOFT BROWN BM. CHUX SOILED WITH URINE. SMALL AMT OF THICK BLOOD NOTED TO VAGINAL AREA. GOOD STAR CARE PROVIDED. ALL LINENS CHANGED.
[2019-10-04 05:27] LABS: CALCIUM 9.5 mg/dL (8.5-10.1); CARBON DIOXIDE 23.2 mmol/L (21-32); CREATININE SERUM 2.7 mg/dL (0.6-1.0); MAGNESIUM 1.9 mg/dL (1.8-2.4); PHOSPHOROUS 5.5 mg/dL (2.5-4.9); POTASSIUM SERUM 4.8 mmol/L (3.5-5.1)
--- NOTE | 2019-10-04 05:49 | NUR ---
PT NOTED WITH SMALL SOFT BM. PT CLEANED, GOOD STAR CARE PROVIDED, CHUX CHANGED AT THIS TIME. PT TOLERATED WELL.
[2019-10-04 05:58] LABS: PLATELET COUNT 345 x10^3mcL (130-400)
[2019-10-04 06:09] LABS: RED CELL DISTRIBUTION WIDTH 20.9 % (11.5-14.5)
--- NOTE | 2019-10-04 06:10 | NUR ---
PAGED DR NGUYEN TO REPORT [facility] LABS, AWAITING CALL BACK.
[2019-10-04 06:18] LABS: BAND NEUTROPHIL 5 % (0-10); SEGMENTED NEUTROPHILS 90 % (37-75); rbc morphology (normal/abnorm) ABNORMAL (NORMAL)
--- NOTE | 2019-10-04 06:33 | NUR ---
PAGED DR NGUYEN X2, AWAITING CALL BACK.
--- NOTE | 2019-10-04 07:30 | NUR ---
SHIFT ASSESSMENT DONE. PATIENT NON-VERBRAL, BUT OPENED EYES TO RESPONSE VERBRAL STIMULI. ON T-PIEDE VIA TRACHOSTOMY, PORTEX 8. O2 SAT 97% ON O2 7L/MIN. BREATHING SOUND DIMINISHED SY. TELE6, 2ND DEGREE AVB TYPE 1. HR = 101. OBESE, BED RESTING. NO S/S OF PAIN. IV TKO VIA PIG TAIL LINE OF ALIVIA CATH TO LIJ. NPO. ON GT FEEDING GLUCERNA 60CC/HR WITH WATER FLUSH 30CC/Q6H. RESIDUAL CHECK = 10CC, REPLACED. ROE D/C'D ON YESTERDAY. ANURIC. WOULD HAD H/D TODAY. EDEMA 2+ TO ALL EXTREMITIES. MULTIPLE SKIN TEARS ALL OVER BODAY. WOUND CARE WOULD BE FOLLOWED UP. SERGIO SCORE =11. ON BARIATRIC BED W/ REPOSITION Q15 MIN.
--- NOTE | 2019-10-04 07:44 | NUR ---
SPOKE WITH DR NGUYEN AND REPORTED HEMOGLOBIN 6.9 AND HCT 22. NEW ORDER RECEIVED TO TRANSFUSE 2 UNITS PRBC.
--- NOTE | 2019-10-04 11:20 | NUR ---
HD DONE; 3.4L NET OUT.
--- NOTE | 2019-10-04 11:40 | NUR ---
DR. HEARN CAME TO SEE PATIENT. PATIENT INTUBATED AT 1148, WITH ETT SIZE 8 AT 25LL. SUCCINYCHOLINE 40MG AND PROPFOL [address] HEARN'S VERBRAL ORDER.
--- NOTE | 2019-10-04 17:00 | NUR ---
IST UNIT BLOOD TRANSFUSION STARTED. NO ADVERSED REACTION NOW.
--- NOTE | 2019-10-04 18:30 | NUR ---
WOUND CARE GIVEN. PATIENT WAS NOT TOLERATED WELL. O2 9L/MIN VIA T PIECE. HAD BM X1 . FORMED. VAGINAL BLEEDING 10-15 CC. DARK RED THIS SHIFT.
--- NOTE | 2019-10-04 19:10 | NUR ---
PATIENT WITH SPO2 85 AFTER DRESSING CHANGE. PATIENT REMOVED FROM T-BAR AND PLACED ON VENT SETTINGS AC MODE. ANGE RAMOS MADE AWARE.
[2019-10-04 19:40] VITALS: BP 137/72
--- NOTE | 2019-10-04 19:46 | NUR ---
AWAKE, ALERT, NON-VERBAL, TRACKS. WITH TRACHEOSTOMY TO T PIECE AT 9LPM. O2 SAT WENT DOWN TO 80%, PLACED ON VENT AC MODE BY CN OF DAY SHIFT AT CHANGE OF SHIFT. RATE 14, PEEP 5, TV 550, FIO2 30%. O2 SAT WENT UP TO 98-100%. AFTER ABOUT 15 MINUTES, PLACED BACK ON T PIECE BY RESP THERAPIST, O2 SAT 97% TO 98%. BLOOD TRANSFUSION PRBC DONOR UNIT#[id number] INFUSING AT 105ML/HR INTO PIGTAIL TO ALIVIA CATH AT LEFT SIDE OF NECK. G TUBE FEEDING OF GLUCERNA AT 60ML/HR. GASTRIC RESIDUAL 3ML, REPLACED. PT ON [facility]. MULTIPLE LARGE WOUNDS, PT HAD DRESSING CHANGES DONE THIS AFTERNOON. PER REPORT, O2 SAT GOES DOWN WHEN TURNED AND REPOSITIONED DURING DRESSING CHANGES.
[2019-10-04 20:00] VITALS: BP 124/68
--- NOTE | 2019-10-04 20:00 | NUR ---
1ST UNIT PRBC COMPLETED. NO TRANSFUSION REACTIONS NOTED. BP 142/74, NH 92, RR 21, O2 SAT 97%, T 98.F.
--- NOTE | 2019-10-04 20:33 | NUR ---
O2 SAT WENT DOWN TO 85%, PLACED BACK ON VENT AC MODE, SAME SETTINGS EARLIER, BY LIVAN SANDOVAL. O2 SAT 94%.
--- NOTE | 2019-10-04 21:49 | NUR ---
2ND PRBC, UNIT #[id number], PATIENT AND PRBC VERIFIED WITH NURSE JULIO CESAR. PRE TRANSFUSION VITAL SIGNS; T 98.2, NC 95, BP 142/76, RR 23, O2 SAT 100% ON VENT AC MODE. STARTED TRANSFUSION AT 50ML/HR.
--- NOTE | 2019-10-04 22:05 | NUR ---
NO TRANSFUSION REACTIONS NOTED, VITAL SIGNS: T 98.0F, NY 95, BP 118/70, RR 27, O2 SAT 100%. INCREASED TRANSFUSION RATE TO 100MLS/HR.
--- NOTE | 2019-10-04 23:16 | NUR ---
EYES CLOSED, EASILY AWAKENED WITH TACTILE STIMULI. ON VENT AC MODE. O2 SAT 100%. NEEDS OCCASSIONAL SUCTIONING. HOB KEPT ELEVATED 30 DEG. ON [facility] BED. BLOOD TRANSFUSION ONGOING. GASTRIC RESIDUAL < 5ML, REPLACED.
[2019-10-04 23:50] VITALS: BP 137/75
[2019-10-05] VITALS (17 sets, daily range): BP systolic 107–159; BP diastolic 45–82
--- NOTE | 2019-10-05 00:37 | NUR ---
completed 2nd unit prbc transfusion. no transfusion reactions noted. vital signs; t 98.1, pr 94, bp 136/54, rr 25, o2 sat 98%.
--- NOTE | 2019-10-05 03:54 | NUR ---
eyes closed, easily awakened with tactile stimuli. opens eyes spontaneously. tracks. tracheostomy to vent, same settings. o2 sat 98%. rr 23/min. hob kept elevated 30 deg. same g tube feeding, same rate and settings. gastric residual < 3 ml, replaced. pads dry. on [facility] bed. ivf of ns at 5ml/hr infusing to pigtail to lyssa cath to left ij.
[2019-10-05 05:22] LABS: CALCIUM 9.4 mg/dL (8.5-10.1); CARBON DIOXIDE 20.7 mmol/L (21-32); CREATININE SERUM 2.5 mg/dL (0.6-1.0); MAGNESIUM 1.8 mg/dL (1.8-2.4); POTASSIUM SERUM 4.5 mmol/L (3.5-5.1)
--- NOTE | 2019-10-05 05:30 | NUR ---
BED BATH ADMINISTERED. [facility] ASSISTED BY LIVAN SANDOVAL AND NURSE JULIO CESAR. OPTIFOAM TO SACRUM SOILED. PT PASSED SOFT STOOL WHILE BEING TURNED. HYGIENE NEEDS ATTENDED TO. APPLIED NEW OPTIFOAM DRESSING TO SACRUM. CHANGED ABD PAD DRESSING TO RIGHT AND LEFT INNER THIGHS. GOWN AND LINENS CHANGED.
[2019-10-05 05:54] LABS: BAND NEUTROPHIL 5 % (0-10); MONOCYTE 5 % (0-7); PLATELET COUNT 275 x10^3mcL (130-400); RED CELL DISTRIBUTION WIDTH 21.3 % (11.5-14.5); SEGMENTED NEUTROPHILS 80 % (37-75)
[2019-10-05 05:55] LABS: rbc morphology (normal/abnorm) ABNORMAL (NORMAL)
--- NOTE | 2019-10-05 07:16 | NUR ---
AWAKE, ALERT, NON VERBAL TRACKS. STILL TRACH TO VENT, SAME SETTINGS, O2 SAT 98%. ENDORSED TO NURSE FRAZIER
--- NOTE | 2019-10-05 07:30 | NUR ---
RECEIVED AWAKE, WITH EYES OPEN. NO ACUTE RESP. DISTRESS. ON VENT AT THIS TIME, SATS 98% ON CURRENT SETTING. VS WNL. PT TOLERATING WELL WITH TUBE FEEDING, NO N/V NOR RESIDUAL NOTED. REPOSITIONED IN BED. HOB ELEVETED. WILL CONTINUE WITH PLAN OF CARE.
--- NOTE | 2019-10-05 09:50 | NUR ---
PLACED ON TPIECE 02 AT 28% SATS 97% NO ACUTE DISTRESS NOTED. WILL CONTINUE TO MONITOR.
--- NOTE | 2019-10-05 13:44 | NUR ---
RESTING IN NO ACUTE DISTRESS, APPEARS COMFORTABLE.
--- NOTE | 2019-10-05 17:00 | NUR ---
BEDBATH GIVEN, LINEN CHANGED. DRESSINGS TO SY UPPER EXT. ALSO CHANGED. PT REPOSITIONED FOR COMFORT.
--- NOTE | 2019-10-05 17:00 | NUR ---
PT PLACED BACK TO VENT WITH PREV. SETTING V-550,FIO2-30,PEEP-5 AND RATE-14. PT APPEARS IN NO ACUTE DISTRESS AT THIS TIME. O2 SATS 97%.
--- NOTE | 2019-10-05 19:03 | NUR ---
PT REMAINS IN NO ACUTE DISTRESS. RESTING AT THIS TIME. NO CHANGES IN VS. NO S/S OF PAIN OR DISCOMFORT. MARILOU. WELL WITH FEEDING, NO N/V NOR RESIDUAL THIS SHIFT. SIDE RAILS UP. WILL BE ENDORSED TO INCOMING SHIFT.
--- NOTE | 2019-10-05 19:04 | NUR ---
RECIEVED REPORT FROM RN. NURSING UPDATES. POC DISCUSSED. SEE SHIFT ASSESSMENT FOR ASSESSMENT.
--- NOTE | 2019-10-05 23:38 | NUR ---
NO ACUTE CHANGES. WILL CONT TO MONITOR.
[2019-10-06] VITALS (18 sets, daily range): BP systolic 106–132; BP diastolic 53–76
--- NOTE | 2019-10-06 01:01 | NUR ---
NO ACUTE CHANGES. WILL CONT TO MONITOR.
--- NOTE | 2019-10-06 03:00 | NUR ---
NO ACUTE CHANGES. WILL CONT TO MONITOR.
--- NOTE | 2019-10-06 05:23 | NUR ---
PT LINENS AND CHANGED. PT TOLERATED WELL. NO ACUTE CHANGES. WILL CONT TO MONITOR.
[2019-10-06 05:35] LABS: PLATELET COUNT 310 x10^3mcL (130-400)
[2019-10-06 05:42] LABS: RED CELL DISTRIBUTION WIDTH 20.7 % (11.5-14.5)
[2019-10-06 05:44] LABS: CALCIUM 9.2 mg/dL (8.5-10.1); CARBON DIOXIDE 19.7 mmol/L (21-32); POTASSIUM SERUM 4.6 mmol/L (3.5-5.1)
[2019-10-06 05:57] LABS: BAND NEUTROPHIL 0 % (0-10); MONOCYTE 8 % (0-7); MYELOCYTE 2 % (0-2); PLATELET MORPHOLOGY PLATELETS NORMAL; SEGMENTED NEUTROPHILS 79 % (37-75); rbc morphology (normal/abnorm) ABNORMAL (NORMAL)
--- NOTE | 2019-10-06 07:15 | NUR ---
UPON ASSESSING PT, TEMP OF 100.1. COOLING MEASURES PROVIDED AT THIS TIME. WILL CONT TO MONITOR.
--- NOTE | 2019-10-06 07:15 | NUR ---
UPON ASSESSING PT, NOTICED THAT TUBE FEEDINGS WERE NOT CONNECTED TO THE PEG TUBE. AND WHILE TRYING TO FLUSH PEG TUBE, NOTICED THAT THERE WERE CLUMPS OF DRIED TUBE FEEDING AND WAS UNABLE TO FLUSH. ATTEMPTED TO FLUSH WITH SPRITE AND WARM WATER AND CHANGED MITCHELL VALVE, HOWEVER, STILL UNABLE TO FLUSH PEG TUBE. TUBE FEEDINGS OFF AT THIS TIME. WILL PAGE DR. CRUZ AND ENDORSE TO DR. NGUYEN.
--- NOTE | 2019-10-06 07:15 | NUR ---
RECEIVED REPORT FROM MONA VILLARREAL. ALL QUESTIONS ANSWERED AND ADDRESSED. ASSUMING CARE OF PT
--- NOTE | 2019-10-06 08:35 | NUR ---
DR. CRUZ CALLED BACK AND STATED THAT DR. LI IS ON-CALL TODAY. WILL CONTACT DR. LI ABOUT PT'S PEG.
--- NOTE | 2019-10-06 09:00 | NUR ---
DR. LI PAGED AND CALLED BACK TO UNIT. UPDATED ON PT'S PEG AND STATED THAT HE WILL BE ON UNIT AROUND 2PM.
--- NOTE | 2019-10-06 10:12 | NUR ---
[facility] HD NURSE AT BEDSIDE PREPARING FOR DIALYSIS
--- NOTE | 2019-10-06 12:30 | NUR ---
DR. NGUYEN AT BEDSIDE ASSESSING PT. NURSING UPDATES. HE STATED THAT PT IS ABLE TO BE TRANSFERRED TO TELEMETRY AFTER 1-2 DAYS.
--- NOTE | 2019-10-06 13:21 | NUR ---
HD COMPLETED AT THIS TIME. 3L OUT. VSS. [facility] HD CHANGED DRESSING, CDI. WILL CONT TO MONITOR.
--- NOTE | 2019-10-06 13:45 | NUR ---
PT HAD A LARGE SOFT BROWN/RED BOWEL MOVEMENT. PT CLEANED, CHUCKS CHANGED, LINENS CHANGED. PT TOLERATED WELL WITH NO COMPLICATIONS.
--- NOTE | 2019-10-06 14:24 | NUR ---
DR. LI AT BEDSIDE TO ASSESS PATIENT. UPDATES PROVIDED AND POC DISCUSSED. DR LI CLEANED THE PEG TUBE WITH A SMALL BRUSH. PEG TUBE FLUSHES WELL. GLUCERNA TUBE FEEDINGS RE-STARTED TO 60 ML/HR WITH FWF 30 ML Q 6 HRS. BRUSH LEFT AT BEDSIDE FOR NURSES TO USE IF PEG TUBE CLOGS UP AGAIN. PER DR. LI PEG TUBE CAN BE FLUSHES WITH APPROX 10 ML OF SODA LIKE 7-UP OR SPRITE QID TO PREVENT PEG FROM CLOGGING UP. WILL FOLLOW AND CONTINUE TO MONITOR.
--- NOTE | 2019-10-06 15:29 | NUR ---
PT HAVING A TEMP OF 100.8 F. 650MG OF TYLENOL PEG ADMINISTERED SEE EMAR FOR DETAILS. WILL CONT TO MONITOR.
--- NOTE | 2019-10-06 19:00 | NUR ---
Pt lying in bed comfortably. No distress noted. Kept clean and dry. All needs attended and anticipated. Pt still noted with multiple unstageable wounds. All meds given as ordered. Seen and examined by Noe ( property technician) with no new orders. Will continue to monitor.
[2019-10-07] VITALS (10 sets, daily range): BP systolic 110–157; BP diastolic 59–74
--- NOTE | 2019-10-07 05:46 | NUR ---
Pt had all wound dressing changed. No distress noted. Kept clean and dry. All needs attended and anticipated, assisted by Dona and Merle RNs. All meds given as ordered. No significant change of condition noted. Will continue to monitor. Endorse to am nurse.
[2019-10-07 06:42] LABS: PLATELET COUNT 306 x10^3mcL (130-400)
[2019-10-07 06:49] LABS: RED CELL DISTRIBUTION WIDTH 22.8 % (11.5-14.5)
--- NOTE | 2019-10-07 07:05 | NUR ---
REPORT RECEIVED FROM LORI VILLARREAL. ALL CARE ASSUMED AT THIS TIME.
--- NOTE | 2019-10-07 08:15 | NUR ---
PT PLACED ON T PIECE 9 L/MIN AT THIS TIME BY ROSI RAMOS. PT TOLERATING WELL, SPO2 100%, RR 30'S WITH NO S/S DISTRESS NOTED.
[2019-10-07 08:57] LABS: SEGMENTED NEUTROPHILS 76 % (37-75)
[2019-10-07 08:58] LABS: BAND NEUTROPHIL 10 % (0-10); MONOCYTE 4 % (0-7)
[2019-10-07 08:59] LABS: rbc morphology (normal/abnorm) ABNORMAL (NORMAL)
[2019-10-07 09:00] LABS: PLATELET MORPHOLOGY PLATELETS NORMAL
--- NOTE | 2019-10-07 09:42 | NUR ---
JOSR CIVIL DESIGN SPECIALIST AT BEDSIDE SETTING UP FOR HD AT THIS TIME. WILL CONTINUE TO MONITOR.
--- NOTE | 2019-10-07 12:16 | NUR ---
2 X VIALS OF 5000 UNITS/ML HEPARIN ORDERED AT THIS TIME PER REQUEST BY AUTOMOTIVE SERVICES MANAGER TO USE ON DIALYSIS PORTS. PULLED FROM [employer] WITH COSIGN WITH BOX CUTTER.
--- NOTE | 2019-10-07 12:39 | NUR ---
PT TOLERATING DIALYSIS AND T PIECE WELL AT THIS TIME, NO S/S ACUTE DISTRESS.
--- NOTE | 2019-10-07 14:00 | NUR ---
HEMODIALYSIS COMPLETE; 2.5 LITERS REMOVED. PT TOLERATED DIALYSIS WELL.
--- NOTE | 2019-10-07 14:05 | NUR ---
DR. DUTTON AT BEDSIDE TO ASSESS PT. UPDATES PROVIDED, QUESTIONS ANSWERED. NO NEW ORDERS AT THIS TIME.
--- NOTE | 2019-10-07 15:13 | NUR ---
DR. DICKSON AT BEDSIDE. UPDATES PROVIDED, QUESTIONS ANSWERED. NO CHANGES IN POC AT THIS TIME. WILL CONTINUE TO MONITOR.
--- NOTE | 2019-10-07 17:29 | NUR ---
PT MEDICATED WITH 4MG PRN IVP MORPHINE AT THIS TIME FOR OBSERVED GRIMACING AND RESTLESSNESS. WHEN ASKED IF SHE IS IN PAIN, THE PT GESTURED "YES". WILL CONTINUE TO MONITOR.
--- NOTE | 2019-10-07 18:59 | NUR ---
1 LOOSE BROWN BM AT THIS TIME, SMALL AMT. LEFT BUTTOCK DRESSING, LEFT LATERAL UPPER LEG, BILATERAL INGUINAL DRESSINGS CHANGED AT THIS TIME. HYGIENE CARE PROVIDED, CHUX CHANGED, GOWN CHANGED.
--- NOTE | 2019-10-07 19:10 | NUR ---
RECEIVED REPORT FROM LUISA VILLARREAL. ASSUMING ALL CARE
--- NOTE | 2019-10-07 19:18 | NUR ---
REPORT GIVEN TO JACE VILLARREAL.
--- NOTE | 2019-10-07 19:20 | NUR ---
RECEIVED PT LAYING IN BED. PT IS TRACH'D AND ON NO SEDATION. PT RESPONDS TO VERBAL STIMULI. UNABLE TO FOLLOW SIMPLE COMMANDS. PORTEX SIZE 8 INTACT/SECURED, DRESSING CDI. LIJ ALIVIA INTACT/SECURED, DRESSING CDI. BREATHING IS E/U ON T-PIECE AT 9 LPM. LUNGS SOUND CLEAR TO BUL AND DIMIN TO BLL. SYMMETRICAL CHEST EXPANSION NOTED. S1/S2 HEART SOUNDS AUSCULTATED. CHEST WALL EQUAL AND SYMMETRICAL. HR 88, NIBP 144/66 MAP 92. PALPABLE PULSES X4 EXTREMITIES. SKIN IS WARM AND DRY. CAP REFILL < 3 SECS. +2 PITTING EDEMA NOTED TO BLE. NS INFUSING @ 5 ML/HR. PT ON [place] AIR TURNING BARIATRIC BED, REPOSITIONING Q15MIN. PT ON GLUCERNA @ 60 ML/HR WITH 30 CC FWF Q6H. GRV=0. TOLERATING WELL. ABD IS SOFT/OBESE. BOWEL SOUNDS ACTIVE X4 QUADRANTS. PEG NOTED TO LUQ WITH DRESSING CDI. NO BM NOTED. PT IS INCONTINENT. MULTIPLE WOUNDS TO SKIN. SEE CHART FOR DETAILS. BED IN LOW POSITION. CALL LIGHT IN REACH. WILL CONT TO MONITOR
--- NOTE | 2019-10-07 20:52 | NUR ---
FOUND PATIENT ON COOL AEROSOL T-PIECE AT 28% 9L/M. HR 89 SPO2 98 RR 27. B/S: COARSE CRACKLES BILATERALLY. SUCTION RECEIVED MODERATE, THICK PENDLETON SECRETIONS. STOMA IS SLIGHTLY DRAINING. TREATMENT GIVEN INLINE WITH NO INCIDENT.
--- NOTE | 2019-10-07 22:59 | NUR ---
AXILLARY TEMP 100.4. COOLING MEASURES IN PLACE. PT MEDICATED WITH TYLENOL PER EMAR
[2019-10-08] VITALS (7 sets, daily range): BP systolic 116–155; BP diastolic 61–81
--- NOTE | 2019-10-08 03:03 | NUR ---
AXILLARY TEMP 100.6. PT MEDICATED WITH TYLENOL PER EMAR. COOLING MEASURES IN PLACE
--- NOTE | 2019-10-08 05:30 | NUR ---
FULL BED BATH PROVIDED. GOWN AND LINENS CHANGED. PERICARE, ROE CARE, AND ORAL CARE PROVIDED. WOUND CARE PROVIDED PER WOUND CARE RECOMMENDATION.
[2019-10-08 05:38] LABS: PLATELET COUNT 260 x10^3mcL (130-400)
[2019-10-08 05:49] LABS: RED CELL DISTRIBUTION WIDTH 23.1 % (11.5-14.5)
[2019-10-08 05:51] LABS: BILIRUBIN TOTAL 0.71 mg/dL (0.20-1.00); CALCIUM 9.3 mg/dL (8.5-10.1); CARBON DIOXIDE 22.5 mmol/L (21-32); CREATININE SERUM 2.5 mg/dL (0.6-1.0); PHOSPHOROUS 4.2 mg/dL (2.5-4.9); POTASSIUM SERUM 3.5 mmol/L (3.5-5.1)
[2019-10-08 05:53] LABS: ALBUMIN 1.5 g/dL (3.4-5.0); TOTAL PROTEIN, SERUM 5.8 g/dL (6.4-8.2)
[2019-10-08 06:20] LABS: BAND NEUTROPHIL 8 % (0-10); BASOPHIL 0 % (0-2); METAMYELOCTE 1 % (0-2); MONOCYTE 8 % (0-7); SEGMENTED NEUTROPHILS 75 % (37-75); rbc morphology (normal/abnorm) ABNORMAL (NORMAL)
[2019-10-08 06:21] LABS: PLATELET MORPHOLOGY PLATELETS NORMAL
--- NOTE | 2019-10-08 07:10 | NUR ---
REPORT GIVEN TO GABRIELE VILLARREAL FOR CONTINUITY OF CARE. ALL QUESTIONS/CONCERNS ADDRESSED. ENDORSING ALL CARE
--- NOTE | 2019-10-08 07:20 | NUR ---
PT IS AAOX1 TO SELF. PREDOMINENTLY NON-VERBAL. CAN FOLLOW SOME COMMANDS, OPENS EYES TO SPEECH. PERRLA, PUPILS 3 MM. 8 PORTEX T PIECE TRACH IN PLACE RUNNING AT 9 LPM, FIO2 = 28%. RESP EVEN, SHALLOW, UNLABORED. NO COUGH NOTED. RR AT 25 BPM. LUNG SOUNDS CTA. PT HAS BLE +2 PITTING EDEMA. BLE PEDAL PULSES WEAK, BUE RADIAL PULSES MODERATE. CAP REFILL <3 SECS. SKIN COLOR APPROPRIATE FOR ETHNICITY. PT IS ON HEART MONITOR 6 READING FIRST DEGREE AVB WITH PVS. NO S/S OF C/P OR PRESSURE NOTED. PT HAS MULTIPLE WOUNDS ON BUE, BLE, TRUNK AND BACK. ALL COVERED WITH CDI DRESSINGS. ABDOMEN SOFT, NONTENDER, ROUND, NONDISTENDED. BOWEL SOUNDS ACTIVE X 4 QUADS. PT HAS PEG-TUBE PLACED TO LLQ, TUBE IS PATENT WITH GLUCERNA 1.2 RUNNING AT 60CC/HOUR WITH 30CC WATER FLUSH Q 6 HOURS. LIJ ALIVIA CATH WITH 3 PATENT PORTS. COVERED WITH CDI DRESSING. NO S/S OF INFECTION NOTED. PT ON [facility] AIR BED PROGRAMMED TO TURN BED Q 15 MINUTES. PT WILL BE REPOSITIONED FOR COMFORT NEEDED. CALL LIGHT WITHIN REACH. BED IN LOWEST POSITION. WILL CONTINUE TO MONITOR PT.
--- NOTE | 2019-10-08 08:06 | NUR ---
TYLENOL 650MG VIA PEG TUBE GIVEN FOR TEMP 100.9F. COOLING MEASURES IN PLACE. SCHEDULED MED LANTUS 15 UNITS SQ GIVEN LLQ. SITE WNL. WILL CONTINUE TO MONITOR.
--- NOTE | 2019-10-08 09:15 | NUR ---
REASSESSED PT TEMP = 101.5. COOLING MEASURES IN PLACE. RESP EVEN, SHALLOW, UNLABORED. WILL CONTINUE TO MONITOR.
--- NOTE | 2019-10-08 10:38 | NUR ---
PT HAS ORDER FOR HEMODIALYSIS ON 10/09, BLANKA ABRASIVE GRADER NURSE MADE AWARE.
--- NOTE | 2019-10-08 10:45 | NUR ---
Follow-up Nutrition Assessment: Dx: sepsis, aspiration PNA PMHx: ESRD on HD (MWF), HTN, DM, morbid obesity, peripheral vascular disease, hypoalbuminemia, necrotic left groin wound Labs: (10/08) Na 140, K 3.5, Glu 188, BUN 26, Cr 2.5 H, H/H 8.8/. Meds: D50%/water, Humulin R, lantus, morphine sulfate, Procrit, Tylenol elixir, zosyn Diet: TF Glucerna 1.2 at 20 mL/hr (goal 60 mL/hr) via PEG with FWF 30 mL Q6H PO Intake: NPO Current Nutrition Support: Glucerna 1.2 at 20 mL/hr (goal 60 mL/hr) via PEG with FWF 30 mL Q6H TF Intake (mL): (10/03) 1267, (10/04) 550, (10/05) 1420, (10/06) 2560, (10/07) 1091, (10/08) 754 GTF Residuals: 0 mL Weights: (10/01) 109.7 kg; Wt fluct d/t fluid shifts related to HD I/Os (mL): (10/03) 2062/2925 (-863), (10/04) 1346/120 (+1226), (10/05) 2889/3470 (-581), (10/06) 3545/500 (+3045), (10/07) 1924/3200 (-1276), (10/08) 1519/2500 (-981) Skin: multiple ulcers and skin tears, Pt on bariatric bed that repositions Q15min James: 11 Edema: +2 pitting edema BUE/BLE GI: abd soft, round, nontender upon palpation, bowel sounds active x 4 quads, PEG to place to LLQ, intact, site WNL, incontinent of bowel Last BM: 10/08/[address] Note (10/08): Per nursing documentation, Pt +fever, cooling measures in place. Wound care ongoing. Pt seen with RN at bedside. Glucerna 1.2 running at 60 mL/hr, goal reached. Pt tolerating well. Estimated Nutritional Needs Based on body weight (72 kg) Energy: 9315-7955 vs. 1988 kcal/day (PSU 2003b vs. kcal/kg for HD) Protein: 86-101 g/day (1.2-1.4 g/kg for) Fluid: 8907-5392 mL/day (1 mL/kcal) or per MD Nutrition Diagnosis: . 1. Increased nutrient needs related to wound, HD as evidenced by estimated calorie and protein needs. (Ongoing) 2. Inadequate enteral nutrition infusion related to low TF rate as evidenced by current TF rate meeting < 75% estimated calorie and protein needs. (Ongoing) Intervention: 1. Continue Glucerna 1.2 at 60 mL/hr via PEG with FWF 30 mL Q6H as tolerated. This provides 1728 kcal and 86 gm protein to meet 80% estimated needs and 100% estimated kcal needs; adequate. Monitor/Evaluate: Goal: Have pt meet at least 75% of estimated needs Monitor: Nutrition support tolerance, Labs, GI function F/U in 2-3 days as high risk (10/10-)
--- NOTE | 2019-10-08 11:13 | NUR ---
PEG- TUBE DRESSING CX PERFORMED. PEG-TUBE DRESSING REMOVED, SITE CLEANSED WITH N/S, PATTED DRY AND NEW 4X4 DRAIN DRESSING PLACED WITH PAPER TAPE. PT TOLERATED PROCEDURE WELL. PEG TUBE FEEDING REPLENISHED WITH GLUCERNA 1.2 RUNNING AT 60CC/HOUR AND WATER FLUSHED Q 6 HOURS. PT REPOSITIONED FOR COMFORT. CALL LIGHT WITHIN REACH. BED IN LOWEST POSTION. SIDE RAILS UP X2.
--- NOTE | 2019-10-08 12:59 | NUR ---
PT TEMP 99.8, COOLING MEASURES IN PLACE. BLOOD SUGAR 222, 6 UNITS REG INSULIN GIVEN AT INDICATED BY RISS. RESP EVEN AND UNLABORED. T-PIECE AT 9LPM IN PLACE. PT REPOSITIONED FOR COMFORT. CALL LIGHT WITHIN REACH.
--- NOTE | 2019-10-08 18:01 | NUR ---
TYLENOL 650 MG PO GIVEN FOR H/A 02/15. EXTRA FLUIDS GIVEN AND ENCOURAGED. SCHEDULED MED GIVEN AND TOLERATED WELL. B/P 135/94 (107), HR 70. PT DENIES C/P AND PRESSURE AT THIS TIME. CALL LIGHT WITHIN REACH.
--- NOTE | 2019-10-08 18:57 | NUR ---
PT IS CALM NO S/S OF DISTRESS NOTED. PT IS AAOX1 TO SELF AND REMAINED NONVERBAL THROUGH OUT SHIFT, CENTRAL LINE CHANGE PERFORMED TO Koko SAGE. OLD DRESSING REMOVED, AREA CLEANSED WITH CHG. COVERERED WITH CDI OCCLUSIVE DRESSING. PT HAD BM. AREA CLEANSED AND PERICARE GIVEN, HYDRAGUARD APPLIED. LIJ PATENT. PEG DRESSING CX. PT HAS G-TUBE FEEDING, GLUCERNA 1.2 RUNNING AT 60CC/HOUR WITH HX0 FLUSH Q 6 HOURS. PT ON [facility] AIR BED PROGRAMMED TO TURN Q [address]LE [address] READING FIRST DEGREE AVB WITH PVC. VS STABLE. NO S/S OF PAIN NOTED. CALL LIGHT WITHIN REACH. PT ENDORSED TO NOC SHIFT NURSE.
--- NOTE | 2019-10-08 19:05 | NUR ---
RECEIVED REPORT FROM GABRIELE VILLARREAL. ASSUMING ALL CARE
--- NOTE | 2019-10-08 19:30 | NUR ---
RECEIVED PT LAYING IN BED. PT IS TRACH'D AND ON NO SEDATION. PT RESPONDS TO VERBAL STIMULI. PT ABLE TO FOLLOW SOME SIMPLE COMMANDS. PORTEX SIZE 8 INTACT/SECURED, DRESSING CDI. LIJ ALIVIA INTACT/SECURED, DRESSING CDI. BREATHING IS E/U ON T-PIECE AT 9 LPM. LUNGS SOUND CLEAR TO BUL AND DIMIN TO BLL. SYMMETRICAL CHEST EXPANSION NOTED. PALPABLE PULSES X4 EXTREMITIES. SKIN IS WARM AND DRY. CAP REFILL < 3 SECS +2 PITTING EDEMA NOTED TO BLE. NS INFUSING @ 5 ML/HR. ON [place] AIR TURNING BARIATRIC BED, REPOSITIONING Q15MIN. PT ON GLUCERNA @ 60 ML/HR WITH 30 CC FWF Q6H. GRV=0. TOLERATING WELL. ABD IS SOFT/OBESE. BOWEL SOUNDS ACTIVE X4 QUADRANTS. PEG NOTED TO LUQ WITH DRESSING CDI. NO BM NOTED. PT VOIDS FREELY, PT INCONTINENT. MULTIPLE WOUNDS TO BODY, SEE CHART FOR DETAIL. AXILLARY TEMP 101, COOLING MEASURES IN PLACE, WILL MEDICATE WITH TYLENOL PER EMAR. BED IN LOW POSITION. CALL LIGHT IN REACH. WILL CONT TO MONITOR
--- NOTE | 2019-10-08 20:32 | NUR ---
AXILLARY TEMP 101.0. PT MEDICATED WITH TYLENOL 650 MG VIA PEG PER EMAR. COOLING MEASURES IN PLACE. WILL CONT TO MONITOR
[2019-10-09] VITALS (8 sets, daily range): BP systolic 128–161; BP diastolic 47–80
--- NOTE | 2019-10-09 00:28 | NUR ---
AXILLARY TEMP 101.5. PT MEDICATED WITH TYLENOL PER EMAR. COOLING MEASURES REMAIN IN PLACE
--- NOTE | 2019-10-09 04:27 | NUR ---
AXILLARY TEMP 100.9. PT MEDICATED WITH TYLENOL PER EMAR. COOLING MEASURES IN PLACE
--- NOTE | 2019-10-09 05:00 | NUR ---
PT HAD A LOOSE BROWN BM, PERICARE, ROE CARE, AND WOUND CARE PROVIDED
[2019-10-09 05:35] LABS: CARBON DIOXIDE 24.9 mmol/L (21-32); CREATININE SERUM 3.1 mg/dL (0.6-1.0); POTASSIUM SERUM 4.2 mmol/L (3.5-5.1)
--- NOTE | 2019-10-09 07:15 | NUR ---
REPORT GIVEN TO KAREN VILLARREAL FOR CONTINUITY OF CARE. ALL QUESTIONS/CONCERNS ADDRESSED. ENDORSING ALL CARE
--- NOTE | 2019-10-09 07:45 | NUR ---
PT RESTING IN BED, SLEEPING AROUSABLE WITH VERBAL STIMULI. OPENS EYES BUT NOT TRYING TO TALK. TRACH WITH T-PIECE, ON 9L O2, SATTING 99%, NO SOB NOTED BUT PT SHOWS THE SIGN OF SOME SECRETIONS IN THE THROAT AND BP IS 177/70, RT AT BEDSIDE SUCTIONED AND GIVING BREATHING TX. AFTER SUCTION PT FEEL BETTER AND BP 155/70. ASSESSED AND DOCUMENTED. SAFTEY PRECAUTIONS ARE IN PLACE. WILL MONITOR.
--- NOTE | 2019-10-09 11:00 | NUR ---
HD NURSE CAME AND TRY TO HD BUT HE SAID HE CANNOT INITIATE HD, NOT GOOD BLOOD FLOW. HD NURSE CALLED AND INFORMED ABOUT THAT. NURSE WILL DO HD ONCE THE NEW ALIVIA CATH PLACED. CHARGE NURSE AWARE. PT IS STABLE. V/S STABLE.
--- NOTE | 2019-10-09 12:45 | NUR ---
CALLED PT DAUGHTER LILIAM AND GOT TELE PHONE CONSENT FOR GERBER/ALIVIA MONAHAN, ANOTHER RN VERIFIED CONSENT. PAGED FOR TO INFORM WE GOT CONSENT AND CURRENT ALIVIA NOT WORKING FOR HD. [facility] WORKING FOR IVF AND ANTIBIOTIC.
--- NOTE | 2019-10-09 13:35 | NUR ---
PT TEMP WAS 100.7 AT 1235, TYLENOL 650MG LIQUID GIVEN VIA PEG AT 1235 AND RECHECKED TEMP NOW 100.1. WILL RECHECK AGAIN. PT IS STABLE.
--- NOTE | 2019-10-09 14:00 | NUR ---
DR. REED AT BEDSIDE TO ASSESS PATIENT. UPDATES PROVIDED AND POC DISCUSSED. DR. REED AWARE HEMODIALYSIS WAS STOPPED EARLY D/T THE ALIVIA CATH NOT WORKING THIS MORNING. DR. ERED UNABLE TO PUT IN NEW ALIVIA CATHETER TODAY BUT WILL SCHEDULE PATIENT FOR NON-TUNNELED ALIVIA CATH PLACEMENT TOMORROW 10/10/19. WILL CONTINUE TO MONITOR.
--- NOTE | 2019-10-09 14:35 | NUR ---
TEMP IS 99.7, PT IS STABLE.
--- NOTE | 2019-10-09 16:00 | NUR ---
CHANGED ALL THE WOUND DRESSING. CLEANED WITH NS AND APPLIED BETADINE SOAKED GAUZE TO ALL THE WOUND AND COVERED WITH ABD AND TAPE. ALL THE SKIN TEARS CLEANED WITH NS AND APPLIED VERSATEL AND KERLIX GAUZE. PT IS STABLE. GAVE PT COMFORTABLE POSITION. ON [facility] AIR SELF TURNING BARIATRIC BED.
--- NOTE | 2019-10-09 19:00 | NUR ---
PT RESTING IN BED COMFORTABLY. DENIES ANY PAIN THIS TIME, STABLE. V/S STABLE. GAVE REPORT TO AIRCRAFT MANAGER NURSE.
--- NOTE | 2019-10-09 19:38 | NUR ---
PT RESTING IN BED COMFORTABLY. DENIES ANY PAIN THIS TIME, STABLE. V/S STABLE. GAVE REPORT TO INDUCTION HEAT TREATER NURSE.
[2019-10-10] VITALS (7 sets, daily range): BP systolic 102–134; BP diastolic 47–70
[2019-10-10 05:55] LABS: PLATELET COUNT 235 x10^3mcL (130-400)
[2019-10-10 06:12] LABS: BILIRUBIN TOTAL 0.5 mg/dL (0.20-1.00); CALCIUM 8.8 mg/dL (8.5-10.1); CARBON DIOXIDE 25.1 mmol/L (21-32); CREATININE SERUM 3.5 mg/dL (0.6-1.0); POTASSIUM SERUM 4.5 mmol/L (3.5-5.1)
[2019-10-10 06:24] LABS: ALBUMIN 1.4 g/dL (3.4-5.0); TOTAL PROTEIN, SERUM 5.8 g/dL (6.4-8.2)
[2019-10-10 06:25] LABS: RED CELL DISTRIBUTION WIDTH 22.5 % (11.5-14.5)
[2019-10-10 08:33] LABS: BAND NEUTROPHIL 5 % (0-10); BASOPHIL 0 % (0-2); MONOCYTE 4 % (0-7); SEGMENTED NEUTROPHILS 86 % (37-75); rbc morphology (normal/abnorm) ABNORMAL (NORMAL)
[2019-10-10 08:34] LABS: PLATELET MORPHOLOGY PLATELETS NORMAL
--- NOTE | 2019-10-10 13:37 | NUR ---
DR REED, OR TEAM, TECH AT BEDSIDE FOR R JUG ALIVIA PLACEMENT. TIMEOUT COMPLETED. TEAM IN AGREEMENT.
--- NOTE | 2019-10-10 13:55 | NUR ---
1330 pt md at bedside shaan omalley cath placement, consent in chart, pt vs stable throughout procedure//pt tolerated well, recieved new lij cath at 1350//pt still ntracks but non verbal and does not follow commands//mw
--- NOTE | 2019-10-10 14:02 | NUR ---
ALIVIA CATH PLACEMENT INITIALLY ATTEMPTED IN R JUGULAR BY DR REED. AFTER UNSUCCESSFUL ATTEMPT, DR REED REPLACED Petr BUNCH SUCCESSFULLY.
[2019-10-11] VITALS (14 sets, daily range): BP systolic 76–119; BP diastolic 23–85
[2019-10-11 05:28] LABS: CALCIUM 8.9 mg/dL (8.5-10.1); CARBON DIOXIDE 20.7 mmol/L (21-32); POTASSIUM SERUM 5.2 mmol/L (3.5-5.1)
--- NOTE | 2019-10-11 07:15 | NUR ---
REPORT RECEIVED FROM ENTRY LEVEL SOFTWARE ENGINEER YVONNE. ALL CARES ASSUMED AT THIS TIME.
[2019-10-11 07:56] LABS: PLATELET COUNT 234 x10^3mcL (130-400)
[2019-10-11 08:00] LABS: RED CELL DISTRIBUTION WIDTH 22.8 % (11.5-14.5)
--- NOTE | 2019-10-11 08:30 | NUR ---
PT PLACED BACK ON VENT AT THIS TIME BY RT; 10/12. PRIOR TO THIS, PT WAS DESATTING TO HIGH 70'S ON TBAR. WILL CONTINUE TO MONITOR.
--- NOTE | 2019-10-11 09:06 | NUR ---
DR. DICKSON AT BEDSIDE, UPDATES PROVIDED, QUESTIONS ANSWERED. PER DR. DICKSON, DIALYSIS SHOULD BE HELD TODAY DUE TO BLOOD PRESSURE TRENDING DOWN, WITH MAP'S IN 50'S AND LOW 60'S.
--- NOTE | 2019-10-11 09:07 | NUR ---
RT PLACED PT BACK ON A/C VCV VT 550, RATE 14, FIO2 30%, PEEP 5 DUE TO INCREASED WOB. WILL CONTINUE TO MONITOR.
[2019-10-11 10:44] LABS: BAND NEUTROPHIL 4 % (0-10); BASOPHIL 0 % (0-2); MONOCYTE 4 % (0-7); SEGMENTED NEUTROPHILS 91 % (37-75)
[2019-10-11 10:45] LABS: PLATELET MORPHOLOGY PLATELETS INCREASED
[2019-10-11 10:46] LABS: rbc morphology (normal/abnorm) ABNORMAL (NORMAL)
--- NOTE | 2019-10-11 11:29 | NUR ---
Follow-up Nutrition Assessment: IC06/A KATELYN GARG HR Dx: Sepsis, aspiration PNA PMHx: ESRD on HD (M-W-F), HTN, DM, morbid obesity, peripheral vascular disease, hypoalbuminemia, necrotic left groin wound Labs: (10/11) K 5.2H, BG 184H, CREAT 4.0H, BUN 60H, ALB 1.4L, WBC 23H, AST 108H Meds: D 50%, Humulin, lantus, Procrit, vasostrict Diet: (PEG) Glucerna 1.2 @ 20 ml/hr, goal 60 ml/hr FWF 30 ml Q6H PO Intake: NPO Weights: (10/01) 109.7 kg, (10/06) 103 kg, (10/11) 105 kg - fluctuations d/t HD I/Os: (10/10) 1360/ not documented (1360) Skin: multiple ulcers and skin tears, pt on bariatric bed that repositions Q15 min James: 11 Edema: 2+ edema /BLE GI: Last BM: 10/11 Note (10/11): Patient has trach to vent and PEG tube. Per RN Fani, pt is receiving Glucerna 1.2 @ 60 ml/hr and is tolerating it well. Patient is on HD and is due to HD tomorrow. Estimated Nutritional Needs Based on body weight (72 kg) Energy: 5167-7274 vs 1988 (30-35 kcal/kg vs PSU for HD) Protein: 86- 101 g/day (1.2-1.4 g/kg for HD) Fluid: 2457-9798 mL/day (1 mL/kcal) or per MD Nutrition Diagnosis: 1.Increased nutrient needs related to wounds, HD as evidenced by estimated calorie and protein needs. (ongoing). 2. Inadequate enteral nutrition infusion related to low TF rate as evidenced by current TF rate meeting <75% estimated calorie and protein needs. (improved- rate changed to 60 ml/hr) Intervention: 1. Recommend continuing Glucerna 1.2 @ 20 ml/hr, goal 60 ml/hr, advance Q4H, FWF 30 ml Q6H. This will provide 1730 kcal and 86 g protein. (per nephrologists' previous recommendations) Monitor/Evaluate: Goal: Have pt meet at least 75% of estimated needs Monitor: TF intake/ tolerance, Labs, GI function F/U in 3-5 days as moderate risk 10/14-
--- NOTE | 2019-10-11 12:20 | NUR ---
PEG TUBE NOTED TO BE CLOGGED. RN ATTEMPTED TO UNCLOG WITH PEG BRUSH, DID NOT UNCLOG IT. TUBE FINALLY UNCLOGGED WITH WARM WATER MIXED WITH DIET SPRITE. WILL CONTINUE TO MONITOR.
--- NOTE | 2019-10-11 17:32 | NUR ---
NORMA RT AND MU RT AT BEDSIDE CHANGING PT'S TRACH TIES AT THIS TIME. PT TOLERATING WELL. WILL CONTINUE MONITORING.
--- NOTE | 2019-10-11 19:13 | NUR ---
REPORT GIVEN TO JULIO CESAR VILLARREAL. ALL CARES ENDORSED.
--- NOTE | 2019-10-11 19:23 | NUR ---
REC'D REPORT FROM LUISA VILLARREAL TO ASSUME CARE. PT TRACH'D WITH NO SEDATION. ABLE TO TRACK EYES AND FOLLOW SIMPLE COMMANDS. PERRLA NOTED. TRACH PORTEX SIZE [address] LIJ ALIVIA CATH INTACT, PORTS PATENT, DSG CDI. ETT TO VENT: AC MODE RATE 14, TV 440, PEEP 5, FIO2 30%. CHEST RISE EQUAL AND SYMMETRICAL. LUNG SOUNDS COARSE CRACKLES/RHONCHI BUL, DIM BASES. SOLE LAYER IN PLACE SHOWING 1ST DEGREE AVB HR 92, BP 117/82 MAP 87. CHEST WALL STABLE. PULSES PALPABLE AND WEAK X4 EXTREMITIES. CAP REFILL 3 SECS. 2+ RUE/ 1+ BLE PITTING EDEMA NOTED. NS INFUSING @ 10 ML/HR. PEG TUBE IN PLACE. GLUCERNA INFUSING @ 60ML/HR, FWF 30ML Q6H. GRV=10ML REPLACED. PT TOLERATING WELL. ABD OBESE AND SOFT. BOWEL SOUNDS ACTIVE. NO N/V NOTED. LOOSE STOOL NOTED AT THIS TIME. GOOD STAR CARE PROVIDED LINENS CHANGED. INCONTINENT OF URINE. LABIAL EDEMA NOTED. PT BEDBOUND. PT OBESE. ON BARIATRIC BED TURN/REPOSITION Q15MIN. ALL NEEDS MET AT THIS TIME. WILL CONTINUE TO MONITOR.
[2019-10-12] VITALS (19 sets, daily range): BP systolic 79–133; BP diastolic 32–67
--- NOTE | 2019-10-12 01:30 | NUR ---
PT NOTED WITH STOOL. GOOD STAR CARE PROVIDED, LINENS CHANGED. REPOSITIONED AT THIS TIME.
--- NOTE | 2019-10-12 04:00 | NUR ---
PT CLEANED AT THIS TIME. PT NOTED WITH STOOL AND URINE. LINENS CHANGED AND REPOSITIONED.
[2019-10-12 05:23] LABS: PLATELET COUNT 215 x10^3mcL (130-400)
[2019-10-12 05:33] LABS: CALCIUM 8.9 mg/dL (8.5-10.1); CARBON DIOXIDE 20.5 mmol/L (21-32); POTASSIUM SERUM 5.5 mmol/L (3.5-5.1)
[2019-10-12 05:38] LABS: CREATININE SERUM 4.5 mg/dL (0.6-1.0)
[2019-10-12 05:56] LABS: RED CELL DISTRIBUTION WIDTH 21.9 % (11.5-14.5)
--- NOTE | 2019-10-12 07:30 | NUR ---
RECEIVED PATIENT AND RESUME CARE, PATIENT'S ABLE TO TRACK EYES AND FOLLOW SIMPLE COMMANDS. TRACH W/O SEDATION, PORTEX SIZE 8 NOTED, AC MODE: VT 550, R 14, PEEP 5, FIO2 30% NOTED. LIJ ALIVIA DRESSING CDI WITH PIGTAIL INFUSING NS @ 10ML/HR NOTED. TELE W/ 1ST AVB, HR 89 NOTED. PATIENT ON HILROM SELF TURN MATTRESS Q15 MIN. CONT TO MONITOR.
[2019-10-12 08:04] LABS: BAND NEUTROPHIL 7 % (0-10); BASOPHIL 0 % (0-2); MONOCYTE 8 % (0-7); SEGMENTED NEUTROPHILS 79 % (37-75); rbc morphology (normal/abnorm) ABNORMAL (NORMAL); tear drop cell (dacryocyte) 1+
[2019-10-12 08:05] LABS: PLATELET MORPHOLOGY PLATELETS NORMAL
--- NOTE | 2019-10-12 08:12 | NUR ---
DR. MARQUEZ SEEN PATIENT AT THIS TIME AND UPDATE POC. PLAN HD NO FURTHER INTERVENTION.
--- NOTE | 2019-10-12 08:14 | NUR ---
CALL DR. REDDY ANSWERING SERVICE LEFT MESSAGE FOR DR. REDDY TO SEE IF DOCTOR FOLLOWING PATIENT.
--- NOTE | 2019-10-12 09:05 | NUR ---
WOUND CARE RE-EVALUATION NOTE: INTEGUMENTARY: -MULTIPLE ECCHYMOSIS TO FRONT CHEST AND UPPER EXTREMITIES, SKIN DRYNESS AND FRAGILE -MULTIPLE SKIN TEARS TO UPPER EXTREMITIES: PT. WITH INCREASE NUMBER OF SKIN TEARS TO LIMBS AND TRUNK OF BODY FROM NEW /EXISITING PURPURA. RIGHT FOREARM MULTIPLE SKIN TEARSWITH LARGEST TO 1X1CM SUPERFICIAL DEPTH, WOUND BED ARE MOIST AND CLEAN, SMALL AMOUNT OF SANGENOUS DRAINAGE, NO ODOR, STAR-WOUND SKIN WITH ERYTHEMA -LEFT FOREARM MULTIPLE SKIN TEARS WITH LARGEST TO 2X1 CM SUPERFICIAL DEPTH, WOUND BED ARE MOIST AND CLEAN, SMALL AMOUNT OF SANGENOUS DRAINAGE, NO ODOR, STAR-WOUND SKIN WITH ERYTHEMA. -LEFT HAND HEMATOMA 5X3CM SKIN INTACT WITH BLOOD FILLED FLUIDS, STAR WOUND SKIN WITH MULTIPLE DRY SCABS -FOREHEAD DRY ABRASION 2X2CM, STAR WOUND SKIN INTACT -INTERTRIGO TO BREAST FOLDS REDNESS, SKIN INTACT AND LOWER ABDOMENAL FOLDS REDNESS AND MOIST, NO ODOR MULTIPLE UN-STAGEABLE CALCIPHYLAXIS ULCERATIONS -UPPER CHEST CALCIPHYLAXIS ULCERATIONS 2X3CM BLACK STABLE NECROTIC TISSUE -ABDOMINAL WALL CALCIPHYLAXIS ULCERATIONS WITH MULTIPLE BLACK STABLE ESCHAR EXCEPT THE MID ABDOMINA WALL INFECTED NECROTIC WOUND, 8X13CM DEPTH UTD WITH 700% BLACK ESCHAR TISSUE AND 30% YELLOW SLOUGH, WOUND BED IS DRY WITH MILD ODOR,STAR WOUND SKIN DRY STAR WOUND SKIN INTACT WITH PURPLE ECCHYMOSIS ENTENDED TO RIGHT AND LEFT LATERAL ABDOMINAL WALL RIGHT GROINS EXTENDED TO RIGHT ANTERIOR MEDIAL THIGH CALCIPHYLAXIS ULCERATIONS 13X25 CM DEPTH UTD, WOUND BED 60% IN BROWN/YELLOWISH SLOUGH WITH 40% GRANULATING TISSUE, MOIST MILD ODOR, WOUND EDGE ROLLED, STAR WOUND SKIN ERYTHEMA. -LEFT GROINS EXTENDED TO LEFT ANTERIOR MEDIAL THIGH CALCIPHYLAXIS ULCERATIONS 17X22 CM DEPTH UTD, WOUND BED WITH 30% YELLOW SLOUGH AND 40% BLACK ESCHAR TISSUE AND 30% NON-BLANCHABLE REDNESS TISSUE MODERATE AMOUNT PURULENT DRAINAGE,STRONG FOUL ODOR ,STAR WOUND SKIN ERYTHEMA RIGHT CALF UN-STAGEABLE CALCIPHYLAXIS ULCERATIONS SITE [id number] DEPTH UTD, WOUND BED ARE BLACK/ BROWN IN COLOR WITH YELLOW SLOUGH 3X3CM TO WOUND EDGE AT 5 O'CLOCK DIRECTION, STAR WOUND SKIN INTACT. -RIGHT LOWER EXTREMITIES WITH MULTIPLE UN-STAGEABLE CALCIPHYLAXIS ULCERATIONS WITH LARGEST 4X4CM AND SMALLEST 2X2 CM, DEPTH UTD, WOUND BED ARE BLACK/ BROWN IN COLOR -LEFT CALF UN-STAGEABLE CALCIPHYLAXIS ULCERATIONS DISTAL SITE 27X22 CM DEPTH UTD, WOUND BED ARE 100% BROWN AND YELLOW SLOUGH TO STAR WOUND SKIN ERYTHEMA. -UN-STAGEABLE CALCIPHYLAXIS ULCERATIONS MULTIPLE WOUNDS, WOUND EDGES MERGED FROM LEFT LATERAL THIGH, TO LEFT TROCHANDAR EXTENDED TO LEFT BUTTOCK, ENTIRE AREA MEASUREMENT [id number], DEPTH UTD, WOUND BED 80% BLACK AND BROWN NECROTIC TISSUE WITH 20% NON-BLANCHABLE REDNESS ON WOUND BED. MODERATE AMOUNT PURULENT DRAINAGE, STRONG FOUL ODOR WITH STAR WOUND SKIN ERYTHEMA -UN-STAGEABLE CALCIPHYLAXIS ULCERATIONS TO RIGHT TROCHANDAR EXTENDED TO BUTTOK [id number] WOUND BED 80% GREENISH THICK SLOUGH TISSUE, 20% NON-BLANCHABLE REDNESS TISSUE MODERATE AMOUNT PURULENT DRAINAGE,STRONG FOUL ODOR , WOUND EDGE THICK BLACK/BROWN ESCHAR WITH STAR WOUND SKIN INTACT -MOISTURE ASSOCIATE DERMATITIS TO SACRALCOCCYX 3X2CM SUPERFICIAL DEPTH, MOIST, STAR-WOUND SKIN INTACT -BLANCHABLE REDNESS BILATERAL HEELS, SKIN INTACT. RECOMMENDATIONS: -SURGEON CONSULT FOR DEBRIDEMENT TO ALL UN-STAGEABLE CALCIPHYLAXIS ULCERATIONS -INTERTRIGO TO BREASTS FOLDS AND LOAWER ABDOMENAL FOLDS CLEANSE WITH SOAP AND WATER, PAT DRY, APPLY Z-GUARD BID AND DIVERSIFIED CROPS FARMER -MID LOAWER ABDOMENAL FOLDS CLEANSE WITH SOAP AND WATER, PAT DRY AND APPLY Z-GUARD, BID AND PRN IF SOILING QD -CLEANSE SACRALCOCCYX MAD WITH SOAP AND WATER, PAT DRY AND APPLY Z-GUARD,COVER WITH OPTIFOAM BID AND PRN IF SOILING -CLEANSE CALCIPHYLAXIS ULCERATIONS WITH NS. PAT DRY, APPLY SOAKED BETADINE SOLUTION COVER WITH ABD DRESSING QD AND PRN IF SOILING. -CLEANSE ALL SKIN TEARS WITH NS. PAT DRY, APPLY VESATEL DRESSING AND CHANGE Q5 DAYS AND PRN IF SOILING -APPLY HYDRAGUARD TO UPPER CHEST AND UPPER EXTREMITIES ECCHYMOSIS AREAS BID AND GIANCARLO -OFFLOAD BILATERAL HEELS BY PLACING PILLOWS UNDER CALVES UNLESS OTHERWISE CONTRAINDICATED -PRESSURE REDISTUBUTION SURFACE THERAPY -TURN AND REPOSITION Q2H, OFFLOAD SACRALCOCCYX BY TURNING RIGHT AND LEFT -MONITOR SKIN CONDITION EACH TIME PT IS REPOSITIONS -CONTINUE TO FOLLOW RD RECOMMENDATIONS ALL ABOVE RECOMMENDATIONS DISCUSSED WITH PRIMARY PLEASE CONTACT WOUND CARE NURSE FOR ANY QUESTION AND CHANGE OF WOUND CONDITION
--- NOTE | 2019-10-12 10:02 | NUR ---
PATIENT IS ON CURRENTLY DIALYZE BP 82/37, MAP 55. ORDER ALBUMIN 25% 100ML X1 STAT PER DIALYSIS NURSE REQUESTED. CALL PHARMACY FOR DOSE. MIDODRINE ADMINISTERED TO GT AND RESIDUAL CHECK IS 2ML. CONT TF AT 60ML/HR. CONT TO MONITOR.
--- NOTE | 2019-10-12 10:43 | NUR ---
ALBUMIN 100ML AND NS 500ML BOLUS ADMINISTERED BY JOSE, BP 101/38, MAP 59. HR 98 DIALYSIS IN PROGRESS, CONT TO MONITOR
--- NOTE | 2019-10-12 11:14 | NUR ---
PAGED DR. REED AND SPOKE TO HIM IN REGARDING TO DEBRIDEMENT TO INFECTED GREENISH AND YELLOW SLOUGH TORIGHT HIP,LOWER ABDOMINAL,LEFT GROIN /THIGH AND LEFT HIP. DR. REED ANSWERED WILL COME TO TAKE A LOOK. CN AND PRIMARY RN NOTIFIED. PT. IS AT DIALYSIS LOW BP NOTICE. PRIMARY RN NOTICED.
--- NOTE | 2019-10-12 11:20 | NUR ---
PER JOSE DIALYSIS NURSE, DIALYSIS STOP 0 REMOVED. BP 79/56, MAP 64, RR 22, HR 93. 02SAT 96% PATIENT AWAKE EASILY, ROBERT BUNCH DRESSING WAS CHANGE BY JOSE. PER WOUND CARE ELEAZAR PATIENT IS UNSTABLE TO CHANGE DRESSING, WILL BE BACK ANOTHER DAY. DR. REED WAS NOTIFIED BY ELEAZAR AND WILL COME TO ASSESS PT'S WOUND IF NEED DEBRIDEMENT. CONT TO MONITOR
--- NOTE | 2019-10-12 11:36 | NUR ---
PER JOSE CLEANER WINDOW NOTED DURING DRESSING CHANGE ON LIJ ALIVIA CATH SITE IS RED AND HAS WHITISH PURULENT DRAINAGE, CLEAN VERY WELL AND APPLIED DRESSING WITH STERILE TECHNIQUE, JOSE RECOMMEND CENTRAL DRESSING CHANGE QSHIFT.
--- NOTE | 2019-10-12 12:30 | NUR ---
CHANGE NEW TF TUBING AND SPIKE NEW BOTTLE OF GLUCERNA 1.2
--- NOTE | 2019-10-12 12:40 | NUR ---
PATIENT OPEN EYES AND APPEAR COMFORTABLE, NO DISTRESS NOTED. SEPTRA 250ML/HR INFUSING TO LIJ ALIVIA PIGTAIL AND PROCRIT [id number] UNIT SQ ADMINISTERED TO RT ABDOMEN, BS 122 NO COVERAGE. REPOSITIONED. BLE ELEVATED. CONT TO MONITOR.
--- NOTE | 2019-10-12 13:57 | NUR ---
PATIENT RESTING COMFORTABLE NO ACUTE DISTRESS NOTED. VENT ON AC: VT 538 TR 25 NOTED, FIO2 02SAT 100% NOTED. TEMP 100.6 COOLONG MEASURES AND TYLENOL 650MG ADMINISTERED VIA GT. CONT TO MONITOR.
--- NOTE | 2019-10-12 15:28 | NUR ---
PATIENT'S AWAKE/ALERT TO PERSON, OPEN EYES. APPEAR NO DISTRESS NOTED. INCONT OF STOOL STAR CARE PROVIDED WITH MAX ASSIST OF 4 STAFFS. AFTER PATIENT GOT CLEAN BP DROP TO 78/30 MAP 51, REPOSITIONED AND ELEVATED. BP 89/32, MAP 51, RR 26, HR 91 AND 02SAT 100% AND DTR AT BEDSIDE WAS UPDATED PATIENT POC AND CONDITION. DTR REQUEST TO SPOKE WITH DOCTOR. DR. MARQUEZ WAS PAGE. RECHECK TEMP 97.9 CONT TO MONITOR.
--- NOTE | 2019-10-12 15:37 | NUR ---
DR. MARQUEZ CALL BACK AND UPDATE DIALYSIS IS NOT COMPLETED AND ROBERT ALIVIA CATH HAS PURULENT DRAINAGE, PER DR. MARQUEZ DIALYSIS CATH NEED TO BE REMOVED AND VANCOMYCIN PER PHARMACY DOSE. DR. MARQUEZ SPOKE TO ZENA RICKETTS ON THE PHONE. PER DR. MARQUEZ START VASOPRESSIN.
--- NOTE | 2019-10-12 16:01 | NUR ---
VASOPRESSIN DRIP STARTED AT 0.01 UNIT/MIN BP 83/28, MAP 46 CONT TO MONITOR. DTR LILIAM LEFT AND STILL WANT TO TALK TO DR. REED; WILL PAGE DR. REED
--- NOTE | 2019-10-12 16:16 | NUR ---
CALLED DR. Cher REED AT #[phone] LEFT MESSAGE WITH JULIO CESAR REGARD WOUNDS AND ROBERT ALIVIA CATHETER INFECTED. PER JULIO CESAR REED WITH PATIENT WILL GIVE HIM MESSAGE.
--- NOTE | 2019-10-12 16:35 | NUR ---
CALLED DR. MARQUEZ INFORM PATIENT'S ALLERGIES TO VANCOMYCIN; ORDER ZYVOX 600MG IV Q12H ORDER CARRY OUT.
--- NOTE | 2019-10-12 17:28 | NUR ---
RT AT BEDSIDE GIVEN PATIENT BREATHING TREATMENT AT THIS TIME, O2SAT 100% ON VENT AC: VT 520 AND TR 26 NOTED. CONT TO MONITOR.
--- NOTE | 2019-10-12 17:34 | NUR ---
PATIENT SLEEPING NO DISTRESS NOTED, BP 94/34, MAP 54 INCREASE VASOPRESSIN DRIP TO 0.03 UNIT/MIN CONT TO MONITOR.
--- NOTE | 2019-10-12 18:43 | NUR ---
DR. EDWARDS AT BEDSIDE EXAM PATIENT, INFORM DOCTOR RT FACIAL/MANDIBLE SWOLLEN/RED/WARM AND PAINFUL WHEN TOUCH PATIENT GRIMACING. DR. EDWARDS EXAM AND ORDER CT FACIAL W/ MANDIBLE W/O CONTRAST TO R/O ABSCESS OR HEMATOMA. INCONTINENT STOOL AND URINE, STAR CARE PROVIDED. REINFORCED BILAT GROIN DRESSING. REPOSITIONED UP IN BED. CONT TO MONITOR.
--- NOTE | 2019-10-12 19:25 | NUR ---
REC'D REPORT FROM JI VILLARREAL TO ASSUME CARE. PT TRACH'D WITH NO SEDATION. ABLE TO TRACK EYES AND FOLLOW SIMPLE COMMANDS. PERRLA NOTED. TRACH PORTEX SIZE [address] LIJ ALIVIA CATH INTACT, PORTS PATENT, DSG CDI, SMALL AMT OF PUS NOTED TO SITE. RIGHT SIDE OF MANDIBLE NOTED RED AND WARM. ETT TO VENT: AC MODE RATE 14, TV 440, PEEP 5, FIO2 30%. CHEST RISE EQUAL AND SYMMETRICAL. LUNG SOUNDS COARSE CRACKLES/RHONCHI BUL, DIM BASES. TOUR ESCORT IN PLACE SHOWING 1ST DEGREE AVB HR 91, BP 107/32 MAP 66. VASOPRESSIN GTT INFUSING @ 0.03 UNITS/MIN. CHEST WALL STABLE. PULSES PALPABLE AND WEAK X4 EXTREMITIES. CAP REFILL 3 SECS. 2+ RUE/ 1+ BLE PITTING EDEMA NOTED. NS INFUSING @ 10 ML/HR. PEG TUBE IN PLACE. PT FEBRILE WITH TEMP 101.0 F, COOLING MEASURES IN PLACE AND TYLENOL PROVIDED. GLUCERNA INFUSING @ 60ML/HR, FWF 30ML Q6H. GRV=10ML REPLACED. PT TOLERATING WELL. ABD OBESE AND SOFT. BOWEL SOUNDS ACTIVE. NO N/V NOTED. LOOSE STOOL NOTED AT THIS TIME. GOOD STAR CARE PROVIDED LINENS CHANGED. INCONTINENT OF URINE. LABIAL EDEMA NOTED. PT BEDBOUND. PT OBESE. ON BARIATRIC BED TURN/REPOSITION Q15MIN. ALL NEEDS MET AT THIS TIME. WILL CONTINUE TO MONITOR.
--- NOTE | 2019-10-12 19:30 | NUR ---
DR MARQUEZ CALLED AND MADE AWARE PT QUALIFIES FOR SEPSIS PRESENTING WITH EPISODES OF FEVER, HYPOTENSION, ELEVATED WBC COUNT, ELEVATED CREAT. ORDERS GIVEN TO GIVE ONLY 1L NS BOLUS (D/T RF), DRAW STAT LACTIC ACID, AND CHANGE VASOPRESSIN TO LEVOHPHED. TELEPHONE ORDER READ BACK. ORDER NOTED AND CARRIED OUT.
--- NOTE | 2019-10-12 19:56 | NUR ---
1L NS BOLUS STARTED AT THIS TIME.
--- NOTE | 2019-10-12 20:00 | NUR ---
DC'D VASOPRESSIN GTT. LEVOHPED GTT INITIATED AT THIS TIME @ 2 MCG/MIN WITH BP 106/38 MAP 61
--- NOTE | 2019-10-12 20:48 | NUR ---
BP 119/42 MAP 60, LEVOPHED TITRATED TO 4 MCG/MIN.
--- NOTE | 2019-10-12 21:00 | NUR ---
1L NS BOLUS COMPLETE, BP 119/53 MAP 75.
--- NOTE | 2019-10-12 21:10 | NUR ---
BP 119/53 MAP 75, LEVOPHED TITRATED TO 3 MCG/MIN.
--- NOTE | 2019-10-12 22:33 | NUR ---
PT TRANSFERRED TO ICU BED WITH ISOGEL MATTRESS AT THIS TIME FOR TRANSPORT TO CT SCAN ORDERED. CT CALLED AT THIS TIME PT READY FOR CT, MECHANICAL SYSTEM TECHNICIAN STATES THEY ARE BACKED UP AND BUSY FROM ER AT THIS TIME, WILL CALL US WHEN READY. PTS BARIATRIC BED CLEANED BY HOUSEKEEPING.
[2019-10-13] VITALS (17 sets, daily range): BP systolic 91–130; BP diastolic 30–66
--- NOTE | 2019-10-13 02:45 | NUR ---
BP 101/39 MAP 58, LEVOPHED TITRATED TO 5 MCG/MIN.
--- NOTE | 2019-10-13 05:58 | NUR ---
TOTAL BED BATH PROVIDED, STOOL AND URINE NOTED, GOOD STAR CARE PROVIDED, LINENS CHANGED. REPOSITIONED TO COMFORT.
[2019-10-13 06:01] LABS: PLATELET COUNT 236 x10^3mcL (130-400)
[2019-10-13 06:07] LABS: BILIRUBIN TOTAL 0.75 mg/dL (0.20-1.00); CALCIUM 9.7 mg/dL (8.5-10.1); CARBON DIOXIDE 16.7 mmol/L (21-32); CREATININE SERUM 3.9 mg/dL (0.6-1.0); PHOSPHOROUS 3.9 mg/dL (2.5-4.9); POTASSIUM SERUM 4.6 mmol/L (3.5-5.1)
[2019-10-13 06:09] LABS: ALBUMIN 1.9 g/dL (3.4-5.0); TOTAL PROTEIN, SERUM 5.9 g/dL (6.4-8.2)
--- NOTE | 2019-10-13 06:29 | NUR ---
TEMP RECHECKED 100.8, ICE PACKS REPLACED AT THIS TIME. COOLING MEASURES IN PLACE.
--- NOTE | 2019-10-13 07:20 | NUR ---
DR. MARQUEZ IS AT BEDSIDE EXAMING THE PATIENT. UPDATE PROVIDED TO THE DOCTOR.
--- NOTE | 2019-10-13 07:30 | NUR ---
PATIENT OPENS HER EYES SPONTANEOUSLY BUT UNABLE TO FOLLOW ANY SIMPLE COMMANDS AT THIS TIME. SY PUPILS WITH BRISK REACTION TO LIGHT. GAG REFLEX UPON SUCTIONING. TRACH SIZE [address] AND SECURED. TRACH TO VENT VIA VCV/AC MODE: FIO2 30%, RATE 14, VT 550, PEEP 5. ALIVIA CATH TO [facility] COVERED WITH DRESSING. THE SITE NOTED WITH REDNESS. BOTH DR. MARQUEZ AND DR. REED ARE AWARE. PLAN TO PLACE ANOTHER ALIVIA CATH TO DIFFERENT SITE AND REMOVE THIS ALIVIA AT [facility]. TELE # 6 READS NORMAL SINUS RHYTHMS WITH THE 1ST DEGREE BLOCK. PEG TUBE IN PLACE AND CONNECTED TO TUBE FEEDING WITH GLUCERNA AT 60ML/HR AND FREE WATER FUSH AT 30ML/Q6HR. NO RESIDUAL AT THIS TIME. AIR MATTRESS IN USE. SIDE RAILS UP X3. BED IS AT LOWEST POSITION. HEAD OF BED ELEVATED. EXTREMITIES OFFLOADED.
--- NOTE | 2019-10-13 07:35 | NUR ---
DR. REED CALLED IN AND ASKED TO PUT PATIENT ON NPO FOR ALIVIA CATH PLACEMENT. PER DR. REED, HE MIGHT DO THE PROCEDURE LATE TODAY. PEG TUBE FEEDING WAS ON HOLD.
--- NOTE | 2019-10-13 07:45 | NUR ---
TELEPHONED PATIENT'S DAUGHTER LILIAM AND OBTAINED CONSENT FOR ALIVIA CATHETER PLACEMENT. PATIENT UPDATE PROVIDED. DAUGHTER IN AGREEMENT WITH POC AND CONSENTED FOR ALIVIA CATHETER PLACEMENT. CONSENT WITNESSED BY MYSELF AND LIBBY VILLARREAL.
--- NOTE | 2019-10-13 08:03 | NUR ---
SPOKE WITH DR MARQUEZ AND REPORTED WBC'S 31.3. ALSO CHANGE IN ORDER FOR CT WITH CONTRAST FOR FACE/MANDIBLE RECEIVED.
[2019-10-13 10:26] LABS: BAND NEUTROPHIL 11 % (0-10); BASOPHIL 0 % (0-2); MONOCYTE 7 % (0-7); SEGMENTED NEUTROPHILS 81 % (37-75); rbc morphology (normal/abnorm) ABNORMAL (NORMAL)
[2019-10-13 10:30] LABS: PLATELET MORPHOLOGY PLATELETS INCREASED
--- NOTE | 2019-10-13 10:46 | NUR ---
BP 131/56, AND MAP 81. LEVOPHED TITRATED FROM 3MCG/MIN DOWN TO 2MCG/MIN.
--- NOTE | 2019-10-13 11:15 | NUR ---
BP 124/47, AND MAP 81. LEVOPHED TURNED OFF.
--- NOTE | 2019-10-13 11:29 | NUR ---
SPOKE WITH DR AMATO AND INFORMED HIM THAT PATIENT IN NEED OF CT FACE WITH CONTRAST AND PROVIDED PATIENT UPDATE. OKAY TO PROCEED WITH CT ORDERED PER OUR CONVERSATION.
--- NOTE | 2019-10-13 12:34 | NUR ---
BP 97/36, AND MAP 63; RECHECKING BP 91/30 WITH MAP 50; LEVOPHED RESUMED AT 2MCG/MIN.
--- NOTE | 2019-10-13 12:40 | NUR ---
PATIENT TAKEN TO RAD DEPT FOR CT MANDIBLE VIA ICU BED; SHARONA SANDRA RN, RAD STAFF AND RT CLAIRE ACCOMPANYING THE PATIENT.
--- NOTE | 2019-10-13 13:20 | NUR ---
PATIENT RETURNED FROM CT WITHOUT INCIDENT. PATIENT REMOVED FROM PORTABLE DIRECTOR OF SPEECH PATHOLOGY AND RETURNED TO ICU MONITOR #6. VITALS STABLE BP 110/54, HR 89, RR 28, SPO2 100% ON VENT. LEVOPHED REMAINS AT 2 MCG.
--- NOTE | 2019-10-13 16:15 | NUR ---
FREE LANCE MODEL IS AT BEDSIDE FOR HD.
--- NOTE | 2019-10-13 16:32 | NUR ---
BP 86/39, AND MAP 54; LEVOPHED TITRATED FROM 2MCG/MIN UP TO 4MCG/MIN.
--- NOTE | 2019-10-13 16:42 | NUR ---
PATIENT'S SPUTUM CULTURE SHOWED PS AERUGIO; DR. REDDY WAS CALLED AND NOTIFIED OF THE RESULT. DR. REDDY GAVE TELEPHONE ORDER COLISTIN 75MG INH Q12HR. READBACK AND ORDER WAS ENTERED TO [facility]. HOWEVER, SARAH PHARMACIST CALLED SAYING SHE WOULD ADJUST THE DOSE TO 150MG DAILY. DR. REDDY WAS CALLED BACK AND NOTIFIED OF THE CHANGE. DOCTOR WAS OK WITH THAT.
--- NOTE | 2019-10-13 16:48 | NUR ---
BP 77/35, AND MAP 60. LEVOPHED TITRATED FROM 4MCG/MIN TO 6MCG/MIN.
--- NOTE | 2019-10-13 17:20 | NUR ---
RECEIVED A PHONE CALL FROM [employer] SAYING THAT THE BLOOD CULTURE RESULT SHOWS GRAM POSTIVE COCCI IN CLUSTER. AWAITING FOR SENSITIVITY AND PATIENT IS ON ZYVOX AND COLISTIN NOW.
--- NOTE | 2019-10-13 18:45 | NUR ---
HEMODIALYSIS IS IN PROGRESS. LEVOPHED IS AT 6MCG/MIN AT THIS TIME.
--- NOTE | 2019-10-13 19:05 | NUR ---
HEMODIALYSIS JUST COMPLETED WITH 500ML OF OUTPUT REPORTED BY HD NURSE.
--- NOTE | 2019-10-13 19:10 | NUR ---
RECEIVED REPORT FROM GEMMA VILLARREAL. WILL RESUME CARE.
--- NOTE | 2019-10-13 19:25 | NUR ---
RECEIVED PT TRACH'D WITH NO SEDATION. PT UNABLE TO FOLLOW COMMAND OR MAKE NEEDS KNOWN. TRACH PORTEX 8 INTACT AND SECURED. BREATHING E/U. ON VENT VCV-AC MODE WITH SETTINGS OF VT 550, FIO2 30%, PEEP 5, RATE 14. S1S2 AUSCULATATED. NO S/SX OF ANY PAIN AT THIS TIME. PT ON LEVOPHED GTT AT 6MCG/MIN TO MAINTAIN A MAP >65. CAP REFILL<3 SEC. PULSES PALPABLE. GENERALIZED WEAKNESS. NPO AT THIS TIME DUE TO UPCOMING PROCEDURE. NO N/V NOTED. ABDOMEN OBESE, NONTENDER. NO BM AT THIS TIME. PT IS ANURIC, HD PT. MULTIPLE WOUNDS, SKIN TEARS, AND ECCHYMOSIS NOTED TO BODY. BED IN LOW POSITION. WILL CONTINUE TO MONITOR.
--- NOTE | 2019-10-13 19:29 | NUR ---
REPORT GIVEN TO MARIA ISABEL GALO RN. CONCERNS WERE ADDRESSED.
--- NOTE | 2019-10-13 21:30 | NUR ---
DR. REED AT BEDSIDE ASSESSING PT. UPDATES PROVIDED. PER DR. REED, PLAN IS TO DO WOUND DEBRIDEMENT AND ALIVIA CATHETER PLACEMENT TOMORROW.
--- NOTE | 2019-10-13 21:50 | NUR ---
PT' DAUGHTER LILIAM TELEPHONED TO OBTAIN CONSENT FOR WOUND DEBRIDEMENT AND ALIVIA CATHETER PLACEMENT. RISKS AND BENEFITS EXPLAINED TO DAUGHTER BY DR. REED. DAUGHTER GAVE CONSENT FOR BOTH PROCEDURES TO BOTH DR. ERED AND MYSELF AND WITNESSED BY LORI VILLARREAL.
[2019-10-14] VITALS (19 sets, daily range): BP systolic 98–156; BP diastolic 41–62
--- NOTE | 2019-10-14 02:45 | NUR ---
LEVOPHED TITRATED TO 4MCG/MIN. B/P 123/48. MAP 82.
--- NOTE | 2019-10-14 04:27 | NUR ---
MONOMER RECOVERY SUPERVISOR AT BEDSIDE FOR BLOOD DRAW.
[2019-10-14 04:55] LABS: PLATELET COUNT 234 x10^3mcL (130-400)
[2019-10-14 04:59] LABS: CALCIUM 9.9 mg/dL (8.5-10.1); CARBON DIOXIDE 20.2 mmol/L (21-32); CHLORIDE SERUM 95 mmol/L (98-107); CREATININE SERUM 3.1 mg/dL (0.6-1.0); GFR1 16 mL/min; GLUCOSE SERUM 137 mg/dL (74-106); POTASSIUM SERUM 3.8 mmol/L (3.5-5.1); SODIUM SERUM 139 mmol/L (136-145)
[2019-10-14 05:13] LABS: RED CELL DISTRIBUTION WIDTH 20.9 % (11.5-14.5)
--- NOTE | 2019-10-14 06:14 | NUR ---
CHEST X-RAY BEING DONE AT BEDSIDE.
[2019-10-14 06:15] LABS: BAND NEUTROPHIL 1 % (0-10); MONOCYTE 8 % (0-7); SEGMENTED NEUTROPHILS 87 % (37-75)
[2019-10-14 06:17] LABS: rbc morphology (normal/abnorm) ABNORMAL (NORMAL)
[2019-10-14 06:18] LABS: PLATELET MORPHOLOGY PLATELETS INCREASED
--- NOTE | 2019-10-14 07:02 | NUR ---
BP 107/58, AND MAP 90; LEVOPHED TITRATED FROM 4MCG/MIN DOWN TO 3MCG/MIN.
--- NOTE | 2019-10-14 07:05 | NUR ---
GAVE REPORT TO GEMMA VILLARREAL. ALL QUESTIONS AND CONCERNS ADDRESSED.
--- NOTE | 2019-10-14 07:30 | NUR ---
PATIENT REMAINS TRACH'D WITH NO SEDATION. PATIENT OPENS HER EYES SPONTANEOUSLY, TRACKS, BUT FOLLOWS TO A COUPLE OF VERY SIMPLE COMMANDS. NO INDICATION OF NAUSEA/VOMITING, SHORTNESS OF BREATH OR PAIN AT THIS TIME. TRACH SIZE 8 PORTEX IS SECURED IN PLACE. TRACH TO VENT VIA VCV/AC MODE: FIO2 30%, RATE 14, VT 550, PEEP 5. LIJ ALIVIA CATH SITE WITH DRESSING IN PLACE. TELE 6 SHOWS NORMAL SINUS RHYTHMS WITH THE 1ST DEGREE BLOCK. PEG TUBE IN PLACE TO UPPER ABDOMEN CLAMPED AT THIS TIME. NO RESIDUAL NOTED AT THIS TIME. CALL LIGHT WITHIN REACH. SIDE RAILS UP X3. BED IS AT LOWEST POSITION. ISOGEL MATTRESS IN USE.
--- NOTE | 2019-10-14 07:44 | NUR ---
TITRATED FIO2 25%.
--- NOTE | 2019-10-14 09:47 | NUR ---
BP 115/55, AND MAP 75; LEVOPHED TITRATED FROM 3MCG/MIN DOWN TO 2MCG/MIN.
--- NOTE | 2019-10-14 11:32 | NUR ---
BP 115/58, AND MAP 82; LEVOPHED TITRATED FROM 2MCG/MIN DOWN TO 1MCG/MIN.
--- NOTE | 2019-10-14 13:47 | NUR ---
PATIENT JUST HAD BM WITH LOOSE STOOL. PATIENT WAS CLEANSED AND CHANGED. GURU WIPES IMPLEMENTED TO THE PATIENT.
--- NOTE | 2019-10-14 14:10 | NUR ---
PATIENT IS BEING TAKEN TO OR VIA BED; PIYUSH-OR NURSE, DR. CABA-GEOPHYSICAL OBSERVER, AND OR STAFF.
--- NOTE | 2019-10-14 14:10 | NUR ---
PATIENT BEING TRANSFERRED TO O.R. AT THIS TIME WITH DR DURAN AND O.R. TEAM.
--- NOTE | 2019-10-14 14:21 | NUR ---
BOTH DR. NGUYEN AND DR. EDWARDS ARE AT THE STATION TO SEE THE PATIENT; HOWEVER, THE PATIENT IS OFF THE UNIT. UPDATE PROVIDED TO BOTH DOCTORS.
--- NOTE | 2019-10-14 15:45 | NUR ---
RECEIVED REPORT FROM NILAM MARKETING COMMUNICATIONS ASSISTANT: PATIENT HAD NEW ALIVIA PLACEMENT TO RIGHT FEMORAL, AND OLD ALIVIA AT J REMOVED. ALSO, PATIENT HAD DEBRIDEMENT TO WOUNDS AT LOW ABDOMEN, BOTH INNER GROINS/THIGHS, AND RIGHT HIP.
--- NOTE | 2019-10-14 15:55 | NUR ---
RECEIVED THE PATIENT BACK ROM OR DEPT S/P PLACEMENT OF NEW ALIVIA CATH TO RIGHT FEMORAL, REMOVAL OF OLD LIJ ALIVIA CATH, AND WOUND DEBREDEMENT. PATIENT AWAKE, OPENS HER EYES SPONTANEOUSLY BUT DOES NOT FOLLOW COMMANDS AT THIS TIME. RIGHT FEMORAL ALIVIA CATH WITH DRESSING INTACT. LEVOPHED MAINTAINS AT 1MCG/MIN VIA THE PIGTAIL PORT OF THE THIS ALIVIA CATH. NEW DRESSING TO LOW ABDOMEN, BOTH INNER THIGH/GROIN AREAS, AND RIGHT HIP. PATIENT HOOKED BACK TO TELE MONITOR # 6. VS CHECKED. CALL LIGHT WITHIN REACH. SIDE RAILS UP X3. BED IS AT LOWEST POSITION. THE DAUGHTER CAME TO BEDSIDE TO VISIT PATIENT.
--- NOTE | 2019-10-14 15:55 | NUR ---
RECEIVED THE PATIENT BACK FROM OR S/P NEW ALIVIA CATH PLACEMENT AT RIGHT FEMORAL (OLD LIJ ALIVIA CATH REMOVED) AND DEBRIDEMENT OF WOUNDS AT LOW ABDOMEN, BOTH INNER THIGHS AND RIGHT HIP. PATIENT AWAKE; OPENS HER EYES SPONTANEOUSLY BUT DOES NOT FOLLOW COMMANDS AT THIS TIME. PATIENT HOOKED BACK TO MONITOR. LEVOPHED REMAINS AT 1MCG/MIN. THE DAUGHTER WAS AT BEDSIDE.
--- NOTE | 2019-10-14 16:45 | NUR ---
RECEIVED REPORT FROM NILAM, PACU NURSE: PATIENT HAD NEW ALIVIA CATH TO RIGHT FEMORAL AND LIJ ALIVIA CATH REMOVED. ALSO, THE WOUNDS AT LOWER ABDOMEN, BOTH INNER THIGH/GROIN, AND RIGHT HIP DEBRIDED AT THIS TIME.
--- NOTE | 2019-10-14 17:20 | NUR ---
PATIENT IS TAKEN TO RAD DEPT FOR CT ABDOMEN AND PELVIS WITH NO CONTRACT. PATIENT IS ACCOMPANIED BY PHIL LIVINGSTON, BIPIN-RT, AND PRESS OPERATOR [employer].
--- NOTE | 2019-10-14 17:40 | NUR ---
PATIENT CAME BACK TO THE ROOM AND HOOKED BACK TO MONITOR.
--- NOTE | 2019-10-14 18:00 | NUR ---
LEVOPHED TITRATED OFF FOR BP 144/58, MAP 86.
--- NOTE | 2019-10-14 18:00 | NUR ---
RECIEVED REPORT FROM PHIL MENENDEZ. NURSING UPDATES. POC DISCUSSED. SEE SHIFT ASSESSMENT FOR ASSESSMENT.
--- NOTE | 2019-10-14 18:27 | NUR ---
REPORT GIVEN TO MARIA ISABEL DUNN RN.
--- NOTE | 2019-10-14 20:21 | NUR ---
NOTIFIED OK TO GIVEN Amikacin Sulfate PER PHARMACY BECAUSE OF A SEND OUT FOR THE LAB. WILL START INFUSION. NOTIFIED TO REDRAW 30MIN TO 1HR AFTER INFUSION DONE.
--- NOTE | 2019-10-14 23:06 | NUR ---
TITRATED TF FROM 20ML/HR TO 30ML/HR PER PT TOLERATING. NO RESIDUAL. BS 106. WILL CONT TO MONITOR. GOAL 60ML/HR.
[2019-10-15] VITALS (15 sets, daily range): BP systolic 117–147; BP diastolic 42–393
--- NOTE | 2019-10-15 01:06 | NUR ---
TITRATED TF FROM 30ML/HR TO 40ML/HR PER PT TOLERATING. NO RESIDUAL. BS 106. WILL CONT TO MONITOR. GOAL 60ML/HR.
--- NOTE | 2019-10-15 01:52 | NUR ---
Seen and examined by Dr. Harjit Damon with new orders.New orders noted and carried out. Will continue to monitor.
--- NOTE | 2019-10-15 02:36 | NUR ---
PT RESTING CALMLY IN BED. NO ACUTE CHANGES.
--- NOTE | 2019-10-15 03:22 | NUR ---
TITRATED TF FROM 40ML/HR TO 50ML/HR PER PT TOLERATING. NO RESIDUAL. WILL CONT TO MONITOR. GOAL 60ML/HR.
--- NOTE | 2019-10-15 05:02 | NUR ---
TITRATED TF FROM 50ML/HR TO 60ML/HR PER PT TOLERATING. NO RESIDUAL. WILL CONT TO MONITOR. @ GOAL 60ML/HR. PT CLEANED AND LINENS CHANGED. NO ACUTE DISTRESS OR CHANGE.
[2019-10-15 05:07] LABS: PLATELET COUNT 205 x10^3mcL (130-400)
[2019-10-15 05:20] LABS: ALBUMIN 1.5 g/dL (3.4-5.0); BILIRUBIN TOTAL 0.7 mg/dL (0.20-1.00); CALCIUM 9.9 mg/dL (8.5-10.1); CARBON DIOXIDE 17.4 mmol/L (21-32); CREATININE SERUM 3.5 mg/dL (0.6-1.0); POTASSIUM SERUM 3.8 mmol/L (3.5-5.1); TOTAL PROTEIN, SERUM 5.3 g/dL (6.4-8.2)
[2019-10-15 05:24] LABS: BAND NEUTROPHIL 9 % (0-10); METAMYELOCTE 4 % (0-2); MONOCYTE 6 % (0-7); MYELOCYTE 1 % (0-2); SEGMENTED NEUTROPHILS 74 % (37-75)
[2019-10-15 05:27] LABS: rbc morphology (normal/abnorm) ABNORMAL (NORMAL)
[2019-10-15 05:28] LABS: tear drop cell (dacryocyte) 1+
[2019-10-15 05:29] LABS: PLATELET MORPHOLOGY PLATELETS NORMAL
--- NOTE | 2019-10-15 06:47 | NUR ---
WBC 24.8 MD made aware trending down no new orders. ID already consulted. Will continue to monitor.
--- NOTE | 2019-10-15 07:18 | NUR ---
REPORT GIVEN TO PHIL MENENDEZ. NURSING UPDATES. RELEAVED OF PT DUTIES.
--- NOTE | 2019-10-15 07:40 | NUR ---
PATIENT OPENS HER EYES TO VERBAL STIMULI AND TRACKS BUT DOES NOT FOLLOW COMMANDS. SY PUPILS WITH BRISK REACTION TO LIGHT. TRACH SIZE [address] AND CONNECTED TO VENT VIA VCV/AC MODE: FIO2 25%, RATE 14, VT 550, PEEP 5. TELE # 6 SHOWS SINUS RHYTHMS WITH THE 1ST DEGREE BLOCK. PEG TUBE IN PLACE TO ABDOMEN AND CONNECTED TO TUBE FEEDING WITH GLUCERNA AT 50ML/HR AND FREE WATER FLUSH 30ML/Q6HR. NO GASTRIC RESIDUAL NOTED AT THIS TIME. TUBE FEEDING RATE INCREASED TO 60ML/HR TO REACH THE GOAL ORDERED. ALIVIA CATH TO RIGHT FEMORAL WITH DRESSING IN PLACE. ISOGEL MATTRESS IN USE. SIDE RAILS UP X3. BED IS LOWEST POSITION. HEAD OF BED ELEVATED. EXTREMITIES OFFLOADED.
--- NOTE | 2019-10-15 12:04 | NUR ---
RT SUAZO PLACED THE PAIENT ON AEROSOL AT 28%.
--- NOTE | 2019-10-15 13:55 | NUR ---
DR. NGUYEN IN TO SEE THE PATIENT. UPDATE PROVIDED TO THE PATIENT.
--- NOTE | 2019-10-15 14:55 | NUR ---
DR. REED IS IN TO SEE. THE PATIENT; UPDATE PROVIDED TO THE DOCTOR BY NURSES.
--- NOTE | 2019-10-15 17:34 | NUR ---
GABRIELE - SWITCHING THE PATIENT BACK TO VENT WITH THE SAME PREVIOUS SETTING: FIO2 25%, RATE 14, VT 550, PEEP 5.
--- NOTE | 2019-10-15 18:41 | NUR ---
PATIENT WAS GIVEN A BED BATH, LINEN AND GOWN CHANGED THIS MORNING. PHOTOGRAPHS OF SKIN INTEGRITY TAKEN BY THE CHARGE NURSE. WOUNDS (EXCEPT THE NEWLY DEBRIDED WOUNDS YESTERDAY) WERE CLEANSED AND DRESSING CHANGED.
--- NOTE | 2019-10-15 19:18 | NUR ---
RECIEVED REPORT FROM PHIL MENENDEZ. NURSING UPDATES POC DISCUSSED. SEE SHIFT ASSESSMENT FOR ASSESSMENT.
--- NOTE | 2019-10-15 21:59 | NUR ---
PT RESTING CALMLY IN BED NO ACUTE CHANGES.
--- NOTE | 2019-10-15 22:42 | NUR ---
Seen and examined by with new orders. New orders noted and carried out. Will continue to monitor.
[2019-10-16] VITALS (18 sets, daily range): BP systolic 109–141; BP diastolic 41–76
--- NOTE | 2019-10-16 00:58 | NUR ---
PT RESTING CALMLY IN BED NO ACUTE CHANGES.
--- NOTE | 2019-10-16 03:07 | NUR ---
PT CLEANED AND LINENS CHANGED. DRESSING CHANGED AND UPDATED PHOTOS. NO ACUTE CHANGES. WILL CONT TO MONITOR.
[2019-10-16 05:28] LABS: PLATELET COUNT 210 x10^3mcL (130-400)
[2019-10-16 05:32] LABS: RED CELL DISTRIBUTION WIDTH 18.5 % (11.5-14.5)
[2019-10-16 05:42] LABS: CALCIUM 9.2 mg/dL (8.5-10.1); CARBON DIOXIDE 19.3 mmol/L (21-32); CREATININE SERUM 3.9 mg/dL (0.6-1.0); POTASSIUM SERUM 4.1 mmol/L (3.5-5.1)
[2019-10-16 06:17] LABS: BAND NEUTROPHIL 3 % (0-10); BASOPHIL 0 % (0-2); MONOCYTE 1 % (0-7); MYELOCYTE 1 % (0-2); PLATELET MORPHOLOGY PLATELETS NORMAL; SEGMENTED NEUTROPHILS 90 % (37-75); rbc morphology (normal/abnorm) ABNORMAL (NORMAL)
--- NOTE | 2019-10-16 07:15 | NUR ---
REPORT RECEIVED FROM MONA VILLARREAL. ALL CARE ASSUMED AT THIS TIME. WILL CONTINUE TO MONITOR.
--- NOTE | 2019-10-16 07:16 | NUR ---
REPORT GIVEN TO PHIL LEE. NURSING UPDATES. POC DISCUSSED.
--- NOTE | 2019-10-16 09:25 | NUR ---
ZRADHA HELD AT THIS TIME PER SQL PROGRAMMER REQUEST.
--- NOTE | 2019-10-16 09:30 | NUR ---
WET INSPECTOR OPTICAL GLASS SETTING UP AT BEDSIDE.
--- NOTE | 2019-10-16 09:45 | NUR ---
DR. BROWN AT BEDSIDE. UPDATES PROVIDED, QUESTIONS ANSWERED. NO NEW ORDERS AT THIS TIME.
--- NOTE | 2019-10-16 10:35 | NUR ---
DR. ANDINO SURGEON AT BEDSIDE. UPDATES PROVIDED, QUESTIONS ANSWERED. NO NEW ORDERS AT THIS TIME. WILL CONTINUE TO MONITOR.
--- NOTE | 2019-10-16 12:38 | NUR ---
HD COMPLETED AT THIS TIME. 2500 ML OUT. WILL CONTINUE TO MONITOR. VSS AT THIS TIME.
--- NOTE | 2019-10-16 17:12 | NUR ---
PT RESTING QUIETLY AT THIS TIME.
--- NOTE | 2019-10-16 19:17 | NUR ---
REPORT GIVEN TO KATHERINE VILLARREAL. UPDATES PROVIDED, QUESTIONS ANSWERED. CARE ENDORSED.
--- NOTE | 2019-10-16 19:20 | NUR ---
RECEIVED PT FROM LUISA VILLARREAL. PT ATTACHED TO FULL KILN CAR REPAIRER AND CONTINUOUSE PULSE OXIMETRY. BED AT LWOEST SETTING, CALL LIGHT WITHIN REACH, HOB EELVATED 30 DEGREES. SEE NURSE SHIFT ASSESSMENT FOR MORE DETAILS.
--- NOTE | 2019-10-16 19:30 | NUR ---
DAUGHTER AT BEDSIDE UPDATED ON PLAN OF CARE.
[2019-10-17] VITALS (19 sets, daily range): BP systolic 125–154; BP diastolic 42–67
--- NOTE | 2019-10-17 03:02 | NUR ---
PT HAD MODERATE BROWN BM NOTED. TOTAL BED BATH PROVIDED, PERICARE PROVIDED. CHUCKS, GOWN, LINEN CHANGED. TOTAL CARE PROVIDED.
[2019-10-17 04:43] LABS: PLATELET COUNT 178 x10^3mcL (130-400)
[2019-10-17 04:48] LABS: CREATININE SERUM 3.4 mg/dL (0.6-1.0); POTASSIUM SERUM 4.2 mmol/L (3.5-5.1)
[2019-10-17 04:49] LABS: RED CELL DISTRIBUTION WIDTH 20.6 % (11.5-14.5)
--- NOTE | 2019-10-17 06:10 | NUR ---
PAGED [facility] ON MORNING LABS. WILL AWAIT CALL BACK PER DOUBLE END SEWER.
--- NOTE | 2019-10-17 06:55 | NUR ---
DR. FAULKNER CALLED BACK. UPDATED HIM ON PT'S MORNING LABS, WBC OF 21.8 AND H/H OF 6.8/20. PER DR. FAULKNER ORDER TRANFUSE 1 UNIT PRBC. WILL INPUT ORDERS.
[2019-10-17 07:06] LABS: BAND NEUTROPHIL 10 % (0-10); BASOPHIL 0 % (0-2); METAMYELOCTE 1 % (0-2); MONOCYTE 3 % (0-7); SEGMENTED NEUTROPHILS 78 % (37-75)
[2019-10-17 07:09] LABS: PLATELET MORPHOLOGY GIANT PLATELET SEEN; rbc morphology (normal/abnorm) ABNORMAL (NORMAL); target cell (codocyte) 1+; tear drop cell (dacryocyte) 1+
--- NOTE | 2019-10-17 07:10 | NUR ---
GAVE REPORT TO GREG VILLARREAL. UPDATES PROVIDED, QUESTIONS ANSWERED. ENDORSED CARE.
--- NOTE | 2019-10-17 08:00 | NUR ---
INITIAL SHIFT ASSESSMENT DONE (SEE ASSESSMENT PART). AWAKE, EYES TRACKING BUT NOT FOLLOWING COMMAND. NO SIGNS OF PAIN OR AGITATION NOTED. ON TRACH TO VENT, TOLERATING CURRENT SETTINGS WELL. O2 SAT 99-100%. SR WITH 1ST DEGREE AVB ON MONITOR. SBP IN 130'S-140'S. ON TUBE FEEDING VIA PEG TUBE, TOLERATING WELL. NO RESIDUALS NOTED. HAS MULTIPLE SKIN DECUBS/WOUNDS (SEE PICTURES IN THE CHART). LOCOMOTIVE SWITCH OPERATOR IS SEEING THE PATIENT. HOB ELEVATED. UPDATED OF PLAN OF CARE. WILL CONTINUE TO MONITOR.
--- NOTE | 2019-10-17 10:00 | NUR ---
RESTING IN BED. NO SIGNS OF PAIN OR AGITATION NOTED. TOLERATING VENTILATOR WELL. O2 SAT 99-100%. SR WITH 1ST DEGREE AVB ON MONITOR. SBP IN 120'S-130'S. HOB ELEVATED. WILL CONTINUE TO MONITOR.
--- NOTE | 2019-10-17 12:00 | NUR ---
REASSESSMENT DONE. NEURO STATUS STILL THE SAME. NO SIGNS OF PAIN OR AGITATION NOTED. TOLERATING CURRNET VENTILATOR SETTINGS WELL. O2 SAT 99-100%. SR WITH 1ST DEGREE AVB ON MONITOR. SBP IN 130'S-140'S. HOB ELEVATED. TOLERATING TUBE FEEDING WELL. NO RESIDUALS NOTED. UPDATED OF PLAN OF CARE. WILL CONTINUE TO MONITOR.
--- NOTE | 2019-10-17 12:45 | NUR ---
STARTED TRANSFUSION OF 1 UNIT OF PRBC AT THIS TIME AFTER PROPERLY CHECKING WITH OTHER RN, PHIL TAYLOR.
--- NOTE | 2019-10-17 13:00 | NUR ---
PRBC TRANSFUSION GOING-ON, TOLERATING WELL. NO REACTION TO THE BLOOD NOTED. WILL CONTINUE TO MONITOR.
--- NOTE | 2019-10-17 14:00 | NUR ---
RESTING IN BED. NO SIGNS OF PAIN OR AGITATION NOTED. TOLERATING VENTILATOR WELL. O2 SAT 99-100%. SR WITH 1ST DEGREE AVB ON MONITOR. SBP IN 130'S. PRBC TRANSFUSION GOING-ON, TOLERATING WELL. NO UNTOWARD REACTION TO THE BLOOD NOTED. HOB ELEVATED. WILL CONTINUE TO MONITOR.
--- NOTE | 2019-10-17 14:50 | NUR ---
PRBC TRANSFUSION DONE. TOLERATED THE ENTIRE TRANSFUSION WELL. NO UNTOWARD REACTION TO THE BLOOD NOTED. WILL CONTINUE TO MONITOR.
--- NOTE | 2019-10-17 16:00 | NUR ---
REASSESSMENT DONE. NEURO STATUS UNCHANGED. NO SIGNS OF PAIN OR AGITATION NOTED. TOLERATING CURRENT VENTILATOR SETTINGS WELL. O2 SAT 98-99%. SR WITH 1ST DEGREE AVB ON MONITOR. SBP IN 140'S-150'S. TOLERATING TUBE FEEDING WELL. NO RESIDUALS NOTED. HOB ELEVATED. UPDATED OF PLAN OF CARE. WILL CONTINUE TO MONITOR.
--- NOTE | 2019-10-17 16:20 | NUR ---
HAS BM AT THIS TIME, MODERATE AMOUNT, PASTY, DARK GREENISH BROWN COLOR. GIVEN PARTIAL BATH AND LINEN ARE CHANGE. TOLERATED THE PROCEDURE WELL.
--- NOTE | 2019-10-17 18:00 | NUR ---
RESTING IN BED. NO SIGNS OF PAIN OR AGITATION NOTED. TOLERATING VENTILATOR WELL. O2 SAT 98-100%. SR WITH 1ST DEGREE AVB ON MONITOR. SBP IN 130'S-140'S. HOB ELEVATED. WILL CONTINUE TO MONITOR.
--- NOTE | 2019-10-17 19:15 | NUR ---
REPORT GIVEN TO INCOMING SURGICAL SUPPLIES STERILIZER RN, PHIL TARANGO.
--- NOTE | 2019-10-17 19:15 | NUR ---
RECEIVED REPORT FROM GREG VILLARREAL. ASSUMING ALL CARE
--- NOTE | 2019-10-17 19:30 | NUR ---
DR. BROWN AT BEDSIDE. UPDATED ON PT'S STATUS. ALL QUESTIONS/CONCERNS ADDRESSED. PER DR. BROWN, PT TO RECEIVE HD TOMORROW
--- NOTE | 2019-10-17 19:30 | NUR ---
AXILLARY TEMP 100.5. COOLING MEASURES IN PLACE. PT MEDICATED WITH TYLENOL PER EMAR
--- NOTE | 2019-10-17 20:00 | NUR ---
RECEIVED PT IN BED. PT IS TRACH'S AND ON NO SEDATION. PT RESPONDS TO VERBAL STIMULI, DOES NOT FOLLOW SIMPLE COMMANDS. PT ABLE TO TRACK WITH EYES. PERRLA NOTED BILAT. PORTEX SIZE 8 INTACT/SECURED, DRESSING CDI. EENT FREE OF DRAINAGE. BREATHING IS E/U ON VENT. TRACH TO VENT. VENT SETTINGS: VCV AC MODE, RATE 14, VT 550, PEEP 5, FIO2 25%. LUNGS SOUND CLEAR TO BUL AND DIMIN TO BLL. SYMMETRICAL CHEST EXPANSION NOTED. S1/S2 HEART SOUNDS AUSCULTATED. CHEST WALL EQUAL AND SYMMETRICAL. HR 83, NIBP 147/58 MAP 95. PALPABLE PULSES X4 EXTREMITIES. SKIN IS WARM AND DRY. CAP REFILL < 3 SECS. EDEMA NOTED TO BLE. NS INFUSING @ 5 ML/HR. ISOGEL MATTRESS IN PLACE. PT ON TURN SCHED Q2H. PT ON GLUCERNA @ 60 ML/HR WITH 30 CC FWF Q6H VIA PEG. GRV=0, TOLERATING WELL. ABD IS SOFT/OBESE. BOWEL SOUNDS ACTIVE X4 QUADRANTS. PEG NOTED TO LUQ WITH DRESSING CDI. NO BM NOTED. PT INCONTINENT. RIGHT FEMORAL ALIVIA CATH IN PLACE WITH DRESSING CDI. MULTIPLE WOUNDS, SKIN TEARS, AND ECCHYMOSIS NOTED THROUGHTOUT THE BODY, SEE CHART/PIC FOR DETAILS. BED IN LOW POSITION. CALL LIGHT IN REACH. WILL CONT TO MONITOR
--- NOTE | 2019-10-17 21:15 | NUR ---
DR. NGUYEN AT BEDSIDE. UPDATED ON PT'S STATUS. ALL QUESTIONS/CONCERNS ADDRESSED. DR. NGUYEN MADE AWARE PT HAS NO DVT AND GI PROPHYLAXIS. PER DR. NGUYEN, ORDER PEPCID 20 MG IVP Q12H, LOVENOX 30 MG SUBQ DAILY, AND ORDER BLOOD CULTURES, 2 SETS 15 MIN APART. ORDERS NOTED AND CARRIED OUT
--- NOTE | 2019-10-17 23:00 | NUR ---
GRV=10. GLUCERNA TF INCREASED TO 30 ML/HR WITH 100 CC FWF Q4H, WILL CONT TO MONITOR
[2019-10-18] VITALS (16 sets, daily range): BP systolic 123–163; BP diastolic 47–78
--- NOTE | 2019-10-18 00:48 | NUR ---
DR. WONG AT BEDSIDE. UPDATED ON PT'S STATUS. ALL QUESTIONS/CONCERNS ADDRESSED. PER DR. WNOG, DC COLISTIN AND ADD ZOSYN 2.25 IVPB Q8H. ORDER NOTED AND CARRIED OUT
--- NOTE | 2019-10-18 04:45 | NUR ---
FULL BED BATH PROVIDED. GOWN AND LINENS CHANGED. PT HAD A LARGE LOOSE BROWN BM, PERICARE PROVIDED. PT POSITIONED FOR COMFORT. HEELS OFFLOADED. BED IN LOW POSITION. CALL LIGHT IN REACH. WILL CONT TO MONITOR.
[2019-10-18 06:41] LABS: CALCIUM 9.2 mg/dL (8.5-10.1); CARBON DIOXIDE 22.3 mmol/L (21-32); CREATININE SERUM 3.7 mg/dL (0.6-1.0); POTASSIUM SERUM 4.6 mmol/L (3.5-5.1)
--- NOTE | 2019-10-18 07:10 | NUR ---
REPORT GIVEN TO JAN VILLARREAL FOR CONTINUITY OF CARE. ALL QUESTIONS/CONCERNS ADDRESSED. ENDORSING ALL CARE
--- NOTE | 2019-10-18 07:40 | NUR ---
PATIENT OPENS HER EYES TO TACTILE STIMULI BUT NOT FOLLOW ANY COMMANDS AT THIS TIME. TRACH SIZE 8 PORTEX IS SECURED IN PLACE AND CONNECTED TO VENT VIA VCV/AC MODE: FIO2 25%, RATE 14, VT 550, PEEP 5. PEG TUBE IN PLACE AND CONNECTED TO TUBE FEEDING WITH GLUCERNA AT 60ML/HR AND FREE WATER FLUSH 30ML Q6HR. NO RESIDUAL AT THIS TIME. TELE # 6 SHOWS THE 1ST DEGREE BLOCK. RIGHT FEMORAL ALIVIA CATH WITH DRESSING IN PLACE. CALL LIGHT WITHIN REACH. SIDE RAILS UP X3. BED IS AT LOWEST POSITION. ISOGEL MATTRESS IN USE.
[2019-10-18 08:08] LABS: PLATELET COUNT 165 x10^3mcL (130-400)
[2019-10-18 08:10] LABS: RED CELL DISTRIBUTION WIDTH 20.7 % (11.5-14.5)
[2019-10-18 08:53] LABS: burr cell (echinocyte) 1+; ovalocyte/elliptocyte 1+; tear drop cell (dacryocyte) 1+
[2019-10-18 08:54] LABS: rbc morphology (normal/abnorm) ABNORMAL (NORMAL)
--- NOTE | 2019-10-18 09:03 | NUR ---
HD NURSE IS AT BEDSIDE FOR HEMODIALYSIS. LAB RESULTS AND 2 BAGS OF 1000ML NS PROVIDED TO HD NURSE PER REQUEST.
--- NOTE | 2019-10-18 11:50 | NUR ---
DR. NGUYEN IS IN TO SEE TO THE PATIENT. UPDATE PROVIDED TO THE DOCTOR BY NURSES.
--- NOTE | 2019-10-18 12:10 | NUR ---
SPOKE WITH DR NGUYEN REGARDING PATIENT STATUS. DR NGUYEN TO CONSULT WITH DR CHAWLA FOR HOSPICE/PALLIATIVE.
--- NOTE | 2019-10-18 12:57 | NUR ---
HEMODIALYSIS COMPLETED; 3.6L OF OUTPUT REPORT BY HEMODIALYSIS NURSE.
--- NOTE | 2019-10-18 18:48 | NUR ---
PATIENT IS GIVEN A BEDBATH; LINEN AND GOWN CHANGED. DRESSING CHANGED.
--- NOTE | 2019-10-18 19:18 | NUR ---
DR. DICKSON IS AT BEDSIDE SEEING THE PATIENT AND TALKING TO THE DAUGHTER.
--- NOTE | 2019-10-18 19:19 | NUR ---
REPORT GIVEN TO MARIA ISABEL HARRELL RN.
--- NOTE | 2019-10-18 19:30 | NUR ---
REC'D REPORT FROM GEMMA RN TO ASSUME CARE. PT TRACH'D WITH NO SEDATION. UNABLE TO TRACK EYES, UNABLE TO FOLLOW COMMANDS. PERRLA NOTED. TRACH PORTEX SIZE [address] SMALL AMT OF PUS NOTED TO OLD LIJ ALIVIA CATH SITE. RIGHT SIDE OF MANDIBLE NOTED RED AND WARM. ETT TO VENT: AC MODE RATE 14, TV 550, PEEP 5, FIO2 25%. CHEST RISE EQUAL AND SYMMETRICAL. LUNG SOUNDS COARSE CRACKLES/RHONCHI BUL, DIM BASES. RN STARS IN PLACE SHOWING 1ST DEGREE AVB HR 90, BP 130/61 MAP 97. CHEST WALL STABLE. PULSES PALPABLE AND WEAK X4 EXTREMITIES. CAP REFILL 3 SECS. BLE 2+ PITTING EDEMA NOTED. R FEMORAL ALIVIA CATH IN PLACE, DSG CDI. PEG TUBE IN PLACE. GLUCERNA INFUSING @ 60ML/HR, FWF 30ML Q6H. GRV=10ML REPLACED. PT TOLERATING WELL. ABD OBESE AND SOFT. BOWEL SOUNDS ACTIVE. NO N/V NOTED. INCONTINENT OF URINE, GOOD STAR CARE PROVIDED. LABIAL EDEMA NOTED. PT BEDBOUND. PT OBESE. TURNED AND REPOSITIONED Q2H FOR PRESSURE RELIEF. PT WITH MULTIPLE NECROTIC WOUNDS; SEE CHART. CONTACT PRECATUIONS APPLIED AND MAINTAINED. ALL NEEDS MET AT THIS TIME. WILL CONTINUE TO MONITOR.
[2019-10-19] VITALS (18 sets, daily range): BP systolic 102–1333; BP diastolic 38–73
--- NOTE | 2019-10-19 01:30 | NUR ---
PT NOTED WITH BM AND URINE, GOOD STAR CARE PROVIDED LINENS CHANGED. DSG CHANGE PROVIDED TO BUTTOCK AREA.
--- NOTE | 2019-10-19 05:30 | NUR ---
TOTAL BED BATH PROVIDED, URINE AND BM NOTED. GOOD STAR CARE PROVIDED, LINENS CHANGED. REPOSITIONED AT THIS TIME.
[2019-10-19 05:34] LABS: CALCIUM 9.7 mg/dL (8.5-10.1); CREATININE SERUM 3.7 mg/dL (0.6-1.0); POTASSIUM SERUM 4.1 mmol/L (3.5-5.1)
[2019-10-19 06:03] LABS: PLATELET COUNT 127 x10^3mcL (130-400); RED CELL DISTRIBUTION WIDTH 20.9 % (11.5-14.5)
[2019-10-19 06:05] LABS: BAND NEUTROPHIL 10 % (0-10); PLATELET MORPHOLOGY PLATELETS DECREASED; SEGMENTED NEUTROPHILS 80 % (37-75); rbc morphology (normal/abnorm) ABNORMAL (NORMAL)
--- NOTE | 2019-10-19 07:40 | NUR ---
PATIENT IS RESPONSIVE TO VERBAL STIMULI AND TRACKS BUT UNABLE TO FOLLOW SIMPLE COMMANDS. TRACH SIZE [address] AND SECURED. TRACH TO VENT VIA VCV/AC MODE: FIO2 25%, RATE 14, VT 550, PEEP 5. RIGHT MANDIBLE WITH SWELLING AND REDNESS; THE SITE FIRM AND WARM TO TOUCH. TELE # 6 SHOWS THE 1ST DEGREE BLOCK. PEG TUBE IN PLACE TO UPPER ABDOMEN WITH TUBE FEEDING OF GLUCERNA AT 60ML/HR AND FREE WATER FLUSH 30ML/Q6HR. RIGHT FEMORAL ALIVIA CATH WITH DRESSING INTACT. HEEL PROTECTORS IN PLACE TO BOTH HEELS. CALL LIGHT WITHIN REACH. SIDE RAILS UP X3. BED IS AT LOWEST POSITION. HEAD OF BED ELEVATED AND EXTREMITIES OFFLOADED.
--- NOTE | 2019-10-19 12:26 | NUR ---
DR. REED IS AT BEDSIDE SEEING THE PATIENT. UPDATE PROVIDED TO THE DOCTOR BY THE NURSE.
--- NOTE | 2019-10-19 14:03 | NUR ---
WOUND CARE NURSE IS AT BEDSIDE; ASSISTING THE WOUND CARE NURSE TO CHANGE THE DRESSING FOR THE PATIENT.
--- NOTE | 2019-10-19 15:30 | NUR ---
DR. EDWARDS IS AT BEDSIDE SEEING THE PATIENT. UPDATE PROVIDED TO THE DOCTOR.
--- NOTE | 2019-10-19 16:25 | NUR ---
ELEAZAR, WOUND CARE NURSE SPOKE WITH THE DAUGHTER. PER ELEAZAR, THE DAUGHTER IS OPEN TO RECEIVE INFORMATION ABOUT PALLIATIVE CARE FOR THE PATIENT.
--- NOTE | 2019-10-19 18:01 | NUR ---
WOUND CARE RE-EVALUATION NOTE: WOUND CARE DONE WITH PRIMARY RN. DONE AT 4:00 PM. ON 10/14/[address] REED, TODAY'S ASSESSMENT INFECTED WOUND REMAINS AND NEW CALCIPHYLAXIS AREAS DEVELOPING. DR. EDWARDS VISITED AND CHECKED THE WOUNDS IN THE MIDDLE OF WOUND CARE, POC DISCUSSED AND SUGGEST HYPERBARIC OXYGEN THERAPY MAY BE OTHER WOUND CARE CHOICE AND TRANSFERE TO [facility]. HOWEVER, PT.IS NOT STABLE AT THIS TIME DUE TO INFECTION, TRACHEOSTOMY AND INSURANCE MAY NOT COVER PLUS IT IS THE OUT PATIENT THERAPY. PER DR. EDWARDS DAUGHTER WAS TOLD BY HIM. DAUGHTER VISITED AT THE END OF WOUND CARE AND EXPLAINED BY WOUND CARE NURSE ABOUT [facility] AND SUGGESTIONS, PER DAUGHTER, SHE SAID SHE WAS TOLD BY DR. EDWARDS, BUT INSURANCE DOESN'T APPROVE. POC DISCUSSED TO DAUGHTER FAR FOR WOUND CARE POINT OF VIEW PALLIATIVE WOUND CARE WHICH SHIFT THE FOCUS ON WOUND SYMPTOM MANAGEMENT VERSUS WOUND HEALING. PER DAUGHTER SHE IS WILLING TO GET MORE INFORMATION ABOUT PALLIATIVE CARE, PRIMARY RN AND CHARGE NURSE NOTIFY, PER CN THAT DR. NGUYEN WILL TALK TO DAUGHTER. RECOMMENDATIONS TO CHANGE DRESSING DAILY AND PRN IF SOILING. ALSO, RECTAL TUBE FOR LOOSE BM MOISTURE CONTROL. PREVENT NEW SKIN TEARS PLEASE USE PAD TO COVER LIMBS AND HOLD/ TURN WITH PAD TO AVOD PULLING SKIN. ALL ABOVE RECOMMENDATIONS DISCUSSED WITH PRIMARY RN. (PLEASE SEE WOUND CARE ORDERS ON EMR) INTEGUMENTARY: -MULTIPLE ECCHYMOSIS TO FRONT CHEST AND UPPER EXTREMITIES, SKIN DRYNESS AND FRAGILE -MULTIPLE SKIN TEARS TO UPPER EXTREMITIES: PT. WITH INCREASE NUMBER OF SKIN TEARS TO LIMBS AND TRUNK OF BODY FROM NEW /EXISITING PURPURA. RIGHT FOREARM MULTIPLE SKIN TEARSWITH LARGEST TO 1X1CM SUPERFICIAL DEPTH, WOUND BED ARE MOIST AND CLEAN, SMALL AMOUNT OF SANGENOUS DRAINAGE, NO ODOR, STAR-WOUND SKIN WITH ERYTHEMA -LEFT FOREARM MULTIPLE SKIN TEARS WITH DRY SCABS -LEFT HAND HEMATOMA WITH PARTIALLY DRY SCAB 4X3CM SKIN INTACT STAR WOUND SKIN WITH MULTIPLE DRY SCABS -FOREHEAD DRY ABRASION 1.8X2CM, STAR WOUND SKIN INTACT -INTERTRIGO TO BREAST FOLDS REDNESS, SKIN INTACT AND LOWER ABDOMENAL FOLDS AND NECK AREAS RED AND MOIST, NO ODOR, INTERDRY CLOTH APPLY MULTIPLE UN-STAGEABLE CALCIPHYLAXIS ULCERATIONS FOLLOW -LEFT LATERAL SHOULDER 4X3CM BROWN SCAB -UPPER CHEST CALCIPHYLAXIS ULCERATIONS 2X3CM BLACK STABLE NECROTIC TISSUE -ABDOMINAL WALL CALCIPHYLAXIS ULCERATIONS WITH MULTIPLE BLACK STABLE ESCHAR TO LLQ 6X2 CM, UPPER/RLQ ABD 1.5X5CM , LOWER/RLQ 1X2 CM AND THE MID ABDOMINA WALL INFECTED NECROTIC WOUND, 9X13CM DEPTH UTD CKCM167% BLACK ESCHAR TISSUE AND WOUND BED IS DRY WITH NO ODOR, WOUND SKIN INTACT -RIGHT GROINS EXTENDED TO RIGHT ANTERIOR MEDIAL THIGH CALCIPHYLAXIS ULCER 13X23 CM DEPTH UTD, WOUND BED IN BROWN/YELLOWISH SLOUGH WITH GRANULATING TISSUE IN THE CENTER OF WOUND BED, MOIST, NO ODOR, WOUND EDGE ROLLED, STAR WOUND SKIN ERYTHEMA. -LEFT GROINS EXTENDED TO LEFT ANTERIOR MEDIAL THIGH CALCIPHYLAXIS ULCERATION 15X25 CM, DEPTH UTD, WOUND BED WITH YELLOW SLOUGH AND EOUND EDGE WITH BLACK ESCHAR TISSUE AND CENTER OF WOUND BED WITH RED TISSUE SMALL AMOUNT SEROUS DRAINAGE, MILD ODOR, STAR WOUND SKIN ERYTHEMA. -RIGHT CALF UN-STAGEABLE CALCIPHYLAXIS ULCERATIONS SITE 16X20.5CM DEPTH UTD, WOUND BED ARE BLACK/ BROWN IN COLOR WITH YELLOW SLOUGH 5X4CM TO WOUND EDGE AT 5 O'CLOCK DIRECTION, STAR WOUND SKIN INTACT. -PREVIOUSLY RIGHT LOWER EXTREMITIES MULTIPLE UN-STAGEABLE CALCIPHYLAXIS SMALLER ULCERATIONS MERGED TOGETHER WITH RIGHT CALF WOUND INTO ONE LARGE WOUND. -LEFT CALF UN-STAGEABLE CALCIPHYLAXIS ULCERATIONS DISTAL SITE 26X24 CM DEPTH UTD, WOUND BED ARE 100% BROWN AND YELLOW SLOUGH TO STAR WOUND SKIN WITH 2X5CM BLACK NECROTIC TISSUE -LEFT LATERAL THIGH, TO LEFT TROCHANDAR EXTENDED TO LEFT BUTTOCK UN-STAGEABLE CALCIPHYLAXIS ULCERATIONS MULTIPLE WOUNDS, WOUND EDGES MERGED TOGETHER WITH ENTIRE AREA MEASUREMENT [id number], DEPTH UTD, WOUND BED 80% BLACK AND BROWN NECROTIC TISSUE WITH 20% RED TISSUE ON LEFT BUTTOCK WOUND BED. MODERATE AMOUNT PURULENT, DRAINAGE, FOUL ODOR WITH STAR WOUND SKIN ERYTHEMA -RIGHT TROCHANDAR EXTENDED TO BUTTOK UN-STAGEABLE CALCIPHYLAXIS ULCERATIONS [id number] WOUND BED 80% BROWN THICK SLOUGH TISSUE, 20% PALE PINK TISSUE MODERATE AMOUNT PURULENT DRAINAGE, FOUL ODOR , WOUND EDGE THICK BLACK/BROWN ESCHAR WITH STAR WOUND SKIN INTACT -PREVIOUS MOISTURE ASSOCIATE DERMATITIS TO SACRALCOCCYX RESOLVED. -SKIN TEAR FROM TAPE TO RIGHT INNER BUTTOCK 3X1CM SUPERFICIAL DEPTH, WOUND BED MOIST, STAR-WOUND SKIN INTACT, OPTIFOAM IN PLACE -BLANCHABLE REDNESS BILATERAL HEELS, SKIN INTACT
--- NOTE | 2019-10-19 18:24 | NUR ---
FLEXISEAL INSERTED TO RECTUM ORDERED BECAUSE PATIENT HAD BM X3 WITH LIQUID STOOL. TOTAL BEDBATH GIVEN TO THE PATIENT; LINEN AND GOWN CHANGED. CORINE CATH SITE CARE PROVIDED TO THE PATIENT.
--- NOTE | 2019-10-19 19:00 | NUR ---
RECEIVED REPORT FROM PHIL MENENDEZ. NURSING UPDATES. POC DISCUSSED. SEE ASSESSMENT FOR ASSESSMENT.
--- NOTE | 2019-10-19 19:26 | NUR ---
REPORT GIVEN TO MARIA ISABEL DUNN RN.
--- NOTE | 2019-10-19 21:15 | NUR ---
ASSUMED CARE OF PT AT THIS TIME. PT TRCAKS W/ VERBAL SIMULI. SHE DOES NOT FOLLOW COMMANDS. W/ TRACH TO VENT. W/ GT FEEDING OF GLUCERNA AT 60 CC/HR . NO GT RESIDUALS NOTED. PT W/ MULTIPLE WOUNDS, SCABBED WOUNDS TO BUE/BLE AND TRUCK. DRESSINGS CDI. W/ RECTAL TUBE IN PLACE W/ SMALL AMOUNT OF WATERY STOOL. W/ RT FEMORAL HD CATH NOTED. NO OTHER IV ACCESS NOTED. PT ON ISOGEL MATTRESS. WILL CONTINUE W/ CARE.
--- NOTE | 2019-10-19 22:00 | NUR ---
REPORT GIVEN TO SILVER MINER. NURSING UPDATES. POC DISCUSSED. RELIEVED OF CARE.
[2019-10-20] VITALS (19 sets, daily range): BP systolic 103–144; BP diastolic 54–75
--- NOTE | 2019-10-20 02:57 | NUR ---
PT ASLEEP BUT OPENS EYES TO TACTILE AND VERBAL STIMULI. SHE REMAINS CALM AND APPEARS COMFORTABLE.
--- NOTE | 2019-10-20 04:01 | NUR ---
PT REMAINS CALM. SHE OPENS HER EYES TO VERBAL AND TACTILE STIMULI. STILL TRACKS SOMETIMES BUT DOES NOT FOLLOW COMMANDS. TRACH REMAINS INTACT AND ON VENT W/ SAME SETTINGS. NO EPISODE OF RESP. DISTRESS. PT SUCTIONED BY RT NEEDED. PT TOLERATING GT FEEDING AT 60 CC/HR. NO RESIDUALS NOTED. PT HAD BM THIS SHIFT. CLEANED PT , GOWN CHANGED AND KEPT HER WARM AND COMFORTABLE. ORAL CARE DONE PER PROTOCOL. PT'S EXTREMITIES AND PRESSURE POINTS OFFLODED. ALL NEEDS ATTENDED TO. CONTACT ISOLATION MAINTAINED.
--- NOTE | 2019-10-20 05:42 | NUR ---
PT HAD A LARGE BLOODY LIQUID BM AT THIS TIME . PT GIVEN BED BATH. SOME SOILED DRESSING ON WOUNDS CHANGED. LINENS CHANGED. GOWN CHANGED. PT KEPT WARM AND COMFORTABLE.
--- NOTE | 2019-10-20 07:16 | NUR ---
REPORT GIVEN TO AM NURSE.
[2019-10-20 07:41] LABS: PLATELET COUNT 132 x10^3mcL (130-400)
--- NOTE | 2019-10-20 07:45 | NUR ---
RECEIVED AWAKE, TRACKS MOVEMENTS BUT NON VERBAL. PT DOES NOT FOLLOW COMMANDS. IN NO ACUTE DISTRESS, O2 SATS 100% ON CURRENT VENT SETTING OF VT-550,FIO2-25, RATE 14 AND PEEP OF 5.PT TOLERATING WELL WITH GTUBE FEEDING. NO RESIDUAL NOTED. IVF INFUSING VIA PIGTAIL AT [facility]. SITE WITH DRESSING INTACT. PT WITH RECTAL TUBE IN PLACE. NOTED WITH DARK/BLACK LIQUID STOOL. PER DRAWER UPFITTER REPORT PT HAS ANY EPISODE OF BLOODY STOOLS IN RECTAL TUBE. NO BRIGHT RED STOOL AT THIS TIME. PT ON AIR MATTRESS, APPEARS COMFORTABLE. WILL CONTINUE WITH PLAN OF CARE.
[2019-10-20 07:50] LABS: BILIRUBIN TOTAL 0.7 mg/dL (0.20-1.00); CALCIUM 8.9 mg/dL (8.5-10.1); CARBON DIOXIDE 19.3 mmol/L (21-32); POTASSIUM SERUM 4.5 mmol/L (3.5-5.1)
[2019-10-20 08:11] LABS: ALBUMIN 1.3 g/dL (3.4-5.0); CREATININE SERUM 4.1 mg/dL (0.6-1.0); TOTAL PROTEIN, SERUM 5.4 g/dL (6.4-8.2)
[2019-10-20 08:14] LABS: RED CELL DISTRIBUTION WIDTH 20.4 % (11.5-14.5)
--- NOTE | 2019-10-20 11:30 | NUR ---
ATTEMPTED TO CALL DR. NGUYEN X2 FOR LAB RESULTS BUT NO CALL BACK. WILL PAGE HIM AGAIN. PT RESTING IN NO ACUTE DISTRESS. ON CPAP MODE SATS 98%.
--- NOTE | 2019-10-20 11:55 | NUR ---
Follow-up Nutrition Assessment: IC06/A KATELYN GARG MR Dx: Sepsis, aspiration PNA PMHx: ESRD on HD (M-[id number]), HTN, DM, morbid obesity, peripheral vascular disease, hypoalbuminemia, necrotic left groin wound Labs: (10/20) BG 207H, CREAT 4.1H, BUN 75H, ALB 1.3L, WBC 21.6H, AST 143H, HGB 6.8L Meds: D 50%, Humulin, lantus, levophed, norco, Procrit, Pepcid, zosyn, nephro-vicky Diet: (PEG) Glucerna 1.2 @ 20 ml/hr, goal 60 ml/hr FWF 30 ml Q6H PO Intake: NPO Weights: (10/16) 112 kg, (10/18) 108.5 kg, (10/20) 106.3 kg - fluctuations d/t HD, edema I/Os: (10/19) 2333/not documented (2333) Skin: multiple ulcers and skin tears, new dressing in place James: 11 Edema: 3+ edema BLE, 2+ R hand GI: rectal tube in place, black stool Last BM: 10/20 RD Note (10/20): Patient has trach to vent and PEG tube. Per RN Guillermina, pt is receiving Glucerna 1.2 @ 60 ml/hr and is tolerating it without any residuals. Patient is on HD. Per progress note (10/15), New Bubba placed in right groin and wound debridement on (10/14). No N/V/D/C at this time. Estimated Nutritional Needs Based on body weight (72 kg) Energy: 6382-5122 vs 1987 (30-35 kcal/kg vs PSU for HD) Protein: 86- 101 g/day (1.2-1.4 g/kg for HD) Fluid: 1247-0533 mL/day (1 mL/kcal) or per MD Nutrition Diagnosis: 1.Increased nutrient needs related to wounds, HD as evidenced by estimated calorie and protein needs. (ongoing). 2. Inadequate enteral nutrition infusion related to low TF rate as evidenced by current TF rate meeting <75% estimated calorie and protein needs. (improved- rate changed to 60 ml/hr) Intervention: 1. Recommend continuing Glucerna 1.2 @ 20 ml/hr, goal 60 ml/hr, advance Q4H, FWF 30 ml Q6H. This will provide 1730 kcal and 86 g protein. (per nephrologists' previous recommendations). 2. Recommend resuming orders for Vitamin C and zinc for wound healing. Discussed with PHIL Sarmiento, she will communicate with the doctor. Monitor/Evaluate: Goal: Have pt meet at least 75% of estimated needs Monitor: TF intake/ tolerance, Labs, GI function F/U in 3-5 days as moderate risk 10/23-
[2019-10-20 13:23] LABS: BAND NEUTROPHIL 8 % (0-10); MONOCYTE 2 % (0-7); SEGMENTED NEUTROPHILS 84 % (37-75)
--- NOTE | 2019-10-20 13:34 | NUR ---
DR. NGUYEN RETURNED A CALL, MADE AWARE OF ABNORMAL LABS. SEE ORDERS.
[2019-10-20 13:47] LABS: PLATELET MORPHOLOGY PLATELETS DECREASED; rbc morphology (normal/abnorm) ABNORMAL (NORMAL)
--- NOTE | 2019-10-20 14:44 | NUR ---
DR. CRUZ CALLED AND MADE AWARE OF POSSIBLE GI BLEED WITH HEMOGLOBIN OF 6.8. DR. CRUZ TO SEE PATIENT. WILL CONTINUE TO MONITOR.
--- NOTE | 2019-10-20 15:07 | NUR ---
AWAKE, NO DISTRESS NOTED. NO S/S OF DISCOMFORT. PT ON AIR MATRESS BED WITH AUTO REPOSITIONING.
--- NOTE | 2019-10-20 17:37 | NUR ---
HEMODIALYSIS IN PROGRESS. PT RECEIVING 1ST UNIT PRBC BY DIALYSIS NURSE. TOL. [place]. VS LONNIEL.
--- NOTE | 2019-10-20 18:51 | NUR ---
2 UNITS PRBC GIVEN BY DIALYSIS NURSE. PT TOLERATED WELL. NO ACTIVE REACTION NOTED. HD STILL IN PROGRESS. PT IN NO ACUTE RESP. DISTRESS. BACK TO AC MODE WITH PREV. VENT SETTING. O2 SATS 97%.
--- NOTE | 2019-10-20 19:30 | NUR ---
REC'D REPORT FROM KARIN VILLARREAL TO ASSUME CARE. PT TRACH'D WITH NO SEDATION. UNABLE TO TRACK EYES, UNABLE TO FOLLOW COMMANDS. PERRLA NOTED. TRACH PORTEX SIZE [address] RIGHT SIDE OF MANDIBLE NOTED RED AND WARM. TRACH TO VENT: AC MODE RATE 14, TV 550, PEEP 5, FIO2 25%. CHEST RISE EQUAL AND SYMMETRICAL. LUNG SOUNDS COARSE CRACKLES/RHONCHI BUL, DIM BASES. RECRUITING SCHEDULER IN PLACE SHOWING 1ST DEGREE AVB HR 92, BP 112/66 MAP 81. CHEST WALL STABLE. PULSES PALPABLE AND WEAK X4 EXTREMITIES. CAP REFILL 3 SECS. BLE/RUE 2+ PITTING EDEMA NOTED. R FEMORAL ALIVIA CATH IN PLACE, DSG CDI. PEG TUBE IN PLACE. GLUCERNA INFUSING @ 60ML/HR, FWF 30ML Q6H. GRV=10ML REPLACED. PT TOLERATING WELL. ABD OBESE AND SOFT. BOWEL SOUNDS ACTIVE. NO N/V NOTED. INCONTINENT OF URINE, GOOD STAR CARE PROVIDED. LABIAL EDEMA NOTED. PT BEDBOUND. PT OBESE. TURNED AND REPOSITIONED Q2H FOR PRESSURE RELIEF. PT WITH MULTIPLE NECROTIC WOUNDS; SEE CHART. CONTACT PRECATUIONS APPLIED AND MAINTAINED. ALL NEEDS MET AT THIS TIME. WILL CONTINUE TO MONITOR.
--- NOTE | 2019-10-20 19:46 | NUR ---
HD STILL IN PROGRESS, PT TOLERATING WELL. NO CHANGES IN VS. NO ACTIVE REACTION TO BLOOD TRANSFUSION. WILL BE ENDORSED TO INCOMING SHIFT.
--- NOTE | 2019-10-20 20:29 | NUR ---
HD COMPLETE, 2.4 L OUT. BP 113/69.
--- NOTE | 2019-10-20 23:00 | NUR ---
ATTEMPTED TO CALL LILIAM (DAUGHTER) FOR POSSIBLE GI PROCEDURES TMRW, LEFT MESSAGE WITH CALL BACK NUMBER.
[2019-10-21] VITALS (15 sets, daily range): BP systolic 117–150; BP diastolic 53–83
--- NOTE | 2019-10-21 00:30 | NUR ---
LILIAM DAUGHTER CALLED BACK, MADE AWARE REGARDING PT HAVING DARK TARRY STOOL WITH FLEXISEAL IN PLACE. MADE AWARE PT HAS POSSIBLE GI BLEED AND WILL HAVE COLONOSCOPY AND EGD IN AM WITH DR CRUZ. ALL QUESTIONS AND CONCERNS ADDRESSED. TELEPHONE CONSENT OBTAINED FOR EGD AND COLONOSCOPY IN AM, WITNESSED BY MONA VILLARREAL.
--- NOTE | 2019-10-21 03:00 | NUR ---
TUBE FEEDING TURNED OFF AT THIS TIME FOR POSSIBLE PROCEDURE IN AM
[2019-10-21 05:14] LABS: BILIRUBIN DIRECT 0.4 mg/dL (0.0-0.2); BILIRUBIN TOTAL 0.66 mg/dL (0.20-1.00); CALCIUM 9.1 mg/dL (8.5-10.1); CARBON DIOXIDE 17.2 mmol/L (21-32); CREATININE SERUM 3.7 mg/dL (0.6-1.0); POTASSIUM SERUM 3.9 mmol/L (3.5-5.1)
[2019-10-21 05:15] LABS: ALBUMIN 1.4 g/dL (3.4-5.0); TOTAL PROTEIN, SERUM 5.7 g/dL (6.4-8.2)
[2019-10-21 05:16] LABS: PLATELET COUNT 139 x10^3mcL (130-400)
[2019-10-21 05:49] LABS: RED CELL DISTRIBUTION WIDTH 19.6 % (11.5-14.5)
[2019-10-21 05:50] LABS: BAND NEUTROPHIL 10 % (0-10); SEGMENTED NEUTROPHILS 85 % (37-75)
[2019-10-21 05:51] LABS: PLATELET MORPHOLOGY PLATELETS DECREASED; rbc morphology (normal/abnorm) ABNORMAL (NORMAL)
--- NOTE | 2019-10-21 06:18 | NUR ---
XRAY AT BEDSIDE
--- NOTE | 2019-10-21 08:00 | NUR ---
AWAKE BUT UNABLE TO TRACK; TRACH TO VENT ON AC MODE; TV 550; FI02 25%, PEEP 5, RATE 14. NO SOB; LUQ ABD PEG IS INTACT; FEEDING IS OFF DUE TO POSSIBLE EGD AND COLONOSCOPY; PT IS OBESE; BUE AND BLE EDEMA NOTED; MULITPLE WOUNDS NOTED AND COVERED WITH DSG; PHOTOS IN CHART; FLEXISEAL PATENT AND DRAINING TARRY WATERY STOOLS; RT FEMORAL CENTRAL LINE FOR HEMO AND IVF. IVF NSS AT 5 L/HR INFUSING; NSG ASSESSMENT DONE; TURN Q HRS; WILL CONTINUE TO MONITOR STATUS.
--- NOTE | 2019-10-21 09:30 | NUR ---
DR. Pratik CRUZ CALLED TO INFORM OF THE EGD AND COLONOSCOPY TO BE DONE; HE WAS MADE AWARE OF THE SIGNED CONSENTS AND LATEST H/H.
--- NOTE | 2019-10-21 10:30 | NUR ---
DR. Pratik CRUZ CALLED TO INFORM THAT EGD AND COLONOSCOPY IS CANCELLED FOR TODAY AND TO RESUME FEEDING.
--- NOTE | 2019-10-21 12:00 | NUR ---
AWAKE BUT REMAIN NONVERBAL AND UNABLE TO TRACK. RESPONDS NONVERBALLY TO PAINFUL STIMULI; NO SOB; REMAIN ON TRACH TO VENT AT SAME SETTINGS. NO SOB AND TOLERATING SETTINGS. ALL LINES AND TUBES SECURE AND PATENT (PEG, RT FEMORAL LINE, TRACH, FLFEXISEAL). NSG ASSESSMENT DONE; WILL CONTINUE TO MONITOR STATUS.
--- NOTE | 2019-10-21 19:04 | NUR ---
NO NEW ACUTE CHANGES IN STATUS. NO SOB THIS SHIFT; SAME VENT SETTINGS THIS SHIFT.WILL CONTINUE TO MONITOR STATUS. WOUND CARE DONE ORDERED;
--- NOTE | 2019-10-21 19:45 | NUR ---
RECEIVED PT AWAKE WITH EYES OPEN AND SOME TRACKING NOTED.TRACHEOSTOMY TO VENT WITH SETTINGS TV 540,RATE 27,PEEP 5 FI02 25%.O2 SAT @ 100%.NO SEDATION NOTED AT THIS TIME.NO ATTEMPTS OF PULLING TUBES.DIMINISHED BREATHSOUNDS.NO CONGESTION NOTED.GTFEEDING GLUCERNA @ 60 ML INFUSING .NO RESIDULA NOTED.HOB KEPT ELEVATED.R FEMORAL CATH IN PLACED WITH PIGTAIL.MULTIPLE WOUNDS NOTED WITH DRESSING CDI.WILL CONTINUE TO MONITOR.
[2019-10-22] VITALS (19 sets, daily range): BP systolic 64–129; BP diastolic 17–74
--- NOTE | 2019-10-22 | NUR ---
PT AWAKE,EYES OPEN AN TRACKS AT TIMES.TRACHEOSTOMY TO VENT AND TOLERATING WELL.O2 SAT @ 100%.NPO AT THIS TIME FOR SCHEDULED EGD/COLONOSCOPY TODAY.FLEXISEAL TO BLACKISH WATERY COLORED STOOL.GT CLAMPED AT THIS TIME.WILL CONTINUE TO MONITOR.
--- NOTE | 2019-10-22 01:45 | NUR ---
PT NOTED WITH REDDISH COLORED BM ,SOME CLOTTED LEAKING FROM FLEXISEAL FLUSHED AT THIS TIME.GOOD PERICARE RENDERED.CHANGED SOME SOILED WOUND DRESSING TO THIGH AND BLE.WELL TOLERATED PROCEDURE.WILL CONTINUE TO MONITOR.
--- NOTE | 2019-10-22 03:48 | NUR ---
PT ASLEEP AT THIS TIME BUT EASILY AROUSABLE TO VERBAL AND TACTILE STIMULI.BREATHING EASY AND NON-LABORED.TRACHEOSTIOMY TO VENT WITH SAME SETTINGS.O2 SAT @ 100%.NO S/S OF PAIN OR DISCOMFORT.GT CLAMPED.NPO FOR SCHEDULED EGD/COLONOSCOPY.FLEXISEAL TO BLACKISH WATERY OUTPUT.WILL CONTINUE TO MONITOR.
[2019-10-22 06:08] LABS: PLATELET COUNT 148 x10^3mcL (130-400)
--- NOTE | 2019-10-22 06:13 | NUR ---
PT ON AND OFF SLEEPING PATTERN.BREATHING EASY AND NON-LABORED.TRACHEOSTOMY TO VENT WITH SAME SETTINGS.GT CLAMPED.NO ASE NOTED FROM ZOSYN AND ZYVOX IV ATB.FLEXISEAL DRAINING TO DARK RED COLORED OUTPUT.NPO AT THIS TIME FOR SCHEDULED EGD.MORNING CARE RENDERED.ALL NEEDS ANTICIPATED.WILL CONTINUE TO MONITOR.
[2019-10-22 06:38] LABS: BILIRUBIN DIRECT 0.36 mg/dL (0.0-0.2); BILIRUBIN TOTAL 0.7 mg/dL (0.20-1.00); CALCIUM 9.1 mg/dL (8.5-10.1); CARBON DIOXIDE 14.7 mmol/L (21-32); POTASSIUM SERUM 4.8 mmol/L (3.5-5.1)
[2019-10-22 06:48] LABS: RED CELL DISTRIBUTION WIDTH 19.6 % (11.5-14.5)
[2019-10-22 06:50] LABS: ALBUMIN 1.2 g/dL (3.4-5.0); TOTAL PROTEIN, SERUM 4.8 g/dL (6.4-8.2)
--- NOTE | 2019-10-22 06:50 | NUR ---
CALLED DR. Pratik CRUZ AND REPORTED LATEST H/H RESULT .01/24 AND MADE AWARE OF STOOL TO DARK RED COLORED OUTPUT WITH CLOTS.GIVE 2 UNITS PRBC NOW.WILL ORDER AND ENDORSE TO AM NURSE.
--- NOTE | 2019-10-22 07:25 | NUR ---
ENDORSED PT TO MORNING NURSE.ALL QUESTIONS ANSWERED.IN NO DISTRESS.
--- NOTE | 2019-10-22 08:32 | NUR ---
GI LAB CALLED, REPORT GIVEN TO PHIL WILLIAM. PROCEDURE TIME HAS NOT BEEN SCHEDULED YET.
--- NOTE | 2019-10-22 09:10 | NUR ---
ONE UNIT PRBC STATED. VS: 99.1, 105, 32, 117/64, O2 SAT AT 100% ON VENTILATOR. WILL CONTINUE TO MONITOR.
--- NOTE | 2019-10-22 09:25 | NUR ---
PRBC RUNNING AT 30CC PER MINUTE. NO S/S OF REACTION NOTED. RATE INCREASED TO 150ML. VS: 98.5, 107, 108/71, 31, O2 SAT 100%. WILL CONTINUE TO MONITOR.
--- NOTE | 2019-10-22 09:30 | NUR ---
PT RECEIVING EGD AT THIS TIME.
[2019-10-22 10:40] LABS: MONOCYTE 3 % (0-7); SEGMENTED NEUTROPHILS 87 % (37-75)
[2019-10-22 10:42] LABS: rbc morphology (normal/abnorm) ABNORMAL (NORMAL)
--- NOTE | 2019-10-22 10:54 | NUR ---
REPORTED TO DR. FAULKNER THAT PT HAS HAD ACTIVE BLEEDING AND AN EGD HAS BEEN PERFOMED. PT HGB IS 6.3 AND THE PT IS RECEIVING 2 UNITS PRBCS. THE PT HAS ONLY ONE ACCESS AVAILABLE ON HER L THIGH ALIVIA CATH. THAT ACCESS IS BEING USED TO TRANSFUSE BLOOD AND NO OTHER ACCESS IS AVAILABLE. DR. FAULKNER STATED THAT PT IS TO HAVE A PICC LINE PLACE. ORDER NOTED AND CARRIED OUT. THE PT'S DAUGHTER LILIAM WHO GAVE CONSENT FOR PROCEDURE. PHIL TAYLOR CHARGE NURSE VERIFIED CONSENT.
--- NOTE | 2019-10-22 11:39 | NUR ---
CALLED AND UPDATED DAUGHTER LILIAM IN REGARDS TO PT'S STATUS. PT WEAK, PALE AND NIBP REMAINS LOW; CURRENT SBP 65 WITH FIRST UNIT OF PRBC INFUSING AT 200 ML/HR. LILIAM MADE AWARE PRBCS ARE PRIORITY OVER PRESSOR AT THIS TIME PT NEEDS THE VOLUME. MENTIONED TO DAUGHTER WE CONTACTED PICC LINE NURSE HOWEVER HE IS BUSY AT ANOTHER FACILITY. DAUGHTER LILIAM VERBALIZED UNDERSTANDING AND STATED SHE WILL BE IN LATER TODAY.
--- NOTE | 2019-10-22 12:05 | NUR ---
PRBC COMPLETED. NO S/S OF INFUSION REACTION. VS: 98.2F, HR 61, B/P 75/25 (43), RR 22, O2 SAT AT 100% ON VENTILATOR. AWAITING PICC PLACEMENT TO START LEVOPHED. WILL CONTINUE TO MONITOR.
--- NOTE | 2019-10-22 12:30 | NUR ---
SECOND UNIT PRBC STATED AT 30CC. VS; 98.5, 61, 21, 68/20 (42), 99% ON VENTILATOR. WILL CONTINUE TO MONITOR.
--- NOTE | 2019-10-22 12:45 | NUR ---
PRBC RATE INCREASED TO 150ML. NO S/S OF REACTION NOTED. VS: 98.3, 58, 70/21 (42), , 02 SAT AT 100%. WILL CONTINUE TO MONITOR.
--- NOTE | 2019-10-22 13:20 | NUR ---
SPOKE WITH PT'S DAUGHTER LILIAM WHO CONFIRMED SHE SPOKE WITH DR. FAULKNER IN REGARDS TO RISK AND BENEFITS OF PICC LINE CONSENT. PRIMARY RN MADE AWARE, WILL CONTACT PICC LINE RN
--- NOTE | 2019-10-22 13:22 | NUR ---
RECEIVED VERBAL CONSENT FROM DR. EDWARDS THAT PT MAY HAVE PICC LINE PLACED. PHIL TAYLOR CHARGE NURSE VERIFIED CONSENT WELL THIS RN.
--- NOTE | 2019-10-22 13:32 | NUR ---
PT BLOOD INFUSING TO THE ONLY PORT AVAILABLE. IV ZYVOX HELD AT THIS TIME. PT HYPOTENSIVE. ONCE BLOOD IS COMPLETED LEVOPHED WILL BE STARTED TO OPEN LINE IN ALIVIA CATH. PICC LINE PLACEMENT IS PENDING.
--- NOTE | 2019-10-22 14:08 | NUR ---
SPOKE TO INES RN PICC LINE NURSE. INES STATED HIS ETA IS 1500.
--- NOTE | 2019-10-22 14:15 | NUR ---
SECOND UNIT OF PRBC COMPLETED. NO S/S OF REACTION NOTED. VS: 98.6, 62, 97/26 (55), 20, 02 SAT 100%.
--- NOTE | 2019-10-22 14:32 | NUR ---
NIBP 106/26 MAP 56 LEVOPHED TITRATED TO 15 MCG/MIN. WILL CONT TO MONITOR
--- NOTE | 2019-10-22 15:10 | NUR ---
PT RECEIVING PICC LINE PLACEMENT AT THIS TIME. TIME OUT PERFORMED. INFORMED CONSENT AND PICC LINE FORMS COMPLETED.
--- NOTE | 2019-10-22 15:19 | NUR ---
PICC LINE PLACEMENT COMPLETED TO BRIDGER. STAT CXR ORDERED FOR CONFIRMATION.
--- NOTE | 2019-10-22 16:15 | NUR ---
SECOND ATTEMPT AT PICC LINE PLACE OCCURING AT THIS TIME.
--- NOTE | 2019-10-22 16:23 | NUR ---
PICC LINE PLACEMENT TO BRIDGER CONFIRMED BY XRAY. ORDER FOR OK TO USE PICC LINE HAS BEEN PLACED.
--- NOTE | 2019-10-22 16:48 | NUR ---
NIBP 98/26 MAP 50, LEVOPHED TITRATED TO 30MCG/MIN. WILL CONT TO MONITOR.
--- NOTE | 2019-10-22 17:11 | NUR ---
ZYVOX IVPB STARTED. CARAFATE GIVEN VIA PEG-TUBE. 15 ML RESIDUAL ASPIRATED FROM TUBE AND REPLACED. PEG-TUBE FLUSHED WITH 30CC WATER BEFORE AND AFTER ADMINISTRATION. PT HOB ELEVATED 3O DEGREES.
--- NOTE | 2019-10-22 17:31 | NUR ---
JESIKA-SYN INITIATED AT THIS TIME AT 75 MCG/MIN. NIBP 79/40 MAP 53. PRIMARY RN MADE AWARE.
--- NOTE | 2019-10-22 17:47 | NUR ---
PT MAP (60) B/P 90/25, NEOSYNPHRINE INCREASED TO 100MEQ PER MIN.
--- NOTE | 2019-10-22 17:56 | NUR ---
PT HEMODYNAMICALLY UNSTABLE FOR WOUND DRESSING CHANGES THROUGHOUT DAY SHIFT PT HAS BEEN ON IV PRESSORS AND UNSTABLE WITH LOW BP.
--- NOTE | 2019-10-22 18:02 | NUR ---
PT'S MAP 59, B/P 90/52, HR 92. JESIKA SYNEPHRINE INCREASED TO 175 MEQ/HOUR.
--- NOTE | 2019-10-22 18:35 | NUR ---
PT'S MAP (56), B/P 114/27, HR 91, RR 21. NEOSYNEPHRINE INCREASED TO 200MEQ.
--- NOTE | 2019-10-22 18:55 | NUR ---
PT IS AAOX1 TO SELF, NONVERBAL, NO INTENTIONAL MOVEMENT, RESPONDS TO PAINFUL STIMULI. TELE [address] READING 1ST DEGREE AVB. PT HAS IV LEVO RUNNING AT 30MEQ/MIN TO R THIGH ALIVIA CATH. SITE WNL. IV NEOSYNEPHRINE RUNNING AT 200MEG/MIN TO R UPPER SHOULDER PICC LINE. RECTAL TUBE IN REMOVED WITH 500ML OUTPUT. NEW BAG PLACED. GLUCERNA 1.2 RUNNING TO PEG TUBE AT 60 CC/HOUR WITH 30ML WATER FLUSH Q 6 HOURS. PEG DRESSING REMOVED, SITE CLEANSED WITH N/S, PATTED DRY AND NEW DRESSING APPLIED. PICC LINE WITH PRESURE DRESSING IN PLACE BOTH PORTS PATENT. ALIVIA CATH 3 LUMENS ON WITH N/S LOCKED, PATENT, FLUSHED WITH GOOD BLOOD RETURN. PT ON VENT, SETTINGS TIDAL VOL-391, RATE 14, PEEP 5, PSV 12, %02- 30. RESP EVEN, SHALLOW AND UNLABORED. NO DISTRESS NOTED. BED IN LOWEST POSITION. LOWEST POSITION. DAUGHTER AT BEDSIDE. WILL ENDORSE ALL CARE TO NOC RN.
--- NOTE | 2019-10-22 19:05 | NUR ---
RECEIVED REPORT FROM GABRIELE VILLARREAL. ASSUMING ALL CARE
--- NOTE | 2019-10-22 19:18 | NUR ---
SPOKE TO DR. MARQUEZ VIA TELEPHONE. UPDATED ON PT'S CURRENT STATUS. MADE AWARE PT'S CURRENT NIBP 88/18 MAP 51. PT REMAINS ON LEVOPHED INFUSING @ 30 MCG/MIN AND NEOSYNEPHRINE INFUSING @ 225 MCG/MIN. PER DR. MARQUEZ, ORDER ABG AT THIS TIME WELL VASOPRESSIN. ORDER NOTED AND CARRIED OUT
--- NOTE | 2019-10-22 19:38 | NUR ---
NOTIFIED RT OF RECENT ABG ORDER. PER RT, WILL COME DOWN TO DRAW ABG SOON POSSIBLE.
--- NOTE | 2019-10-22 19:45 | NUR ---
NIBP 80/27 MAP 44. NEOSYNEPRHINE GTT TITRATED TO 250 MCG/MIN
--- NOTE | 2019-10-22 19:45 | NUR ---
VASOPRESSIN INITATED AT THIS TIME @ 0.01 UNITS/MIN. NIBP MAP 44
--- NOTE | 2019-10-22 20:00 | NUR ---
NIBP 45/22 MAP 31. VASOPRESSIN GTT INCREASED TO 0.02 UNITS/MIN
--- NOTE | 2019-10-22 20:20 | NUR ---
SPOKE TO DR. MARQUEZ VIA TELEPHONE. MADE AWARE PT'S CURRENT NIBP 73/26 MAP 44. NEOSYNEPRHINE GTT INFUSING @ 300 MCG/MIN, LEVOPHED GTT INFUSING @ 30 MCG/MIN AND VASOPRESSIN GTT INFUSING @ 0.02 UNITS/MIN. MADE AWARE RT IS AT BEDSIDE AT THIS TIME TO DRAW ABG. PER DR. MARQUEZ, HE WILL NOT ADD A 4TH PRESSOR WITHOUT THE RESULTS OF THE MOST RECENT ABG'S.
--- NOTE | 2019-10-22 20:22 | NUR ---
NIBP 73/26 MAP 44. NEOSYNEPHRINE GTT INCREASED TO 275 MCG/MIN
--- NOTE | 2019-10-22 20:30 | NUR ---
NIBP 75/27 MAP 38. VASOPRESSIN GTT INCREASED 0.03 UNITS/MIN
--- NOTE | 2019-10-22 20:45 | NUR ---
DR. MARQUEZ MADE AWARE OF MOST RECENT ABG RESULTS. PER DR. MARQUEZ, ORDER 3 AMPS OF SODIUM BICARB IVP, D5W WITH 3 AMPS OF SODIUM BICARB INFUSING @ 100 ML/HR, AND 100 ML OF ALBUMIN 25% IV. ORDER NOTED AND CARRIED OUT
--- NOTE | 2019-10-22 21:15 | NUR ---
NIBP 102/18 MAP 49. NEOSYNEPHRINE GTT TITRATED TO 300 MCG/MIN
--- NOTE | 2019-10-22 21:45 | NUR ---
NIBP 113/15 MAP 48. VASOPRESSIN GTT INCREASED TO 0.04 UNITS/MIN
[2019-10-23] VITALS (19 sets, daily range): BP systolic 71–128; BP diastolic 10–37; Ht 170.2 cm; Wt 104.0 kg
--- NOTE | 2019-10-23 00:30 | NUR ---
PTS' DAUGHTER AT BEDSIDE. UPDATED ON PT'S CURRENT STATUS AND CRITICAL STATE. PER THE PT'S DAUGHTER, PT TO REMAIN FULL CODE.
--- NOTE | 2019-10-23 02:42 | NUR ---
REPORT GIVEN TO ENIO SEAFOOD AND SERVICE MEAT MANAGER FOR CONTINUITY OF CARE. ALL QUESTIONS/CONCERNS ADDRESSED. ENDORSING ALL CARE
--- NOTE | 2019-10-23 07:25 | NUR ---
DR. FAULKNER IS AT BEDSIDE SEEING THE PATIENT AND WAS UPDATED THE PATIENT'S STATUS.
--- NOTE | 2019-10-23 07:30 | NUR ---
PATIENT TRACH'D WITH NO SEDATION. PATIENT HAD ONLY MILD GAG REFLEX UPON SUCTIONING. SY PUPILS 7MM AND FIXED TO LIGHT. TRACH SIZE [address] AND SECURED. TRACH TO VENT VIA VCV/AC MODE: FIO2 30%, RATE 14, VT 550, AND PEEP 5. TELE # 6 SHOWS THE 1ST DEGREE BLOCK. PEG TUBE IN PLACE AND CLAMPED AND TUBE FEEDING ON HOLD DUE TO VOMITING EARLIER DURING DRAPERY AND UPHOLSTERY ESTIMATOR; KUB WAS TAKEN. DR. FAULKNER WAS AWARE AND VERBALLY CONTINUE TO HOLD TUBE FEEDING NOW. GASTRIC RESIDUAL CHECKED AT THIS TIME 0. FLEXISEAL IN PLACE AND DRAINING DARK RED LIQUID STOOL. PICC LINE IN PLACE TO RIGHT UPPER ARM. ALIVIA CATH TO RIGHT FEMORAL. PATIENT IS ON LEVOPHED AT 30MCG/MIN, VASOPRESSIN 0.04U/MIN AND NEOSYN AT 300MCG/MIN. ALSO, SODIUM BICARB IS INFUSING AT 100ML/HR. HEAD OF BED ELEVATED. EXTREMITIES OFFLOADED. PATIENT IS ON ISOGEL MATTRESS. BED IS AT LOWEST POSITION. SIDE RAILS UP X3.
[2019-10-23 08:41] LABS: PLATELET COUNT 90 x10^3mcL (130-400); RED CELL DISTRIBUTION WIDTH 18.1 % (11.5-14.5)
[2019-10-23 10:33] LABS: BAND NEUTROPHIL 12 % (0-10); METAMYELOCTE 5 % (0-2); MONOCYTE 6 % (0-7); MYELOCYTE 3 % (0-2); SEGMENTED NEUTROPHILS 65 % (37-75)
[2019-10-23 10:37] LABS: burr cell (echinocyte) 1+
[2019-10-23 10:39] LABS: PLATELET MORPHOLOGY LARGE PLATELET SEEN
[2019-10-23 10:46] LABS: CHLORIDE SERUM 84 mmol/L (98-107); POTASSIUM SERUM 5.5 mmol/L (3.5-5.1); SODIUM SERUM 131 mmol/L (136-145)
[2019-10-23 10:48] LABS: CARBON DIOXIDE 7.2 mmol/L (21-32); GLUCOSE SERUM 386 mg/dL (74-106)
[2019-10-23 10:51] LABS: CREATININE SERUM 4.3 mg/dL (0.6-1.0); GFR1 11 mL/min; TOTAL PROTEIN, SERUM 4.4 g/dL (6.4-8.2)
[2019-10-23 10:52] LABS: ALBUMIN 1.5 g/dL (3.4-5.0); ALKALINE PHOSPHATASE 858 U/L (46-116); ALT/SGPT 1944 U/L (14-59); BILIRUBIN TOTAL 0.8 mg/dL (0.20-1.00); CALCIUM 8.6 mg/dL (8.5-10.1)
[2019-10-23 11:33] LABS: rbc morphology (normal/abnorm) ABNORMAL (NORMAL)
--- NOTE | 2019-10-23 11:36 | NUR ---
DR. CRUZ IS AT THE STATION AND MADE AWARE OF THE PATIENT'S HEMOGLOBIN 7.7.
--- NOTE | 2019-10-23 12:30 | NUR ---
DR. FAULKNER WAS CALLED AGAIN AND NOTIFIED ALL THE LATEST ABNORMAL BLOOD TEST RESULTS THIS MORNING. PER DR. FAULKNER, CONTINUE MEDS AND DRIPS PATIENT IS ON NOW AND NO FURTHER ORDER SO FAR.
--- NOTE | 2019-10-23 15:55 | NUR ---
NOY TITRATED FIO2 TO 100% BECAUSE THE PATIENT DESAT TO 90%.
--- NOTE | 2019-10-23 17:54 | NUR ---
TALKING TO LILIAM, THE PATIENT'S DAUGHTER AGAIN. LILIAM DECIDED THAT KEEP THE PATIENT ON VENT VIA TRACH AND 3 PRESSORS MEDS BUT DOES NOT DO CPR NOR SHOCK. DR. EVANS WAS CALLED AND NOTIFIED OF THAT.
--- NOTE | 2019-10-23 18:00 | NUR ---
DR. BROWN WAS AT BEDSIDE TALKING TO THE LILIAM, THE DAUGHTER AND INFORMED THE CHARGE NURSE AND MYSELF THAT THE DAUGHTER REFUSED HEMODIALYSIS FOR THE PATIENT.
--- NOTE | 2019-10-23 18:37 | NUR ---
LILIAM, THE PATIENT'S DAUGHTER REFUSED FOR THE PATIENT TO HAVE TUBE FEEDING RESUMED.
--- NOTE | 2019-10-23 19:10 | NUR ---
RECEIVED REPORT FROM GEMMA VILLARREAL. WILL RESUME CARE.
--- NOTE | 2019-10-23 19:25 | NUR ---
RECEIVED PT TRACH'D WITH NO SEDATIONL. PT UNABLE TO FOLLOW COMMANDS OR MAKE NEEDS KNOWN. TRACH PRTEX 8.0 INTACT AND SECURED. ON VENT VCV-AC MODE WITH SETTINGS OF VT 550, ALEXANDER 100%, R 14, PEEP 5. LUNG SOUNDS HAVE CRACKLES TO BILATERAL UPPER LOBES AND DIMINISHED TO BASES. IDIOVENTRICULAR RHYTHM ON CLOTH OPENER HAND. ON LEVOPHED AT 30MCG/MIN, VASOPRESSIN AT 0.04UNIT/MIN, AND NEOSYNEPHRINE AT 300MCG, MIN. B/P 81/17. MAP 25. NO S/SX OF PAIN. PULSES WITH DOPPLER. GENERALIZED WEAKNESS. NPO AT THIS TIME. ABDOMEN OBESE, NONTENDER. BS HYPOACTIVE X 4. NO N/V. BED IN LOW POSITION. DAUGTER AT BEDSIDE. WILL CONTINUE TO MONITOR.
--- NOTE | 2019-10-23 19:28 | NUR ---
RECEIVED A PHONE CALL FROM THE X RAY DEVELOPER SAYING THAT AST LEVEL CANNOT BE CHECKED. THE X RAY DEVELOPER WAS CALLED TO GET ANOTHER REDRAW OF THE BLOOD FOR THE LEVEL. ENDORSE TO MARIA ISABEL GALO RN TO REDRAW THE BLOOD VIA PICC LINE FOR THE LEVEL AND THE X RAY DEVELOPER COMES.
--- NOTE | 2019-10-23 19:36 | NUR ---
THE PATIENT IS HEMODYNAMICALLY UNSTABLE TO HAVE WOUND CARE, DRESSING AND PHOTO TAKEN THROUGHOUT THE SHIFT.
--- NOTE | 2019-10-23 20:30 | NUR ---
RT AT BEDSIDE ASSESSING PT AND GIVING BREATHING TREATMENT. PT TOLERATING WELL.
--- NOTE | 2019-10-23 21:10 | NUR ---
DR. EVANS MADE AWARE OF LAB VALUE AST [id number]. NO NEW ORDERS.
[2019-10-24] VITALS (7 sets, daily range): BP systolic 53–76; BP diastolic 11–23
--- NOTE | 2019-10-24 05:08 | NUR ---
AUTOCAD ELECTRICAL DESIGNER AT BEDSIDE FOR BLOOD DRAW.
[2019-10-24 05:48] LABS: CALCIUM 7.7 mg/dL (8.5-10.1); CARBON DIOXIDE 11.9 mmol/L (21-32); CREATININE SERUM 3.7 mg/dL (0.6-1.0); POTASSIUM SERUM 5.4 mmol/L (3.5-5.1)
[2019-10-24 06:03] LABS: BASOPHIL % 0.1 % (0-2)
[2019-10-24 06:04] LABS: RED CELL DISTRIBUTION WIDTH 19.8 % (11.5-14.5)
[2019-10-24 06:07] LABS: rbc morphology (normal/abnorm) ABNORMAL (NORMAL)
[2019-10-24 06:08] LABS: PLATELET COUNT 52 x10^3mcL (130-400)
--- NOTE | 2019-10-24 06:30 | NUR ---
REPORT ABNORMAL LABS TO DR EVANS, TELEPHONE ORDER GIVEN FOR D-DIMER AND FIBRINOGEN TO ADD TO MORNING LABS, 2 U PRBC, 2 UNIT PLT, 1 UNIT FFP. TELEPHONE ORDER READ BACK. ORDER NOTED AND CARRIED OUT.
--- NOTE | 2019-10-24 06:45 | NUR ---
LILIAM AT BEDSIDE MADE AWARE REGARDING NEW ORDERS FOR BLOOD TRANSFUSION, LILIAM REFUSED AT THIS TIME.
--- NOTE | 2019-10-24 07:00 | NUR ---
DR FAULKNER AT BEDSIDE TO ASSESS PATIENT. DAUGHTER LILIAM AT BEDSIDE. POC DISCUSSED INCLUDING PATIENT'S EXTREMELY POOR PROGNOSIS. LABS, CODE STATUS AND COMFORT MEASURES DISCUSSED IN DETAIL. LILIAM WOULD LIKE TO CONTINUE WITH CARE, CONTINUED TO REFUSE BLOOD TRANSFUSION AND WOULD LIKE TO DISCUSS WITH HER AUNT COMFORT MEASURES BEFORE MAKING DECISION. PRIMARY RN CLOVER MADE AWARE.
--- NOTE | 2019-10-24 08:43 | NUR ---
SPOKE WITH DR MERCADO AND INFORMED HIM DAUGHTER LILIAM WOULD LIKE TO MAKE PATIENT COMFORT MEASURES ONLY. DR MERCADO SPOKE WITH LILIAM VIA TELEPHONE AND AND ORDERS RECEIVED TO MAKE PATIENT DNR WITH COMFORT MEASURES IN PLACE. I SPOKE WITH LILIAM AND OFFERED HER EMOTIONAL SUPPORT AND ASKED IF THERE WAS ANYONE I COULD CALL FOR HER. SHE DECLINED AT THIS TIME. WILL CARRY OUT DNR/COMFORT ORDERS RECEIVED.
--- NOTE | 2019-10-24 09:00 | NUR ---
LILIAM REQUESTING THAT MEDICATIONS BE TITRATED OFF RATHER THAN TURNED OFF ALL AT ONCE. EDUCATION PROVIDED REGARDING COMFORT MEASURES AND COMFORT PROVIDED TO HER BEDSIDE. LILIAM REMAINS IN AGREEMENT AND WILL INFORM STAFF IF PATIENT APPEARS TO BE IN ANY DISCOMFORT. WILL CARRY OUT DAUGHTER'S WISHES. JESIKA TITRATED TO 150 MCG AND LEVOPHED TITRATED T0 20 MCG. LILIAM REAMINS AT BEDSIDE AT THIS TIME.
--- NOTE | 2019-10-24 11:20 | NUR ---
Follow-up Nutrition Assessment: IC06/A KATELYN GARG MR Dx: Sepsis, aspiration PNA PMHx: ESRD on HD (M-W-), HTN, DM, morbid obesity, peripheral vascular disease, hypoalbuminemia, necrotic left groin wound Labs: (10/24) NA 122L, BG 728H, CREAT 3.7H, BUN 80H, ALB 1.5L, WBC 59.2H, AST 8935H, ALT 1944H, HGB 6.3L Meds: Carafate, D 50%, Humulin, lantus, levophed, norco, Procrit, reglan, zosyn, nephro-vicky Diet: (PEG) Glucerna 1.2 @ 20 ml/hr, goal 60 ml/hr FWF 30 ml Q6H - on hold PO Intake: NPO Weights: (10/20) 106.3 kg, (10/22)104.3 kg, (10/24) 104 kg - fluctuations d/t HD, edema I/Os: (10/23) 984/500 (484) Skin: multiple ulcers and skin tears, new dressing in place James: 10 Edema: 2+ edema BLE, 4+ BUE GI: rectal tube in place, dark liquid stool Last BM: 10/20 RD Note (10/24): Patient is DNR palliative care only. Estimated Nutritional Needs Based on body weight (72 kg) Energy: 9699-0312 vs 1988 (30-35 kcal/kg vs PSU for HD) Protein: 86- 101 g/day (1.2-1.4 g/kg for HD) Fluid: 1918-7334 mL/day (1 mL/kcal) or per MD Nutrition Diagnosis: 1.Increased nutrient needs related to wounds, HD as evidenced by estimated calorie and protein needs. (ongoing). 2. Inadequate enteral nutrition infusion related to low TF rate as evidenced by current TF rate meeting <75% estimated calorie and protein needs. (improved- rate changed to 60 ml/hr) Intervention: 1. No interventions. Patient is DNR palliative care. Monitor/Evaluate: Goal: Have pt meet at least 75% of estimated needs Monitor: TF intake/ tolerance, Labs, GI function F/U in 7 days as low risk 10/31
--- NOTE | 2019-10-24 11:20 | NUR ---
1. No interventions. Patient is DNR palliative care.
--- NOTE | 2019-10-24 11:41 | NUR ---
CARE ASSUMED FROM CLOVER VILLARREAL. ALL QUESTIONS AND CONCERNS ADDRESSED.
--- NOTE | 2019-10-24 12:01 | NUR ---
ALL DRIPS REMAIN OFF AND PATIENT APPEARS IN NO ACUTE DISTRESS. SPOKE WITH LILIAM AND OFFERED HER A MEAL AND BEVERAGES. LILIAM DECLINED AT THIS TIME.
--- NOTE | 2019-10-24 13:27 | NUR ---
PATIENT IN ASYSOLE. ASSESSED PATIENT AND AUSCULTATED HEART. NO HEARTBEAT NOTED. CALLED ED DOCTOR TO PRONOUCE ROSHAN.
--- NOTE | 2019-10-24 13:52 | NUR ---
Dr. Snyder at bedside assessing patient at this time. Will continue to monitor.
--- NOTE | 2019-10-24 14:07 | NUR ---
Dr. Scanlon responded to page regarding patient. Notified Dr. Scanlon that ED Dr. Shiva Snyder pronounced time of at 1335. Dr. Scanlon thanked us for contacting him. Will endorse this to Elizabeth VILLARREAL.
--- NOTE | 2019-10-24 17:45 | NUR ---
SPOKE WITH COUNTER WEIGHER'S DEPARTMENT TO FOLLOW UP WITH PREVIOUS REPORTING OF AT 1415. COUNTER WEIGHER'S OFFICE STATED THAT WE ARE STILL ON THE CALL BACK LIST AT THIS TIME.
--- NOTE | 2019-10-24 17:59 | NUR ---
1335- DR PINON AT BEDSIDE AND PRONOUNCED TOD 1357- ROBERTO CARLOS WORKFORCE DEVELOPMENT PROGRAM DIRECTOR MADE AWARE 1358- KATELYN IN ADMITTING MADE AWARE 1402- SPOKE WITH ANNELIESE FROM [facility]- PATIENT RELEASED #[id number] 1405- SPOKE WITH DR MERCADO AND INFORMED HIM PATIENT'S TOD 1415- CALLED ENDODONTIST'S OFFICE AND SPOKE WITH KARINA. ENDODONTIST WILL RETURN PHONE CALL.
--- NOTE | 2019-10-24 18:19 | NUR ---
SPOKE WITH MARINO SAMANIEGO FROM [facility]. PATIENT INFORMATION PROVIDED. PATIENT RELEASED AND MAY BE SENT TO [facility] MARIA ESTHER. RELEASE#[id number]. [facility] TO FOLLOW.
== END 2019-10-24 23:45 | disposition expired | DRG 3 ==
LOC: ED 03:30 → IC 06:11 → DU 09-18 14:28 → IC 09-20 10:07 → DU 09-20 10:09 → IC 09-20 10:58 → DU 09-20 11:59 → IC 09-20 12:00
PROVIDERS: Anesthesiology; Internal Medicine; Internal Medicine Cardiovascular Disease; Internal Medicine Gastroenterology; Internal Medicine Infectious Disease; Internal Medicine Pulmonary Disease; Specialist; Surgery; ADMIT Internal Medicine Pulmonary Disease
PROC: 5A1955Z Respiratory Ventilation, Greater than 96 Consecutive Hours (ICD-10-PCS; principal; 2019-08-24)
PROC: 0BH17EZ Insertion of Endotracheal Airway into Trachea, Via Natural or Artificial Opening (ICD-10-PCS; 2019-08-24)
PROC: 05HN33Z Insertion of Infusion Device into Left Internal Jugular Vein, Percutaneous Approach (ICD-10-PCS; 2019-08-24)
PROC: 30233N1 Transfusion of Nonautologous Red Blood Cells into Peripheral Vein, Percutaneous Approach (ICD-10-PCS; 2019-08-24)
PROC: 0JB80ZZ Excision of Abdomen Subcutaneous Tissue and Fascia, Open Approach (ICD-10-PCS; 2019-08-25)
PROC: 0JBB0ZZ Excision of Perineum Subcutaneous Tissue and Fascia, Open Approach (ICD-10-PCS; 2019-08-25)
PROC: 0HBLXZZ Excision of Left Lower Leg Skin, External Approach (ICD-10-PCS; 2019-08-25)
PROC: 0HBHXZZ Excision of Right Upper Leg Skin, External Approach (ICD-10-PCS; 2019-08-25)
PROC: 0HBJXZZ Excision of Left Upper Leg Skin, External Approach (ICD-10-PCS; 2019-08-25)
PROC: 0HBKXZZ Excision of Right Lower Leg Skin, External Approach (ICD-10-PCS; 2019-08-25)
PROC: 5A1D70Z Performance of Urinary Filtration, Intermittent, Less than 6 Hours Per Day (ICD-10-PCS; 2019-08-25)
PROC: 0DB68ZX Excision of Stomach, Via Natural or Artificial Opening Endoscopic, Diagnostic (ICD-10-PCS; 2019-08-28)
PROC: 05PY33Z Removal of Infusion Device from Upper Vein, Percutaneous Approach (ICD-10-PCS; 2019-09-04)
PROC: 05HM33Z Insertion of Infusion Device into Right Internal Jugular Vein, Percutaneous Approach (ICD-10-PCS; 2019-09-04)
PROC: 0J2SXYZ Change Other Device in Head and Neck Subcutaneous Tissue and Fascia, External Approach (ICD-10-PCS; 2019-09-08)
PROC: 0DH68UZ Insertion of Feeding Device into Stomach, Via Natural or Artificial Opening Endoscopic (ICD-10-PCS; 2019-09-10)
PROC: 30233R1 Transfusion of Nonautologous Platelets into Peripheral Vein, Percutaneous Approach (ICD-10-PCS; 2019-09-11)
PROC: 0B110F4 Bypass Trachea to Cutaneous with Tracheostomy Device, Open Approach (ICD-10-PCS; 2019-09-13)
PROC: 5A12012 Performance of Cardiac Output, Single, Manual (ICD-10-PCS; 2019-09-13)
PROC: 0JBB0ZZ Excision of Perineum Subcutaneous Tissue and Fascia, Open Approach (ICD-10-PCS; 2019-09-21)
PROC: 0JBM0ZZ Excision of Left Upper Leg Subcutaneous Tissue and Fascia, Open Approach (ICD-10-PCS; 2019-09-21)
PROC: 0JBL0ZZ Excision of Right Upper Leg Subcutaneous Tissue and Fascia, Open Approach (ICD-10-PCS; 2019-09-21)
PROC: 05PY33Z Removal of Infusion Device from Upper Vein, Percutaneous Approach (ICD-10-PCS; 2019-09-29)
PROC: 05HN33Z Insertion of Infusion Device into Left Internal Jugular Vein, Percutaneous Approach (ICD-10-PCS; 2019-09-29)
PROC: 0J2SXYZ Change Other Device in Head and Neck Subcutaneous Tissue and Fascia, External Approach (ICD-10-PCS; 2019-10-10)
PROC: 0JB80ZZ Excision of Abdomen Subcutaneous Tissue and Fascia, Open Approach (ICD-10-PCS; 2019-10-14)
PROC: 0JBB0ZZ Excision of Perineum Subcutaneous Tissue and Fascia, Open Approach (ICD-10-PCS; 2019-10-14)
PROC: 0JBM0ZZ Excision of Left Upper Leg Subcutaneous Tissue and Fascia, Open Approach (ICD-10-PCS; 2019-10-14)
PROC: 0JBL0ZZ Excision of Right Upper Leg Subcutaneous Tissue and Fascia, Open Approach (ICD-10-PCS; 2019-10-14)
PROC: 05PY33Z Removal of Infusion Device from Upper Vein, Percutaneous Approach (ICD-10-PCS; 2019-10-14)
PROC: 06HM33Z Insertion of Infusion Device into Right Femoral Vein, Percutaneous Approach (ICD-10-PCS; 2019-10-14)
PROC: 0W3P8ZZ Control Bleeding in Gastrointestinal Tract, Via Natural or Artificial Opening Endoscopic (ICD-10-PCS; 2019-10-22)
PROC: 3E0G8GC Introduction of Other Therapeutic Substance into Upper GI, Via Natural or Artificial Opening Endoscopic (ICD-10-PCS; 2019-10-22)
DX: A41.02 Sepsis due to Methicillin resistant Staphylococcus aureus (principal); R65.21 Severe sepsis with septic shock; I21.4 Non-ST elevation (NSTEMI) myocardial infarction; J96.01 Acute respiratory failure with hypoxia; J18.9 Pneumonia, unspecified organism; N18.6 End stage renal disease; M72.6 Necrotizing fasciitis; E43 Unspecified severe protein-calorie malnutrition; R53.2 Functional quadriplegia; K29.01 Acute gastritis with bleeding; G93.41 Metabolic encephalopathy; K26.4 Chronic or unspecified duodenal ulcer with hemorrhage; N39.0 Urinary tract infection, site not specified; I96 Gangrene, not elsewhere classified; L03.116 Cellulitis of left lower limb; D62 Acute posthemorrhagic anemia; I82.C11 Acute embolism and thrombosis of right internal jugular vein; I12.0 Hypertensive chronic kidney disease with stage 5 chronic kidney disease or end stage renal disease; I47.2 Ventricular tachycardia; Z68.44 Body mass index [BMI] 60.0-69.9, adult; I70.0 Atherosclerosis of aorta; B96.1 Klebsiella pneumoniae [K. pneumoniae] as the cause of diseases classified elsewhere; B96.5 Pseudomonas (aeruginosa) (mallei) (pseudomallei) as the cause of diseases classified elsewhere; L89.320 Pressure ulcer of left buttock, unstageable; L89.210 Pressure ulcer of right hip, unstageable; L89.890 Pressure ulcer of other site, unstageable; T88.8XXA Other specified complications of surgical and medical care, not elsewhere classified, initial encounter; E11.22 Type 2 diabetes mellitus with diabetic chronic kidney disease; E11.51 Type 2 diabetes mellitus with diabetic peripheral angiopathy without gangrene; E66.01 Morbid (severe) obesity due to excess calories; Z66 Do not resuscitate; Z22.322 Carrier or suspected carrier of Methicillin resistant Staphylococcus aureus; Z99.2 Dependence on renal dialysis; Z86.718 Personal history of other venous thrombosis and embolism; Y73.1 Therapeutic (nonsurgical) and rehabilitative gastroenterology and urology devices associated with adverse incidents; Y92.9 Unspecified place or not applicable
CPT/HCPCS: 36556; 36600; 43235; 78226; 82962; 84439; 85060; 85378; 94150; A4301; A4628; A4719; A9537; C1751; C9113; G0378; J0132; J0171; J0278; J0282; J0885-EC; J1170; J1200; J1450; J1610; J1644; J1650; J1750; J1815; J2001; J2020; J2185; J2250; J2270; J2310; J2370; J2543; J2765; J2916; J3010; J3430; J3475; J3480; J3490; J7030; J7040; J7042; J7050; J7060; J7120; J7131; J8597; P9016; P9035; P9047; Q0092; Q9967